=== PATIENT | female | born 1935 | race Caucasian/White ===

== ENCOUNTER 2017-10-31 07:00 | Day surgery (SDC) | payer OTHER ==
[2017-10-31] MEDS ORDERED: LIDOCAINE 2% MPF 5 ML VIAL ONE (07:33)
[2017-10-31] MEDS ORDERED: BUPIVACAINE 0.25% PF 10 ML VIAL ONE (07:33)
[2017-10-31] MEDS ORDERED: CYCLOPENTOLATE 1% OPTH 2 ML ONE (07:33)
[2017-10-31] MEDS ORDERED: NA CHLORIDE 0.9% 500 ML ONE (07:34)
[2017-10-31] MEDS ORDERED: TETRACAINE HCL 0.5% 2ML OPTH ONE (07:34)
[2017-10-31] MEDS ORDERED: PHENYLEPHRINE 10% OPTH 5ML ONE (07:34)
[2017-10-31] MEDS ORDERED: NS 0.9% VIAL 10 ML ONE (07:45)
[2017-10-31] MEDS ORDERED: EPINEPHRINE/PF 1 MG/ML AMP ONE (07:46)
[2017-10-31] MEDS ORDERED: BALANCED SALT IRRIG PLAIN 500 ML BTL IRR ONE (07:46)
[2017-10-31] MEDS ORDERED: DUOVISC 1 KIT OPTH ONE (07:47)
[2017-10-31] MEDS ORDERED: MOXIFLOXACIN HCL 10 DROPS/ML **OR USE OPTH ONE (07:48)
[2017-10-31] MEDS ORDERED: PROPOFOL 200 MG/20 ML VIAL IV ONE (08:15)
[2017-10-31] MEDS ORDERED: LIDOCAINE 1% MPF 2 ML AMPULE ONE ×2 (08:39→10:22)
--- NOTE | 2017-10-31 08:50 | P.BOP ---
Preoperative diagnosis: Nuclear sclerotic and posterior subcapsular cataract OD Postoperative diagnosis: Same Primary procedure: Phacoemulsification with IOL OD Estimated blood loss: None Anesthesia: Local (Subtenon's infusion with anesthesia for cataract surgery) Complications: None Implants: [id number] +23.0 Transferred to: Other (Day surgery) Condition: Good
--- OUTSIDE RECORDS SUMMARY | 2017-10-31 12:22 | XMS REPORT | Clinical Summary ---
:1935 Author Organization [facility] Address [address] [place] [address] Care Team Providers Name Role Phone Blayne Hernadez MD Primary Care Provider Allergies No Known Allergies Current Medications Prescription Sig. Disp. Refills Start End Date Status Date ALPRAZolam (XANAX) Active 0.5 MG tablet 6 atorvastatin Active (LIPITOR) 20 MG 6 tablet clopidogrel (PLAVIX) Active 75 mg tablet 6 metoprolol succinate Active XL (TOPROL-XL) 25 mg 7 24 hr tablet temazepam (RESTORIL) Active 30 mg capsule 6 HYDROcodone-acetamino Active phen (NORCO) 7.5-325 7 mg per tablet traMADol (ULTRAM) 50 Active mg tablet 7 folic acid (FOLVITE) Take 1 mg by Active 1 MG tablet mouth daily. polyethylene glycol Take 17 g by Active (MIRALAX) 17 gram mouth daily. packet acetic acid (VOSOL) 2 Administer 2 Active % otic solution drops into both ears 4 (four) times a day. cholecalciferol, Take 1,000 Active vitamin D3, (VITAMIN Units by mouth D3) 1,000 unit tablet daily. docusate sodium Take 200 mg by Active (COLACE) 100 MG mouth daily. capsule methocarbamol Active (ROBAXIN) 500 MG 7 tablet pantoprazole Take 1 tablet 180 tablet 3 Active (PROTONIX) 40 MG EC (40 mg total) 7 tabletIndications: by mouth 2 Gastroesophageal (two) times a reflux disease day. without esophagitis levoFLOXacin Active (LEVAQUIN) 500 MG 8 tablet losartan (COZAAR) 100 Take 1 tablet 90 tablet 3 09/07/19 Active MG tablet (100 mg total) 8 19 by mouth daily. methylnaltrexone Take 450 mg by 30 tablet 0 11/04/19 Active (RELISTOR) 150 mg mouth daily for 8 18 tablet 10 days. Take 3 pills every morning on empty stomach and wait 30 minutes to eat losartan (COZAAR) 50 Take 1 tablet 90 tablet 2 02/21/19 Discontinued MG tabletIndications: (50 mg total) 7 18 CAD in [place] artery, by mouth daily. Chronic systolic congestive heart failure furosemide (LASIX) 40 Take 1 tablet 180 tablet 2 10/09/19 mg tabletIndications: (40 mg total) 7 18 CAD in [place] artery, by mouth 2 Chronic systolic (two) times a congestive heart day. failure pantoprazole Take 1 tablet 180 tablet 3 01/05/20 Discontinued (PROTONIX) 40 MG EC (40 mg total) 7 17 tabletIndications: by mouth 2 Gastroesophageal (two) times a reflux disease day. without esophagitis losartan (COZAAR) 50 Take 1 tablet 90 tablet 3 09/07/19 Discontinued MG tabletIndications: (50 mg total) 8 18 CAD in [place] artery, by mouth daily. 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 02/17/2016 History of coronary artery bypass graft 02/17/2016 Encounters Date Type Specialty Care Team Description 10/24/2017 Office Visit Gastroenterology Gricel Case Dysphagia, unspecified type (Primary Dx); MD Richi Gastroesophageal reflux disease, esophagitis presence not specified; Diverticulosis of large intestine without hemorrhage; detention (current) use of antithrombotics/antiplatelets; Liver hemangioma; Drug-induced constipation 09/06/2017 Office Visit Cardiology Jerald Castillo History of coronary artery bypass graft (Primary Dx); MD Yamile Stented coronary artery 08/30/2017 Telephone Gastroenterology Evelyn Quesada MA 03/01/2017 Office Visit Cardiology Jerald Castillo CAD in [place] artery ( Primary Dx); MD Yamile History of coronary artery bypass graft; Stented coronary artery 02/21/2017 Refill Cardiology Jerald Castillo Med Refill MD Yamile 02/18/2017 Refill Cardiology Jerald Castillo Med Refill MD Yamile 01/04/2017 Telephone Gastroenterology Demarco, Gastroesophageal reflux EuLYLE britton disease without esophagitis 12/20/2016 Telephone Gastroenterology Demarco Gastroesophageal reflux EuLYLE britton disease without esophagitis (Primary Dx) 11/26/2016 Telephone Gastroenterology Demarco, Pharyngeal dysphagia LYLE Anne (Primary Dx) 11/15/2016 Telephone Gastroenterology Oneida Castaneda LVN 11/11/2016 Hospital Encounter Radiology Gricel Case, geovannyified MD Richi type after 10/30/2016 Family History Medical History Relation Name Comments Heart attack Father Heart attack Mother Colon cancer Son Relation Name Status Comments Father Mother Son Social History Tobacco Use Types Packs/Day Years Used Date Former Smoker 1 35 1956 - 1991 Smokeless Tobacco: Never Used Alcohol Use Drinks/Week oz/Week Comments Yes Sex Assigned at Date Recorded Not on file Last Filed Vital Signs Vital Sign Reading Time Taken Blood Pressure 176/71 10/24/2017 2:06 PM CDT Pulse 57 10/24/2017 2:06 PM CDT Temperature 36.6 C (97.9 F) 10/24/2017 2:06 PM CDT Respiratory Rate - - Oxygen Saturation - - Inhaled Oxygen Concentration - - Weight 72.6 kg (160 lb) 10/24/2017 2:06 PM CDT Height 149.9 cm (4' 11") 10/24/2017 2:06 PM CDT Body Mass Index 32.32 10/24/2017 2:06 PM CDT Plan of Treatment Date Type Specialty Care Team Description 11/08/2017 Appointment Radiology Gricel Case MD [address] [facility] [address] [place] [address] 03/07/2018 Office Visit Cardiology Jerald Castillo MD [address] [facility] [address] [place] [address] Health Maintenance Due Date Last Done Comments SHINGRIX VACCINE (#1) 09/27/1985 ZOSTER VACCINE 1995 PNEUMOCOCCAL POLYSACCHARIDE VACCINE AGE 65 AND OVER 09/27/2000 PNEUMOCOCCAL-13 09/27/2000 INFLUENZA VACCINE 09/07/2017 Implants Implanted Type Area Security Services Manager Device Expiration Model / Identifier Date Serial / Lot Stent Catheter Synergy (Otw) 3.00mm X 32mm - [id number] Coronary N/A: N/[place] [facility] [id number] / Implanted: 05/07/2016 (Quantity not on file) Stents INTERVENTIONAL / CARDIOLOGY Stent Catheter Synergy (Otw) 3.00mm X 16mm - [id number] Coronary N/A: N/A [facility] [id number] / Implanted: 05/07/2016 (Quantity not on file) Stents INTERVENTIONAL / CARDIOLOGY Procedures Procedure Name Priority Date/Time Associated Diagnosis Comments ECG 12-LEAD Routine 03/01/2017 1:33 CAD in [place] pine artery Results for this PM CORPORATE LOGISTICS MANAGER procedure are in the results section. FL ESOPHAGRAM Routine 11/11/2016 10:35 Dysphagia, Results for this COMPLETE AM CDT unspecified type procedure are in the results section. after 10/30/2016 Results ECG 12 lead (03/01/2017 1:33 PM) Ventricular rate 55 [facility] Atrial rate 55 [facility] KS interval 174 [facility] QRSD interval 88 [facility] QT interval 414 [facility] QTC interval 396 [facility] P axis 1 69 [facility] QRS axis 1 65 [facility] T wave axis 24 [facility] EKG impression Sinus bradycardia-Otherwise normal ECG-In automated comparison with ECG of 25-MAY-2016 13:46,-T wave inversion less evident in Inferior leads- T wave inversion no longer evident in Lateral leads-QT has shortened- Performing Organization Address City/State/Zipcode Phone Number [facility] M[facility] [address] [place] [address] [place] Esophagram Complete (11/11/2016 10:35 AM) Narrative Performed At EXAMINATION:[place] ESOPHAGRAM COMPLETE [facility] CLINICAL HISTORY:R13.10 Dysphagiaunspecified, DIFFICULTY SWALLOWING, DYSPHAGIAOROPHARYNGEALUNEXPLAINED COMPARISON:None. Fluoroscopy time: 1.8 minutes. 5 fluoroscopic exposures. FINDINGS: Single and double contrast barium esophagram was performed. IMPRESSION: 1.There is no evidence of obstructing esophageal mass or stricture. 2.There is a minimally prominent cricopharyngeal bar, although this is higher than the reported level of the patient's symptoms. 3.Mild tertiary contractions are noted. 4.GE junction is patent without evidence of hiatal hernia or gastroesophageal reflux during the course of the exam with provocative maneuvers. [facility]-[id number] Procedure Note Interface, Radiology Results Incoming - 11/11/2016 4:19 PM CDT EXAMINATION: FL ESOPHAGRAM COMPLETE CLINICAL HISTORY: R13.10 Dysphagia unspecified, DIFFICULTY SWALLOWING, DYSPHAGIA OROPHARYNGEAL UNEXPLAINED COMPARISON: None. Fluoroscopy time: 1.8 minutes. 5 fluoroscopic exposures. FINDINGS: Single and double contrast barium esophagram was performed. IMPRESSION: 1. There is no evidence of obstructing esophageal mass or stricture. 2. There is a minimally prominent cricopharyngeal bar, although this is higher than the reported level of the patient's symptoms. 3. Mild tertiary contractions are noted. 4. GE junction is patent without evidence of hiatal hernia or gastroesophageal reflux during the course of the exam with provocative maneuvers. [facility]-[id number] Performing Organization Address City/State/Zipcode Phone Number [facility] [address] [place] [address] after 10/30/2016 Insurance Payer Benefit Plan / Group Subscriber ID Type Phone Address MEDICARE MEDICARE PART A AND B xxxxxxxxxx Medicare [place], [place] y [phone] [place], [place] [id number] Home: [phone] [facility][note 3]
--- NOTE | 2017-10-31 20:09 | OP ---
Date of Procedure: 10/31/2017 Surgeon: July Ballesteros MD Anesthesiologist: 1. Gail Engel CRNA. 2. Hema Oneil M.D. Preoperative Diagnosis: Nuclear sclerotic cataract and posterior subcapsular cataract, right eye. Operation Performed: Phacoemulsification with intraocular lens implant, right eye. Anesthesia: Per cataract surgery. Complications: Description Of Procedure: In day surgery, the patient was prepped with Betadine and draped. A conju nctival incision was made in the inferior nasal quadrant with Mandy scissors. A sub-Tenon block c onsisting of a 1:1 mixture of 2% Xylocaine and 0.25% bupivacaine was placed through the conjunctival incision with a blunt cannula. A Honan balloon was placed over the eye and the patient was transferr ed to the operating room. In the operating room the patient was prepped and draped in the usual sterile fashion for ophthalmic surgery. A lid speculum was placed in the right eye. Two paracentesis sites were made superiorly an d inferiorly in the limbal cornea. Viscoat was placed in the anterior chamber and a crescent blade w as used to make a corneal groove and tunnel, and a keratome was used to enter the anterior chamber. Provisc was placed in the anterior chamber and a 360 degree capsulotomy was performed with a cystitom e. The lens was hydrodissected with BSS and rotated freely. The lens was removed with a stop and ch op technique. A 13.46 phaco CDE was used to remove the lens. Residual cortex was removed with the i rrigation and aspiration. Provisc was placed in the capsular bag. A ZCB00 +23.0 lens was placed in the capsular bag without complications. Irrigation and aspiration were used to remove residual visco elastic. The paracentesis sites were hydrated with BSS. The wound and paracentesis sites were inspe cted and found to be watertight. Vigamox 0.07 cc was placed intracamerally at the end of the procedu re. The eye was irrigated with balanced salt solution. The eye was patched with a soft cotton patch and Choi metal shield. The patient was returned to day surgery in good condition. Comments: The lens was slightly loose. Discharge Instructions: Ms. Meek was discharged to home in good condition and is to follow up w ith Dr. Leidlein in the morning. SHANDRA/RENETTA Voice ID: [id number] Report ID: [id number]
== END 2017-10-31 09:25 | disposition home or self-care (01) ==
LOC: OR 07:00
PROVIDERS: ATTEND Ophthalmology Retina Specialist
PROC: 08RJ3JZ Replacement of Right Lens with Synthetic Substitute, Percutaneous Approach (ICD-10-PCS; principal; 2017-10-31 08:30)
DX: H25.11 Age-related nuclear cataract, right eye (principal); H25.041 Posterior subcapsular polar age-related cataract, right eye; H35.3120 Nonexudative age-related macular degeneration, left eye, stage unspecified; I10 Essential (primary) hypertension; E78.5 Hyperlipidemia, unspecified; I25.2 Old myocardial infarction; Z95.1 Presence of aortocoronary bypass graft; Z95.5 Presence of coronary angioplasty implant and graft; Z83.518 Family history of other specified eye disorder; Z82.3 Family history of stroke; Z80.9 Family history of malignant neoplasm, unspecified
CPT/HCPCS: 66984; J0171; J2001 ×2

== ENCOUNTER 2018-02-11 15:11 | Emergency (ER) | payer OTHER ==
--- OUTSIDE RECORDS SUMMARY | 2018-02-11 15:14 | XMS REPORT | Clinical Summary ---
:1935 Author Organization [facility] Address [address] [place] [address] Care Team Providers Name Role Phone Blayne Hernadez MD Primary Care Provider Allergies No Known Allergies Medications Medication Sig Dispensed Refills Start End Date Status Date ALPRAZolam (XANAX) 0 Active 0.5 MG tablet 6 atorvastatin 0 Active (LIPITOR) 20 MG 6 tablet clopidogrel (PLAVIX) 0 Active 75 mg tablet 6 temazepam (RESTORIL) 0 Active 30 mg capsule 6 HYDROcodone-acetamino 0 Active phen (NORCO) 7.5-325 7 mg per tablet traMADol (ULTRAM) 50 0 Active mg tablet 7 folic acid (FOLVITE) Take 1 mg by 0 Active 1 MG tablet mouth daily. polyethylene glycol Take 17 g by 0 Active (MIRALAX) 17 gram mouth daily. packet acetic acid (VOSOL) 2 Administer 2 0 Active % otic solution drops into both ears 4 (four) times a day. cholecalciferol, Take 1,000 0 Active vitamin D3, (VITAMIN Units by mouth D3) 1,000 unit tablet daily. docusate sodium Take 200 mg by 0 Active (COLACE) 100 MG mouth daily. capsule methocarbamol 0 Active (ROBAXIN) 500 MG 7 tablet pantoprazole Take 1 tablet 180 tablet 3 Active (PROTONIX) 40 MG EC (40 mg total) 7 tabletIndications: by mouth 2 Gastroesophageal (two) times a reflux disease day. without esophagitis levoFLOXacin 0 Active (LEVAQUIN) 500 MG 8 tablet metoprolol succinate Take 2 tablets 90 tablet 3 Active XL (TOPROL-XL) 25 mg (50 mg total) 8 24 hr tablet by mouth daily. losartan (COZAAR) 100 Take 1 tablet 90 tablet 3 11/02/19 Active MG tablet (100 mg total) 8 19 by mouth daily. metoprolol succinate 0 11/01/19 Discontinued XL (TOPROL-XL) 25 mg 7 18 24 hr tablet losartan (COZAAR) 50 Take 1 tablet 90 tablet 2 02/21/19 Discontinued MG tabletIndications: (50 mg total) 7 18 CAD in [place] artery, by mouth daily. Chronic systolic congestive heart failure (HCC) furosemide (LASIX) 40 Take 1 tablet 180 tablet 2 10/09/19 mg tabletIndications: (40 mg total) 7 18 CAD in [place] artery, by mouth 2 Chronic systolic (two) times a congestive heart day. failure (HCC) losartan (COZAAR) 50 Take 1 tablet 90 tablet 3 09/07/19 Discontinued MG tabletIndications: (50 mg total) 8 18 CAD in [place] artery, by mouth daily. Chronic systolic congestive heart failure (HCC) losartan (COZAAR) 100 Take 1 tablet 90 tablet 3 11/02/19 Discontinued MG tablet (100 mg total) 8 18 by mouth daily. methylnaltrexone Take 450 mg by 30 tablet 0 11/04/19 (RELISTOR) 150 mg mouth daily for 8 18 tablet 10 days. Take 3 pills every morning on empty stomach and wait 30 minutes to eat Active Problems Problem Noted Date Stented coronary artery 03/01/2017 Coronary artery disease involving iroquois coronary artery of iroquois heart 08/17 without angina pectoris SOB (shortness of breath) 05/25/2016 CAD in [place] artery 05/25/2016 Chronic systolic congestive heart failure 05/25/2016 NSTEMI (non-ST elevated myocardial infarction) 05/06/2016 Coronary artery disease involving [place]roquois heart with angina pectoris 02/17/2016 History of coronary artery bypass graft 02/17/2016 Encounters Date Type Specialty Care Team Description 12/06/2017 Telephone Gastroenterology Oneida Castaneda LVN 12/01/2017 Hospital Encounter Radiology Gricel Csae Dysphagia, unspecified MD Richi type 11/11/2017 Telephone Gastroenterology Evelyn Quesada, [place] 11/01/2017 Refill Cardiology Gini, Med Refill Ruth, LYLE 10/31/2017 Telephone Cardiology Abilio Thompson, Follow-up [place] 10/24/2017 Office Visit Gastroenterology Gricel Case Dysphagia, unspecified type (Primary Dx); MD Richi Gastroesophageal reflux disease, esophagitis presence not specified; Diverticulosis of large intestine without hemorrhage; 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; Liver hemangioma; Drug-induced constipation 09/06/2017 Office Visit Cardiology Jerald Castillo History of coronary artery bypass graft (Primary Dx); MD Yamile Stented coronary artery 08/30/2017 Telephone Gastroenterology Evelyn Quesada, [place] 03/01/2017 Office Visit Cardiology Jerald Castillo CAD in [place]roquois artery ( Primary Dx); MD Yamile History of coronary artery bypass graft; Stented coronary artery 02/21/2017 Refill Cardiology Jerald Castillo MD 02/18/2017 Refill Cardiology Jerald Castillo Med Refill MD Yamile after 02/10/2017 Family History Medical History Relation Name Comments Heart attack Father Heart attack Mother Colon cancer Son Relation Name Status Comments Father Mother Son Social History Tobacco Use Types Packs/Day Years Used Date Former Smoker 1 35 7 - 1991 Smokeless Tobacco: Never Used Alcohol Use Drinks/Week oz/Week Comments Yes Sex Assigned at Date Recorded Not on file Job Start Date Occupation Industry Not on file Not on file Not on file Travel History Travel Start Travel End No recent travel history available. Last Filed Vital Signs Vital Sign Reading [...] Treatment Date Type Specialty Care Team Description 03/07/2018 Office Visit Cardiology Jerald Castillo MD [address] [facility] [address] [place] [address] Health Maintenance Due Date Last Done Comments SHINGLES VACCINES (1 of 2) 09/27/1985 PNEUMOCOCCAL POLYSACCHARIDE VACCINE AGE 65 AND OVER 09/27/2000 PNEUMOCOCCAL-13 09/27/2000 INFLUENZA VACCINE 09/07/2017 Implants Implanted Type Area Chief Optometry Service Device Shelf Model / Identifier Expiration Serial / Date Lot Stent Catheter Synergy (Otw) 3.00mm X 32mm - [id number] Coronary N/A: N/A [facility] [place] [id number] / Implanted: 05/07/2016 (Quantity not on file) Stents INTERVENTIONAL / CARDIOLOGY Stent Catheter Synergy (Otw) 3.00mm X 16mm - [id number] Coronary N/A: N/A [facility] [id number] / Implanted: 05/07/2016 (Quantity not on file) Stents INTERVENTIONAL / CARDIOLOGY Procedures Procedure Name Priority Date/Time Associated Diagnosis Comments FL MODIFIED BARIUM Routine 12/01/2017 1:18 PM Dysphagia, Results for this SWALLOW CDT unspecified type procedure are in the results section. ECG 12-LEAD Routine 03/01/2017 1:33 PM CAD in iroquois artery Results for this PROFESSOR OF MECHANICAL ENGINEERING procedure are in the results section. after 02/10/2017 Results FL Modified Barium Swallow (12/01/2017 1:18 PM CDT) Narrative Performed At EXAMINATION:FL MODIFIED BARIUM SWALLOW [facility] CLINICAL HISTORY:R13.10 Dysphagiaunspecified, oropharyngeal dysphagiacricopharyngeal bar vs other COMPARISON:Esophagram 11/11/2016. Fluoroscopy time: 0.9 minutes. 2 images. IMPRESSION: The patient was given multiple consistencies of barium. The swallowing act was normal. There was no evidence of aspiration or penetration. There is moderate smooth concave indentation of the posterior upper esophagus at the level of C4-5, which appears to be predominantly secondary to cervical spine osteophytosis. Please refer to Speech Pathology report for further details. [facility]-[id number] Procedure Note Interface, Radiology Results Incoming - 12/01/2017 1:40 PM CDT EXAMINATION: FL MODIFIED BARIUM SWALLOW CLINICAL HISTORY: R13.10 Dysphagia unspecified, oropharyngeal dysphagia cricopharyngeal bar vs other COMPARISON: Esophagram 11/11/2016. Fluoroscopy time: 0.9 minutes. 2 images. IMPRESSION: The patient was given multiple consistencies of barium. The swallowing act was normal. There was no evidence of aspiration or penetration. There is moderate smooth concave indentation of the posterior upper esophagus at the level of C4-5, which appears to be predominantly secondary to cervical spine osteophytosis. Please refer to Speech Pathology report for further details. [facility]-[id number] Performing Organization Address City/[facility] Phone Number [facility] [address] [place] [address] ECG 12 lead (03/01/2017 1:33 PM PROFESSOR OF MECHANICAL ENGINEERING) Ventricular rate 55 [facility] Atrial rate 55 [facility] M[facility] TN interval 174 [facility] M[facility] QRSD interval 88 [facility] M[facility] QT interval 414 [facility] M[facility] QTC interval 396 [facility] M[facility] P axis 1 69 [facility]USE QRS axis 1 65 [facility] MUSE T wave axis 24 [facility] M[facility] EKG impression Sinus bradycardia-Otherwise normal ECG-In automated comparison with ECG of 25-MAY-2016 13:46,-T wave inversion less evident in Inferior leads- T wave inversion no longer evident in Lateral leads-QT has shortened- Performing Organization Address [facility] Phone Number [facility] TEE [address] [place] [address] after 02/10/2017 Insurance Payer Benefit Plan / Group Subscriber ID Type Phone Address MEDICARE MEDICARE PART A AND B xxxxxxxxxx Medicare [place], [place] [phone] (Work) Advance Directives Patient has advance care planning documents on file. For more information, please contact:Muhammad [address] [place] [address]
--- NOTE | 2018-02-11 16:15 | RAD REPORT ---
EXAM DESCRIPTION: CT - Head Brain Wo Cont - 02/11/2018 3:57 pm CLINICAL HISTORY: Head injury status post fall. Headache COMPARISON: 2017 TECHNIQUE: Computed axial tomography of the head was obtained. IV contrast was not requested. All CT scans are performed using dose optimization technique as appropriate and may include automated exposure control or mA/KV adjustment according to patient size. FINDINGS: An intracranial bleed is not seen . The ventricles are normal in caliber. No extra-axial fluid collection is noted. Fluid within the sinuses/ mastoids is not seen. IMPRESSION: No acute intracranial abnormality is seen. If patient's symptoms persist MRI of the bra in would be recommended.
--- NOTE | 2018-02-11 17:26 | EDPHYS ---
Physician Documentation [facility] Name: Pinky Meek Age: 82 yrs Sex: Female : 1935 Arrival Date: 02/11/2018 Time: 15:14 Bed 27 Private MD: Emmanuel Hernadez C ED Physician Reyes Ochoa HPI: 02/11 17:10 This 82 yrs old Female presents to ER via Wheelchair with complaints of Fall pm1 Injury, Hand Swelling. 17:10 Details of fall: The patient fell from an upright position, while standing. Onset: The pm1 symptoms/episode began/occurred yesterday. Associated injuries: The patient sustained left hand, left wrist, and left side of forehead. Severity of symptoms: in the emergency department the symptoms are unchanged. The patient has not experienced similar symptoms in the past. The patient has not recently seen a physician. Patient slipped on concrete and landed on her left hand and hit the left side of her forehead. No LOC, headache, or neck pain. Patient with complaints of left lateral hand swelling and pain, and left wrist pain.. Historical: - Allergies: 15:44 No Known Allergies; aj - Home Meds: 15:44 Acetasol HC 1-2 % Otic drop 2 drops 4 times per day [Active]; Align 4 mg Oral cap aj [Active]; alprazolam 0.5 mg Oral Tb24 1 tab once daily [Active]; B complex-minerals Oral [Active]; clotrimazole-betamethasone 1-0.05 % Topical crea 2 times per day [Active]; Dulcolax (bisacodyl) 5 mg Oral TbEC 1 tab [Active]; folic acid 1 mg Oral tab 1 tab once daily [Active]; hydrocodone-acetaminophen 7.5-325 mg oral tab [Active]; Imdur 30 mg Oral Tb24 1 tab once daily [Active]; Lipitor 20 mg Oral tab 1 tab once daily [Active]; losartan 12.5 mg Oral [Active]; Miralax 17 gram/dose Oral powd once daily [Active]; Nitrostat 0.4 mg SL subl 1 tab every 5 minutes [Active]; Plavix 75 mg Oral tab 1 tab once daily [Active]; Protonix 40 mg Oral grps 1 packet once daily [Active]; temazepam 30 mg Oral cap 1 cap once daily [Active]; Toprol XL 25 mg Oral Tb24 1 tab once daily [Active]; tramadol 50 mg Oral tab 1 tab every 4 hours [Active]; Vitamin C 500 mg Oral tab [Active]; Vitamin D3 Complete 18 mg iron-800 mcg-150 mg Oral tab [Active]; - PMHx: 15:44 Chronic pain; Hyperlipidemia; Hypertension; aj - PSHx: 15:44 total knee replacement; Triple bypass; aj - Immunization history: Last tetanus immunization: - up to date. - Social history:: Smoking status: Patient/guardian denies using tobacco. - Ebola Screening: : Patient negative for fever greater than or equal to 101.5 degrees Fahrenheit, and additional compatible Ebola Virus Disease symptoms Patient denies exposure to infectious person Patient denies travel to an Ebola-affected area in the 21 days before illness onset No symptoms or risks identified at this time. ROS: 17:10 Constitutional: Negative for fever, chills, and weight loss, Eyes: Negative for injury, pm1 pain, redness, and discharge, ENT: Negative for injury, pain, and discharge, Neck: Negative for injury, pain, and swelling, Cardiovascular: Negative for chest pain, palpitations, and edema, Respiratory: Negative for shortness of breath, cough, wheezing, and pleuritic chest pain, Abdomen/GI: Negative for abdominal pain, nausea, vomiting, diarrhea, and constipation, Back: Negative for injury and pain, : Negative for injury, bleeding, discharge, and swelling. 17:10 Skin: Negative for injury, rash, and discoloration, Neuro: Negative for headache, weakness, numbness, tingling, and seizure. 17:10 MS/extremity: Positive for pain, swelling, tenderness, of the left hand, left wrist, Negative for decreased range of motion, deformity. Exam: 17:10 Constitutional: This is a well developed, well nourished patient who is awake, alert, pm1 and in no acute distress. Head/Face: Normocephalic, atraumatic. Eyes: Pupils equal round and reactive to light, extra-ocular motions intact. Lids and lashes normal. Conjunctiva and sclera are non-icteric and not injected. Cornea within normal limits. Periorbital areas with no swelling, redness, or edema. ENT: Nares patent. No nasal discharge, no septal abnormalities noted. Tympanic membranes are normal and external auditory canals are clear. Oropharynx with no redness, swelling, or masses, exudates, or evidence of obstruction, uvula midline. Mucous membranes moist. Neck: Trachea midline, no thyromegaly or masses palpated, and no cervical lymphadenopathy. Supple, full range of motion without nuchal rigidity, or vertebral point tenderness. No Meningismus. Chest/axilla: Normal chest wall appearance and motion. Nontender with no deformity. No lesions are appreciated. Cardiovascular: Regular rate and rhythm with a normal S1 and S2. No gallops, murmurs, or rubs. Normal PMI, no JVD. No pulse deficits. Respiratory: Lungs have equal breath sounds bilaterally, clear to auscultation and percussion. No rales, rhonchi or wheezes noted. No increased work of breathing, no retractions or nasal flaring. Abdomen/GI: Soft, non-tender, with normal bowel sounds. No distension or tympany. No guarding or rebound. No evidence of tenderness throughout. Back: No spinal tenderness. No costovertebral tenderness. Full range of motion. Skin: Warm, dry with normal turgor. Normal color with no rashes, no lesions, and no evidence of cellulitis. 17:10 Musculoskeletal/extremity: Extremities: grossly normal except: noted in the medial aspect of left hand: ecchymosis, swelling, tenderness, There is no evidence of decreased ROM, deformity, noted in the left wrist: tenderness, no evidence of decreased ROM, deformity, Circulation is intact in all extremities. 17:10 Neuro: Orientation: is normal, Motor: is normal. Vital Signs: 15:36 BP 131 / 66; Pulse 59; Resp 20; Temp 97.2; Pulse Ox 98% on R/A; Weight 70.31 kg; Height aj 4 ft. 11 in. (149.86 cm) (M); 16:20 BP 129 / 76; Pulse 62; Resp 17; Temp 98.2(O); Pulse Ox 100% on R/A; Pain 7/10; ed1 17:20 BP 125 / 84; Pulse 61; Resp 17; Temp 98.2(O); Pulse Ox 100% on R/A; Pain 6/10; ed1 18:05 BP 122 / 79; Pulse 62; Resp 17; Temp 98.1(O); Pulse Ox 100% on R/A; Pain 4/10; ed1 15:36 Body Mass Index 31.31 (70.31 kg, 149.86 cm) [place] Coma Score: 15:36 Eye Response: spontaneous(4). Verbal Response: oriented(5). Motor Response: obeys aj commands(6). Total: 15. Trauma Score (Adult): 15:36 Eye Response: spontaneous(1); Verbal Response: oriented(1); Motor Response: obeys aj commands(2); Systolic BP: > 89 mm Hg(4); Respiratory Rate: 10 to 29 per min(4); [place] Score: 15; Trauma Score: 12 16:20 Eye Response: spontaneous(1); Verbal Response: oriented(1); Motor Response: obeys ed1 commands(2); Systolic BP: > 89 mm Hg(4); Respiratory Rate: 10 to 29 per min(4); [place] Score: 15; Trauma Score: 12 17:20 Eye Response: spontaneous(1); Verbal Response: oriented(1); Motor Response: obeys ed1 commands(2); Systolic BP: > 89 mm Hg(4); Respiratory Rate: 10 to 29 per min(4); Cristela Score: 15; Trauma Score: 12 18:05 Eye Response: spontaneous(1); Verbal Response: oriented(1); Motor Response: obeys ed1 commands(2); Systolic BP: > 89 mm Hg(4); Respiratory Rate: 10 to 29 per min(4); Cristela Score: 15; Trauma Score: 12 MDM: 16:21 Patient medically screened. pm1 17:23 Data reviewed: vital signs. Data interpreted: Pulse oximetry: on room air is 100 %. pm1 Interpretation: normal. Counseling: I had a detailed discussion with the patient and/or guardian regarding: the historical points, exam findings, and any diagnostic results supporting the discharge/admit diagnosis, radiology results, the need for outpatient follow up, a orthopedic surgeon, to return to the emergency department if symptoms worsen or persist or if there are any questions or concerns that arise at home. 02/11 15:36 Order name: CT Head Brain wo Cont; Complete Time: 16:48 02/11 15:36 Order name: XRAY Hand LEFT 3 View 02/11 15:36 Order name: XRAY Wrist LEFT 3 view 02/11 17:09 Order name: Splint - Ulnar Gutter; Complete Time: 17:33 pm1 Administered Medications: No medications were administered Disposition: 02/11/18 17:25 Discharged to Home. Impression: Contusion of left hand, Pain in left wrist, Superficial injury of head. - Condition is Stable. - Discharge Instructions: Cast or Splint Care, Adult, Hand Contusion, Head Injury, Adult, Wrist Pain, [id number]. - Medication Reconciliation Form, Thank You Letter, Antibiotic Education, Prescription Opioid Use form. - Follow up: Emergency Department; When: As needed; Reason: Worsening of condition. - Problem is new. - Symptoms have improved. Addendum: 02/15/2018 08:00 Co-signature as Attending Physician, Reyes Ochoa MD I agree with the assessment and c fuchs plan of care. Signatures: Dispatcher [employer] EDMS Brook Ingram RN RN aj Anderson, Corey, MD MD cha Riggs, Erika, MICROBIOLOGY TECHNOLOGIST MICROBIOLOGY TECHNOLOGIST ed1 René Mcqueen, ELECTRIC MOTORS SALESPERSON ELECTRIC MOTORS SALESPERSON pm1 Corrections: (The following items were deleted from the chart) 02/11 18:10 17:25 02/11/2018 17:25 Discharged to Home. Impression: Contusion of left hand; Pain in ed1 left wrist; Superficial injury of head. Condition is Stable. Forms are Medication Reconciliation Form, Thank You Letter, Antibiotic Education, Prescription Opioid Use. Follow up: Emergency Department; When: As needed; Reason: Worsening of condition. Problem is new. Symptoms have improved. pm1
--- NOTE | 2018-02-11 17:26 | ER ---
Nurse's Notes [facility] Name: Pinky Meek Age: 82 yrs Sex: Female : 1935 Arrival Date: 02/11/2018 Time: 15:14 Bed 27 Private MD: Emmanuel Hernadez C Diagnosis: Contusion of left hand;Pain in left wrist;Superficial injury of head Presentation: 02/11 15:36 Presenting complaint: Patient states: Reports slip and fall hitting left hand, left aj wrist and left forehead on concrete yesterday at 1600. Denies LOC. Care prior to arrival: None. Mechanism of Injury: Fall from standing position. Trauma event details: Injury occurred in the [facility], Injury occurred: at home. Injury occurred: February 10, 2018 Injury occurred at: 16:00. 15:36 Acuity: MATHEUS 4 aj 15:36 Method Of Arrival: Wheelchair 16:20 Transition of care: patient was not received from another setting of care. Onset of ed1 symptoms was February 10, 2018. Risk Assessment: Do you want to hurt yourself or someone else? Patient reports no desire to harm self or others. Initial Sepsis Screen: Does the patient meet any 2 criteria? No. Patient's initial sepsis screen is negative. Does the patient have a suspected source of infection? No. Patient's initial sepsis screen is negative. Trauma Activation: Not Applicable Physician: ED Physician; Name: ; Notified At: ; Arrived At: Physician: General Surgeon; Name: ; Notified At: ; Arrived At: Physician: Radiology; Name: ; Notified At: ; Arrived At: Physician: Respiratory; Name: ; Notified At: ; Arrived At: Physician: Lab; Name: ; Notified At: ; Arrived At: Historical: - Allergies: 15:44 No Known Allergies; aj - Home Meds: 15:44 Acetasol HC 1-2 % Otic drop 2 drops 4 times per day [Active]; Align 4 mg Oral cap aj [Active]; alprazolam 0.5 mg Oral Tb24 1 tab once daily [Active]; B complex-minerals Oral [Active]; clotrimazole-betamethasone 1-0.05 % Topical crea 2 times per day [Active]; Dulcolax (bisacodyl) 5 mg Oral TbEC 1 tab [Active]; folic acid 1 mg Oral tab 1 tab once daily [Active]; hydrocodone-acetaminophen 7.5-325 mg oral tab [Active]; Imdur 30 mg Oral Tb24 1 tab once daily [Active]; Lipitor 20 mg Oral tab 1 tab once daily [Active]; losartan 12.5 mg Oral [Active]; Miralax 17 gram/dose Oral powd once daily [Active]; Nitrostat 0.4 mg SL subl 1 tab every 5 minutes [Active]; Plavix 75 mg Oral tab 1 tab once daily [Active]; Protonix 40 mg Oral grps 1 packet once daily [Active]; temazepam 30 mg Oral cap 1 cap once daily [Active]; Toprol XL 25 mg Oral Tb24 1 tab once daily [Active]; tramadol 50 mg Oral tab 1 tab every 4 hours [Active]; Vitamin C 500 mg Oral tab [Active]; Vitamin D3 Complete 18 mg iron-800 mcg-150 mg Oral tab [Active]; - PMHx: 15:44 Chronic pain; Hyperlipidemia; Hypertension; aj - PSHx: 15:44 total knee replacement; Triple bypass; aj - Immunization history: Last tetanus immunization: - up to date. - Social history:: Smoking status: Patient/guardian denies using tobacco. - Ebola Screening: : Patient negative for fever greater than or equal to 101.5 degrees Fahrenheit, and additional compatible Ebola Virus Disease symptoms Patient denies exposure to infectious person Patient denies travel to an Ebola-affected area in the 21 days before illness onset No symptoms or risks identified at this time. Screenin:21 Abuse screen: Denies threats or abuse. Denies injuries from another. Nutritional ed1 screening: No deficits noted. Tuberculosis screening: No symptoms or risk factors identified. Fall Risk Fall in past 12 months (25 points). No secondary diagnosis (0 pts). No IV (0 pts). Ambulatory Aid- None/Bed Rest/Nurse Assist (0 pts). Gait- Normal/Bed Rest/Wheelchair (0 pts) Mental Status- Oriented to own ability (0 pts). Total Snowden Fall Scale indicates Low Risk Score (25-44 pts). Fall prevention measures have been instituted. Side Rails Up X 2 Frequent Obs/Assesments occuring As available Patient and Family Educated on Fall Prevention Program and strategies. Primary Survey: 15:36 NO uncontrolled hemorrhage observed. Breathing/Chest: Respiratory pattern: regular, aj Respiratory effort: spontaneous, unlabored. Circulation: Skin color: pink, Skin temperature: warm, dry. Disability Alert. 16:20 Exposure/Environment: There is no evidence of uncontrolled external bleeding. A warming ed1 method has been applied: A warm blanket has been provided to the patient. Reassessment Breathing/Chest Respiratory pattern Regular Respiratory effort Spontaneous Unlabored Breath sounds Clear Chest inspection Symmetrical. Assessment: 15:36 General: Appears in no apparent distress. comfortable, Behavior is calm, cooperative, aj appropriate for age. Pain: Complains of pain in left hand and left arm. Neuro: Level of Consciousness is awake, alert, obeys commands, Oriented to person, place, time, situation, Appropriate for age. Respiratory: Airway is patent Respiratory effort is even, unlabored, Respiratory pattern is regular, symmetrical. Derm: Skin is intact, is healthy with good turgor, Skin is pink, warm \\T\\ dry. normal, Bruising that is brown. 16:20 Reassessment: Patient appears in no apparent distress at this time. Patient and/or ed1 family updated on plan of care and expected duration. Pain level reassessed. Patient is alert, oriented x 3, equal unlabored respirations, skin warm/dry/pink. Pt just placed in room by radiology Patient states symptoms have not improved. Musculoskeletal: Circulation, motion, and sensation intact. Capillary refill < 3 seconds, in bilateral fingers. Range of motion: Swelling present in left wrist. 17:20 Reassessment: Patient appears in no apparent distress at this time. Patient and/or ed1 family updated on plan of care and expected duration. Pain level reassessed. Patient is alert, oriented x 3, equal unlabored respirations, skin warm/dry/pink. Patient states symptoms have not improved. 18:05 Reassessment: Patient appears in no apparent distress at this time. Patient and/or ed1 family updated on plan of care and expected duration. Pain level reassessed. Patient is alert, oriented x 3, equal unlabored respirations, skin warm/dry/pink. Pt states "It feels better with this splint in." Patient states feeling better. Patient states symptoms have improved. Vital Signs: 15:36 BP 131 / 66; Pulse 59; Resp 20; Temp 97.2; Pulse Ox 98% on R/A; Weight 70.31 kg; Height aj 4 ft. 11 in. (149.86 cm) (M); 16:20 BP 129 / 76; Pulse 62; Resp 17; Temp 98.2(O); Pulse Ox 100% on R/A; Pain 7/10; ed1 17:20 BP 125 / 84; Pulse 61; Resp 17; Temp 98.2(O); Pulse Ox 100% on R/A; Pain 6/10; ed1 18:05 BP 122 / 79; Pulse 62; Resp 17; Temp 98.1(O); Pulse Ox 100% on R/A; Pain 4/10; ed1 15:36 Body Mass Index 31.31 (70.31 kg, 149.86 cm) aj [place] Coma Score: 15:36 Eye Response: spontaneous(4). Verbal Response: oriented(5). Motor Response: obeys aj commands(6). Total: 15. Trauma Score (Adult): 15:36 Eye Response: spontaneous(1); Verbal Response: oriented(1); Motor Response: obeys aj commands(2); Systolic BP: > 89 mm Hg(4); Respiratory Rate: 10 to 29 per min(4); [place] Score: 15; Trauma Score: 12 16:20 Eye Response: spontaneous(1); Verbal Response: oriented(1); Motor Response: obeys ed1 commands(2); Systolic BP: > 89 mm Hg(4); Respiratory Rate: 10 to 29 per min(4); Cristela Score: 15; Trauma Score: 12 17:20 Eye Response: spontaneous(1); Verbal Response: oriented(1); Motor Response: obeys ed1 commands(2); Systolic BP: > 89 mm Hg(4); Respiratory Rate: 10 to 29 per min(4); [place] Score: 15; Trauma Score: 12 18:05 Eye Response: spontaneous(1); Verbal Response: oriented(1); Motor Response: obeys ed1 commands(2); Systolic BP: > 89 mm Hg(4); Respiratory Rate: 10 to 29 per min(4); [place] Score: 15; Trauma Score: 12 ED Course: 15:14 Patient arrived in ED. mr 15:14 Emmanuel Hernadez MD is Private Physician. mr 15:37 Triage completed. aj 15:44 Arm band placed on left wrist. Patient placed in waiting room, Patient notified of wait aj time. X-ray ordered. CT ordered. 15:57 CT Head Brain wo Cont In Process Unspecified. EDMS 16:02 Reyes Long PA is PHCP. silvia 16:13 René Mcqueen NP is PHCP. pm1 16:13 Reyes Ochoa MD is Attending Physician. pm1 16:14 XRAY Hand LEFT 3 View In Process Unspecified. EDMS 16:14 XRAY Wrist LEFT 3 view In Process Unspecified. EDMS 16:17 Shawna Trevizo LVN is Primary Nurse. ed1 16:20 Patient maintains SpO2 saturation greater than 95% on room air. ed1 16:20 Thermoregulation: warm blanket given to patient. ed1 16:21 Patient has correct armband on for positive identification. Bed in low position. Call ed1 light in reach. Side rails up X 1. 17:33 Orthoglass splint: Ulnar gutter/Boxer splint applied on left forearm. mh5 18:05 No provider procedures requiring assistance completed. Patient did not have IV access ed1 during this emergency room visit. Administered Medications: No medications were administered Intake: 16:20 PO: 0ml; Total: 0ml. ed1 18:05 PO: 0ml; Total: 0ml. ed1 Output: 16:20 Urine: 0ml; Total: 0ml. ed1 18:05 Urine: 0ml; Total: 0ml. ed1 Outcome: 17:25 Discharge ordered by MD. pm1 18:05 Discharged to home ambulatory. ed1 18:05 Condition: good 18:05 Discharge instructions given to patient, Instructed on discharge instructions, follow up and referral plans. splint care Demonstrated understanding of instructions, follow-up care, splint care. 18:09 Patient's length of stay in the Emergency Department was greater than 2 hours. No beds ed1 in ERPatient's length of stay extended due to 18:10 Patient left the ED. ed1 Signatures: Dispatcher [employer] EDMS Brook Ingram RN RN aj Rivera, Mary mr SanthoshShawna LVN LVN ed1 Reyes Long PA PA cp Marinas, Patrick, NP [employer] pm1 Constanza Smith [facility]
--- NOTE | 2018-02-11 18:41 | RAD REPORT ---
EXAM DESCRIPTION: RAD -Hand Left 3 View - 02/11/2018 4:14 pm CLINICAL HISTORY: Left hand pain status post injury FINDINGS: No fracture or dislocation is seen involving the left hand Bones are osteoporotic
--- NOTE | 2018-02-11 18:43 | RAD REPORT ---
EXAM DESCRIPTION: RAD - Wrist Left 3 View - 02/11/2018 4:14 pm CLINICAL HISTORY: Left wrist pain status post injury FINDINGS: The bones are osteoporotic. An oblique lucency is present within the distal aspect of the radius which could represent a prominen t trabecula or nondisplaced fracture A fracture of the ulnar styloid process is suspected of indeterminate age. No dislocation is seen
== END 2018-02-11 18:10 | disposition home or self-care (01) ==
LOC: ER 15:11
DX: S60.222A Contusion of left hand, initial encounter (principal); S00.90XA Unspecified superficial injury of unspecified part of head, initial encounter; W01.198A Fall on same level from slipping, tripping and stumbling with subsequent striking against other object, initial encounter; Y93.89 Activity, other specified; Y92.9 Unspecified place or not applicable; Z79.01 Long term (current) use of anticoagulants; Z95.1 Presence of aortocoronary bypass graft; I10 Essential (primary) hypertension; E78.5 Hyperlipidemia, unspecified
CPT/HCPCS: 70450; 99284

== ENCOUNTER 2018-05-28 12:33 | Inpatient (IN) | payer OTHER ==
--- OUTSIDE RECORDS SUMMARY | 2018-05-28 12:35 | XMS REPORT | Clinical Summary ---
:1935 Author Organization [facility] Address [address] [place] [address] Care Team Providers Name Role Phone Blayne [...] times a reflux disease day. without esophagitis metoprolol succinate Take 2 tablets 90 tablet 3 Active XL (TOPROL-XL) 25 mg (50 mg total) 8 24 hr tablet by mouth daily. losartan (COZAAR) 100 Take 1 tablet 90 tablet 3 11/02/19 Active MG tablet (100 mg total) 8 19 by mouth daily. furosemide (LASIX) 40 Take 1 tablet 180 tablet 3 03/08/19 Active mg tablet (40 mg total) 9 20 by mouth 2 (two) times a day. nitroglycerin 1 under the 100 tablet 11 03/08/19 Active (NITROSTAT) 0.4 MG SL tongue as 9 20 tablet needed for angina, may repeat q5mins for up three doses aspirin (ECOTRIN) 81 Take 81 mg by 0 Active MG enteric coated mouth daily. tablet ascorbic acid, Take 500 mg by 0 Active vitamin C, (ascorbic mouth daily. acid with sophia hips) 500 MG tablet DULCOLAX, BISACODYL, Take by mouth. 0 Active ORAL UNABLE TO FIND 1.66 mg. I-Caps 0 Active metoprolol succinate 0 11/01/19 Discontinued XL (TOPROL-XL) 25 mg 7 18 24 hr tablet furosemide (LASIX) 40 Take 1 tablet 180 tablet 2 10/09/19 mg tabletIndications: (40 mg total) 7 18 CAD in [place] artery, by mouth 2 Chronic systolic (two) times a congestive heart day. failure (HCC) losartan (COZAAR) 50 Take 1 tablet 90 tablet 3 09/07/19 Discontinued MG tabletIndications: (50 mg total) 8 18 CAD in [place] artery, by mouth daily. Chronic systolic congestive heart failure (HCC) levoFLOXacin 0 05/05/19 Discontinued (LEVAQUIN) 500 MG 8 19 tablet losartan (COZAAR) 100 Take 1 tablet [...] coronary artery 03/01/2017 Coronary artery disease involving [place] coronary artery of [place] heart 08/17 without angina pectoris SOB (shortness of breath) 05/25/2016 CAD in [place] artery 05/25/2016 Chronic systolic congestive heart failure 05/25/2016 NSTEMI (non-ST elevated myocardial infarction) 05/06/2016 Coronary artery disease involving [place] heart with angina pectoris 02/17/2016 History of coronary artery bypass graft 02/17/2016 Encounters Date Type Specialty Care Team Description 05/04/2018 Office Visit Gastroenterology Gricel Case Drug-induced constipation (Primary Dx); MD Richi Diverticulosis of large intestine without hemorrhage; Gastroesophageal reflux disease, esophagitis presence not specified; 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; Liver hemangioma; Globus pharyngeus 03/08/2018 Orders Only Cardiology Ganga Chen MA 03/07/2018 Office Visit Cardiology Jerald Castillo Coronary artery disease involving [place] heart with angina pectoris, unspecified vessel or lesion type ( HCC) (Primary Dx); MD Yamile History of coronary artery bypass graft 12/06/2017 Telephone Gastroenterology Oneida Castaneda LVN 12/01/2017 Hospital Encounter Radiology Gricel Case Dysphagia, unspecified MD Richi type 11/11/2017 Telephone Gastroenterology Evelyn Quesada MA 11/01/2017 Refill Cardiology Gini, Kenyon Refill Ruth, LYLE 10/31/2017 Telephone Cardiology Abilio Thompson, Follow-up [place] 10/24/2017 Office Visit GastroenterGricel Rosales Dysphagia, unspecified type (Primary Dx); MD Richi Gastroesophageal reflux disease, esophagitis presence not specified; Diverticulosis of large intestine without hemorrhage; 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; Liver hemangioma; Drug-induced constipation 09/06/2017 Office Visit Cardiology Jerald Castillo History of coronary artery bypass graft (Primary Dx); MD Yamile Stented coronary artery 08/30/2017 Telephone Gastroenterology Evelyn Quesada MA after 05/27/2017 Family History Medical History Relation Name Comments [...] Vital Sign Reading Time Taken Blood Pressure 145/59 05/04/2018 2:29 PM CDT Pulse 51 05/04/2018 2:29 PM CDT Temperature 37.1 C (98.7 F) 05/04/2018 2:29 PM CDT Respiratory Rate - - Oxygen Saturation - - Inhaled Oxygen Concentration - - Weight 73 kg (161 lb) 05/04/2018 2:29 PM CDT Height 149.9 cm (4' 11") 05/04/2018 2:29 PM CDT Body Mass Index 32.52 05/04/2018 2:29 PM CDT Plan of Treatment Date Type Specialty Care Team Description 09/05/2018 Office Visit Cardiology Jerald Castillo MD [address] [address] Health Maintenance Due Date Last Done Comments SHINGLES VACCINES (#1) 09/27/1985 65+ PNEUMOCOCCAL VACCINE (1 of 2 - PCV13) 09/27/2000 PNEUMOCOCCAL POLYSACCHARIDE VACCINE AGE 65 AND OVER 09/27/2000 INFLUENZA VACCINE 09/07/2018 Implants Implanted Type Area Dieing Out Machine Operator Device Shelf Model / Identifier Expiration Serial / Date Lot Stent Catheter Synergy (Otw) 3.00mm X 32mm - [id number] Coronary N/A: N/A [facility] [id number] / Implanted: 05/07/2016 (Quantity not on file) Stents INTERVENTIONAL / CARDIOLOGY Stent Catheter Synergy (Otw) 3.00mm X 16mm - [id number] Coronary N/A: N/A [facility] [id number] / Implanted: 05/07/2016 (Quantity not on file) Stents INTERVENTIONAL / CARDIOLOGY Procedures Procedure Name Priority Date/Time Associated Diagnosis Comments ECG 12-LEAD Routine 03/07/2018 1:26 PM Coronary artery Results for this SALES REPRESENTATIVE GROCERIES disease involving procedure are in [place] heart with the results angina pectoris, section. unspecified vessel or lesion type (HCC) [place] MODIFIED BARIUM Routine 12/01/2017 1:18 PM Dysphagia, Results for this SWALLOW CDT unspecified type procedure are in the results section. after 05/27/2017 Results ECG 12 lead (03/07/2018 1:26 PM SALES REPRESENTATIVE GROCERIES) Ventricular rate 54 [facility] Atrial rate 54 [facility] NH interval 174 [facility] QRSD interval 94 [facility] QT interval 456 [facility] QTC interval 432 [facility] P axis 1 68 [facility] QRS axis 1 58 [facility] T wave axis 18 [facility] EKG impression Sinus bradycardia-Nonspecific [facility] MUSE abnormality-Abnormal ECG-In automated comparison with ECG of 01-MAR-2017 13:33,-No significant change was found- Narrative Performed At Performing Organization Address [facility] Phone Number [facility] [address] [place] [address] [place] Modified Barium Swallow (12/01/2017 1:18 PM [...] to Speech Pathology report for further details. [facility]-[id number] Procedure Note Interface, Radiology Results Incoming - [...] to Speech Pathology report for further details. [facility]-[id number] Performing Organization Address City/State/Zipcode Phone Number JAMMIE KENNEDY [phone] [place] [address] after 05/27/2017 Insurance Payer Benefit Plan / Group Subscriber ID Type Phone Address MEDICARE MEDICARE PART A AND B xxxxxxxxxxx Medicare [place], [place] [phone] [id number] (Work) Advance Directives Patient has advance care planning documents on file. For more information, please contact:bJ Villatoro[address] [place] [address]
--- OUTSIDE RECORDS SUMMARY | 2018-05-28 12:35 | XMS REPORT ---
:1935 Author [facility] Address [address] [place] [address] Dr. Saucedo [address] [place] [id number] Care Team Providers Name Role Phone Unavailable Unavailable Unavailable Problems This patient has no known problems. Allergies, Adverse Reactions, Alerts This patient has no known allergies or adverse reactions. Medications This patient has no known medications.
[2018-05-28] MEDS ORDERED: FENTANYL CITR 100 MCG/2 ML ONE ×2 (13:32→15:20)
[2018-05-28] MEDS ORDERED: ONDANSETRON 4 MG/2 ML VIAL ONE (13:32)
[2018-05-28 13:38] LABS: Potassium 3.6 mmol/L (3.5-5.1)
[2018-05-28 13:45] LABS: Absolute Lymphocytes (CBC) 1.4 K/uL (0.7-4.9); Absolute Monocytes 0.5 K/uL (0.1-1.3); Absolute Neutrophil 4.2 K/uL (1.8-8.0); Basophils % 0.7 % (0-1.3); Eosinophils % 2.5 % (0-4.4); Hematocrit 33.6 % (36.0-45.0); Lymphocytes % 22.2 % (15.3-44.8); MPV 7.8 fL (7.6-11.3); Monocytes % 7.5 % (3.3-12.3); RBC Red Blood Cell Count 3.78 M/uL (3.86-4.86)
--- NOTE | 2018-05-28 15:03 | RAD REPORT ---
EXAM DESCRIPTION: CT - Head C Spine Cap Andrzej Hansen - 05/28/2018 2:40 pm CLINICAL HISTORY: Head and neck injury with chest and abdominal pain status post fall. Head and neck pain . TECHNIQUE: Computed axial tomography of the head and cervical spine was obtained Computed axial tomography of the chest, abdomen and pelvis was obtained. 100 cc Isovue-300 was given intravenously coronal and sagittal reconstruction was performed. All CT scans are performed using dose optimization technique as appropriate and may include automated exposure control or mA/KV adjustment according to patient size. COMPARISON: CT head 2018 CT cervical spine 2016 FINDINGS: Beam hardening artifact limits evaluation at the base of the brain. An intracranial bleed is not seen. The ventricles are normal in caliber. An extra-axial fluid collection is not noted. Flui d is not seen within the sinuses/mastoids. 10 millimeter calcification abuts the anterior left falx w hich may represent a meningioma. No surrounding vasogenic edema A cervical fracture is not seen. No dislocation is seen. Prominent pannus formation surrounds the pos terior aspect of C1 and C2 . Minimal anterior subluxation of C3 on C4 and C6 on C7 is unchanged. Spon dylosis involves the cervical spine A mediastinal hematoma is not noted. A pleural effusion is not present. A lung contusion is not seen. Marked old compression fracture involves the T5 vertebral body The liver, spleen, pancreas, adrenals, kidneys and bladder do not demonstrate a traumatic injury. On the arterial phase there is 5 centimeter area of increased enhancement involving the posterior seg ment of right lobe. Small hepatic cysts present. Fracture involves the intratrochanteric, greater and lesser trochanters right femur. Fracture fragmen ts by 6 millimeters IMPRESSION: 1. No acute intracranial abnormality is seen 2. A cervical fracture is not visualized. If the patient continues have symptoms to suggest intracran ial/spinal cord pathology then MRI would be recommended. 3. No traumatic injury involving the chest, abdomen is seen. 4. Intertrochanteric fracture involving the right femur extending into the greater and lesser trochan ters 5. 5 centimeter enhancing lesion within the liver probably is benign. Nonemergent liver ultrasound re commended for further evaluation
--- NOTE | 2018-05-28 15:03 | RAD REPORT ---
EXAM DESCRIPTION: RAD - Pelvis - 05/28/2018 2:12 pm CLINICAL HISTORY: Pelvic pain status post injury FINDINGS: An intertrochanteric fracture involves the proximal right femur extending into the greater and lesser trochanters. Fracture fragments are by 6 millimeters. No dislocation seen
--- NOTE | 2018-05-28 15:04 | RAD REPORT ---
EXAM DESCRIPTION: RAD - Hip Right 2 View - 05/28/2018 2:12 pm CLINICAL HISTORY: Right hip pain FINDINGS: An intertrochanteric fracture involves the proximal right femur extending into the greater and lesser trochanters. Fracture fragments are by 6 millimeters. No dislocation seen
--- NOTE | 2018-05-28 15:32 | EDPHYS ---
Physician Documentation [facility] Name: Pinky Meek Age: 82 yrs Sex: Female : 1935 Arrival Date: 05/28/2018 Time: 12:48 Bed 16 Private MD: ED Physician Reyes Ochoa HPI: 05/28 13:05 This 82 yrs old Female presents to ER via EMS with complaints of Fall Injury. cp 13:05 Details of fall: The patient fell from an upright position, while walking, and struck a cp tile surface. Onset: The symptoms/episode began/occurred just prior to arrival. Associated injuries: The patient sustained right pelvis and right hip, painful injury. Severity of symptoms: in the emergency department the symptoms are unchanged, despite EMS interventions. Historical: - Allergies: 12:53 No Known Allergies; hb - Home Meds: 12:53 Acetasol HC 1-2 % Otic drop 2 drops 4 times per day [Active]; Align 4 mg Oral cap hb [Active]; alprazolam 0.5 mg Oral Tb24 1 tab once daily [Active]; B complex-minerals Oral [Active]; clotrimazole-betamethasone 1-0.05 % Topical crea 2 times per day [Active]; Dulcolax (bisacodyl) 5 mg Oral TbEC 1 tab [Active]; folic acid 1 mg Oral tab 1 tab once daily [Active]; hydrocodone-acetaminophen 7.5-325 mg Oral tab [Active]; Imdur 30 mg Oral Tb24 1 tab once daily [Active]; Lipitor 20 mg Oral tab 1 tab once daily [Active]; losartan 12.5 mg Oral [Active]; Miralax 17 gram/dose Oral powd once daily [Active]; Nitrostat 0.4 mg SL subl 1 tab every 5 minutes [Active]; Plavix 75 mg Oral tab 1 tab once daily [Active]; Protonix 40 mg Oral grps 1 packet once daily [Active]; temazepam 30 mg Oral cap 1 cap once daily [Active]; Toprol XL 25 mg Oral Tb24 1 tab once daily [Active]; tramadol 50 mg Oral tab 1 tab every 4 hours [Active]; Vitamin C 500 mg Oral tab [Active]; Vitamin D3 Complete 18 mg iron-800 mcg-150 mg Oral tab [Active]; - PMHx: 12:53 Chronic pain; Hyperlipidemia; Hypertension; hb - PSHx: 12:53 total knee replacement; Triple bypass; hb - Immunization history:: Adult Immunizations up to date. - Social history:: Smoking status: Patient/guardian denies using tobacco. - Ebola Screening: : Patient negative for fever greater than or equal to 101.5 degrees Fahrenheit, and additional compatible Ebola Virus Disease symptoms. ROS: 13:10 Constitutional: Negative for body aches, chills, fever, poor PO intake. cp 13:10 Eyes: Negative for injury, pain, redness, and discharge. cp 13:10 ENT: Negative for drainage from ear(s), ear pain, sore throat, difficulty swallowing, difficulty handling secretions. 13:10 Cardiovascular: Negative for chest pain, edema, palpitations. 13:10 Respiratory: Negative for cough, shortness of breath, wheezing. 13:10 Abdomen/GI: Negative for abdominal pain, nausea, vomiting, and diarrhea, constipation, black/tarry stool, rectal bleeding. 13:10 Back: Positive for pain at rest, pain with movement, of the low back. 13:10 : Negative for urinary symptoms. 13:10 Neuro: Negative for altered mental status, dizziness, loss of consciousness, syncope. 13:10 All other systems are negative. Exam: 13:20 Constitutional: The patient appears in no acute distress, alert, awake, cp non-diaphoretic, non-toxic, well developed, well nourished, uncomfortable. 13:20 Head/Face: Normocephalic, atraumatic. cp 13:20 Eyes: Periorbital structures: appear normal, Pupils: equal, round, and reactive to light and accomodation, Extraocular movements: intact throughout, Conjunctiva: normal, no exudate, no injection, Sclera: no appreciated abnormality, Lids and lashes: appear normal, bilaterally. 13:20 ENT: External ear(s): are unremarkable, Ear canal(s): are normal, clear, TM's: are normal, no evidence of bulging, no erythema, Nose: is normal, Mouth: Lips: moist, Oral mucosa: pink and intact, moist, Posterior pharynx: is normal, airway is patent, no erythema, no exudate. 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 13:20 Cardiovascular: Rate: normal, Rhythm: regular, Pulses: Pulses are 2+ in right radial artery, right dorsalis pedis artery, left radial artery and left dorsalis pedis artery. Edema: is not appreciated, JVD: is not appreciated. 13:20 Respiratory: the patient does not display signs of respiratory distress, Respirations: normal, no use of accessory muscles, no retractions, no splinting, no tachypnea, labored breathing, is not present, Breath sounds: are clear throughout, no decreased breath sounds, no stridor, no wheezing. 13:20 Abdomen/GI: Inspection: abdomen appears normal, Bowel sounds: active, all quadrants, Palpation: abdomen is soft and non-tender, in all quadrants, rebound tenderness, is not appreciated, voluntary guarding, is not appreciated, involuntary guarding, is not appreciated. 13:20 Back: pain, that is moderate, of the lumbar area, ROM is painful. 13:20 Musculoskeletal/extremity: Extremities: grossly normal except: noted in the right pelvis and right hip: pain, tenderness. 13:20 Skin: no rash present. 13:20 Neuro: Orientation: to person, place \T\ time. Mentation: is normal, Motor: moves all fours, strength is normal, Sensation: is normal. 16:25 ECG was reviewed by the Attending Physician. cp Vital Signs: 12:32 BP 169 / 64; Pulse 58; Resp 19; Temp 98.2(O); Pulse Ox 94% ; Weight 71.67 kg (R); rb1 Height 4 ft. 11 in. (149.86 cm) (R); Pain 2/10; 13:32 BP 170 / 60; Pulse 58; Resp 18; Pulse Ox 95% on R/A; rb1 14:30 BP 164 / 56; Pulse 61; Resp 17; Pulse Ox 95% on R/A; rb1 15:30 BP 146 / 89; Pulse 72; Resp 16; Pulse Ox 99% on R/A; rb1 16:30 BP 154 / 92; Pulse 77; Resp 17; Pulse Ox 99% on R/A; Pain 2/10; rb1 17:30 BP 155 / 75; Pulse 70; Resp 18; Pulse Ox 88% on R/A; rb1 17:32 rb1 18:25 BP 139 / 58; Pulse 68; Resp 16; Pulse Ox 100% on 3 lpm NC; rb1 19:30 BP 134 / 54; Pulse 67; Resp 22; Pulse Ox 97% on 2 lpm NC; jb4 12:32 Body Mass Index 31.91 (71.67 kg, 149.86 cm) rb1 17:32 Pt. put on 3 L NC rb1 Cristela Coma Score: 12:32 Eye Response: spontaneous(4). Verbal Response: oriented(5). Motor Response: obeys rb1 commands(6). Total: 15. 19:30 Eye Response: spontaneous(4). Verbal Response: oriented(5). Motor Response: obeys jb4 commands(6). Total: 15. Trauma Score (Adult): 12:32 Eye Response: spontaneous(1); Verbal Response: oriented(1); Motor Response: obeys rb1 commands(2); Systolic BP: > 89 mm Hg(4); Respiratory Rate: 10 to 29 per min(4); Cristela Score: 15; Trauma Score: 12 13:32 Eye Response: spontaneous(1); Verbal Response: oriented(1); Motor Response: obeys rb1 commands(2); Systolic BP: > 89 mm Hg(4); Respiratory Rate: 10 to 29 per min(4); Cristela Score: 15; Trauma Score: 12 14:32 Eye Response: spontaneous(1); Verbal Response: oriented(1); Motor Response: obeys rb1 commands(2); Systolic BP: > 89 mm Hg(4); Respiratory Rate: 10 to 29 per min(4); Cristela Score: 15; Trauma Score: 12 15:30 Eye Response: spontaneous(1); Verbal Response: oriented(1); Motor Response: obeys rb1 commands(2); Systolic BP: > 89 mm Hg(4); Respiratory Rate: 10 to 29 per min(4); Cristela Score: 15; Trauma Score: 12 16:30 Eye Response: spontaneous(1); Verbal Response: oriented(1); Motor Response: obeys rb1 commands(2); Systolic BP: > 89 mm Hg(4); Respiratory Rate: 10 to 29 per min(4); [place] Score: 15; Trauma Score: 12 18:25 Eye Response: spontaneous(1); Verbal Response: oriented(1); Motor Response: obeys rb1 commands(2); Systolic BP: > 89 mm Hg(4); Respiratory Rate: 10 to 29 per min(4); Cristela Score: 15; Trauma Score: 12 19:30 Eye Response: spontaneous(1); Verbal Response: oriented(1); Motor Response: obeys jb4 commands(2); Systolic BP: > 89 mm Hg(4); Respiratory Rate: 10 to 29 per min(4); Cristela Score: 15; Trauma Score: 12 MDM: 12:51 Patient medically screened. cp 13:00 Differential diagnosis: closed head injury, contusion, fracture, multiple trauma. cp 15:26 Physician consultation: Darren Schmidt MD was called at 15:26, was contacted at 15:26, cp regarding consult, patient's condition, would like admission per Dr. Emmanuel Hernadez MD. 15:29 Physician consultation: Andrey Boyer MD was called at 15:29, was contacted at 15:29, cp regarding admission, to the telemetry unit. patient's condition. 15:30 Data reviewed: vital signs, nurses notes, lab test result(s), radiologic studies, CT cp scan, plain films, I have discussed the patient's presentation/case with the attending Emergency Department Physician; and as a result, I will admit patient. 15:30 Test interpretation: by ED physician or midlevel provider: plain radiologic studies. cp Counseling: I had a detailed discussion with the patient and/or guardian regarding: the historical points, exam findings, and any diagnostic results supporting the discharge/admit diagnosis, radiology results, the need for further work-up and treatment in the hospital. Response to treatment: the patient's symptoms have markedly improved after treatment. 05/28 12:51 Order name: Basic Metabolic Panel; Complete Time: 14:56 cp 05/28 14:57 Interpretation: Normal except: GFR 62. cp 05/28 12:51 Order name: CBC with Diff; Complete Time: 14:56 cp 05/28 14:57 Interpretation: Normal except: RBC 3.78; HGB 11.7; HCT 33.6. cp 05/28 12:51 Order name: Creatinine for Radiology; Complete Time: 14:56 cp 05/28 12:51 Order name: Type And Screen cp 05/28 12:51 Order name: PT-INR; Complete Time: 14:56 cp 05/28 12:51 Order name: Ptt, Activated; Complete Time: 14:56 cp 05/28 12:51 Order name: XRAY Hip RIGHT 2 view; Complete Time: 15:17 cp 05/28 12:51 Order name: XRAY Pelvis; Complete Time: 15:17 cp 05/28 12:51 Order name: CT Traumagram (Head C Spine CAP W Con); Complete Time: 15:17 cp 05/28 15:09 Order name: XRAY Femur RIGHT; Complete Time: 16:41 cp 05/28 16:30 Order name: Basic Metabolic Panel EDMS 05/28 16:30 Order name: Basic Metabolic Panel EDMS 05/28 16:30 Order name: CBC with Automated Diff EDMS 05/28 16:30 Order name: CBC with Automated Diff EDMS 05/28 12:51 Order name: Labs collected and sent; Complete Time: 13:19 cp 05/28 15:28 Order name: EKG; Complete Time: 15:30 cp 05/28 15:28 Order name: EKG - Nurse/Tech; Complete Time: 16:36 cp 05/28 15:28 Order name: XRAY Chest (1 view); Complete Time: 16:41 cp 05/28 16:41 Interpretation: Report review. 05/28 15:31 Order name: Rod; Complete Time: 16:36 cp 05/28 16:30 Order name: CONS Physician Consult EDWA 05/28 16:30 Order name: NPO EDMS 05/28 17:36 Order name: Diet Regular; Complete Time: 17:36 rb1 EC:25 Rate is 47 beats/min. Rhythm is regular. DE interval is normal. QRS interval is normal. cp QT interval is normal. T waves are Inverted in lead III. Interpreted by me. Reviewed by me. Administered Medications: 13:25 Drug: fentaNYL (PF) 25 mcg Route: IVP; Site: right wrist; rb1 14:00 Follow up: Response: No adverse reaction; Pain is decreased rb1 13:25 Drug: Zofran 4 mg Route: IVP; Site: right wrist; rb1 14:00 Follow up: Response: No adverse reaction; Nausea is decreased rb1 15:17 Drug: fentaNYL (PF) 25 mcg Route: IVP; Site: right wrist; rb1 15:30 Follow up: Response: No adverse reaction; Pain is decreased rb1 17:13 Drug: morphine 4 mg Route: IVP; Site: right wrist; rb1 Disposition: 05/29 07:27 Co-signature as Attending Physician, Reyes Ochoa MD I agree with the assessment and [facility] plan of care. Disposition: 05/28/18 15:31 Hospitalization ordered by Emmanuel Hernadez for Inpatient Admission. Preliminary diagnosis are Intertrochanteric fracture of femur - Right, Fall on same level from slipping, tripping and stumbling. - Bed requested for Telemetry/MedSurg (Inpatient). - Status is Inpatient Admission. jb4 - Condition is Stable. - Problem is new. - Symptoms have improved. UTI on Admission? No Signatures: Dispatcher [employer] EDReyes Reyes MD MD cha Solis, Maria ms Page, Corey, PA PA cp Barber, Rebecca, RN RN rb1 Margarita Grace RN RN Darshan Martins RN RN jb4 Corrections: (The following items were deleted from the chart) 05/28 17:52 15:31 Hospitalization Ordered by A Maricarmen RAMOS for Inpatient Admission. Preliminary ms diagnosis is Intertrochanteric fracture of femur - Right; Fall on same level from slipping, tripping and stumbling. Bed requested for Telemetry/MedSurg (Inpatient). Status is Inpatient Admission. Condition is Stable. Problem is new. Symptoms have improved. UTI on Admission? No. cp 20:07 17:52 05/28/2018 15:31 Hospitalization Ordered by A Maricarmen RAMOS for Inpatient Admission. jb4 Preliminary diagnosis is Intertrochanteric fracture of femur - Right; Fall on same level from slipping, tripping and stumbling. Bed requested for Telemetry/MedSurg (Inpatient). Status is Inpatient Admission. Condition is Stable. Problem is new. Symptoms have improved. UTI on Admission? No. ms
--- NOTE | 2018-05-28 15:32 | ER ---
Nurse's Notes [facility] Name: Pinky Meek Age: 82 yrs Sex: Female : 1935 Arrival Date: 05/28/2018 Time: 12:48 Bed 16 Private MD: Diagnosis: Intertrochanteric fracture of femur-Right;Fall on same level from slipping, tripping and stumbling Presentation: 05/28 12:31 Acuity: MATHEUS 2 hb 12:31 Method Of Arrival: EMS: [facility] 12:32 Presenting complaint: EMS states: Pt. was in her kitchen when her grandson came in and rb1 she tripped and fell when turning around. Denies hitting her head or LOC. C/o right hip pain. Is taking blood thinners. No deformities noted to the right hip. NKDA. History of chronic back pain, constipation, and neuropathy. IV in the right wrist. Pt. arrived on a backboard and has a C-collar on. 12:32 Care prior to arrival: Cervical collar in place. Placed on backboard. IV initiated. 20 rb1 GA, in the right wrist. Mechanism of Injury: Fall from standing position. Trauma event details: Injury occurred in the [facility], Injury occurred: at home. Injury occurred: May 28, 2018 Injury occurred at: 11:40. 12:32 Transition of care: patient was not received from another setting of care. Risk rb1 Assessment: Do you want to hurt yourself or someone else? Patient reports no desire to harm self or others. Initial Sepsis Screen: Does the patient meet any 2 criteria? No. Patient's initial sepsis screen is negative. Does the patient have a suspected source of infection? No. Patient's initial sepsis screen is negative. 12:32 Onset of symptoms was May 28, 2018. rb1 Trauma Activation: Alert Physician: ED Physician; Name: Reyes Finn; Notified At: 12:31; Arrived At: 12:31 Physician: General Surgeon; Name: ; Notified At: 12:31; Arrived At: Physician: Radiology; Name: Марина Serna; Notified At: 12:31; Arrived At: 12:31 Physician: Respiratory; Name: ; Notified At: 12:31; Arrived At: Physician: Lab; Name: ; Notified At: 12:31; Arrived At: Historical: - Allergies: 12:53 No Known Allergies; hb - Home Meds: 12:53 Acetasol HC 1-2 % Otic drop 2 drops 4 times per day [Active]; Align 4 mg Oral cap hb [Active]; alprazolam 0.5 mg Oral Tb24 1 tab once daily [Active]; B complex-minerals Oral [Active]; clotrimazole-betamethasone 1-0.05 % Topical crea 2 times per day [Active]; Dulcolax (bisacodyl) 5 mg Oral TbEC 1 tab [Active]; folic acid 1 mg Oral tab 1 tab once daily [Active]; hydrocodone-acetaminophen 7.5-325 mg Oral tab [Active]; Imdur 30 mg Oral Tb24 1 tab once daily [Active]; Lipitor 20 mg Oral tab 1 tab once daily [Active]; losartan 12.5 mg Oral [Active]; Miralax 17 gram/dose Oral powd once daily [Active]; Nitrostat 0.4 mg SL subl 1 tab every 5 minutes [Active]; Plavix 75 mg Oral tab 1 tab once daily [Active]; Protonix 40 mg Oral grps 1 packet once daily [Active]; temazepam 30 mg Oral cap 1 cap once daily [Active]; Toprol XL 25 mg Oral Tb24 1 tab once daily [Active]; tramadol 50 mg Oral tab 1 tab every 4 hours [Active]; Vitamin C 500 mg Oral tab [Active]; Vitamin D3 Complete 18 mg iron-800 mcg-150 mg Oral tab [Active]; - PMHx: 12:53 Chronic pain; Hyperlipidemia; Hypertension; hb - PSHx: 12:53 total knee replacement; Triple bypass; hb - Immunization history:: Adult Immunizations up to date. - Social history:: Smoking status: Patient/guardian denies using tobacco. - Ebola Screening: : Patient negative for fever greater than or equal to 101.5 degrees Fahrenheit, and additional compatible Ebola Virus Disease symptoms. Screenin:32 Abuse screen: Denies threats or abuse. Tuberculosis screening: No symptoms or risk rb1 factors identified. 12:32 Nutritional screening: No deficits noted. Fall Risk Fall in past 12 months (25 points). rb1 No secondary diagnosis (0 pts). IV access (20 points). Ambulatory Aid- None/Bed Rest/Nurse Assist (0 pts). Gait- Normal/Bed Rest/Wheelchair (0 pts) Mental Status- Oriented to own ability (0 pts). Total Snowden Fall Scale indicates High Risk Score (45 or more points). Fall prevention measures have been instituted. Side Rails Up X 2 Placed Close to Nursing Station 1:1 Attendant Assigned Frequent Obs/Assessments Occuring Family Present and informed to notify staff if the need to leave the bedside As available patient and family educated on Fall Prevention Program and Strategies. Primary Survey: 12:32 NO uncontrolled hemorrhage observed. A: The patient is alert. Airway: patent. rb1 Breathing/Chest: Respiratory pattern: regular, Respiratory effort: spontaneous, unlabored, Breath sounds: clear, Chest inspection: symmetrical rise and fall of the chest. Circulation: Cardiac rhythm: sinus rhythm Heart tones present. Pulses: palpable right radial artery, right posterior tibial artery, left radial artery and left posterior tibial artery. Skin color: pink, Skin temperature: warm, dry. Disability Alert. Exposure/Environment: All clothing and personal items were removed. Forensic evidence collection is not deemed to be indicated at this time. Items placed in patient belonging bag. There is no evidence of uncontrolled external bleeding. A warming method has been applied: A warm blanket has been provided to the patient. 13:00 Reassessment Airway Airway Patent Breathing/Chest Respiratory pattern Regular rb1 Respiratory effort Spontaneous Unlabored Breath sounds Clear Chest inspection Symmetrical Circulation Heart rhythm Sinus rhythm Heart tones Present Pulses Palpable Color [place] Temperature Warm Dry Disability Alert. Secondary Survey: 12:32 HEENT: No deficits noted. Gastrointestinal: No deficits noted. : No signs and/or rb1 symptoms were reported regarding the genitourinary system. Musculoskeletal: Range of motion: intact in all extremities. Assessment: 12:32 General: Appears in no apparent distress. comfortable, Behavior is calm, cooperative. rb1 Pain: Complains of pain in right hip Pain currently is 2 out of 10 on a pain scale. Neuro: Level of Consciousness is awake, alert, obeys commands, Oriented to person, place, time, situation. Cardiovascular: Capillary refill < 3 seconds is brisk in bilateral fingers. Respiratory: Airway is patent Respiratory effort is even, unlabored, Respiratory pattern is regular, symmetrical. GI: No signs and/or symptoms were reported involving the gastrointestinal system. : No signs and/or symptoms were reported regarding the genitourinary system. Derm: Skin is pink, warm \\T\\ dry. Musculoskeletal: Range of motion: intact in all extremities. 13:30 Reassessment: Patient appears in no apparent distress at this time. No changes from rb1 previously documented assessment. 14:30 Reassessment: Patient appears in no apparent distress at this time. Patient and/or rb1 family updated on plan of care and expected duration. Pain level reassessed. Patient is alert, oriented x 3, equal unlabored respirations, skin warm/dry/pink. . 15:30 Reassessment: Patient appears in no apparent distress at this time. No changes from rb1 previously documented assessment. 16:30 Reassessment: Patient appears in no apparent distress at this time. Patient and/or rb1 family updated on plan of care and expected duration. Pain level reassessed. Patient is alert, oriented x 3, equal unlabored respirations, skin warm/dry/pink. at bedside. 17:26 Reassessment: Pt. medicated for pain 10/17. Asked provider if the pt. could have some rb1 water to rinse her mouth. Provider stated, "She can have something to eat and drink, she just needs to be NPO after midnight." Pt. was given water to drink. 17:30 Reassessment: Patient appears in no apparent distress at this time. No changes from rb1 previously documented assessment. 18:30 Reassessment: Patient appears in no apparent distress at this time. Patient and/or rb1 family updated on plan of care and expected duration. Pain level reassessed. Patient is alert, oriented x 3, equal unlabored respirations, skin warm/dry/pink. 19:30 Reassessment: Patient and/or family updated on plan of care and expected duration. Pain jb4 level reassessed. Patient is alert, oriented x 3, equal unlabored respirations, skin warm/dry/pink. Pt taking upstairs to room 201 via stretcher with nurse. EMS IV saline lock, pain is increasing. Receiving nurse notified. No new orders for pain medication in ED. Family at the bedside. Vital Signs: 12:32 BP 169 / 64; Pulse 58; Resp 19; Temp 98.2(O); Pulse Ox 94% ; Weight 71.67 kg (R); rb1 Height 4 ft. 11 in. (149.86 cm) (R); Pain 2/10; 13:32 BP 170 / 60; Pulse 58; Resp 18; Pulse Ox 95% on R/A; rb1 14:30 BP 164 / 56; Pulse 61; Resp 17; Pulse Ox 95% on R/A; rb1 15:30 BP 146 / 89; Pulse 72; Resp 16; Pulse Ox 99% on R/A; rb1 16:30 BP 154 / 92; Pulse 77; Resp 17; Pulse Ox 99% on R/A; Pain 2/10; rb1 17:30 BP 155 / 75; Pulse 70; Resp 18; Pulse Ox 88% on R/A; rb1 17:32 rb1 18:25 BP 139 / 58; Pulse 68; Resp 16; Pulse Ox 100% on 3 lpm NC; rb1 19:30 BP 134 / 54; Pulse 67; Resp 22; Pulse Ox 97% on 2 lpm NC; jb4 12:32 Body Mass Index 31.91 (71.67 kg, 149.86 cm) rb1 17:32 Pt. put on 3 L NC rb1 Cristela Coma Score: 12:32 Eye Response: spontaneous(4). Verbal Response: oriented(5). Motor Response: obeys rb1 commands(6). Total: 15. 19:30 Eye Response: spontaneous(4). Verbal Response: oriented(5). Motor Response: obeys jb4 commands(6). Total: 15. Trauma Score (Adult): 12:32 Eye Response: spontaneous(1); Verbal Response: oriented(1); Motor Response: obeys rb1 commands(2); Systolic BP: > 89 mm Hg(4); Respiratory Rate: 10 to 29 per min(4); [place] Score: 15; Trauma Score: 12 13:32 Eye Response: spontaneous(1); Verbal Response: oriented(1); Motor Response: obeys rb1 commands(2); Systolic BP: > 89 mm Hg(4); Respiratory Rate: 10 to 29 per min(4); Cristela Score: 15; Trauma Score: 12 14:32 Eye Response: spontaneous(1); Verbal Response: oriented(1); Motor Response: obeys rb1 commands(2); Systolic BP: > 89 mm Hg(4); Respiratory Rate: 10 to 29 per min(4); Cristela Score: 15; Trauma Score: 12 15:30 Eye Response: spontaneous(1); Verbal Response: oriented(1); Motor Response: obeys rb1 commands(2); Systolic BP: > 89 mm Hg(4); Respiratory Rate: 10 to 29 per min(4); [place] Score: 15; Trauma Score: 12 16:30 Eye Response: spontaneous(1); Verbal Response: oriented(1); Motor Response: obeys rb1 commands(2); Systolic BP: > 89 mm Hg(4); Respiratory Rate: 10 to 29 per min(4); [place] Score: 15; Trauma Score: 12 18:25 Eye Response: spontaneous(1); Verbal Response: oriented(1); Motor Response: obeys rb1 commands(2); Systolic BP: > 89 mm Hg(4); Respiratory Rate: 10 to 29 per min(4); Cristela Score: 15; Trauma Score: 12 19:30 Eye Response: spontaneous(1); Verbal Response: oriented(1); Motor Response: obeys jb4 commands(2); Systolic BP: > 89 mm Hg(4); Respiratory Rate: 10 to 29 per min(4); Cristela Score: 15; Trauma Score: 12 ED Course: 12:32 Patient has correct armband on for positive identification. Placed in gown. Bed in low rb1 position. Call light in reach. Side rails up X2. 12:32 Arm band placed on right wrist. rb1 12:32 Pulse ox on. NIBP on. rb1 12:32 Patient maintains SpO2 saturation greater than 95% on room air. rb1 12:32 Thermoregulation: warm blanket given to patient. rb1 12:48 Patient arrived in ED. rb1 12:49 Reyes Long PA is PHCP. cp 12:49 Reyes Ochoa MD is Attending Physician. cp 12:52 Triage completed. hb 13:09 Radiology exam delayed due to lab results not completed at this time. (BUN/Creatinine). mw3 13:13 Initial lab(s) drawn, by me, sent to lab. T\\T\\S collected, blood band applied to patient. dh3 13:16 Brooke Rowell, RN is Primary Nurse. rb1 14:13 XRAY Hip RIGHT 2 view In Process Unspecified. EDMS 14:13 XRAY Pelvis In Process Unspecified. EDMS 14:41 CT Traumagram (Head C Spine CAP W Con) In Process Unspecified. EDMS 15:30 Emmanuel Hernadez MD is Hospitalizing Provider. cp 15:45 XRAY Femur RIGHT In Process Unspecified. EDMS 15:45 XRAY Chest (1 view) In Process Unspecified. EDMS 16:20 EKG done, by ED staff, reviewed by Reyes MONTOYA. 3 16:36 Rod cath inserted, using sterile technique, 16 Fr., by nm, balloon inflated, to rb1 gravity drainage. 19:42 No provider procedures requiring assistance completed. Patient admitted, IV remains in jb4 place. Administered Medications: 13:25 Drug: fentaNYL (PF) 25 mcg Route: IVP; Site: right wrist; rb1 14:00 Follow up: Response: No adverse reaction; Pain is decreased rb1 13:25 Drug: Zofran 4 mg Route: IVP; Site: right wrist; rb1 14:00 Follow up: Response: No adverse reaction; Nausea is decreased rb1 15:17 Drug: fentaNYL (PF) 25 mcg Route: IVP; Site: right wrist; rb1 15:30 Follow up: Response: No adverse reaction; Pain is decreased rb1 17:13 Drug: morphine 4 mg Route: IVP; Site: right wrist; rb1 Output: 14:33 Urine: 1ml (Voided); Total: 1ml. rb1 19:30 Urine: 500ml (Rod); Total: 501ml. jb4 Outcome: 15:31 Decision to Hospitalize by Provider. cp 19:42 Admitted to Med/surg accompanied by nurse, via stretcher, room 201, with oxygen, with jb4 chart, Report called to LAURA Richards 19:42 Condition: stable 19:42 Discharge instructions given to patient, family, Instructed on the need for admit, Demonstrated understanding of instructions. 19:42 Patient's length of stay in the Emergency Department was greater than 2 hours. Pt jb4 admitted to the floor after shift change.Patient's length of stay extended due to 20:07 Patient left the ED. jb4 Signatures: Dispatcher [employer] EDMS Reyes Long PA PA cp Brooke Rowell RN RN rb1 Margarita Grace RN RN Darshan Martins RN RN jb4 Kim Cabrera formerly [facility] Johnny Pereselle 3
--- NOTE | 2018-05-28 16:15 | RAD REPORT ---
EXAM DESCRIPTION: Claudine Single View05/28/2018 3:45 pm CLINICAL HISTORY: Chest pain COMPARISON: February 2017 FINDINGS: The lungs appear clear of acute infiltrate. The heart is mildly enlarged. Postsurgical changes involve the chest. IMPRESSION: No acute abnormalities displayed
--- NOTE | 2018-05-28 16:17 | RAD REPORT ---
EXAM DESCRIPTION: RAD - Femur Right - 05/28/2018 3:45 pm CLINICAL HISTORY: Right leg pain FINDINGS: Intertrochanteric fracture involves the proximal right femur extending into greater and le sser trochanters. No additional fracture is seen
[2018-05-28] MEDS ORDERED: ONDANSETRON 4 MG/2 ML VIAL IV PRN (16:23)
[2018-05-28] MEDS ORDERED: ACETAMINOPHEN 500 MG TAB PO PRN (16:23)
[2018-05-28] MEDS ORDERED: MORPHINE 4 MG/ML SYR ONE (17:16)
[2018-05-28] MEDS: MORPHINE 4 MG/ML SYR IV PRN (20:45)
[2018-05-28] MEDS ORDERED: MAGNES/ALUMIN/SIMET 30ML UCUP PO PRN (21:14)
[2018-05-28] MEDS: TEMAZEPAM 15 MG CAP PO PRN (21:59)
[2018-05-28] MEDS: D5 0.45 NS 1,000 ML IV SCH (21:59)
[2018-05-29 00:46] LABS: Urine Appearance CLEAR; Urine Bilirubin NEGATIVE (NEG); Urine Blood NEGATIVE (NEG); Urine Color YELLOW; Urine Glucose NEGATIVE (NEG); Urine Protein NEGATIVE (NEG); Urine Specific Gravity >=1.030 (1.005-1.030); Urine Urobilinogen 0.2 mg/dL (0.2-1.0)
[2018-05-29 00:48] LABS: Urine Microscopic Reflex NO UMIC
[2018-05-29] MEDS: MORPHINE 4 MG/ML SYR IV PRN ×6 (01:39→22:09)
[2018-05-29 06:43] LABS: Absolute Lymphocytes (CBC) 1.5 K/uL (0.7-4.9); Absolute Monocytes 0.9 K/uL (0.1-1.3); Basophils % 0.4 % (0-1.3); Eosinophils % 2.6 % (0-4.4); Hematocrit 34.7 % (36.0-45.0); Lymphocytes % 13.7 % (15.3-44.8); MPV 7.4 fL (7.6-11.3); Monocytes % 8.1 % (3.3-12.3); RBC Red Blood Cell Count 3.89 M/uL (3.86-4.86)
[2018-05-29 07:05] LABS: Potassium 3.7 mmol/L (3.5-5.1)
[2018-05-29] MEDS ORDERED: SODIUM CHLORIDE 0.9% 10ML INJ IV PRN (07:40)
--- NOTE | 2018-05-29 07:45 | EKG ---
Test Date: 2018-05-28 Test Time: 16:16:41 Drafter Civil (Cad): VIN MEASUREMENT RESULTS: Intervals: Rate: 47 VT: 188 QRSD: 98 QT: 446 QTc: 394 [place]: P: 65 VT: 188 QRS: 57 T: 16 INTERPRETIVE STATEMENTS: Sinus bradycardia with sinus arrhythmia T wave abnormality, consider anterior ischemia Abnormal ECG Compared to ECG 05/06/2016 06:59:49 T-wave abnormality now present Sinus rhythm no longer present ST (T wave) deviation no longer present Possible ischemia still present Electronically Signed On 05-29-18 07:44:11 CDT by Perez Jean
[2018-05-29] MEDS ORDERED: NITROGLYCERIN 0.4 MG/TAB SL PRN (08:00)
[2018-05-29] MEDS ORDERED: PANTOPRAZOLE 40 MG INJ IVP SCH (09:00)
[2018-05-29] MEDS: METOPROLOL XL 25 MG TAB PO SCH (09:43)
[2018-05-29] MEDS: LOSARTAN POTASSIUM 50 MG TABLET PO SCH (09:43)
[2018-05-29] MEDS: FAMOTIDINE 20 MG/2 ML VIAL IV SCH ×2 (09:44→22:00)
[2018-05-29] MEDS: D5 0.45 NS 1,000 ML IV SCH ×2 (09:45→22:08)
--- NOTE | 2018-05-29 14:03 | CON ---
History Of Present Illness: Mrs. Meek is 82. She is in the hospital because she had a right femoral neck fracture and I am asked to evaluate her as to her suitability for going through a repair procedure open reduction and internal fixation, possibly a hip nailing. The patient has a history of heart disease. She had bypass surgery in 1998. In 2010, she had several stents placed and went through grafts, vein graft to a diagonal and vein graft to the right. She has a pattern of chest pain that sounds like it is for the most part , not angina. It is mostly musculoskeletal. She has a history of a keratoacanthoma, underwent excision and radiation therapy and she has severe dyslipidemia, but is unable to tolerate any kind of lipid-lowering medications, apparently many have been tried and she just does not tolerate it. She lists no allergies, but she is certainly intolerant to all of the statins. Presently , she does not see either me or Dr. Castro. Our last visit with her was in 2014. Outpatient Medications: Xanax, Lotrisone cream, hydrocodone, nitroglycerin, Protonix, tramadol, metoprolol Plavix, atorvastatin, which in the past she has never been able to tolerate, Lasix aspirin, Robaxin, losartan, gabapentin, MiraLAX powder, docusate, ascorbic acid, folic acid, cholecalciferol, and Acetasol ear drops. Physical Examination: General: She is alert, oriented, and pleasant. Denies having chest pain now. She is 4 feet 11 inches, 156 pounds. HEENT: Normal. Lungs: Clear. Heart: Exam reveals no abnormalities. Abdomen: Soft. Extremities: Palpable distal pulses. Laboratory Data: Her most recent EKG shows sinus bradycardia, heart rate 47 beats per minute, nonspecific T-wave abnormality, not much change compared to an EKG in April 2016. Impression: The patient is a moderate risk patient for having heart trouble. I do not think the surgery should be canceled or delayed. It should be done promptly, but she should be monitored in the ICU postop. Thank you very much for your kind referral of Mrs. Meek. I will follow her with you. GRAHAM Voice ID: [id number] Report ID: [id number] SHONDA
--- NOTE | 2018-05-29 17:39 | HP ---
Date of Admission: 05/29/2018 Chief Complaint: Fall and hip pain. History Of Present Illness: This is an 82-year-old very pleasant female patient, who was at home in her house and her grandson knocked on the door and as soon as she found out, she got too excited and moved suddenly, lost her balance, and fell backwards. She did not have any head injury. She immedia tely started complaining of pain in her right hip. She was brought into the emergency room, was foun d to have intertrochanteric fracture involving proximal right femur extending into greater and lesser trochanters. After she was evaluated, she was admitted to the hospital. She denies any chest pain, shortness of breath, nausea, vomiting. Allergies: METHYLPREDNISOLONE CAUSING THROAT CLOSING UP AND SLEEPINESS. Medications: List reviewed. Review of Systems: Musculoskeletal: As mentioned above. All other systems reviewed and negative. Past Medical History: Significant for breast cancer, diverticulosis, coronary artery disease, hypert ension, osteoarthritis at multiple sites, hyperlipidemia, gastroesophageal reflux disease, compressio n fracture of spine, and osteopenia. Past Surgical History: Significant for appendectomy, hysterectomy, coronary artery bypass surgery in 2000 and cholecystectomy, knee replacement, removal of basal cell carcinoma, lumpectomy in 1993 for breast cancer and coronary artery angioplasty with stent placement done in May 2017. Family History: Significant for lung cancer, stroke. Social History: Negative for alcohol use. Prior history of smoking but not at present time and she quit smoking long time ago. Physical Examination: Vital Signs: Last temperature this morning 99.1, pulse 62, respiratory rate 20, blood pressure 141/6 6, oxygen saturation 98%, height 4 feet 11 inches, weight 156 pounds. General: Awake, alert, oriented, not in distress. HEENT: Head atraumatic, normocephalic. Conjunctivae nonerythematous. Sclerae white. Mouth, no thr ush or edema noted. Ears/Nose, no mass, lesion, discharge noted. Neck: Supple. No JVD, lymph nodes, bruit, thyromegaly noted. Lungs: Bilateral good equal air entry. Clear to auscultation. No rhonchi. No rales. Heart: Normal heart sounds, no murmur or gallop. Abdomen: Soft, bowel sounds normal. No guarding, rigidity, tenderness, mass, hepatosplenomegaly, dis tention, or bruit noted. Extremities: No leg edema. No calf tenderness. Skin: No rash, ulcer, cellulitis. Lymphatics: No lymph node enlargement in neck, supraclavicular, infraclavicular region. Neuro: No focal neurological deficit. Chest: Unremarkable. External Genitalia: Deferred. Rectal: Deferred. Laboratory Data: Yesterday, white count 6.3, hemoglobin 11.7, platelets 323. This morning white cou nt 10.6, hemoglobin 11.8, platelets 325. INR 1.0. Yesterday, sodium 139, potassium 3.6, chloride 10 3, bicarb 29, BUN 16, creatinine 0.87, glucose 105. This morning sodium 140, potassium 3.7, chloride 104, bicarb 29, BUN 11, creatinine 0.90, glucose 158. Urinalysis negative. Her chest x-ray; no acu te abnormality detected. Hip x-ray shows right hip intertrochanteric fracture. CAT scan of the head , cervical spine, chest and abdomen shows no acute intracranial abnormalities. Cervical fracture is not visualized. No traumatic injury involving chest or abdomen. A 5 cm enhancing lesion within the liver, probably benign. We will go ahead and get abdominal ultrasound done. Impression: 1.Right hip intertrochanteric fracture. 2.Coronary artery disease. 3.Osteoarthritis, multiple sites. 4.Breast cancer. 5.Hypertension. 6.Hyperlipidemia. 7.Gastroesophageal reflux disease. 8.Diverticulosis. 9.Osteopenia. Plan: We will go ahead and admit the patient to hospital for further evaluation and management of th is problem. The patient is appropriate for inpatient and is expected to spend 2 midnights in hospita l. We will consult orthopedic surgeon on-call, Dr. Schmidt and finishing trimmer for cardiac clearance. K eep patient n.p.o. today. From my point of view, the patient is at acceptable risk from planned surg suzie. Continue current pain medication and nausea medication per order. Details and plan of treatmen t discussed with the patient as well as the patient's who was at bedside. ERIKA/MODL Voice ID: [id number]
[2018-05-29] MEDS ORDERED: CEFAZOLIN/NS 1gm 1 GM/50 ML BAG IVPB SCH (20:45)
[2018-05-29] MEDS ORDERED: TRANEXAMIC ACID 1,000 MG in NA CHLORIDE 0.9% 50 ML IV ONE (20:45)
--- NOTE | 2018-05-29 20:57 | P.CNS ---
Date of Consult: 05/29/18 Reason for Consult: Right hip fracture Requesting Physician: Blayne Hernadez Chief Complaint: Right hip pain History of Present Illness: This 82-year-old female was greeting her grandson at the door Easter Tuesday when she got her feet tangled with clog type shoes, and fell to impact her right side. Brought by EMS to the emergency department at [facility] x-ray has revealed an intertrochanteric fracture of the right hip. The patient denies loss of consciousness and other injuries. Allergies No Known Allergies Allergy (Verified 05/28/18 23:28) Home medications list reviewed: Yes Home Medications: ALPRAZolam [Xanax*] 0.5 mg PO BEDTIME 05/06/16 Atorvastatin Calcium [Lipitor*] 20 mg PO DAILY AFTER SUPPER 05/06/16 Clopidogrel Bisulfate [Plavix*] 75 mg PO DAILY 05/06/16 Clotrim/Betameth Cream [Lotrisone Cream*] 1 appl TOP DAILYPRN PRN 05/06/16 Hydrocodone/Acetaminophen [Hydrocodone-Acetamin 10-325 mg] 1 mg PO QID 05/06/16 Metoprolol Succinate [Toprol Xl*] 25 mg PO DAILY 05/06/16 Nitroglycerin [Nitrostat*] 1 mg SL [id number] 05/06/16 Pantoprazole Sodium [Protonix] 40 mg PO [id number] 05/06/16 Temazepam 30 mg PO BEDTIME 05/06/16 Tramadol HCl [Ultram] 1 tab PO QID 05/06/16 Vit A/C/E AC/Znox/Cupric Oxide [Eye Vitamin-Minerals Tablet] 1 mg EACH EYE DAILY 05/06/16 Aspirin [Ecotrin 81 MG] 81 mg PO DAILY 01/06/17 Furosemide [Lasix*] 40 mg PO BID 01/06/17 Methocarbamol [Robaxin*] 500 mg PO TIDP PRN 01/06/17 Losartan Potassium 100 mg PO DAILY 10/26/17 Acetasol Hc 1 gtt EACH EAR PRN 05/28/18 Ascorbic Acid [Vitamin C] 500 mg PO DAILY 05/28/18 Cholecalciferol (Vitamin D3) [Vitamin D3] 1,000 unit PO DAILY 05/28/18 Docusate [Colace Cap] 100 mg PO BEDTIME 05/28/18 Folic Acid 0.4 mg PO DAILY 05/28/18 Gabapentin [Neurontin] 100 mg PO BEDTIME 05/28/18 Polyethylene Glycol 3350 [Miralax] 17 gm PO DAILY 05/28/18 - Past Medical/Surgical History Diabetic: No -: Chronic pain -: HTN -: Hyperlipidemia -: Diverticulosis -: Breast Cancer -: CAD -: HTN -: Hyperlipidemia -: GERD -: Osteopenia -: Uterus removed -: appendectomy -: lumpectomy left side -: Triple bypass -: Total Knee replacement -: 2 stent in one of two main arteries May 2017 -: colonoscopy -: bleeding gastric ulcers cauterized and stapled - Family History Mother Medical History: Heart disease Father Medical History: Stroke Brother Medical History: Cancer Notes: Lung cancer Sister Medical History: Heart disease - Social History Smoking Status: Never smoker Alcohol use: Yes CD- Drugs: Yes Caffeine use: No Place of Residence: Home Review of Systems 10-point ROS is otherwise unremarkable Physical Examination Temp Pulse Resp BP Pulse Ox 98 F 57 18 138/66 100 05/29/18 16:00 05/29/18 16:00 05/29/18 16:00 05/29/18 16:00 05/29/18 16:00 General: Alert, In no apparent distress (In Nava's Traction 5 lb), Oriented x3 Neck: Supple (nontender to palpation) Respiratory: Clear to auscultation bilaterally, Normal air movement Cardiovascular: No edema, Normal pulses, Regular rate/rhythm Capillary refill: Brisk Gastrointestinal: Normal bowel sounds, Soft and benign, Non-distended Musculoskeletal: Tenderness (With any movement right lower extremity or upper body) Integumentary: No rashes, No breakdown, No significant lesion, Tenderness/ swelling (to palpation over lateral right hip) Neurological: Normal speech, Sensation intact, Normal affect Urinary: Rod catheter External genitalia: Deferred Rectal: Deferred WBC 10.2, 75% neutrophils: hemoglobin 11.8: GFR 60; Glucose 158 Imagings Data: RIGHT HIP, MULTIPLE VIEWS(05/28/18) MINIMALLY DISPLACED INTERTROCHANTERIC FRACTURE RIGHT HIP WITH FRACTURE LINE EXTENDING FROM GREATER TROCHANTER TO LESSER TROCHANTER. - Problems (1) Closed traumatic displaced intertrochanteric fracture of right femur Onset Date: ~05/28/18 Current Visit: Yes Status: Acute Plan: ASSESSMENT: CLOSED DISPLACED INTERTROCHANTERIC FRACTURE SECONDARY TO TRAUMATIC FALL FROM STANDING, DESCRIBED TRIPPING OVER FOOTWEAR. PLAN: THIS PATIENT HAS BEEN CLEARED MEDICALLY AND BY CARDIOLOGY TO PROCEED WITH INTRAMEDULLARY NAIL FIXATION OF MINIMALLY DISPLACED RIGHT INTERTROCHANTERIC HIP FRACTURE. THE PATIENT WILL BE TAKEN TO SURGERY AT ~ NOON 05/30/2018. RISKS AND BENEFITS HAS BEEN DISCUSSED AT LENGTH WITH PATIENT AND FAMILY WITH ALL QUESTIONS ANSWERED, AND THE PATIENT AND FAMILY HAVE ELECTED TO PROCEED WITH INTRAMEDULLARY NAIL FIXATION. Qualifiers: Encounter type: initial encounter Qualified Code(s): S72.141A - Displaced intertrochanteric fracture of right femur, initial encounter for closed fracture
[2018-05-29] MEDS: DOCUSATE NA 100 MG CAP PO SCH (21:00)
[2018-05-29] MEDS: GABAPENTIN 100 MG CAP PO SCH (21:00)
[2018-05-30] MEDS: TEMAZEPAM 15 MG CAP PO PRN (00:33)
[2018-05-30] MEDS: D5 0.45 NS 1,000 ML IV SCH ×2 (00:40→15:39)
[2018-05-30] MEDS: MORPHINE 4 MG/ML SYR IV PRN ×4 (03:28→20:29)
[2018-05-30] MEDS: LOSARTAN POTASSIUM 50 MG TABLET PO SCH (09:12)
[2018-05-30] MEDS: FAMOTIDINE 20 MG/2 ML VIAL IV SCH ×2 (09:12→20:10)
[2018-05-30] MEDS: METOPROLOL XL 25 MG TAB PO SCH (09:12)
[2018-05-30] MEDS ORDERED: CEFAZOLIN/SWI 1gm 1 GM/10 ML SYR ONE (11:56)
[2018-05-30] MEDS ORDERED: Ringers Lactate 1,000 ML IV ONE ×2 (11:56→14:15)
[2018-05-30] MEDS ORDERED: LIDOCAINE 2% MPF 5 ML VIAL ONE (12:01)
[2018-05-30] MEDS ORDERED: FENTANYL CITR 250 MCG/5 ML ONE (12:01)
[2018-05-30] MEDS ORDERED: PROPOFOL 200 MG/20 ML VIAL IV ONE (12:01)
[2018-05-30] MEDS ORDERED: TRANEXAMIC ACID 1,000 MG in NA CHLORIDE 0.9% 50 ML IV ONE (12:30)
[2018-05-30] MEDS ORDERED: BUPIVACA 0.25%/EPI 0.0005% MDV 50 ML VIAL ONE (12:33)
[2018-05-30] MEDS ORDERED: EPHEDRINE SULF 50 MG/ML VIAL ONE (13:09)
[2018-05-30] MEDS ORDERED: GLYCOPYRROLATE 0.2 MG/ML SYR ONE (14:14)
[2018-05-30] MEDS ORDERED: KETOROLAC 30 MG/ML INJ ONE (14:16)
--- NOTE | 2018-05-30 14:37 | P.BOP ---
Preoperative diagnosis: RIGHT HIP INTERTROCH. FRACTURE,CLOSED, DISPLACED Postoperative diagnosis: SAME Primary procedure: INTRAMEDULLARY NAIL FIXATION RIGHT HIP INTERTROCH. FRACTURE Insurance Customer Service Specialist: DAO SHRESTHA (GAVE NECESSARY 1ST ASSIST THROUGHOUT CASE) Estimated blood loss: 150mL Specimen: NONE Findings: IT FX RIGHT HIP Implants: LAG10.5x90mm;AFFIXUS [id number];AR [id number];RAGHAVENDRA.[id number] Fluids & blood products: INJ. 30 mL 0.25%MARCAINEwEPI Transferred to: Recovery Room Condition: Good
[2018-05-30] MEDS: HYDROMORPHONE HCL 1 MG/ML INJ ONE ×4 (14:38→14:58)
[2018-05-30] MEDS ORDERED: ONDANSETRON HCL 40 MG/20 ML VIAL ONE (14:53)
[2018-05-30] MEDS ORDERED: PROMETHAZINE 25 MG/ML VIAL ONE (15:01)
[2018-05-30] MEDS ORDERED: MEPERIDINE HCL 25 MG/0.5 ML ONE (15:13)
--- NOTE | 2018-05-30 16:02 | RAD REPORT ---
EXAM DESCRIPTION: RAD - Hip In Or - 05/30/2018 3:56 pm FINDINGS: There were 17 portable C-arm views obtained during fluoroscopic assisted placement of frac ture fixation hardware. Images show stepwise placement of hardware. No suspicious or unexpected finding. Fluoro time was 0.8 minutes.
[2018-05-30] MEDS: ONDANSETRON 4 MG/2 ML VIAL IV PRN ×2 (16:50→20:29)
[2018-05-30] MEDS: CEFAZOLIN/SWI 1gm 1 GM/10 ML SYR IVP SCH ×2 (17:37→23:30)
[2018-05-30] MEDS ORDERED: NA CHLORIDE 0.9% 250 ML IV ONE (18:12)
[2018-05-30] MEDS: NA CHLORIDE 0.9% 1,000 ML IV SCH (18:21)
[2018-05-30] MEDS ORDERED: NA CHLORIDE 0.9% 250 ML ONE (18:30)
[2018-05-30] MEDS: DOCUSATE NA 100 MG CAP PO SCH (20:10)
[2018-05-30] MEDS: GABAPENTIN 100 MG CAP PO SCH (20:10)
[2018-05-31] MEDS: MORPHINE 4 MG/ML SYR IV PRN ×4 (00:02→12:15)
--- NOTE | 2018-05-31 01:38 | PN ---
Date of Progress Note: 05/30/2018 Subjective: The patient was seen this morning for followup. No new complaints or problems reported by the patient. Sleeping, easily arousable, not in any distress. Objective: Vital Signs: Reviewed. HEENT: Unremarkable. Lungs: Clear to auscultation. Heart: Sounds normal. Abdomen: Soft. Bowel sounds normal. No guarding, rigidity, tenderness, distention. Extremities: No leg edema. Impression: 1.Right hip intertrochanteric fracture. 2.Coronary artery disease. 3.Osteoarthritis, multiple sites. Plan: We will continue current medication. The patient will have surgery today. Postoperatively, s he will be admitted to intensive care unit overnight for close observation. I will see her tomorrow for followup. Details and plan of treatment discussed with the patient. ERIKA/MODL Voice ID: [id number] Report ID: [id number]
[2018-05-31] MEDS: NA CHLORIDE 0.9% 1,000 ML IV SCH ×4 (02:34→20:19)
[2018-05-31 05:23] LABS: Absolute Lymphocytes (CBC) 0.9 K/uL (0.7-4.9); Absolute Monocytes 0.9 K/uL (0.1-1.3); Absolute Neutrophil 8.1 K/uL (1.8-8.0); Basophils % 0.2 % (0-1.3); Hematocrit 26.4 % (36.0-45.0); Lymphocytes % 9.1 % (15.3-44.8); MPV 7.8 fL (7.6-11.3); Monocytes % 9.2 % (3.3-12.3); RBC Red Blood Cell Count 2.95 M/uL (3.86-4.86)
[2018-05-31 05:39] LABS: Magnesium 1.9 mg/dL (1.8-2.4)
[2018-05-31] MEDS ORDERED: METHOCARBAMOL 500 MG TAB PO PRN (07:00)
[2018-05-31] MEDS ORDERED: PANTOPRAZOLE 40MG TABLET PO ONE (07:02)
[2018-05-31] MEDS: HOME MED 1 EA UNK (Folic Acid [Folic Acid] 0.4 MG) PO SCH (09:00)
[2018-05-31] MEDS: POLYETHYL GLY 3350 17 GM/DOSE PO SCH (09:18)
[2018-05-31] MEDS: HYDROCODONE/APAP 10/325 TAB PO SCH ×4 (09:18→20:17)
[2018-05-31] MEDS: VITAMIN D 1000 UNIT TAB PO SCH (09:19)
[2018-05-31] MEDS: FUROSEMIDE 40 MG TABLET PO SCH ×2 (09:19→20:18)
[2018-05-31] MEDS: ASCORBIC ACID 500 MG TABLET PO SCH (09:19)
[2018-05-31] MEDS: ASPIRIN EC 81 MG TAB PO SCH (09:20)
[2018-05-31] MEDS: FE SULF/FA/VIT B COMP & C TAB PO SCH (09:20)
[2018-05-31] MEDS: ENOXAPARIN 40 MG/0.4 ML SQ SCH (09:20)
[2018-05-31] MEDS: LOSARTAN POTASSIUM 50 MG TABLET PO SCH (09:20)
[2018-05-31] MEDS: METOPROLOL XL 25 MG TAB PO SCH (12:23)
--- NOTE | 2018-05-31 17:05 | OP ---
Date of Procedure: 05/30/2018 Surgeon: Darren Schmidt MD Barge Loader: MARKY Jordan, who gave very necessary clinical assistant services throughout the case. Preoperative Diagnosis: Right hip intertrochanteric fracture, closed, displaced. Postoperative Diagnosis: Right hip intertrochanteric fracture, closed, displaced. Primary Procedure: Intramedullary nail fixation, right hip intertrochanteric fracture. Indication: This 82-year-old female tripped and fell going to her front door, stumbling over her baldemar g-type shoes to impact her right side. She had right-sided hip pain and x-ray on arrival at [facility] ED showed a mildly displaced intertrochanteric fracture of the right hip. The amilcar ent and family after being given information regarding risks and benefits have elected to proceed wit h insertion of intramedullary nail fixation for the right hip intertrochanteric fracture. Technique: The patient was taken to the operating room. She was given a general anesthesia in the h ospital bed. She was intubated and once anesthesia gave the all clear, she was moved to the fracture table in the supine position. The post was established between the legs and each foot was placed in a traction boot. The support for the legs was removed from underneath the legs in traction. The C- arm was moved into verify a reduced position for the fracture after the traction was applied and the internal rotation and abduction established. At that time, the prepping and draping was carried out with Betadine scrub and solution or paint. A vertical isolation drape was applied as well. Then, th e incision was made proximal to the greater trochanter, right lower extremity. This incision was 3 c m in length and exposed the tract to the greater trochanter. A cannulated awl was used to enter the intertrochanteric space from above. After the awl was in place, the beaded guidewire was slipped int o the intramedullary canal down to the knee. This was verified by C-arm. Then the trochanteric ream er was utilized and that was followed with insertion of a 9 mm AFFIXUS nail, 130 degree neck angle an d 180 mm in length. This was tapped into position with the outrigger assembly used at that point to aim and establish the site for the lateral incision adjacent to the proximal femur. This incision wa s 2 cm in length and the incision was carried through the skin and subcutaneous tissue and fascia lat a. Then blunt dissection was carried out to the lateral femur with a Niesha clamp. The guide was put in pressed against bone and the appropriate drill bit was used to place the guidewire for the femur. In the femoral neck, the guide wire was advanced to the subcortical bone and the length of the lag screw chosen was 90 mm. The diameter of the lag screw was 10.5 mm. After reaming, it was rotated in to position to the proper depth as verified by the C-arm AP and lateral projections. Compression delmy hnique was used to compress at the fracture site and then the nail was locked in position with the ti ghtening screw from above. Then, drilling for anti-rotational screw insertion was accomplished and a 75 mm screw was placed parallel to the lag screw. Both screws were in excellent position as verifie d by C-arm. The final outrigger assembly was set up and a 1 cm incision was made over the tip of the nail. After drilling and measuring, a 34 mm screw was used as a distal interlocking screw for the n ail. C-arm verified that all screws were in good position with excellent reduction and the outrigger assembly was loosened and removed. The incisions were irrigated profusely and then #1 Vicryl was us ed to close fascial layer for the proximal incision and the middle incision. Then 2-0 Vicryl was use d for subcutaneous closure. The skin mg were used for skin closure for all 3 incisions. The in cisions were covered after being injected each incision with 10 mL of 0.25% Marcaine with epinephrine for a total of 30 mL of Marcaine. The Aquacel bandages were applied, and the patient was then taken from the fracture table, returned to her hospital bed, and was taken to recovery room having tolerat ed this procedure well. Her condition was good. Estimated blood loss was a total of 150 mL mainly f rom the intramedullary approach in the most proximal incision. SHANIA/RENETTA Voice ID: [id number] Report ID: [id number]
[2018-05-31] MEDS ORDERED: ATORVASTATIN 20 MG TAB PO SCH (17:30)
--- NOTE | 2018-05-31 20:11 | PN ---
Date of Progress Note: 05/31/2018 Subjective: The patient was seen this morning for followup. She was lying in bed, not in distress i n ICU. Vital signs reviewed. Overnight, her condition has remained stable after surgery since she a rrived into ICU. She is complaining of pain and current pain medications not helping her. Objective: Vital Signs: As she reported vital signs stable. HEENT: Examination unremarkable. Lungs: Clear to auscultation. Heart: Sounds normal. Abdomen: Soft. Bowel sounds normal. No guarding, rigidity, tenderness, distention. Extremities: No leg edema. Laboratory Data: White count 10.2, hemoglobin 9, platelets 251. Sodium 141, potassium 4, chloride 1 07, bicarb 28, BUN 9, creatinine 0.83, glucose 130, magnesium 1.9. Impression: 1.Right hip intertrochanteric fracture, status post surgery. 2.Coronary artery disease. 3.Osteoarthritis, multiple sites. 4.Anemia due to acute blood loss. 5.Gastroesophageal reflux disease. Plan: We will go ahead and transfer the patient out of ICU to regular room. Home medications will b e continued including her pain medication she takes at home, which is hydrocodone. She takes pantopr azole which will be started this morning. Yesterday, she did receive Pepcid, but it did not help her acid reflux problem as she reported. We will continue to monitor hemoglobin, if necessary consider blood transfusion. DVT prophylaxis will be started using Lovenox. I will see her tomorrow for olvin velarde. Physical therapy and Rehab will be consulted. The patient is medically stable for transfer out of ICU to medical floor. ERIKA/MODL Voice ID: [id number] Report ID: [id number]
[2018-05-31] MEDS: DOCUSATE NA 100 MG CAP PO SCH (20:18)
[2018-05-31] MEDS: GABAPENTIN 100 MG CAP PO SCH (20:19)
[2018-05-31] MEDS ORDERED: ALPRAZOLAM 0.5 MG TABLET PO SCH (21:00)
--- NOTE | 2018-06-01 00:35 | PN ---
Date of Progress Note: 05/30/2018 Ms. Meek is an 82-year-old, came in, admitted to Dr. Hernadez's service for right hip fracture on . Dr. Schmidt performed surgery on 05/30/2018. She was cleared from a cardiovascular standpo int past medical history. She was considered to be a moderate risk. She had done well. Telemetry showed normal sinus rhythm, afebrile. No cardiac issues. No congestive heart failure evid ent clinically. We will continue to follow on an as-needed basis. RBONSON/RENETTA Voice ID: [id number] Report ID: [id number]
[2018-06-01] MEDS: NA CHLORIDE 0.9% 1,000 ML IV SCH (03:02)
[2018-06-01] MEDS: MORPHINE 4 MG/ML SYR IV PRN ×2 (04:19→10:31)
[2018-06-01 05:09] LABS: Hematocrit 26.3 % (36.0-45.0)
[2018-06-01] MEDS ORDERED: PANTOPRAZOLE 40MG TABLET PO SCH (06:00)
[2018-06-01] MEDS: ENOXAPARIN 40 MG/0.4 ML SQ SCH (08:28)
[2018-06-01] MEDS: POLYETHYL GLY 3350 17 GM/DOSE PO SCH (08:28)
[2018-06-01] MEDS: VITAMIN D 1000 UNIT TAB PO SCH (08:29)
[2018-06-01] MEDS: ASCORBIC ACID 500 MG TABLET PO SCH (08:29)
[2018-06-01] MEDS: FE SULF/FA/VIT B COMP & C TAB PO SCH (08:29)
[2018-06-01] MEDS: ASPIRIN EC 81 MG TAB PO SCH (08:30)
[2018-06-01] MEDS: LOSARTAN POTASSIUM 50 MG TABLET PO SCH (08:30)
[2018-06-01] MEDS: METOPROLOL XL 25 MG TAB PO SCH (08:30)
[2018-06-01] MEDS: FUROSEMIDE 40 MG TABLET PO SCH (08:31)
[2018-06-01] MEDS: HOME MED 1 EA UNK (Folic Acid [Folic Acid] 0.4 MG) PO SCH (08:33)
[2018-06-01] MEDS: HYDROCODONE/APAP 10/325 TAB PO SCH ×2 (08:33→12:58)
--- NOTE | 2018-06-01 20:17 | P.PN ---
Date of Service: 05/31/18 (POD#1) S: PATIENT IN BED THIS EVENING, IN GOOD SPIRITS DESPITE DIFFICULT DAY WITH MOBILIZATION. O: AFEBRILE, HGB 9.0, DOWN FROM 11.8 POST-OP,PAIN CHART 2, 0, 8, 10, 8, 2/10 INTENSITY,BANDAGE IS CLEAN AND DRY AND INTACT, ONLY A SMALL 1 CM SPOT OF DRAINAGE. x-RAYS REVIEWED SHOW EXCELLENT ALIGNMENT OF IM NAIL FIXATION.PATIENT DEMONSTRATES PLANTAR FLEXION AND DORSIFLEXION OF THE RIGHT ANKLE, NORMAL SENSATION AND BRISK CAPILLARY REFILLING. ENCOURAGED BED EXERCISES WITH 3 TO 5 LIFTS OF THE LEFT LEG FOLLOWED BY 1 LIFT EFFORT FOR THE RIGHT LEG. INSTRUCTED PATIENT IN PURPOSE AND TECHNIQUE FOR INCENTIVE SPIROMETER FOUND ON A DISTANT SURFACE. PT REPORT INDICATES PATIENT WENT 12 FEET WITH A ROLLING WALKER, BUT PERFORMED QUITE WELL IN MANAGING TOUCH DOWN WEIGHTBEARING RLE. A: PATIENT IS MAKING PROGRESS ON DAY 1 POSTOP. P: CONTINUE MOBILIZATION TOLERATED.
--- NOTE | 2018-06-01 20:28 | P.PN ---
Date of Service: 06/01/18 (POD#2) S: PATIENT IN BEDSIDE CHAIR THIS AFTERNOON, ACCEPTED TO [facility] FLO[facility] RE[facility]ABIL[facility] WITH DISCHARGE IN PROCESS. O: AFEBRILE, VSS, HGB 9.1 STABLE. PAIN CHART 10, 8, 2, O, 7, 7/10 INTENSITY, BANDAGE REMAINS CLEAN AND DRY AND INTACT. PATIENT DEMONSTRATES PLANTAR FLEXION AND DORSIFLEXION OF THE RIGHT ANKLE, NORMAL SENSATION AND BRISK CAPILLARY REFILLING. ENCOURAGED MARCHING EXERCISES WHILE SEATED IN CHAIR. PT REPORT INDICATES PATIENT WENT 12 FEET AND 15 FEET WITH RW, AND CONTINUED PERFORMING TOUCH DOWN WEIGHTBEARING RLE ADMIRABLY. A: PATIENT HAS MADE GOOD PROGRESS ON DAY 2 POSTOP. SHE IS MOVING TO THE [facility] FLOOR REHABILITATION THIS AFTERNOON P: CONTINUE MOBILIZATION TOLERATED.
--- NOTE | 2018-06-02 20:16 | DS ---
Date of Discharge: 06/01/2018 Disposition: Discharged to go to rehab floor. Physical Examination: HEENT: Examination unremarkable. Lungs: Clear to auscultation. Heart: Sounds normal. Abdomen: Soft. Bowel sounds normal. No guarding, rigidity, tenderness, distention. Extremities: No leg edema. Laboratory Data: Initial white count 6.3, hemoglobin 11.7, platelets 323, last hemoglobin today 9.1. Yesterday, hemoglobin was 9. Hospital Course: An 82-year-old female patient who fell down at home and was brought into the emergency room. After she was evaluated in the ER, she was diagnosed as having hip fracture and was admitted to the hospital under my service. Please see dictated H and P for more information. The patient had intertrochanteric hip fracture and Dr. Schmidt from Orthopedic Surgery was consulted. Cardiology consultation was obtained and after obtaining cardiac clearance, the patient had surgery done for this hip fracture. Postoperatively , she was admitted to intensive care unit and stayed in ICU overnight. Her condition remained stable in ICU. She was out of ICU to regular room yesterday. She has not had any complaints except pain, which is under fairly good control with current pain medications. She has not had a bowel movement since her admission to the hospital, but the patient says that this is nothing new for her at home. She has bowel movement every 3-5 days. She does not have any abdominal pain, nausea, vomiting. She was participating with physical therapy. Rehab was consulted and today the patient was accepted to rehab and was transferred to inpatient rehab in stable medical condition where I will continue to take care of her. Final Diagnosis: 1. Right hip intertrochanteric fracture. 2. Coronary artery disease. 3. Acute blood loss anemia. 4. Breast cancer. 5. Hypertension. 6. Hyperlipidemia. 7. Gastroesophageal reflux disease. 8. Diverticulosis. 9. Osteopenia. 10. Osteoarthritis, multiple sites. ERIKA/MODL Voice ID: [id number] Report ID: [id number] SHONDA
== END 2018-06-01 15:12 | DRG 481 ==
LOC: ER 12:33 → ERHOLD 16:22 → 2ND 19:30 → 3RD-ICU 05-30 14:19 → 2ND 05-31 09:55
PROVIDERS: ADMIT Internal Medicine; ATTEND Internal Medicine
PROC: 0QS636Z Reposition Right Upper Femur with Intramedullary Internal Fixation Device, Percutaneous Approach (ICD-10-PCS; principal; 2018-05-30 12:30)
DX: S72.141A Displaced intertrochanteric fracture of right femur, initial encounter for closed fracture (principal); D62 Acute posthemorrhagic anemia; W01.0XXA Fall on same level from slipping, tripping and stumbling without subsequent striking against object, initial encounter; Y92.019 Unspecified place in single-family (private) house as the place of occurrence of the external cause; I10 Essential (primary) hypertension; I25.10 Atherosclerotic heart disease of native coronary artery without angina pectoris; E78.5 Hyperlipidemia, unspecified; K21.9 Gastro-esophageal reflux disease without esophagitis; M85.80 Other specified disorders of bone density and structure, unspecified site; M15.9 Polyosteoarthritis, unspecified; K57.90 Diverticulosis of intestine, part unspecified, without perforation or abscess without bleeding; Z95.1 Presence of aortocoronary bypass graft; Z95.5 Presence of coronary angioplasty implant and graft; Z87.891 Personal history of nicotine dependence; Z85.3 Personal history of malignant neoplasm of breast
CPT/HCPCS: 36415; 51702; 70450; 71045; 71260; 72125; 72170; 73530; 74177; 80048; 81003; 83735; 85014; 85018; 85025; 85610; 85730; 86850; 86900; 86901; 93005; 96374; 96375; 97110; 97116; 97162; 97166; 97530; 99285; J0690; J1170; J1650; J2175; J2405; J2550; J2704; J3010; J7030; Q9967

== ENCOUNTER 2018-06-01 10:40 | Inpatient (IN) | payer OTHER ==
--- NOTE | 2018-06-01 14:25 | R.PREADM ---
SCREENING DATE AND TIME 06/01/2018 10:51 (CDT) ANTICIPATED REHAB ADMISSION DATE 06/03/2018 REFERRING FACILITY [facility] REFERRAL DATE AND TIME 06/01/2018 10:51 (CDT) ACUTE ADMIT DATE 05/29/2018 Previous Rehabilitation(s): No. REFERRING PHYSICIAN DR. FAVIAN MCKEON REHAB FACILITY [facility] CLINICAL LIAISON Shashank Soto PHYSICIAN REVIEWER Dr. Checo Delgado M.D. MR# [id number] NAME MICHELLE EVANGELISTA ADDRESS [address] [facility] [id number] DATE OF 1935 AGE 82 SSN# [id number] GENDER female MARITAL STATUS RACE white ADMIT FROM 02 - [facility] PRE-HOSPITAL LIVING SETTING 01 - Home (private home/apt. board/care, assisted living, half-way, transitional living) HOME TYPE AND DETAILS Type of home: single family house # of steps to enter the residence: 0 # of steps within the residence: 0 # of levels in the residence: 1 PRE-HOSPITAL LIVING WITH Family/Relatives FAMILY SUPPORT Yes PRIMARY FAMILY CONTACT NAME Marina Rodrigues PRIMARY FAMILY CONTACT PHONE PHONE PRIMARY FAMILY CONTACT ON ADM.? no IS PRIMARY FAMILY CONTACT AUTH. REP.? no 1ST EMERGENCY CONTACT Marina Rodrigues 1ST CONTACT PHONE PHONE 1ST CONTACT ON ADM. no IS 1ST CONTACT AUTH. REP.? no PHONE 2ND CONTACT ON ADM.? no PATIENT EMPLOYMENT STATUS Retired (for age) PATIENT EMPLOYER No Employer PAYOR INFORMATION: 1ST PAYOR NAME Medicare 1ST PAYOR PHONE 1ST PAYOR INJURY/ILLNESS DUE TO ACCIDENT? No ANOTHER GREEN PARTY RESPONSIBLE? No PRIMARY REHAB/ACUTE DIAGNOSIS: closed traumatic displaced intertrochanteric fx ONSET DATE 05/28/2018 REHAB IMPAIRMENT CATEGORY (LEOBARDO): 07 Fracture of LE (FracLE) MEETS 60% rule AFFECTED EXTREMITIES: RLE PRIMARY DIAGNOSIS-RELATED SURGERIES: Emergency Unilateral Hip Fracture - performed by Darren Schmidt on 05/28/2018 COMORBID REHAB/ACUTE DIAGNOSES: - N/A bradycardia CAD OSTEOARTHIRITS hypertension gastroesophageal reflux disease (GERD) diverticulosis osteopenia INTERVENTIONS: - CAD 02 sats Activity management Medications VS - Hypertension Fluid management Medications VS RISK FOR COMPLICATIONS: - CAD CHF Cardiac Arrest NH Pain - Hypertension CVA Hypotension NH TIA SUMMARY OF ACUTE HOSPITALIZATION: Pt. is a 82 yo Right-handed white female. On 05/28/2018 she was admitted to [facility] and underwent emergency surgery fo r closed traumatic displaced intertrochanteric fx (Unilateral Hip Fracture) by DR. FAVIAN MCKEON. Pre-morbidly, Pt. was independent/mod-I in Self-Care, Sphincter Control, Transfers Control, Communica tion, Social Cognition, and Locomotion; and she had good Sphincter Control. Currently, she has deficits of Transfers Control, Communication, Social Cognition, Endurance, Balance , Safety Awareness, Self-Care, and Locomotion. Pt. is now referred to [facility] for acute in-patient rehabilitation in order to maximize patient's functional independence in activities of daily living, strength, ROM, and mobi lity. Patient has realistic goal of being discharged at assistance level 6-Jena to reside at Home with Fam yossi/Relatives. PAST MEDICAL HISTORY CAD OSTEOARTHIRITS bradycardia diverticulosis gastroesophageal reflux disease (GERD) hypertension osteopenia MEDICATION ALLERGIES: No Known Drug Allergies (NKDA) ENVIRONMENTAL ALLERGIES: - Substance Allergies None Known - Other Allergies None Known CODE STATUS: Full code WEIGHT/HEIGHT/BMI: WEIGHT 169 lbs HEIGHT 4' 11" BMI 34.1 DIET: - Diet Type Regular - Diet - Solid Texture Regular - Diet - Liquid Texture Regular - Tube Feed N/A SKIN DIAGRAM: Incision on Right hip; extent - small; stage - NS(Not Stageable). Treatment - Per Physician's Orders. REVIEW OF SYSTEMS: - Gen Alert and awake Lying in bed No apparent distress Oriented to: person, time, and place - Vital Signs Vital signs stable, afebrile - CVS RRR VITAL SIGNS Temperature: 98.7 F SBP/DBP: 150/67 Pulse: 67 Resp: 18 Vital signs stable, afebrile CURRENT SPHINCTER CONTROL: Pre-hospital bladder status: continent # of bladder accidents in the last 7 days prior to screenin Pre-hospital bowel status: continent # of bowel accidents in the last 7 days prior to screenin Last Bowel Movement Date: 06/01/2018 DETAILED CURRENT FUNCTIONAL STATUS: - Bladder accident frequency: Ind - No accidents in the past 7 days - Bowel accident frequency: Ind - No accidents in the past 7 days - Walking score based on distance walked: 0(N/A) FUNCTIONAL STATUS: - Self-Care A. Eating Ind Ind B. Grooming Ind sup C. Bathing Ind sup D. Dressing - Upper Ind sup E. Dressing - Lower Ind maxA F. Toileting Ind maxA - Sphincter Control G: Bladder control Ind Dep H: Bowel control Ind Dep - Transfers Control I. Bed/Chair/Wheelchair Ind maxA J. Toilet Ind maxA K. Tub/Shower Ind maxA - Locomotion L. Walk/Wheelchair (B) Ind Dep M. Stairs Ind ADNO - Communication N. Comprehension (B) Ind sup O. Expression (B) Ind sup - Social Cognition P. Social Interaction Ind sup Q. Problem Solving Ind sup R. Memory Ind sup - Endurance Poor - Balance Poor - Safety Awareness Fair CURRENT FUNC. DEFICITS: Transfers Control, Communication, Social Cognition, Endurance, Balance, Safety Awareness, Self-Care, and Locomotion THERAPY NOTES FROM ACUTE CARE: Attached. SPECIAL NEEDS: - Safety Concerns Skin breakdown precautions needed due to skin breakdown risk PRECAUTIONS: - Posterior Hip Precaution No adduction across midline No external rotation No hip flexion >90 degrees No internal rotation No wheel chair propulsion - Weight Bearing Precaution TTWB right LE PATIENT NEEDS ACTIVE AND ONGOING THERAPEUTIC INTERVENTION OF MULTIPLE THERAPY DISCIPLINES, INCLUDING: - Occupational Therapy Evaluate and Treat. - Physical Therapy Evaluate and Treat. PATIENT NEEDS CLOSE MEDICAL SUPERVISION BY A REHABILITATION PHYSICIAN FOR: Bowel and Bladder Management Coordination of Treatment Team Medical and Co-Morbidity Management Post-Op Complications Wound Care PATIENT REQUIRES 24X7 REHAB NURSING FOR MEDICAL AND FUNCTIONAL MGT. OF THE FOLLOWING DEFICITS: ADL's Ambulation Bowel and Bladder Management Cognition Communication Disease Management Medication Management Patient/Family Education Providing Safe Environment Skin Integrity Transfers PATIENT REQUIRES INTENSIVE, COORDINATED INTERDISCIPLINARY APPROACH TO REHAB: Arranging Home Equipment/Services Discharge Planning Family Intervention/Training Will Call Clerk/Case Management PATIENT REHAB POTENTIAL: Expected level of measurable improvement will be of a practical value to patient's functional capacit y or adaptations to impairments Has a viable Discharge Plan Medically appropriate; condition is sufficiently stable to participate in intensive rehab program Patient is able and expected to receive 3 hours of individualized therapy daily on at least 5 of ever y 7 days Patient's prognosis for significant practical improvement within a reasonable period of time appears Good DISCHARGE PLAN: - Estimated Length of Stay (days) 14. - Consensus on plan Discharge plan has been discussed with primary caregiver. Patient/Family is in agreement with the tyrone n. Primary caregiver is in agreement with the plan. - Patient/Family Goals Return home with assistance. - Planned Living Setting Upon Discharge Home, to live with Family/Relatives. RECOMMENDED CARE LEVEL: IRF RECOMMENDATION DETAILS: Recommended Admission to Comprehensive Rehabilitation Program to Increase Functional [place] SCREENER'S COMPLETENESS CONFIRMATION: - Screening Confirmation The patient data collection on this preadmission screening form is finished PHYSICIANS REVIEW AND ADMISSION DETERMINATION Admit - Based on my review of the Pre-Admission Screening results, in my medical judgment and experie nce, I concur with the findings and recommend admission to [facility], as this patient requires an IRF level of care. SIGNATURE PANEL: Clinical Liaison - [electronically] signed by Ellen Mittal on 06/01/2018 at 11:45 (CDT) Clinical Liaison - [electronically] signed by Shashank Soto on 06/01/2018 at 11:47 (CDT) Physician Reviewer - [electronically] signed by Dr. Checo Delgado M.D. on 06/01/2018 at 14:24 (CDT )
--- OUTSIDE RECORDS SUMMARY | 2018-06-01 15:33 | XMS REPORT | Clinical Summary ---
:1935 Author Organization [facility] Address [address] [place] [address] Care Team Providers Name Role Phone Blayne [...] (40 mg total) 7 18 CAD in [place] artery, by mouth 2 Chronic systolic (two) times a congestive heart day. failure (HCC) losartan (COZAAR) 50 Take 1 tablet 90 tablet 3 09/07/19 Discontinued MG tabletIndications: (50 mg total) 8 18 CAD in [place] artery, by mouth daily. Chronic systolic congestive [...] coronary artery 03/01/2017 Coronary artery disease involving [place] coronary artery of [place] heart 08/17 without angina pectoris SOB (shortness of breath) 05/25/2016 CAD in [place] artery 05/25/2016 Chronic systolic congestive heart failure 05/25/2016 NSTEMI (non-ST elevated myocardial infarction) 05/06/2016 Coronary artery disease involving [place] heart with angina pectoris 02/17/2016 History of coronary artery bypass graft 02/17/2016 Encounters Date Type Specialty Care Team Description 05/04/2018 Office Visit Gastroenterology Gricel Case Drug-induced constipation (Primary Dx); MD Richi Diverticulosis of large intestine without hemorrhage; Gastroesophageal reflux disease, esophagitis presence not specified; intermediate card tender (current) use of antithrombotics/antiplatelets; Liver hemangioma; Globus pharyngeus 03/08/2018 Orders Only Cardiology Ganga Chen MA 03/07/2018 Office Visit Cardiology Jerald Castillo Coronary artery disease involving [place] heart with angina pectoris, unspecified vessel or lesion type ( HCC) (Primary Dx); MD Yamile History of coronary artery bypass graft 12/06/2017 Telephone Gastroenterology Oneida Castaneda LVN 12/01/2017 Hospital Encounter Radiology Gricel Case Dysphagia, unspecified MD Richi type 11/11/2017 Telephone Gastroenterology Evelyn Quesada MA 11/01/2017 Refill Cardiology Gini, Kenyon Refill Ruth, LYLE 10/31/2017 Telephone Cardiology Abilio Thompson, Follow-up [place] 10/24/2017 Office Visit GastroenterGricel Rosales Dysphagia, unspecified type (Primary Dx); MD Rihci Gastroesophageal reflux disease, esophagitis presence not specified; Diverticulosis of large intestine without hemorrhage; intermediate card tender (current) use of antithrombotics/antiplatelets; Liver hemangioma; Drug-induced constipation 09/06/2017 Office Visit Cardiology Jerald Castillo History of coronary artery bypass graft (Primary Dx); MD Yamile Stented coronary artery 08/30/2017 Telephone Gastroenterology Evelyn Quesada MA after 05/31/2017 Family History Medical History Relation Name Comments [...] 09/05/2018 Office Visit Cardiology Jerald Castillo MD [address] [address] Health Maintenance Due Date Last Done Comments SHINGLES VACCINES (#1) 09/27/1985 65+ PNEUMOCOCCAL VACCINE (1 of 2 - PCV13) 09/27/2000 PNEUMOCOCCAL POLYSACCHARIDE VACCINE AGE 65 AND OVER 09/27/2000 INFLUENZA VACCINE 09/07/2018 Implants Implanted Type Area Human 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 Manager Device Shelf Model / Identifier Expiration Serial / Date Lot Stent Catheter Synergy (Otw) 3.00mm X 32mm - [id number] Coronary N/A: N/A [facility] [id number] / Implanted: 05/07/2016 (Quantity not on file) Stents INTERVENTIONAL / CARDIOLOGY Stent Catheter Synergy (Otw) 3.00mm X 16mm - [id number] Coronary N/A: N/A [facility] [id number] / Implanted: 05/07/2016 (Quantity not on file) Stents INTERVENTIONAL / CARDIOLOGY Procedures Procedure Name Priority Date/Time Associated Diagnosis Comments ECG 12-LEAD Routine 03/07/2018 1:26 PM Coronary artery Results for 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 unspecified vessel or lesion type (HCC) [place] MODIFIED BARIUM Routine 12/01/2017 1:18 PM Dysphagia, Results for this SWALLOW CDT unspecified type procedure are in the results section. after 05/31/2017 Results ECG 12 lead (03/07/2018 1:26 PM K[employer] WORKER) Ventricular rate 54 [facility] Atrial rate 54 [facility] FL interval 174 [facility] QRSD interval 94 [facility] QT interval 456 [facility] QTC interval 432 [facility] P axis 1 68 [facility] QRS axis 1 58 [facility] T wave axis 18 [facility] EKG impression Sinus bradycardia-Nonspecific [facility] MUSE abnormality-Abnormal ECG-In automated comparison with ECG of 01-MAR-2017 13:33,-No significant change was found- Narrative Performed At Performing Organization Address [facility] Phone Number [facility] [address] [place] [address] [place] Modified Barium Swallow (12/01/2017 1:18 PM [...] to Speech Pathology report for further details. [facility]-[id number] Procedure Note Interface, Radiology Results Incoming - [...] to Speech Pathology report for further details. [facility]-[id number] Performing Organization Address City/State/Zipcode Phone Number JAMMIE KENNEDY [address] [place] [address] after 05/31/2017 Insurance Payer Benefit Plan / Group Subscriber ID Type Phone Address MEDICARE MEDICARE PART A AND B xxxxxxxxxxx Medicare [place], [place] [phone] (Work) Advance Directives Patient has advance care planning documents on file. For more information, please contact:Jb Villatoro[address] [place] [address]
--- OUTSIDE RECORDS SUMMARY | 2018-06-01 15:33 | XMS REPORT ---
:1935 Author Organization [facility] Address [address] [place] [address] Dr. Saucedo [address] [place] [id number] Care Team Providers Name Role Phone Unavailable Unavailable Unavailable Problems This patient has no known problems. Allergies, Adverse Reactions, Alerts This patient has no known allergies or adverse reactions. Medications This patient has no known medications.
[2018-06-01] MEDS ORDERED: NITROGLYCERIN 0.4 MG/TAB SL PRN (16:25)
[2018-06-01] MEDS ORDERED: ACETAMINOPHEN 500 MG TAB PO PRN (16:25)
[2018-06-01] MEDS ORDERED: MAGNES/ALUMIN/SIMET 30ML UCUP PO PRN (16:25)
[2018-06-01] MEDS: ENOXAPARIN 40 MG/0.4 ML SQ SCH (17:00)
[2018-06-01] MEDS ORDERED: HYDROCODONE/APAP 10/325 TAB PO SCH (17:00)
[2018-06-01] MEDS: FUROSEMIDE 40 MG TABLET PO SCH (17:17)
[2018-06-01] MEDS: ATORVASTATIN 20 MG TAB PO SCH (17:17)
[2018-06-01 19:29] LABS: Urine Appearance CLEAR; Urine Bilirubin NEGATIVE (NEG); Urine Blood NEGATIVE (NEG); Urine Color YELLOW; Urine Glucose NEGATIVE (NEG); Urine Protein NEGATIVE (NEG); Urine Specific Gravity <=1.005 (1.005-1.030)
[2018-06-01 20:01] LABS: Urine Bacteria <20 /HPF (<20); Urine Culture Reflex Order NOT NEEDED; Urine RBC <5 /HPF (NONE SEEN)
[2018-06-01] MEDS: DOCUSATE NA 100 MG CAP PO SCH (20:13)
[2018-06-01] MEDS: ALPRAZOLAM 0.5 MG TABLET PO SCH (20:13)
[2018-06-01] MEDS ORDERED: GABAPENTIN 100 MG CAP PO SCH (21:00)
[2018-06-01] MEDS: HYDROCODONE/APAP 10/325 TAB PO PRN (21:22)
--- NOTE | 2018-06-02 00:32 | FAST ---
SHIFT START DATE/TIME: 06/01/2018 19:00 (CDT) SHIFT END DATE/TIME: 06/02/2018 07:00 (CDT) NAME MICHELLE EVANGELISTA DATE OF : 1935 DATE OF ADMISSION: 06/01/2018 15:25 (CDT) PHONE: AGE: 82 SSN# [id number] GENDER: Female ENCOUNTER PHYSICIAN: Dr. Checo Delgado M.D. ADMISSION DIAGNOSIS: - Orthopaedic Disorders 08 - Unilateral Hip Fracture (08.11) closed traumatic displaced intertrochanteric fx. EATING: Activity did not occur on this shift EATING - SCORE: 0-UNK GROOMING: Activity did not occur on this shift GROOMING - SCORE: 0-UNK BATHING: Activity did not occur on this shift BATHING - SCORE: 0-UNK DRESSING - UPPER BODY: Patient is not dressing in public clothing ARTICLES SCORE Total number of steps: 0 DRESSING - UPPER BODY - SCORE: 0-UNK DRESSING - LOWER BODY: Patient is not dressing in public clothing ARTICLES SCORE Total number of steps: 0 DRESSING - LOWER BODY - SCORE: 0-UNK TOILETING: TOILETING - STEP 1: Does the patient require the assistance of a person or device, or need extra time with toileting? Yes . TOILETING - STEP 2: Does the patient require the assistance of a helper? Yes. TOILETING - STEP 3: How much assistance does the patient require from the helper? Hands-on assistance from the helper TOILETING - STEP 4: Of the 3 tasks: 1) Adjusting clothing prior to use, 2) Cleansing of perineal area, 3) Adjusting clot julia after use; How many tasks does the patient perform WITHOUT assistance of the helper? No tasks; h mumtaz performs all three tasks TOILETING - SCORE: 1-DEP BLADDER MANAGEMENT: BLADDER MANAGEMENT - STEP 1: Does the patient control the bladder completely and intentionally without equipment or devices or med ications, and is always continent? Yes. BLADDER MANAGEMENT - SCORE: 7-IND BOWEL MANAGEMENT: Activity did not occur on this shift BOWEL MANAGEMENT - SCORE: 7-IND TRANSFERS: BED, CHAIR, WHEELCHAIR: Patient requires more than one helper and/or the use of a mechanical lift is utilized TRANSFERS: BED, CHAIR, WHEELCHAIR - SCORE: 1-DEP TRANSFERS: TOILET: Patient requires more than one helper and/or the use of a mechanical lift is utilized TRANSFERS: TOILET - SCORE: 1-DEP TRANSFERS: SHOWER: Activity did not occur on this shift TRANSFERS: SHOWER - SCORE: 0-UNK TRANSFERS: TUB: Activity did not occur on this shift TRANSFERS: TUB - SCORE: 0-UNK LOCOMOTION: WALK: Activity did not occur on this shift LOCOMOTION: WALK - SCORE: 0-UNK LOCOMOTION: WHEELCHAIR: Activity did not occur on this shift LOCOMOTION: WHEELCHAIR - SCORE: 0-UNK COMPREHENSION: COMPREHENSION: TYPE: Both COMPREHENSION - STEP 1: Does the patient require help from a person or device, or need extra time to understand complex and a bstract ideas (such as current events, finances, discharge planning, medical issues, relationships, e tc)? No. COMPREHENSION - STEP 2: Does the patient need extra time, require an assistive device (such as glasses for visual comprehensi on or a hearing aid for auditory comprehension) or does s/he have mild difficulty understanding compl ex and abstract information? Yes. COMPREHENSION - SCORE: 6-SONI EXPRESSION EXPRESSION: TYPE: Both EXPRESSION - STEP 1: Does the patient require help from a person or device, or need extra time expressing complex and abst ract ideas (such as current events, finances, discharge planning, medical issues, relationships, etc) ? No. EXPRESSION - STEP 2: Does the patient need extra time, require an assistive device (such as augmentive communication syste m or a communication board), OR does s/he have mild difficulty expressing complex and abstract ideas (including mild dysarthria or mild word-find problems)? No. EXPRESSION - SCORE: 7-IND SOCIAL INTERACTION: SOCIAL INTERACTION - STEP 1: Does the patient require a helper to interact with others in social and therapeutic situations? No. SOCIAL INTERACTION - STEP 2: Does the patient need extra time in social situations, OR does s/he interact with staff, other patien ts, and family members ONLY in structured environments, OR does s/he require medication for social in teraction? Yes, patient requires medication for social interaction SOCIAL INTERACTION - SCORE: 6-SONI PROBLEM SOLVING: PROBLEM SOLVING - STEP 1: Does the patient need help from a person or device, or need extra time to solve complex problems such as managing a checking account or confronting interpersonal problems? No. PROBLEM SOLVING - STEP 2: Does the patient require extra time to make decisions or solve problems, OR does s/he have slight dif ficulty reading, initiating, or self-correcting in unfamiliar situations? No. PROBLEM SOLVING - SCORE: 7-IND MEMORY: MEMORY - STEP 1: Does the patient need help from a person or device, or need extra time to remember frequently encount ered people, daily routines, and executing requests? No. MEMORY - STEP 2: Does the patient have slight difficulty recognizing frequently encountered people, daily routines, or executing requests without the need for repetition or using self-initiated or environmental cues to remember? No. MEMORY - SCORE: 7-IND SIGNATURE PANEL: The following modified sections: Eating - Score, Grooming - Score, Bathing - Score, Dressing - Upper Body - Score, Dressing - Lower Body - Score, Toileting - Score, Bladder Management - Score, Bowel Man agement - Score, Transfers: Bed, Chair, Wheelchair - Score, Transfers: Toilet - Score, Transfers: Guerline wer - Score, Transfers: Tub - Score, Locomotion: Walk - Score, Locomotion: Wheelchair - Score, Compre hension - Score, Expression - Score, Social Interaction - Score, Problem Solving - Score, Memory - Sc ore were [electronically] signed by Chanell Ordaz CNA on TueJun 02 2018 00:31:07 T-0500 ([facility] Time)
[2018-06-02] MEDS: HYDROCODONE/APAP 10/325 TAB PO PRN ×4 (01:42→17:48)
[2018-06-02 06:41] LABS: Absolute Lymphocytes (CBC) 1.5 K/uL (0.7-4.9); Absolute Monocytes 0.8 K/uL (0.1-1.3); Absolute Neutrophil 4.3 K/uL (1.8-8.0); Basophils % 0.5 % (0-1.3); Eosinophils % 4.3 % (0-4.4); Hematocrit 25.3 % (36.0-45.0); Lymphocytes % 21.3 % (15.3-44.8); MPV 7.6 fL (7.6-11.3); Monocytes % 11.9 % (3.3-12.3); RBC Red Blood Cell Count 2.86 M/uL (3.86-4.86)
[2018-06-02] MEDS: ENOXAPARIN 40 MG/0.4 ML SQ SCH (06:54)
[2018-06-02] MEDS: PANTOPRAZOLE 40MG TABLET PO SCH (06:54)
[2018-06-02 07:02] LABS: Albumin 2.7 g/dL (3.4-5.0); Magnesium 2.1 mg/dL (1.8-2.4); Potassium 3.4 mmol/L (3.5-5.1); Prealbumin 9.8 mg/dL (20-40)
[2018-06-02] MEDS: FUROSEMIDE 40 MG TABLET PO SCH ×2 (08:22→17:49)
[2018-06-02] MEDS: POLYETHYL GLY 3350 17 GM/DOSE PO SCH (08:22)
[2018-06-02] MEDS: VITAMIN D 1000 UNIT TAB PO SCH (08:23)
[2018-06-02] MEDS: FE SULF/FA/VIT B COMP & C TAB PO SCH (08:23)
[2018-06-02] MEDS: METOPROLOL XL 25 MG TAB PO SCH (08:23)
[2018-06-02] MEDS ORDERED: BISACODYL 10 MG RECTAL SUPP PR ONE (08:23)
[2018-06-02] MEDS: ASPIRIN EC 81 MG TAB PO SCH (08:24)
[2018-06-02] MEDS: LOSARTAN POTASSIUM 50 MG TABLET PO SCH (08:24)
[2018-06-02] MEDS: ASCORBIC ACID 500 MG TABLET PO SCH (08:24)
[2018-06-02] MEDS ORDERED: POTASSIUM CL SA 10 MEQ TAB PO SCH (09:00)
--- NOTE | 2018-06-02 10:13 | P.RH.PN ---
Estimated Length of Stay: 14 Expected Discharge Date: 06/14/18 Discharge Disposition Plan: Home Family Support: Yes [facility] Goal: Mobility, Transfers, Self Care Vital Signs: Last Vital Signs Temp 98.0 F 06/01/18 19:30 Pulse 73 06/02/18 08:23 Resp 18 06/01/18 19:30 BP 145/62 H 06/02/18 08:23 Pulse Ox 95 06/01/18 19:30 Laboratory: Laboratory Last Values WBC 6.9 K/uL (4.3-10.9) D 06/02/18 06:12 RBC 2.86 M/uL (3.86-4.86) L 06/02/18 06:12 Hgb 8.7 g/dL (12.0-15.0) L 06/02/18 06:12 Hct 25.3 % (36.0-45.0) L 06/02/18 06:12 MCV 88.5 fL (80-100) 06/02/18 06:12 MCH 30.5 pg (27.0-35.0) 06/02/18 06:12 MCHC 34.5 g/dL (32.0-36.0) 06/02/18 06:12 RDW 12.3 % (12.1-15.2) 06/02/18 06:12 Plt Count 278 K/uL (152-406) 06/02/18 06:12 MPV 7.6 fL (7.6-11.3) 06/02/18 06:12 Neutrophils % 62.0 % (41.7-73.7) 06/02/18 06:12 Lymphocytes % 21.3 % (15.3-44.8) 06/02/18 06:12 Monocytes % 11.9 % (3.3-12.3) 06/02/18 06:12 Eosinophils % 4.3 % (0-4.4) 06/02/18 06:12 Basophils % 0.5 % (0-1.3) 06/02/18 06:12 Absolute Neutrophils 4.3 K/uL (1.8-8.0) 06/02/18 06:12 Absolute Lymphocytes 1.5 K/uL (0.7-4.9) 06/02/18 06:12 Absolute Monocytes 0.8 K/uL (0.1-1.3) 06/02/18 06:12 Absolute Eosinophils 0.3 K/uL (0-0.5) 06/02/18 06:12 Absolute Basophils 0.0 K/uL (0-0.5) 06/02/18 06:12 Sodium 140 mmol/L (136-145) 06/02/18 06:12 Potassium 3.4 mmol/L (3.5-5.1) L 06/02/18 06:12 Chloride 103 mmol/L (98-107) 06/02/18 06:12 Carbon Dioxide 32 mmol/L (21-32) 06/02/18 06:12 BUN 14 mg/dL (7-18) 06/02/18 06:12 Creatinine 0.71 mg/dL (0.55-1.3) 06/02/18 06:12 Estimated GFR 79 mL/min (=/>90) L 06/02/18 06:12 Glucose 113 mg/dL (74-106) H 06/02/18 06:12 Calcium 8.4 mg/dL (8.5-10.1) L 06/02/18 06:12 Magnesium 2.1 mg/dL (1.8-2.4) 06/02/18 06:12 Albumin 2.7 g/dL (3.4-5.0) L 06/02/18 06:12 Prealbumin 9.8 mg/dL (20-40) L 06/02/18 06:12 Urine Color Yellow 06/01/18 19:05 Urine Appearance Clear 06/01/18 19:05 Urine pH 6.0 (5.0-7.0) 06/01/18 19:05 Ur Specific [place] <=1.005 (1.005-1.030) 06/01/18 19:05 Urine Ketones Negative (NEG) 06/01/18 19:05 Urine Blood Negative (NEG) 06/01/18 19:05 Urine Nitrite Negative (NEG) 06/01/18 19:05 Urine Bilirubin Negative (NEG) 06/01/18 19:05 Urine Urobilinogen 1.0 mg/dL (0.2-1.0) 06/01/18 19:05 Ur Leukocyte Esterase 1+ (NEG) H 06/01/18 19:05 Urine RBC <5 /HPF (NONE SEEN) 06/01/18 19:05 Urine WBC 10-20 /HPF (<5) H 06/01/18 19:05 Ur Squamous Epith Cells <5 /HPF (NONE SEEN) 06/01/18 19:05 Ur Urothelial Cells <5 /HPF (NONE SEEN) 06/01/18 19:05 Urine Bacteria <20 /HPF (<20) 06/01/18 19:05 Urine Culture Reflexed Not needed 06/01/18 19:05 Urine Glucose Negative (NEG) 06/01/18 19:05 Urine Total Protein Negative (NEG) 06/01/18 19:05 Weight: 167 lb 7 oz Wound Present: No Closed Surgical Incision Present: Yes Negative Pressure Wound Therapy Present: No Physician Update: Hgb is mildly low at 8.7. She is on hemocyte plus and iron. Prealbumin in 9.8. Her potassium is low at 3.4. Start K 10 meq bid. She is at contact guard assistance. Summary: Patient's care plan and manager intermediate goals have been reviewed and revised as necessary. Please see the Rehabilitation Signature page for all necessary signatures.
--- NOTE | 2018-06-02 12:53 | FAST ---
ENCOUNTER DATE AND TIME: 06/02/2018 08:00 (CDT) NAME MIHCELLE EVANGELISTA DATE OF : 1935 DATE OF ADMISSION: 06/01/2018 15:25 (CDT) PHONE: AGE: 82 SSN# [id number] GENDER: Female ENCOUNTER PHYSICIAN: Dr. Checo Delgado M.D. ADMISSION DIAGNOSIS: - Orthopaedic Disorders 08 - Unilateral Hip Fracture (09.17) closed traumatic displaced intertrochanteric fx. EATING: Activity did not occur on this shift EATING - SCORE: 0-UNK GROOMING: GROOMING - STEP 1: Does the patient require the assistance of a person or device, or need extra time when grooming? Yes. GROOMING - STEP 2: Does the patient require the assistance of a helper? Yes. GROOMING - STEP 3: How much assistance does the patient require from the helper? Only prior equipment preparation/set up from the helper GROOMING - SCORE: 5-SUP BATHING: Abdomen Buttocks Chest Left arm Left lower leg and foot Left upper leg Perineal area Right arm Right lower leg and foot Right upper leg BATHING - STEP 1: Does the patient require the assistance of a person or device, or need extra time when bathing? Yes. BATHING - STEP 2: Does the patient require the assistance of a helper? Yes. BATHING - STEP 3: How much assistance does the patient require from the helper? More than just incidental help BATHING - STEP 4: What percent of the body parts did the patient bathe WITHOUT the helper? Half or more of the body par ts BATHING - SCORE: 3-MOD DRESSING - UPPER BODY: Bra (three steps) T-shirt/pullover shirt (four steps) ARTICLES SCORE Total number of steps: 7 DRESSING - UPPER BODY - STEP 1: Does the patient require help from a person or device, or need extra time when dressing above the criss st? Yes. DRESSING - UPPER BODY - STEP 2: Does the patient require the assistance of a helper? Yes. DRESSING - UPPER BODY - STEP 3: Does the helper touch the patient while dressing? Yes. DRESSING - UPPER BODY - STEP 4: How many of the total steps does the patient complete on his/her own? 6 DRESSING - UPPER BODY - SCORE: 4-MIN DRESSING - LOWER BODY: Elastic waist pants (three steps) Sock - Left foot (one step) ARTICLES SCORE Total number of steps: 4 DRESSING - LOWER BODY - STEP 1: Does the patient require help from a person or device, or need extra time when dressing below the criss st? Yes. DRESSING - LOWER BODY - STEP 2: Does the patient require the assistance of a helper? Yes. DRESSING - LOWER BODY - STEP 3: Does the helper touch the patient while dressing? Yes. DRESSING - LOWER BODY - STEP 4: How many of the total steps does the patient complete on his/her own? 2 DRESSING - LOWER BODY - SCORE: 3-MOD TOILETING: Activity did not occur on this shift TOILETING - SCORE: 0-UNK BLADDER MANAGEMENT: Activity did not occur on this shift BLADDER MANAGEMENT - SCORE: 7-IND BOWEL MANAGEMENT: Activity did not occur on this shift BOWEL MANAGEMENT - SCORE: 7-IND TRANSFERS: BED, CHAIR, WHEELCHAIR: Activity did not occur on this shift TRANSFERS: BED, CHAIR, WHEELCHAIR - SCORE: 0-UNK TRANSFERS: TOILET: Activity did not occur on this shift TRANSFERS: TOILET - SCORE: 0-UNK TRANSFERS: SHOWER: Activity did not occur on this shift TRANSFERS: SHOWER - SCORE: 0-UNK TRANSFERS: TUB: TRANSFERS: TUB - STEP 1: Does the patient require the assistance of a person or device, or need extra time with tub transfers? Yes. TRANSFERS: TUB - STEP 2: Does the patient require the assistance of a helper? Yes. TRANSFERS: TUB - STEP 3: How much assistance does the patient require from the helper? More than incidental help TRANSFERS: TUB - STEP 4: How much more help does the patient require from the helper? [place] lifts BOTH legs into or out of th e tub TRANSFERS: TUB - SCORE: 3-MOD LOCOMOTION: WALK: Activity did not occur on this shift LOCOMOTION: WALK - SCORE: 0-UNK LOCOMOTION: WHEELCHAIR: Activity did not occur on this shift LOCOMOTION: WHEELCHAIR - SCORE: 0-UNK LOCOMOTION: STAIRS: Activity did not occur on this shift LOCOMOTION: STAIRS - SCORE: 0-UNK COMPREHENSION: COMPREHENSION: TYPE: Both COMPREHENSION - STEP 1: Does the patient require help from a person or device, or need extra time to understand complex and a bstract ideas (such as current events, finances, discharge planning, medical issues, relationships, e tc)? No. COMPREHENSION - STEP 2: Does the patient need extra time, require an assistive device (such as glasses for visual comprehensi on or a hearing aid for auditory comprehension) or does s/he have mild difficulty understanding compl ex and abstract information? Yes. COMPREHENSION - SCORE: 6-SONI EXPRESSION EXPRESSION: TYPE: Both EXPRESSION - STEP 1: Does the patient require help from a person or device, or need extra time expressing complex and abst ract ideas (such as current events, finances, discharge planning, medical issues, relationships, etc) ? No. EXPRESSION - STEP 2: Does the patient need extra time, require an assistive device (such as augmentive communication syste m or a communication board), OR does s/he have mild difficulty expressing complex and abstract ideas (including mild dysarthria or mild word-find problems)? No. EXPRESSION - SCORE: 7-IND SOCIAL INTERACTION: SOCIAL INTERACTION - STEP 1: Does the patient require a helper to interact with others in social and therapeutic situations? No. SOCIAL INTERACTION - STEP 2: Does the patient need extra time in social situations, OR does s/he interact with staff, other patien ts, and family members ONLY in structured environments, OR does s/he require medication for social in teraction? No. SOCIAL INTERACTION - SCORE: 7-IND PROBLEM SOLVING: PROBLEM SOLVING - STEP 1: Does the patient need help from a person or device, or need extra time to solve complex problems such as managing a checking account or confronting interpersonal problems? Yes. PROBLEM SOLVING - STEP 2: Does the patient solve basic routine problems half or more of the time? Yes. PROBLEM SOLVING - STEP 3: How often does the patient need help to solve basic routine problems? Less than 10% of the time PROBLEM SOLVING - SCORE: 5-SUP MEMORY: MEMORY - STEP 1: Does the patient need help from a person or device, or need extra time to remember frequently encount ered people, daily routines, and executing requests? Yes. MEMORY - STEP 2: How often does the patient need help to remember frequently encountered people, daily routines, and e xecuting requests? Less than 10% of the time MEMORY - SCORE: 5-SUP SIGNATURE PANEL: The following modified sections: Eating - Score, Grooming - Score, Bathing - Score, Dressing - Upper Body - Score, Dressing - Lower Body - Score, Toileting - Score, Transfers: Bed, Chair, Wheelchair - S core, Transfers: Toilet - Score, Transfers: Shower - Score, Transfers: Tub - Score, Comprehension - S core, Expression - Score, Social Interaction - Score, Problem Solving - Score, Memory - Score were [e lectronically] signed by Brooke Rivers OT on TueJun 02 2018 12:53:32 [facility] ([place] Time)
[2018-06-02] MEDS ORDERED: BISACODYL 10 MG RECTAL SUPP PR PRN (13:31)
--- NOTE | 2018-06-02 13:45 | R.HP ---
FACILITY: [facility] ENCOUNTER DATE AND TIME: 06/02/2018 13:39 (CDT) MR#: [id number] NAME MICHELLE EVANGELISTA ADDRESS: [address] [place] [address]: [place] [address]IP [id number] PHONE: DATE OF : 1935 AGE: 82 SSN# [id number] GENDER: Female DEXTERITY Right-handed MARITAL STATUS RACE White PRE-HOSPITAL LIVING SETTING 01 - Home (private home/apt. board/care, assisted living, residential, transitional living) PRE-HOSPITAL LIVING WITH Family/Relatives ENCOUNTER PHYSICIAN: Dr. Checo Delgado M.D. REFERRING DOCTOR: DR. FAVIAN MCKEON DATE OF ADMISSION: 06/01/2018 15:25 (CDT) REFERRING FACILITY [facility] HOME TYPE AND DETAILS: Type of home: single family house # of steps to enter the residence: 0 # of steps within the residence: 0 # of levels in the residence: 1 ADMISSION DIAGNOSIS: closed traumatic displaced intertrochanteric fx ONSET DATE: 05/28/2018 PRIMARY DIAGNOSIS-RELATED SURGERIES: Emergency Unilateral Hip Fracture - performed by Darren Schmidt on 05/28/2018 SECONDARY/COMORBID DIAGNOSES (TIERED): - N/A bradycardia CAD OSTEOARTHIRITS hypertension gastroesophageal reflux disease (GERD) diverticulosis osteopenia HISTORY OF PRESENT ILLNESS (HPI): Pt. is a 82 yo Right-handed white female. On 05/28/2018 she was admitted to [facility] and underwent emergency surgery fo r closed traumatic displaced intertrochanteric fx (Unilateral Hip Fracture) by DR. FAVIAN MCKEON. Pre-morbidly, Pt. was independent/mod-I in Self-Care, Sphincter Control, Transfers Control, Communica tion, Social Cognition, and Locomotion; and she had good Sphincter Control. Currently, she has deficits of Transfers Control, Communication, Social Cognition, Endurance, Balance , Safety Awareness, Self-Care, and Locomotion. Pt. is now referred to [facility] for acute in-patient rehabilitation in order to maximize patient's functional independence in activities of daily living, strength, ROM, and mobi lity. Patient has realistic goal of being discharged at assistance level 6-Jena to reside at Home with Fam yossi/Relatives. MEDICATION ALLERGIES: No Known Drug Allergies (NKDA) ENVIRONMENTAL ALLERGIES: - Substance Allergies None Known - Other Allergies None Known PAST MEDICAL HISTORY: CAD OSTEOARTHIRITS bradycardia diverticulosis gastroesophageal reflux disease (GERD) hypertension osteopenia FAMILY HISTORY: Family history is not contributory. SOCIAL HISTORY: - Home Living Family/Relatives REVIEW OF SYSTEMS: - Gen No Chills Fatigue No Fever - Eyes No Double Vision No itchiness - ENMT No Difficulty Swallowing - CVS No Chest Discomfort No Chest Pain Fatigue No Weight Gain - Resp No Cough No Shortness of Breath - GI Continent No Abdominal Pain Constipation No Diarrhea - Continent No Kidney Pain No Painful Urination No Urinary Urgency - MSK No Joint Pain Muscle Cramps Stiffness - Skin No Itching No Rash No Suspicious Lesions - Neuro Coordination Difficulty Difficulty with Concentration Memory Loss No Seizures Weakness - Psych No Anxiety No Depression No HIV Exposure No Persistent Infections No Seasonal Allergies - Endo No Cold/Heat Intolerance No Excessive Hunger No Excessive Thirst No Excessive Urination PHYSICAL EXAM - Gen Alert and awake Lying in bed No apparent distress Oriented to: person, time, and place - Skin No breakdown No abnormalities - Eyes No abnormalities - ENMT No abnormalities - Neck No abnormalities - CVS RRR - Chest Clear - Abd + bowel sounds - GI nondistended Deferred - No abnormalities - Ext No significant edema - MSK 4/5 weakness in both lower extremities. - Neuro No focal deficits - Psych No abnormalities VITAL SIGNS Temperature: 98.7 F SBP/DBP: 145/62 Pulse: 73 Resp: 16 NURSING: - Shower allowing shower - Skin care per protocol PRECAUTIONS: - Posterior Hip Precaution No adduction across midline No external rotation No hip flexion >90 degrees No internal rotation No wheel chair propulsion - Weight Bearing Precaution TTWB right LE ACTIVITIES OOB only with supervision FUNCTIONAL STATUS: - Self-Care A. Eating Ind Ind B. Grooming Ind sup C. Bathing Ind sup D. Dressing - Upper Ind sup E. Dressing - Lower Ind maxA F. Toileting Ind maxA - Sphincter Control G: Bladder control Ind Dep H: Bowel control Ind Dep - Transfers Control I. Bed/Chair/Wheelchair Ind maxA J. Toilet Ind maxA K. Tub/Shower Ind maxA - Locomotion L. Walk/Wheelchair (B) Ind Dep M. Stairs Ind ADNO - Communication N. Comprehension (B) Ind sup O. Expression (B) Ind sup - Social Cognition P. Social Interaction Ind sup Q. Problem Solving Ind sup R. Memory Ind sup - Endurance Poor - Balance Poor - Safety Awareness Fair CURRENT FUNC. DEFICITS: Transfers Control, Communication, Social Cognition, Endurance, Balance, Safety Awareness, Self-Care, and Locomotion ASSESSMENT: Pt. is a 82 yo Right-handed white female.On 05/28/2018 she was admitted to [facility] and underwent emergency surgery for closed traumatic displaced intertrochanteric fx (Unilatera l Hip Fracture) by DR. FAVIAN MCKEON.Pre-morbidly, Pt. was independent/mod-I in Self-Care, Sphincter Co ntrol, Transfers Control, Communication, Social Cognition, and Locomotion; and she had good Sphincter Control.Currently, she has deficits of Transfers Control, Communication, Social Cognition, Endurance , Balance, Safety Awareness, Self-Care, and Locomotion.Pt. is now referred to [facility] for acute in-patient rehabilitation in order to maximize patient's functional independence in activities of daily living, strength, ROM, and mobility.- Rehab Goal Patient has realistic goal of being discharged at assistance level 6-Jena to reside at Home with Fam yossi/Relatives. REHAB PLAN: - Physical Therapy Decreased range of motion - to improve, our physical therapists will perform initial evaluation of pt 's status upon admission and devise an individualized program for increasing patient's Range of Motio n. Gait dysfunction - to improve, our physical therapists will perform initial evaluation of pt's status upon admission and devise an individualized program for Gait Training, and Wheel Chair mobility Inability to transfer - to improve, our physical therapists will perform initial evaluation of pt's s tatus upon admission and devise an individualized program for Bed mobility Need for home safety evaluation - to improve, our physical therapists will perform initial evaluation of pt's status upon admission and devise an individualized program for Home Evaluation Need in caregiver upon discharge - to improve, our physical therapists will perform initial evaluatio n of pt's status upon admission and devise an individualized program for Caregiver Training New precaution - to improve, our physical therapists will perform initial evaluation of pt's status u ruben admission and devise an individualized program for Patient precaution education Edema - to improve, our physical therapists will perform initial evaluation of pt's status upon admi ssion and devise an individualized program for Elevation Training, and Lymphedema Therapy Poor balance - to improve, our physical therapists will perform initial evaluation of pt's status upo n admission and devise an individualized program for Balance Training Poor endurance - to improve, our physical therapists will perform initial evaluation of pt's status u ruben admission and devise an individualized program for Endurance Training Weakness - to improve, our physical therapists will perform initial evaluation of pt's status upon ad mission and devise an individualized program for Aquatic Therapy, Neuromuscular Reeducation, and Stre ngthening Achieving independence - to improve, our physical therapists will perform initial evaluation of pt's status upon admission and devise an individualized program for Community Reintegration Activities - Occupational Therapy ADL deficits - to improve, our occupation therapists will perform initial evaluation of pt's status u ruben admission and devise an individualized program for Bathing, Bed mobility, Community Reintegration , Cooking, Dressing, Eating, Fine Motor Skills, Grooming, Homemaking, Kitchen Mobility, Laundry, Erika ent Education, Safety Awareness, Splinting - Positioning, Transfers(Toilet, Tub, Shower), and Wheel C hair Management Cognitive deficits - to improve, our occupation therapists will perform initial evaluation of pt's st atus upon admission and devise an individualized program for Cognition - orientation Need for care administrative tech - to improve, our occupation therapists will perform initial evaluation of pt's s tatus upon admission and devise an individualized program for Caregiver Training Weakness - to improve, our occupation therapists will perform initial evaluation of pt's status upon admission and devise an individualized program for Aquatic Therapy, Balance, Endurance, UE ROM, and U E strengthening MEDICAL PLAN: - Anterior Hip Precaution No abduction No active extension No adduction across midline No external rotation No hip flexion >90 degrees No internal rotation - Diet - Liquid Texture Start Regular - Tube Feed Start N/A - Diet Type Start Regular - Posterior Hip Precaution No adduction across midline No external rotation No hip flexion >90 degrees No internal rotation No wheel chair propulsion - Weight Bearing Precaution TTWB right LE - Skin care per protocol - Diet - Solid Texture Regular - Shower shower DISCHARGE PLAN: - Estimated Length of Stay (days) 14. - Consensus on plan Discharge plan has been discussed with primary caregiver. Patient/Family is in agreement with the tyrone n. Primary caregiver is in agreement with the plan. - Patient/Family Goals Return home with assistance. - Planned Living Setting Upon Discharge Home, to live with Family/Relatives. SIGNATURE PANEL: (CDT)
--- NOTE | 2018-06-02 13:47 | PAPE ---
PATIENT: [facility] MR# [id number] REFERRING DOCTOR DR. FAVIAN MCKEON EVALUATION DATE AND TIME 06/02/2018 13:46 (CDT) NAME MICHELLE EVANGELISTA DATE OF 1935 AGE 82 PHONE SSN# [id number] GENDER female EVALUATING PHYSICIAN Dr. Checo Delgado M.D. ADMISSION DIAGNOSIS: closed traumatic displaced intertrochanteric fx ONSET DATE 05/28/2018 SECONDARY/COMORBID DIAGNOSES TIERED: - N/A bradycardia CAD OSTEOARTHIRITS hypertension gastroesophageal reflux disease (GERD) diverticulosis osteopenia POST-ADMISSION FUNCTIONAL/MEDICAL STATUS: - Bladder Same accident frequency: Ind - No accidents in the past 7 days - Bowel Same accident frequency: Ind - No accidents in the past 7 days - Walking Same score based on distance walked: 0(N/A) STATUS CHANGE EVALUATION: No change in Functional or Medical Status is identified compared with Pre-Admission screening. PATIENT NEEDS CLOSE MEDICAL SUPERVISION BY A REHABILITATION PHYSICIAN FOR: Bowel and Bladder Management Coordination of Treatment Team Medical and Co-Morbidity Management Post-Op Complications Wound Care PATIENT REQUIRES 24X7 REHAB NURSING FOR MEDICAL AND FUNCTIONAL MGT. OF THE FOLLOWING DEFICITS: ADL's Ambulation Bowel and Bladder Management Cognition Communication Disease Management Medication Management Patient/Family Education Providing Safe Environment Skin Integrity Transfers PATIENT REQUIRES INTENSIVE, COORDINATED INTERDISCIPLINARY APPROACH TO REHAB: Arranging Home Equipment/Services Discharge Planning Family Intervention/Training Deburr Technician/Case Management LIST OF IDENTIFIED AND POTENTIAL PROBLEMS: Alteration in leisure activities Bladder, Incontinence Blood Pressure, Hypertension/hypotension Issues Bowel, Incontinence Infection, Actual or Potential Mobility Impaired Pain, Alteration in Comfort Self Care Deficit Skin Integrity, Actual or Potential Urinary Tract Infection (UTI), Actual or Potential RISK FOR COMPLICATIONS - CAD CHF. Cardiac Arrest. SC. Pain. - Hypertension CVA. Hypotension. SC. TIA. INTERVENTIONS - CAD 02 sats. Activity management. Medications. VS. - Hypertension PATIENT COULD BE AT RISK FOR COMPLICATIONS FROM ADVERSE MEDICAL CONDITIONS DUE TO HIS/HER COMORBIDITI ES AND THE RIGORS OF THE INTENSIVE REHABILLITATION PROGRAM. METHODS OR INTERVENTIONS TO AVOID COMPLIC ATIONS INCLUDE: - Bleeding Assess lab values and manage abnormalities. Nursing to teach precautions for anti-coagulation therapy . Wound to be assessed every shift. - Infection Clinical staff to assess and manage the signs and symptoms of infection including fever, redness, war mth, etc. - Urinary Tract Infection - Falls Patient will be evaluated for Fall Precautions and will be placed on Fall Precautions as indicated pe r protocol. - Skin Breakdown Nursing will assess skin daily using assessment tool and will place on Skin Breakdown Precautions as indicated per protocol. - Pain Clinical staff may employ non-medication methods such as massage, distraction, decrease stimulus, etc . as needed. Clinical staff will assess patient's pain level every shift per protocol to assess and e nsure pain management effectiveness. Medications will be given and the pain level re-assessed. PRELIMINARY PLAN OF CARE: - Physical Therapy Patient needs Physical Therapy for a daily minimum of 1.5 hours at least 5 out of 7 days, to improve: Mobility, Strengthening, Transfers, Stretching, ROM, Endurance, Ability to manage stairs, Gait, and Balance. - Speech Therapy Patient needs Speech Therapy for a daily minimum of 0.5 hours at least 5 out of 7 days, to improve: S wallowing, Cognition, Language Skills, and Compensatory Strategies. - Rehabilitation Nursing Patient requires 24x7 Rehabilitation Nursing for: Pain Issues, Identifying and preventing risk factor s, Monitoring and reporting current medical conditions, Assisting with ambulation and transfer, Shahid ting with all ADL-s, Teaching patients about disease process and medications, Family teaching, Provid ing safe environment, Bowel and Bladder Issues, Skin Integrity, and Medication Management. Patient needs Deburr Technician and/or Case Management for: Discharge Planning, Arranging Home Equipmen t or Services, and Family Interventions. - Dietary and Nutrition Services Patient needs Dietary and Nutrition Services for: Adequate Nutrition, Nutritional Supplements, and Nu tritional Education. - Occupational Therapy Patient needs Occupational Therapy for a daily minimum of 1.5 hours at least 5 out of 7 days, to impr ove Activities of Daily Living, including: Eating, Grooming, Bathing, Dressing, Toileting, Toilet Tra nsfers, Community Reintegration, Higher functional activities, Adaptive Equipment, Splinting, Househo ld Tasks, and Other activities as determined. POTENTIAL FUNCTIONAL GOALS FOR PATIENT TO ACHIEVE BY DISCHARGE: - Safety Precaution Patient will remain free from falls or injury at time of discharge. - Bed Mobility Patient will perform bed mobility at 4-Pamela level of assistance. - Transfers Patient will complete transfers from bed to chair at 4-Pamela level of assistance. - Mobility Patient will ambulate 150 ft with 4-Pamela level of assistance with RW. PATIENT REHAB POTENTIAL Expected level of measurable improvement will be of a practical value to patient's functional capacit y or adaptations to impairments Has a viable Discharge Plan Medically appropriate; condition is sufficiently stable to participate in intensive rehab program Patient is able and expected to receive 3 hours of individualized therapy daily on at least 5 of ever y 7 days Patient's prognosis for significant practical improvement within a reasonable period of time appears Good DISCHARGE PLAN: - Estimated Length of Stay (days) 14. - Consensus on plan Discharge plan has been discussed with primary caregiver. Patient/Family is in agreement with the tyrone n. Primary caregiver is in agreement with the plan. - Patient/Family Goals Return home with assistance. - Planned Living Setting Upon Discharge Home, to live with Family/Relatives. CONCLUSION ON REHABILITATION NECESSITY: I have evaluated patient's pre-admission functional status and, comparing it to the patient's post-ad mission functional status now, I conclude that the pre-admission assessment was accurate. Patient's c ondition on admission supports the medical necessity of admission to IR[facility]. It is safe to proceed with patient's therapy program. SIGNATURE PANEL: (CDT)
--- NOTE | 2018-06-02 14:40 | RAD REPORT ---
EXAM DESCRIPTION: RAD - Ankle Left 3 View - 06/02/2018 2:25 pm CLINICAL HISTORY: Nontraumatic left ankle pain COMPARISON: None. FINDINGS: No fracture, dislocation or periosteal reaction. No joint effusion seen. No joint space na rrowing. Moderate-sized plantar spur present. No air, foreign body or suspicious calcification in the soft tissues. Soft tissues around the ankle joint are prominent with the baseline for the patient u nknown. IMPRESSION: Negative left ankle for fracture or other acute finding. Moderate size plantar spur.
[2018-06-02] MEDS: LIDOCAINE 5% PATCH TOP SCH (15:36)
--- NOTE | 2018-06-02 16:21 | FAST ---
ENCOUNTER DATE AND TIME: 06/02/2018 08:00 (CDT) NAME MICHELLE EVANGELISTA DATE OF : 1935 DATE OF ADMISSION: 06/01/2018 15:25 (CDT) PHONE: AGE: 82 SSN# [id number] GENDER: Female ENCOUNTER PHYSICIAN: Dr. Checo Delgado M.D. ADMISSION DIAGNOSIS: - Orthopaedic Disorders 08 - Unilateral Hip Fracture (.) closed traumatic displaced intertrochanteric fx. EATING: Activity did not occur on this shift EATING - SCORE: 0-UNK GROOMING: Activity did not occur on this shift GROOMING - SCORE: 0-UNK BATHING: Activity did not occur on this shift BATHING - SCORE: 0-UNK DRESSING - UPPER BODY: Activity did not occur on this shift Patient is not dressing in public clothing ARTICLES SCORE Total number of steps: 0 DRESSING - UPPER BODY - SCORE: 0-UNK DRESSING - LOWER BODY: Activity did not occur on this shift Patient is not dressing in public clothing ARTICLES SCORE Total number of steps: 0 DRESSING - LOWER BODY - SCORE: 0-UNK TOILETING: Activity did not occur on this shift TOILETING - SCORE: 0-UNK BLADDER MANAGEMENT: Activity did not occur on this shift BLADDER MANAGEMENT - SCORE: 7-IND BOWEL MANAGEMENT: Activity did not occur on this shift BOWEL MANAGEMENT - SCORE: 7-IND TRANSFERS: BED, CHAIR, WHEELCHAIR: TRANSFERS: BED, CHAIR, WHEELCHAIR - STEP 1: Does the patient require assistance of a person or device, or need extra time with bed, chair, or whe elchair transfers? Yes. TRANSFERS: BED, CHAIR, WHEELCHAIR - STEP 2: Does the patient require the assistance of a helper? Yes. TRANSFERS: BED, CHAIR, WHEELCHAIR - STEP 3: How much assistance does the patient require from the helper? Lifting of the patient TRANSFERS: BED, CHAIR, WHEELCHAIR - STEP 4: Does the helper lift the patient ONLY up? ONLY down? Up AND Down? Up AND Down. TRANSFERS: BED, CHAIR, WHEELCHAIR - SCORE: 2-MAX TRANSFERS: TOILET: Activity did not occur on this shift TRANSFERS: TOILET - SCORE: 0-UNK TRANSFERS: SHOWER: Activity did not occur on this shift TRANSFERS: SHOWER - SCORE: 0-UNK TRANSFERS: TUB: Activity did not occur on this shift TRANSFERS: TUB - SCORE: 0-UNK LOCOMOTION: WALK: Patient walks less than 50 feet LOCOMOTION: WALK - SCORE: 1-DEP LOCOMOTION: WHEELCHAIR: LOCOMOTION: WHEELCHAIR - STEP 1: Does the patient need help to go 150 feet in a wheelchair? Yes. LOCOMOTION: WHEELCHAIR - STEP 2: How much assistance does the patient need from the helper? Patient goes less than 150 feet - but more than 50 feet - with the assistance of only one helper LOCOMOTION: WHEELCHAIR - SCORE: 2-MAX LOCOMOTION: STAIRS: Activity did not occur on this shift LOCOMOTION: STAIRS - SCORE: 0-UNK COMPREHENSION: COMPREHENSION - SCORE: 0-UNK EXPRESSION EXPRESSION - SCORE: 0-UNK SOCIAL INTERACTION: SOCIAL INTERACTION - SCORE: 0-UNK PROBLEM SOLVING: PROBLEM SOLVING - SCORE: 0-UNK MEMORY: MEMORY - SCORE: 0-UNK SIGNATURE PANEL: The following modified sections: Transfers: Bed, Chair, Wheelchair - Score, Locomotion: Walk - Score, Locomotion: Wheelchair - Score, Locomotion: Stairs - Score, Transfers: Toilet - Score were [electron ically] signed by Ayaz Lopez, PT on TueJun 02 2018 16:21:04 T-0500 (Central Daylight Time)
--- NOTE | 2018-06-02 16:26 | FAST ---
SHIFT START DATE/TIME: 06/02/2018 07:00 (CDT) SHIFT END DATE/TIME: 06/02/2018 19:00 (CDT) NAME MICHELLE EVANGELISTA DATE OF : 1935 DATE OF ADMISSION: 06/01/2018 15:25 (CDT) PHONE: AGE: 82 SSN# [id number] GENDER: Female ENCOUNTER PHYSICIAN: Dr. Checo Delgado M.D. ADMISSION DIAGNOSIS: - Orthopaedic Disorders 08 - Unilateral Hip Fracture (08.11) closed traumatic displaced intertrochanteric fx. EATING: EATING - STEP 1: Does the patient require the assistance of a person or device, or need extra time when eating? No. EATING - SCORE: 7-IND GROOMING: Comb/brush hair Oral care Wash, rinse, and dry face Wash, rinse, and dry hands GROOMING - STEP 1: Does the patient require the assistance of a person or device, or need extra time when grooming? Yes. GROOMING - STEP 2: Does the patient require the assistance of a helper? No. The patient only requires an assistive devic e, OR takes more than reasonable time to groom, OR there is a concern for safety as the patient groom s GROOMING - SCORE: 6-SONI BATHING: Activity did not occur on this shift BATHING - SCORE: 0-UNK DRESSING - UPPER BODY: Activity did not occur on this shift ARTICLES SCORE Total number of steps: 0 DRESSING - UPPER BODY - SCORE: 0-UNK DRESSING - LOWER BODY: Activity did not occur on this shift ARTICLES SCORE Total number of steps: 0 DRESSING - LOWER BODY - SCORE: 0-UNK TOILETING: TOILETING - STEP 1: Does the patient require the assistance of a person or device, or need extra time with toileting? Yes . TOILETING - STEP 2: Does the patient require the assistance of a helper? No. TOILETING - SCORE: 6-SONI BLADDER MANAGEMENT: BLADDER MANAGEMENT - STEP 1: Does the patient control the bladder completely and intentionally without equipment or devices or med ications, and is always continent? Yes. BLADDER MANAGEMENT - SCORE: 7-IND BLADDER MANAGEMENT - FREQUENCY OF ACCIDENTS: BLADDER MANAGEMENT(FA) - STEP 1: How many accidents has the patient had during the current shift? 0 BOWEL MANAGEMENT: BOWEL MANAGEMENT - STEP 1: Does the patient control bowels completely and intentionally without equipment devices or medications AND is always continent? Yes. BOWEL MANAGEMENT - SCORE: 7-IND BOWEL MANAGEMENT - FREQUENCY OF ACCIDENTS: BOWEL MANAGEMENT(FA) - STEP 1: How many accidents has the patient had during the current shift? 0 TRANSFERS: BED, CHAIR, WHEELCHAIR: TRANSFERS: BED, CHAIR, WHEELCHAIR - STEP 1: Does the patient require assistance of a person or device, or need extra time with bed, chair, or whe elchair transfers? Yes. TRANSFERS: BED, CHAIR, WHEELCHAIR - STEP 2: Does the patient require the assistance of a helper? Yes. TRANSFERS: BED, CHAIR, WHEELCHAIR - STEP 3: How much assistance does the patient require from the helper? Lifting of the patient TRANSFERS: BED, CHAIR, WHEELCHAIR - STEP 4: Does the helper lift the patient ONLY up? ONLY down? Up AND Down? ONLY up. TRANSFERS: BED, CHAIR, WHEELCHAIR - SCORE: 3-MOD TRANSFERS: TOILET: TRANSFERS: TOILET - STEP 1: Does the patient require the assistance of a person or device, or need extra time with toilet transfe rs? Yes. TRANSFERS: TOILET - STEP 2: Does the patient require the assistance of a helper? Yes. TRANSFERS: TOILET - STEP 3: How much assistance does the patient require from the helper? Patient performs half or more of the tr ansferring tasks TRANSFERS: TOILET - STEP 4: Does the patient need only incidental help such as contact guard or steadying during toilet transfer? No. Patient needs more than incidental help TRANSFERS: TOILET - SCORE: 3-MOD TRANSFERS: SHOWER: Activity did not occur on this shift TRANSFERS: SHOWER - SCORE: 0-UNK TRANSFERS: TUB: Activity did not occur on this shift TRANSFERS: TUB - SCORE: 0-UNK LOCOMOTION: WALK: Activity did not occur on this shift LOCOMOTION: WALK - SCORE: 0-UNK LOCOMOTION: WHEELCHAIR: Activity did not occur on this shift LOCOMOTION: WHEELCHAIR - SCORE: 0-UNK COMPREHENSION: COMPREHENSION - SCORE: 0-UNK EXPRESSION EXPRESSION - SCORE: 0-UNK SOCIAL INTERACTION: SOCIAL INTERACTION - SCORE: 0-UNK PROBLEM SOLVING: PROBLEM SOLVING - SCORE: 0-UNK MEMORY: MEMORY - SCORE: 0-UNK SIGNATURE PANEL: The following modified sections: Eating - Score, Grooming - Score, Bathing - Score, Dressing - Upper Body - Score, Dressing - Lower Body - Score, Toileting - Score, Bladder Management - Score, Bowel Man agement - Score, Transfers: Bed, Chair, Wheelchair - Score, Transfers: Toilet - Score, Transfers: Guerline wer - Score, Transfers: Tub - Score, Locomotion: Walk - Score, Locomotion: Wheelchair - Score, Compre hension - Score, Expression - Score, Social Interaction - Score, Problem Solving - Score, Memory - Sc ore were [electronically] signed by Lainey Jade CNA on TueJun 02 2018 16:25:38 T-0500 (Centra l Daylight Time)
--- NOTE | 2018-06-02 16:38 | P.PN ---
Date of Service: 06/02/18 (POD#3) Continuing post-op care for inpatient consultation 05/29/2018. S: PATIENT COMFORTABLE RECLINING IN BED. SHE INDICATES SHE'S BEEN WORKING HARD WITH THERAPY THIS MORNING, BUT NOTICED DISCOMFORT AND SWELLING IN THE LATERAL LEFT ANKLE WHILE PERFORMING TOUCH DOWN WEIGHTBEARING RIGHT LOWER EXTREMITY. O: AFEBRILE, VSS; HGB 8.7, DOWN FROM 9.1 YESTERDAY. BANDAGE REMAINS CLEAN, DRY , AND INTACT. ON EXAMINATION THERE IS MILD SWELLING OF THE LATERAL LEFT ANKLE WITH SOME TENDERNESS TO PALPATION OVER THE ATFL. THERE IS NO ECCHYMOSIS ASSOCIATED WITH THE SWELLING. THE PATIENT HAS PERFORMED WELL WITHOUT COMPLAINTS OF ANKLE PAIN FOR 2-1/2 DAYS WITH TOUCH DOWN WEIGHT BEARING ONLY FOR THE RIGHT LOWER EXTREMITY. THIS MORNING THE PATIENT WALKED 20 FEET AND 15 FEET WITH HER ROLLING WALKER, AND WAS OBSERVED TO APPROPRIATELY MAINTAIN TOUCHDOWN WEIGHT BEARING FOR THE RIGHT LOWER EXTREMITY. A: THIS NEW COMPLAINT WOULD BE CONSIDERED A GRADE 1 SPRAIN OF THE LEFT ANKLE THAT HOPEFULLY WILL NOT INTERFERE WITH HER REHABILITATION OF HER RIGHT HIP INTERTROCHANTERIC FRACTURE. P: I HAVE REQUESTED AN AIRCAST-TYPE OF [place] [employer] THAT WOULD LEND SUPPORT AND PROTECT THE LEFT ANKLE FROM ADDITIONAL INJURY WHILE THE PATIENT CONTINUES TO PARTICIPATE IN RIGHT HIP IT FRACTURE REHABILITATION WITH FULL WEIGHT BEARING FOR THE LEFT LOWER EXTREMITY.
[2018-06-02] MEDS: ATORVASTATIN 20 MG TAB PO SCH (17:49)
[2018-06-02] MEDS: PROMOD 30 ML DOSE PO SCH (20:13)
[2018-06-02] MEDS: DOCUSATE NA 100 MG CAP PO SCH (20:13)
[2018-06-02] MEDS: GABAPENTIN 300 MG CAP PO SCH (20:13)
[2018-06-02] MEDS: CRANBERRY FRUIT EXTRACT 200 MG CAP PO SCH (20:13)
[2018-06-02] MEDS: POTASSIUM CL SA 10 MEQ TAB PO SCH (20:13)
[2018-06-02] MEDS: ALPRAZOLAM 0.5 MG TABLET PO SCH (20:14)
--- NOTE | 2018-06-03 00:07 | PN ---
Date of Progress Note: 06/02/2018 Subjective: The patient was seen this morning for followup. No new complaints, problems reported by her lying in bed, not in distress, on rehab floor, but still has not had a bowel movement since she came into the hospital, so it has been about 5-6 days without bowel movement. Objective: Vital Signs: Reviewed. HEENT: Unremarkable. Lungs: Clear to auscultation. Heart: Sounds normal. Abdomen: Soft. Bowel sounds normal. No guarding, rigidity, tenderness, distention. Extremities: No leg edema. Laboratory Data: White count 6.9, hemoglobin 8.7, platelets 278. Sodium 140, potassium 3.4, chlorid e 103, bicarb 32, BUN 14, creatinine 0.71, glucose 113. Impression: 1.Hip fracture. 2.Constipation. 3.Hypokalemia. 4.Anemia due to acute blood loss. Plan: We will go ahead and continue current medication. The patient is on furosemide. We will cont inue that, but add potassium supplement as ordered today, 20 mEq p.o. daily. Continue current Loveno x for DVT prophylaxis. We will continue iron supplement and physical therapy to be provided under guidance of Dr. Delgado. We will go ahead and order Dulcolax rectal suppository t marina. ERIKA/MODL Voice ID: [id number] Report ID: [id number]
--- NOTE | 2018-06-03 02:09 | FAST ---
SHIFT START DATE/TIME: 06/02/2018 19:00 (CDT) SHIFT END DATE/TIME: 06/03/2018 07:00 (CDT) NAME MICHELLE EVANGELISTA DATE OF : 1935 DATE OF ADMISSION: 06/01/2018 15:25 (CDT) PHONE: AGE: 82 N# [id number] GENDER: Female ENCOUNTER PHYSICIAN: Dr. Checo Delgado M.D. ADMISSION DIAGNOSIS: - Orthopaedic Disorders 08 - Unilateral Hip Fracture (08.11) closed traumatic displaced intertrochanteric fx. EATING: Activity did not occur on this shift EATING - SCORE: 0-UNK GROOMING: Activity did not occur on this shift GROOMING - SCORE: 0-UNK BATHING: Activity did not occur on this shift BATHING - SCORE: 0-UNK DRESSING - UPPER BODY: Patient is not dressing in public clothing ARTICLES SCORE Total number of steps: 0 DRESSING - UPPER BODY - SCORE: 0-UNK DRESSING - LOWER BODY: Patient is not dressing in public clothing ARTICLES SCORE Total number of steps: 0 DRESSING - LOWER BODY - SCORE: 0-UNK TOILETING: TOILETING - STEP 1: Does the patient require the assistance of a person or device, or need extra time with toileting? Yes . TOILETING - STEP 2: Does the patient require the assistance of a helper? Yes. TOILETING - STEP 3: How much assistance does the patient require from the helper? Hands-on assistance from the helper TOILETING - STEP 4: Of the 3 tasks: 1) Adjusting clothing prior to use, 2) Cleansing of perineal area, 3) Adjusting clot julia after use; How many tasks does the patient perform WITHOUT assistance of the helper? Three tasks with steadying assistance from the helper TOILETING - SCORE: 4-MIN BLADDER MANAGEMENT: BLADDER MANAGEMENT - STEP 1: Does the patient control the bladder completely and intentionally without equipment or devices or med ications, and is always continent? No. BLADDER MANAGEMENT - STEP 2: Does the patient require the assistance of a helper? Yes. BLADDER MANAGEMENT - STEP 3: How much assistance does the patient require from the helper? Only set-up of equipment - such as plac ing it within reach of the patient or emptying a device - to maintain either satisfactory voiding pat tern or managing an external device, such as an absorbent pad, ileal device, or catheter BLADDER MANAGEMENT - SCORE: 5-SUP BOWEL MANAGEMENT: Activity did not occur on this shift BOWEL MANAGEMENT - SCORE: 7-IND TRANSFERS: BED, CHAIR, WHEELCHAIR: TRANSFERS: BED, CHAIR, WHEELCHAIR - STEP 1: Does the patient require assistance of a person or device, or need extra time with bed, chair, or whe elchair transfers? Yes. TRANSFERS: BED, CHAIR, WHEELCHAIR - STEP 2: Does the patient require the assistance of a helper? Yes. TRANSFERS: BED, CHAIR, WHEELCHAIR - STEP 3: How much assistance does the patient require from the helper? Lifting of the legs TRANSFERS: BED, CHAIR, WHEELCHAIR - STEP 4: How many legs does the patient require the helper to lift? one leg TRANSFERS: BED, CHAIR, WHEELCHAIR - SCORE: 4-MIN TRANSFERS: TOILET: TRANSFERS: TOILET - STEP 1: Does the patient require the assistance of a person or device, or need extra time with toilet transfe rs? Yes. TRANSFERS: TOILET - STEP 2: Does the patient require the assistance of a helper? Yes. TRANSFERS: TOILET - STEP 3: How much assistance does the patient require from the helper? Patient performs half or more of the tr ansferring tasks TRANSFERS: TOILET - STEP 4: Does the patient need only incidental help such as contact guard or steadying during toilet transfer? No. Patient needs more than incidental help TRANSFERS: TOILET - SCORE: 3-MOD TRANSFERS: SHOWER: Activity did not occur on this shift TRANSFERS: SHOWER - SCORE: 0-UNK TRANSFERS: TUB: Activity did not occur on this shift TRANSFERS: TUB - SCORE: 0-UNK LOCOMOTION: WALK: Activity did not occur on this shift LOCOMOTION: WALK - SCORE: 0-UNK LOCOMOTION: WHEELCHAIR: Activity did not occur on this shift LOCOMOTION: WHEELCHAIR - SCORE: 0-UNK COMPREHENSION: COMPREHENSION: TYPE: Both COMPREHENSION - STEP 1: Does the patient require help from a person or device, or need extra time to understand complex and a bstract ideas (such as current events, finances, discharge planning, medical issues, relationships, e tc)? No. COMPREHENSION - STEP 2: Does the patient need extra time, require an assistive device (such as glasses for visual comprehensi on or a hearing aid for auditory comprehension) or does s/he have mild difficulty understanding compl ex and abstract information? Yes. COMPREHENSION - SCORE: 6-SONI EXPRESSION EXPRESSION: TYPE: Both EXPRESSION - STEP 1: Does the patient require help from a person or device, or need extra time expressing complex and abst ract ideas (such as current events, finances, discharge planning, medical issues, relationships, etc) ? No. EXPRESSION - STEP 2: Does the patient need extra time, require an assistive device (such as augmentive communication syste m or a communication board), OR does s/he have mild difficulty expressing complex and abstract ideas (including mild dysarthria or mild word-find problems)? Yes. EXPRESSION - SCORE: 6-SONI SOCIAL INTERACTION: SOCIAL INTERACTION - STEP 1: Does the patient require a helper to interact with others in social and therapeutic situations? No. SOCIAL INTERACTION - STEP 2: Does the patient need extra time in social situations, OR does s/he interact with staff, other patien ts, and family members ONLY in structured environments, OR does s/he require medication for social in teraction? Yes, patient needs extra time SOCIAL INTERACTION - SCORE: 6-SONI PROBLEM SOLVING: PROBLEM SOLVING - STEP 1: Does the patient need help from a person or device, or need extra time to solve complex problems such as managing a checking account or confronting interpersonal problems? No. PROBLEM SOLVING - STEP 2: Does the patient require extra time to make decisions or solve problems, OR does s/he have slight dif ficulty reading, initiating, or self-correcting in unfamiliar situations? Yes, patient needs extra ti me. PROBLEM SOLVING - SCORE: 6-SONI MEMORY: MEMORY - STEP 1: Does the patient need help from a person or device, or need extra time to remember frequently encount ered people, daily routines, and executing requests? No. MEMORY - STEP 2: Does the patient have slight difficulty recognizing frequently encountered people, daily routines, or executing requests without the need for repetition or using self-initiated or environmental cues to remember? Yes. MEMORY - SCORE: 6-SONI
[2018-06-03] MEDS: ENOXAPARIN 40 MG/0.4 ML SQ SCH (07:23)
[2018-06-03] MEDS: HYDROCODONE/APAP 10/325 TAB PO PRN ×2 (07:49→18:10)
[2018-06-03] MEDS: GABAPENTIN 300 MG CAP PO SCH ×2 (07:50→21:03)
[2018-06-03] MEDS: CRANBERRY FRUIT EXTRACT 200 MG CAP PO SCH ×2 (07:50→21:02)
[2018-06-03] MEDS: PANTOPRAZOLE 40MG TABLET PO SCH (07:51)
[2018-06-03] MEDS: POTASSIUM CL SA 10 MEQ TAB PO SCH ×2 (07:51→21:03)
[2018-06-03] MEDS: ASPIRIN EC 81 MG TAB PO SCH (07:51)
[2018-06-03] MEDS: ASCORBIC ACID 500 MG TABLET PO SCH (07:51)
[2018-06-03] MEDS: METOPROLOL XL 25 MG TAB PO SCH (07:51)
[2018-06-03] MEDS: VITAMIN D 1000 UNIT TAB PO SCH (07:51)
[2018-06-03] MEDS: FE SULF/FA/VIT B COMP & C TAB PO SCH (07:51)
[2018-06-03] MEDS: LOSARTAN POTASSIUM 50 MG TABLET PO SCH (07:53)
[2018-06-03] MEDS: PROMOD 30 ML DOSE PO SCH ×2 (07:53→21:02)
[2018-06-03] MEDS: POLYETHYL GLY 3350 17 GM/DOSE PO SCH ×2 (07:58→15:32)
[2018-06-03] MEDS ORDERED: POTASSIUM CL SA 10 MEQ TAB PO ONE (09:42)
[2018-06-03] MEDS: FUROSEMIDE 40 MG TABLET PO SCH ×2 (10:04→16:20)
[2018-06-03] MEDS: LIDOCAINE 5% PATCH TOP SCH (10:04)
[2018-06-03] MEDS: TRAMADOL HCL 50 MG TAB PO PRN (12:33)
[2018-06-03] MEDS ORDERED: BISACODYL 10 MG RECTAL SUPP PR ONE (14:34)
--- NOTE | 2018-06-03 15:44 | FAST ---
SHIFT START DATE/TIME: 06/03/2018 07:00 (CDT) SHIFT END DATE/TIME: 06/03/2018 19:00 (CDT) NAME MICHELLE EVANGELISTA DATE OF : 1935 DATE OF ADMISSION: 06/01/2018 15:25 (CDT) PHONE: AGE: 82 SSN# [id number] GENDER: Female ENCOUNTER PHYSICIAN: Dr. Checo Delgado M.D. ADMISSION DIAGNOSIS: - Orthopaedic Disorders 08 - Unilateral Hip Fracture (08.11) closed traumatic displaced intertrochanteric fx. EATING: EATING - STEP 1: Does the patient require the assistance of a person or device, or need extra time when eating? Yes. EATING - STEP 2: Does the patient require the assistance of a helper? Yes. EATING - STEP 3: Does the patient perform half or more of the eating tasks? Yes. EATING - STEP 4: Does the patient need only supervision, cuing, coaxing OR help to apply an orthosis OR help to cut fo od, open containers, pour liquids, or butter bread? Yes. EATING - SCORE: 5-SUP GROOMING: Comb/brush hair Oral care Wash, rinse, and dry face Wash, rinse, and dry hands GROOMING - STEP 1: Does the patient require the assistance of a person or device, or need extra time when grooming? Yes. GROOMING - STEP 2: Does the patient require the assistance of a helper? Yes. GROOMING - STEP 3: How much assistance does the patient require from the helper? Only prior equipment preparation/set up from the helper GROOMING - SCORE: 5-SUP BATHING: Activity did not occur on this shift BATHING - SCORE: 0-UNK DRESSING - UPPER BODY: T-shirt/pullover shirt (four steps) ARTICLES SCORE Total number of steps: 4 DRESSING - UPPER BODY - STEP 1: Does the patient require help from a person or device, or need extra time when dressing above the criss st? Yes. DRESSING - UPPER BODY - STEP 2: Does the patient require the assistance of a helper? Yes. DRESSING - UPPER BODY - STEP 3: Does the helper touch the patient while dressing? Yes. DRESSING - UPPER BODY - STEP 4: How many of the total steps does the patient complete on his/her own? 2 DRESSING - UPPER BODY - SCORE: 3-MOD DRESSING - LOWER BODY: Sock - Left foot (one step) Sock - Right foot (one step) Underwear (three steps) Zippered pants (four steps) ARTICLES SCORE Total number of steps: 9 DRESSING - LOWER BODY - STEP 1: Does the patient require help from a person or device, or need extra time when dressing below the criss st? Yes. DRESSING - LOWER BODY - STEP 2: Does the patient require the assistance of a helper? Yes. DRESSING - LOWER BODY - STEP 3: Does the helper touch the patient while dressing? Yes. DRESSING - LOWER BODY - STEP 4: How many of the total steps does the patient complete on his/her own? 0 DRESSING - LOWER BODY - STEP 5: Does patient require total assistance for dressing below the waist such as the helper holding clothin g and performing basically all the activities? No. DRESSING - LOWER BODY - SCORE: 2-MAX TOILETING: TOILETING - STEP 1: Does the patient require the assistance of a person or device, or need extra time with toileting? Yes . TOILETING - STEP 2: Does the patient require the assistance of a helper? Yes. TOILETING - STEP 3: How much assistance does the patient require from the helper? Hands-on assistance from the helper TOILETING - STEP 4: Of the 3 tasks: 1) Adjusting clothing prior to use, 2) Cleansing of perineal area, 3) Adjusting clot julia after use; How many tasks does the patient perform WITHOUT assistance of the helper? Two tasks TOILETING - SCORE: 3-MOD BLADDER MANAGEMENT: [place] removes incontinent device (Depends, pull ups, etc.); cleans the patient after accident / inco ntinent episode; and, applies new incontinent device. BLADDER MANAGEMENT - SCORE: 1-DEP BLADDER MANAGEMENT - FREQUENCY OF ACCIDENTS: BLADDER MANAGEMENT(FA) - STEP 1: How many accidents has the patient had during the current shift? 1 BOWEL MANAGEMENT: Activity did not occur on this shift BOWEL MANAGEMENT - SCORE: 7-IND BOWEL MANAGEMENT - FREQUENCY OF ACCIDENTS: BOWEL MANAGEMENT(FA) - STEP 1: How many accidents has the patient had during the current shift? 0 TRANSFERS: BED, CHAIR, WHEELCHAIR: TRANSFERS: BED, CHAIR, WHEELCHAIR - STEP 1: Does the patient require assistance of a person or device, or need extra time with bed, chair, or whe elchair transfers? Yes. TRANSFERS: BED, CHAIR, WHEELCHAIR - STEP 2: Does the patient require the assistance of a helper? Yes. TRANSFERS: BED, CHAIR, WHEELCHAIR - STEP 3: How much assistance does the patient require from the helper? Steadying/guiding assistance TRANSFERS: BED, CHAIR, WHEELCHAIR - SCORE: 4-MIN TRANSFERS: TOILET: TRANSFERS: TOILET - STEP 1: Does the patient require the assistance of a person or device, or need extra time with toilet transfe rs? Yes. TRANSFERS: TOILET - STEP 2: Does the patient require the assistance of a helper? Yes. TRANSFERS: TOILET - STEP 3: How much assistance does the patient require from the helper? Patient performs half or more of the tr ansferring tasks TRANSFERS: TOILET - STEP 4: Does the patient need only incidental help such as contact guard or steadying during toilet transfer? Yes. TRANSFERS: TOILET - SCORE: 4-MIN TRANSFERS: SHOWER: Activity did not occur on this shift TRANSFERS: SHOWER - SCORE: 0-UNK TRANSFERS: TUB: Activity did not occur on this shift TRANSFERS: TUB - SCORE: 0-UNK LOCOMOTION: WALK: Activity did not occur on this shift LOCOMOTION: WALK - SCORE: 0-UNK LOCOMOTION: WHEELCHAIR: LOCOMOTION: WHEELCHAIR - STEP 1: Does the patient need help to go 150 feet in a wheelchair? Yes. LOCOMOTION: WHEELCHAIR - STEP 2: How much assistance does the patient need from the helper? Only incidental help such as around corner s or over thresholds LOCOMOTION: WHEELCHAIR - SCORE: 4-MIN COMPREHENSION: COMPREHENSION: TYPE: Both COMPREHENSION - STEP 1: Does the patient require help from a person or device, or need extra time to understand complex and a bstract ideas (such as current events, finances, discharge planning, medical issues, relationships, e tc)? Yes. COMPREHENSION - STEP 2: Does the patient require help to understand questions or statements about basic needs or ideas (such as hunger, thirst, sleep, safety, daily schedule, room location, or discomfort) half or more of the t jean? No. COMPREHENSION - STEP 3: How often does the patient need help to understand directions and conversation about basic needs? 10% - 24% of the time COMPREHENSION - SCORE: 4-MIN EXPRESSION EXPRESSION: TYPE: Both EXPRESSION - STEP 1: Does the patient require help from a person or device, or need extra time expressing complex and abst ract ideas (such as current events, finances, discharge planning, medical issues, relationships, etc) ? Yes. EXPRESSION - STEP 2: Does the patient require help to express basic necessities or ideas (such as hunger, thirst, sleep, s afety, daily schedule, room location, or discomfort) half or more of the time? No. EXPRESSION - STEP 3: How often does the patient need help to express directions and conversation about basic needs? 10-24% of the time EXPRESSION - SCORE: 4-MIN SOCIAL INTERACTION: SOCIAL INTERACTION - STEP 1: Does the patient require a helper to interact with others in social and therapeutic situations? Yes. SOCIAL INTERACTION - STEP 2: Does the patient interact appropriately half or more of the time? Yes. SOCIAL INTERACTION - STEP 3: How often does the patient need help to interact appropriately? 10-24% of the time SOCIAL INTERACTION - SCORE: 4-MIN PROBLEM SOLVING: PROBLEM SOLVING - STEP 1: Does the patient need help from a person or device, or need extra time to solve complex problems such as managing a checking account or confronting interpersonal problems? Yes. PROBLEM SOLVING - STEP 2: Does the patient solve basic routine problems half or more of the time? Yes. PROBLEM SOLVING - STEP 3: How often does the patient need help to solve basic routine problems? 10%-24% of the time PROBLEM SOLVING - SCORE: 4-MIN MEMORY: MEMORY - STEP 1: Does the patient need help from a person or device, or need extra time to remember frequently encount ered people, daily routines, and executing requests? Yes. MEMORY - STEP 2: How often does the patient need help to remember frequently encountered people, daily routines, and e xecuting requests? 10% - 24% of the time MEMORY - SCORE: 4-MIN SIGNATURE PANEL: The following modified sections: Eating - Score, Grooming - Score, Bathing - Score, Dressing - Upper Body - Score, Dressing - Lower Body - Score, Toileting - Score, Bladder Management - Score, Bowel Man agement - Score, Transfers: Bed, Chair, Wheelchair - Score, Transfers: Toilet - Score, Transfers: Guerline wer - Score, Transfers: Tub - Score, Locomotion: Walk - Score, Locomotion: Wheelchair - Score, Compre hension - Score, Expression - Score, Social Interaction - Score, Problem Solving - Score, Memory - Sc ore were [electronically] signed by Samantha Hugo RN on Sat Jun 03 2018 15:44:06 GMT-0500 (Central Dayl ight Time)
--- NOTE | 2018-06-03 16:08 | FAST ---
ENCOUNTER DATE AND TIME: 06/03/2018 08:00 (CDT) NAME MICHELLE EVANGELISTA DATE OF : 1935 DATE OF ADMISSION: 06/01/2018 15:25 (CDT) PHONE: AGE: 82 SSN# [id number] GENDER: Female ENCOUNTER PHYSICIAN: Dr. Checo Delgado M.D. ADMISSION DIAGNOSIS: - Orthopaedic Disorders 08 - Unilateral Hip Fracture (.11) closed traumatic displaced intertrochanteric fx. EATING: Activity did not occur on this shift EATING - SCORE: 0-UNK GROOMING: Activity did not occur on this shift GROOMING - SCORE: 0-UNK BATHING: Activity did not occur on this shift BATHING - SCORE: 0-UNK DRESSING - UPPER BODY: T-shirt/pullover shirt (four steps) ARTICLES SCORE Total number of steps: 4 DRESSING - UPPER BODY - STEP 1: Does the patient require help from a person or device, or need extra time when dressing above the criss st? Yes. DRESSING - UPPER BODY - STEP 2: Does the patient require the assistance of a helper? Yes. DRESSING - UPPER BODY - STEP 3: Does the helper touch the patient while dressing? No. DRESSING - UPPER BODY - SCORE: 5-SUP DRESSING - LOWER BODY: Elastic waist pants (three steps) Sock - Left foot (one step) Sock - Right foot (one step) Underwear (three steps) ARTICLES SCORE Total number of steps: 8 DRESSING - LOWER BODY - STEP 1: Does the patient require help from a person or device, or need extra time when dressing below the criss st? Yes. DRESSING - LOWER BODY - STEP 2: Does the patient require the assistance of a helper? Yes. DRESSING - LOWER BODY - STEP 3: Does the helper touch the patient while dressing? Yes. DRESSING - LOWER BODY - STEP 4: How many of the total steps does the patient complete on his/her own? 6 DRESSING - LOWER BODY - SCORE: 4-MIN TOILETING: Activity did not occur on this shift TOILETING - SCORE: 0-UNK BLADDER MANAGEMENT: Activity did not occur on this shift BLADDER MANAGEMENT - SCORE: 7-IND BOWEL MANAGEMENT: Activity did not occur on this shift BOWEL MANAGEMENT - SCORE: 7-IND TRANSFERS: BED, CHAIR, WHEELCHAIR: Activity did not occur on this shift TRANSFERS: BED, CHAIR, WHEELCHAIR - SCORE: 0-UNK TRANSFERS: TOILET: TRANSFERS: TOILET - STEP 1: Does the patient require the assistance of a person or device, or need extra time with toilet transfe rs? Yes. TRANSFERS: TOILET - STEP 2: Does the patient require the assistance of a helper? Yes. TRANSFERS: TOILET - STEP 3: How much assistance does the patient require from the helper? Patient performs half or more of the tr ansferring tasks TRANSFERS: TOILET - STEP 4: Does the patient need only incidental help such as contact guard or steadying during toilet transfer? No. Patient needs more than incidental help TRANSFERS: TOILET - SCORE: 3-MOD TRANSFERS: SHOWER: Activity did not occur on this shift TRANSFERS: SHOWER - SCORE: 0-UNK TRANSFERS: TUB: Activity did not occur on this shift TRANSFERS: TUB - SCORE: 0-UNK LOCOMOTION: WALK: Activity did not occur on this shift LOCOMOTION: WALK - SCORE: 0-UNK LOCOMOTION: WHEELCHAIR: Activity did not occur on this shift LOCOMOTION: WHEELCHAIR - SCORE: 0-UNK LOCOMOTION: STAIRS: Activity did not occur on this shift LOCOMOTION: STAIRS - SCORE: 0-UNK COMPREHENSION: COMPREHENSION: TYPE: Both COMPREHENSION - STEP 1: Does the patient require help from a person or device, or need extra time to understand complex and a bstract ideas (such as current events, finances, discharge planning, medical issues, relationships, e tc)? No. COMPREHENSION - STEP 2: Does the patient need extra time, require an assistive device (such as glasses for visual comprehensi on or a hearing aid for auditory comprehension) or does s/he have mild difficulty understanding compl ex and abstract information? Yes. COMPREHENSION - SCORE: 6-SONI EXPRESSION EXPRESSION: TYPE: Vocal EXPRESSION - STEP 1: Does the patient require help from a person or device, or need extra time expressing complex and abst ract ideas (such as current events, finances, discharge planning, medical issues, relationships, etc) ? No. EXPRESSION - STEP 2: Does the patient need extra time, require an assistive device (such as augmentive communication syste m or a communication board), OR does s/he have mild difficulty expressing complex and abstract ideas (including mild dysarthria or mild word-find problems)? No. EXPRESSION - SCORE: 7-IND SOCIAL INTERACTION: SOCIAL INTERACTION - STEP 1: Does the patient require a helper to interact with others in social and therapeutic situations? No. SOCIAL INTERACTION - STEP 2: Does the patient need extra time in social situations, OR does s/he interact with staff, other patien ts, and family members ONLY in structured environments, OR does s/he require medication for social in teraction? No. SOCIAL INTERACTION - SCORE: 7-IND PROBLEM SOLVING: PROBLEM SOLVING - STEP 1: Does the patient need help from a person or device, or need extra time to solve complex problems such as managing a checking account or confronting interpersonal problems? No. PROBLEM SOLVING - STEP 2: Does the patient require extra time to make decisions or solve problems, OR does s/he have slight dif ficulty reading, initiating, or self-correcting in unfamiliar situations? Yes, patient needs extra ti me. PROBLEM SOLVING - SCORE: 6-SONI MEMORY: MEMORY - STEP 1: Does the patient need help from a person or device, or need extra time to remember frequently encount ered people, daily routines, and executing requests? Yes. MEMORY - STEP 2: How often does the patient need help to remember frequently encountered people, daily routines, and e xecuting requests? Less than 10% of the time MEMORY - SCORE: 5-SUP SIGNATURE PANEL: The following modified sections: Eating - Score, Grooming - Score, Bathing - Score, Dressing - Upper Body - Score, Dressing - Lower Body - Score, Toileting - Score, Transfers: Bed, Chair, Wheelchair - S core, Transfers: Toilet - Score, Transfers: Shower - Score, Transfers: Tub - Score, Comprehension - S core, Expression - Score, Social Interaction - Score, Problem Solving - Score, Memory - Score were [e lectronically] signed by Sarah Villalta OT on Sat Jun 03 2018 16:07:25 GMT-0500 ([facility] Day[facility] Ti me)
[2018-06-03] MEDS: ATORVASTATIN 20 MG TAB PO SCH (16:20)
--- NOTE | 2018-06-03 17:14 | PN ---
Date of Progress Note: 06/03/2018 Subjective: The patient was seen this morning for followup. She was working with physical therapist and was walking in the hallway, when I saw her she was sitting down in the wheelchair. She did have bowel movement yesterday and today, but it was very small amount. Denies any abdominal pain, nausea , vomiting. Objective: Vital Signs: Reviewed. HEENT: Unremarkable. Lungs: Clear to auscultation. Heart: Sounds normal. Abdomen: Soft. Bowel sounds normal. No guarding, rigidity, tenderness, or distention. Extremities: Trace leg edema. Impression: 1.Leg edema. 2.Constipation. 3.Hip fracture. 4.Anemia due to acute blood loss. Plan: We will continue iron supplement. We gave another dose of Dulcolax rectal suppository and Pan aLAX today. She is already getting furosemide. We will continue that. Her potassium was slightly l ow, and currently she is on potassium chloride 10 mEq twice a day. I will increase it to 20 mEq twic e a day. I will see her tomorrow for followup. ERIKA/MODL Voice ID: [id number] Report ID: [id number]
[2018-06-03] MEDS: DOCUSATE NA 100 MG CAP PO SCH (21:00)
[2018-06-03] MEDS: ALPRAZOLAM 0.5 MG TABLET PO SCH (21:04)
--- NOTE | 2018-06-04 01:14 | FAST ---
SHIFT START DATE/TIME: 06/03/2018 19:00 (CDT) SHIFT END DATE/TIME: 06/04/2018 07:00 (CDT) NAME MICHELLE EVANGELISTA DATE OF : 1935 DATE OF ADMISSION: 06/01/2018 15:25 (CDT) PHONE: AGE: 82 SSN# [id number] GENDER: Female ENCOUNTER PHYSICIAN: Dr. Checo Delgado M.D. ADMISSION DIAGNOSIS: - Orthopaedic Disorders 08 - Unilateral Hip Fracture (08.11) closed traumatic displaced intertrochanteric fx. EATING: Activity did not occur on this shift EATING - SCORE: 0-UNK GROOMING: Oral care Wash, rinse, and dry hands GROOMING - STEP 1: Does the patient require the assistance of a person or device, or need extra time when grooming? Yes. GROOMING - STEP 2: Does the patient require the assistance of a helper? Yes. GROOMING - STEP 3: How much assistance does the patient require from the helper? Only prior equipment preparation/set up from the helper GROOMING - SCORE: 5-SUP BATHING: Activity did not occur on this shift BATHING - SCORE: 0-UNK DRESSING - UPPER BODY: Patient is not dressing in public clothing ARTICLES SCORE Total number of steps: 0 DRESSING - UPPER BODY - SCORE: 0-UNK DRESSING - LOWER BODY: Patient is not dressing in public clothing ARTICLES SCORE Total number of steps: 0 DRESSING - LOWER BODY - SCORE: 0-UNK TOILETING: TOILETING - STEP 1: Does the patient require the assistance of a person or device, or need extra time with toileting? Yes . TOILETING - STEP 2: Does the patient require the assistance of a helper? Yes. TOILETING - STEP 3: How much assistance does the patient require from the helper? Hands-on assistance from the helper TOILETING - STEP 4: Of the 3 tasks: 1) Adjusting clothing prior to use, 2) Cleansing of perineal area, 3) Adjusting clot julia after use; How many tasks does the patient perform WITHOUT assistance of the helper? One task TOILETING - SCORE: 2-MAX BLADDER MANAGEMENT: BLADDER MANAGEMENT - STEP 1: Does the patient control the bladder completely and intentionally without equipment or devices or med ications, and is always continent? No. BLADDER MANAGEMENT - STEP 2: Does the patient require the assistance of a helper? Yes. BLADDER MANAGEMENT - STEP 3: How much assistance does the patient require from the helper? Only supervision, stand-by, cuing, or c oaxing BLADDER MANAGEMENT - SCORE: 5-SUP BOWEL MANAGEMENT: Activity did not occur on this shift BOWEL MANAGEMENT - SCORE: 7-IND TRANSFERS: BED, CHAIR, WHEELCHAIR: TRANSFERS: BED, CHAIR, WHEELCHAIR - STEP 1: Does the patient require assistance of a person or device, or need extra time with bed, chair, or whe elchair transfers? Yes. TRANSFERS: BED, CHAIR, WHEELCHAIR - STEP 2: Does the patient require the assistance of a helper? Yes. TRANSFERS: BED, CHAIR, WHEELCHAIR - STEP 3: How much assistance does the patient require from the helper? Lifting of the legs TRANSFERS: BED, CHAIR, WHEELCHAIR - STEP 4: How many legs does the patient require the helper to lift? both legs TRANSFERS: BED, CHAIR, WHEELCHAIR - SCORE: 3-MOD TRANSFERS: TOILET: TRANSFERS: TOILET - STEP 1: Does the patient require the assistance of a person or device, or need extra time with toilet transfe rs? Yes. TRANSFERS: TOILET - STEP 2: Does the patient require the assistance of a helper? Yes. TRANSFERS: TOILET - STEP 3: How much assistance does the patient require from the helper? Patient performs half or more of the tr ansferring tasks TRANSFERS: TOILET - STEP 4: Does the patient need only incidental help such as contact guard or steadying during toilet transfer? Yes. TRANSFERS: TOILET - SCORE: 4-MIN TRANSFERS: SHOWER: Activity did not occur on this shift TRANSFERS: SHOWER - SCORE: 0-UNK TRANSFERS: TUB: Activity did not occur on this shift TRANSFERS: TUB - SCORE: 0-UNK LOCOMOTION: WALK: Activity did not occur on this shift LOCOMOTION: WALK - SCORE: 0-UNK LOCOMOTION: WHEELCHAIR: Activity did not occur on this shift LOCOMOTION: WHEELCHAIR - SCORE: 0-UNK COMPREHENSION: COMPREHENSION: TYPE: Both COMPREHENSION - STEP 1: Does the patient require help from a person or device, or need extra time to understand complex and a bstract ideas (such as current events, finances, discharge planning, medical issues, relationships, e tc)? No. COMPREHENSION - STEP 2: Does the patient need extra time, require an assistive device (such as glasses for visual comprehensi on or a hearing aid for auditory comprehension) or does s/he have mild difficulty understanding compl ex and abstract information? Yes. COMPREHENSION - SCORE: 6-SONI EXPRESSION EXPRESSION: TYPE: Both EXPRESSION - STEP 1: Does the patient require help from a person or device, or need extra time expressing complex and abst ract ideas (such as current events, finances, discharge planning, medical issues, relationships, etc) ? No. EXPRESSION - STEP 2: Does the patient need extra time, require an assistive device (such as augmentive communication syste m or a communication board), OR does s/he have mild difficulty expressing complex and abstract ideas (including mild dysarthria or mild word-find problems)? No. EXPRESSION - SCORE: 7-IND SOCIAL INTERACTION: SOCIAL INTERACTION - STEP 1: Does the patient require a helper to interact with others in social and therapeutic situations? No. SOCIAL INTERACTION - STEP 2: Does the patient need extra time in social situations, OR does s/he interact with staff, other patien ts, and family members ONLY in structured environments, OR does s/he require medication for social in teraction? Yes, patient needs extra time SOCIAL INTERACTION - SCORE: 6-SONI PROBLEM SOLVING: PROBLEM SOLVING - STEP 1: Does the patient need help from a person or device, or need extra time to solve complex problems such as managing a checking account or confronting interpersonal problems? No. PROBLEM SOLVING - STEP 2: Does the patient require extra time to make decisions or solve problems, OR does s/he have slight dif ficulty reading, initiating, or self-correcting in unfamiliar situations? Yes, patient needs extra ti me. PROBLEM SOLVING - SCORE: 6-SONI MEMORY: MEMORY - STEP 1: Does the patient need help from a person or device, or need extra time to remember frequently encount ered people, daily routines, and executing requests? No. MEMORY - STEP 2: Does the patient have slight difficulty recognizing frequently encountered people, daily routines, or executing requests without the need for repetition or using self-initiated or environmental cues to remember? Yes. MEMORY - SCORE: 6-SONI SIGNATURE PANEL: The following modified sections: Eating - Score, Grooming - Score, Dressing - Upper Body - Score, William ssing - Lower Body - Score, Toileting - Score, Bladder Management - Score, Bowel Management - Score, Transfers: Bed, Chair, Wheelchair - Score, Transfers: Toilet - Score, Transfers: Shower - Score, Dowd sfers: Tub - Score, Locomotion: Walk - Score, Locomotion: Wheelchair - Score, Comprehension - Score, Expression - Score, Social Interaction - Score, Problem Solving - Score, Memory - Score were [electro nically] signed by Ngoc Townsend CNA on TueJun 04 2018 01:14:18 GMT-0500 (Central Daylight Time)
[2018-06-04] MEDS: HYDROCODONE/APAP 10/325 TAB PO PRN ×3 (02:07→21:44)
[2018-06-04] MEDS: POLYETHYL GLY 3350 17 GM/DOSE PO SCH (08:00)
[2018-06-04] MEDS: POTASSIUM CL SA 10 MEQ TAB PO SCH ×2 (08:32→20:02)
[2018-06-04] MEDS: ENOXAPARIN 40 MG/0.4 ML SQ SCH (08:32)
[2018-06-04] MEDS: LIDOCAINE 5% PATCH TOP SCH (08:32)
[2018-06-04] MEDS: FUROSEMIDE 40 MG TABLET PO SCH ×2 (08:33→16:25)
[2018-06-04] MEDS: GABAPENTIN 300 MG CAP PO SCH ×2 (08:33→20:02)
[2018-06-04] MEDS: ASCORBIC ACID 500 MG TABLET PO SCH (08:33)
[2018-06-04] MEDS: PANTOPRAZOLE 40MG TABLET PO SCH (08:33)
[2018-06-04] MEDS: VITAMIN D 1000 UNIT TAB PO SCH (08:33)
[2018-06-04] MEDS: FE SULF/FA/VIT B COMP & C TAB PO SCH (08:33)
[2018-06-04] MEDS: LOSARTAN POTASSIUM 50 MG TABLET PO SCH (08:34)
[2018-06-04] MEDS: ASPIRIN EC 81 MG TAB PO SCH (08:34)
[2018-06-04] MEDS: METOPROLOL XL 25 MG TAB PO SCH (08:34)
[2018-06-04] MEDS: PROMOD 30 ML DOSE PO SCH ×2 (08:35→20:03)
[2018-06-04] MEDS: CRANBERRY FRUIT EXTRACT 200 MG CAP PO SCH ×2 (11:36→20:02)
--- NOTE | 2018-06-04 15:33 | FAST ---
SHIFT START DATE/TIME: 06/04/2018 07:00 (CDT) SHIFT END DATE/TIME: 06/04/2018 19:00 (CDT) NAME MICHELLE EVANGELISTA DATE OF : 1935 DATE OF ADMISSION: 06/01/2018 15:25 (CDT) PHONE: AGE: 82 N# [id number] GENDER: Female ENCOUNTER PHYSICIAN: Dr. Checo Delgado M.D. ADMISSION DIAGNOSIS: - Orthopaedic Disorders 08 - Unilateral Hip Fracture (08.11) closed traumatic displaced intertrochanteric fx. EATING: EATING - STEP 1: Does the patient require the assistance of a person or device, or need extra time when eating? Yes. EATING - STEP 2: Does the patient require the assistance of a helper? Yes. EATING - STEP 3: Does the patient perform half or more of the eating tasks? Yes. EATING - STEP 4: Does the patient need only supervision, cuing, coaxing OR help to apply an orthosis OR help to cut fo od, open containers, pour liquids, or butter bread? Yes. EATING - SCORE: 5-SUP GROOMING: Comb/brush hair Oral care Wash, rinse, and dry face Wash, rinse, and dry hands GROOMING - STEP 1: Does the patient require the assistance of a person or device, or need extra time when grooming? Yes. GROOMING - STEP 2: Does the patient require the assistance of a helper? Yes. GROOMING - STEP 3: How much assistance does the patient require from the helper? Only prior equipment preparation/set up from the helper GROOMING - SCORE: 5-SUP BATHING: Activity did not occur on this shift BATHING - SCORE: 0-UNK DRESSING - UPPER BODY: Activity did not occur on this shift ARTICLES SCORE Total number of steps: 0 DRESSING - UPPER BODY - SCORE: 0-UNK DRESSING - LOWER BODY: Underwear (three steps) ARTICLES SCORE Total number of steps: 3 DRESSING - LOWER BODY - STEP 1: Does the patient require help from a person or device, or need extra time when dressing below the criss st? Yes. DRESSING - LOWER BODY - STEP 2: Does the patient require the assistance of a helper? Yes. DRESSING - LOWER BODY - STEP 3: Does the helper touch the patient while dressing? Yes. DRESSING - LOWER BODY - STEP 4: How many of the total steps does the patient complete on his/her own? 3 DRESSING - LOWER BODY - SCORE: 4-MIN TOILETING: TOILETING - STEP 1: Does the patient require the assistance of a person or device, or need extra time with toileting? Yes . TOILETING - STEP 2: Does the patient require the assistance of a helper? Yes. TOILETING - STEP 3: How much assistance does the patient require from the helper? Hands-on assistance from the helper TOILETING - STEP 4: Of the 3 tasks: 1) Adjusting clothing prior to use, 2) Cleansing of perineal area, 3) Adjusting clot julia after use; How many tasks does the patient perform WITHOUT assistance of the helper? Three tasks with steadying assistance from the helper TOILETING - SCORE: 4-MIN BLADDER MANAGEMENT: BLADDER MANAGEMENT - STEP 1: Does the patient control the bladder completely and intentionally without equipment or devices or med ications, and is always continent? No. BLADDER MANAGEMENT - STEP 2: Does the patient require the assistance of a helper? No, patient only requires extra time BLADDER MANAGEMENT - SCORE: 6-SONI BLADDER MANAGEMENT - FREQUENCY OF ACCIDENTS: BLADDER MANAGEMENT(FA) - STEP 1: How many accidents has the patient had during the current shift? 0 BOWEL MANAGEMENT: BOWEL MANAGEMENT - STEP 1: Does the patient control bowels completely and intentionally without equipment devices or medications AND is always continent? No. BOWEL MANAGEMENT - STEP 2: Does the patient require the assistance of a helper? No, patient requires medication for control such as stool softeners, suppositories, laxatives, enemas, or OTC medications BOWEL MANAGEMENT - SCORE: 6-SONI BOWEL MANAGEMENT - FREQUENCY OF ACCIDENTS: BOWEL MANAGEMENT(FA) - STEP 1: How many accidents has the patient had during the current shift? 0 TRANSFERS: BED, CHAIR, WHEELCHAIR: TRANSFERS: BED, CHAIR, WHEELCHAIR - STEP 1: Does the patient require assistance of a person or device, or need extra time with bed, chair, or whe elchair transfers? Yes. TRANSFERS: BED, CHAIR, WHEELCHAIR - STEP 2: Does the patient require the assistance of a helper? Yes. TRANSFERS: BED, CHAIR, WHEELCHAIR - STEP 3: How much assistance does the patient require from the helper? Lifting of the legs TRANSFERS: BED, CHAIR, WHEELCHAIR - STEP 4: How many legs does the patient require the helper to lift? both legs TRANSFERS: BED, CHAIR, WHEELCHAIR - SCORE: 3-MOD TRANSFERS: TOILET: TRANSFERS: TOILET - STEP 1: Does the patient require the assistance of a person or device, or need extra time with toilet transfe rs? Yes. TRANSFERS: TOILET - STEP 2: Does the patient require the assistance of a helper? Yes. TRANSFERS: TOILET - STEP 3: How much assistance does the patient require from the helper? Patient performs half or more of the tr ansferring tasks TRANSFERS: TOILET - STEP 4: Does the patient need only incidental help such as contact guard or steadying during toilet transfer? No. Patient needs more than incidental help TRANSFERS: TOILET - SCORE: 3-MOD TRANSFERS: SHOWER: Activity did not occur on this shift TRANSFERS: SHOWER - SCORE: 0-UNK TRANSFERS: TUB: Activity did not occur on this shift TRANSFERS: TUB - SCORE: 0-UNK LOCOMOTION: WALK: Activity did not occur on this shift LOCOMOTION: WALK - SCORE: 0-UNK LOCOMOTION: WHEELCHAIR: LOCOMOTION: WHEELCHAIR - STEP 1: Does the patient need help to go 150 feet in a wheelchair? Yes. LOCOMOTION: WHEELCHAIR - STEP 2: How much assistance does the patient need from the helper? Only incidental help such as around corner s or over thresholds LOCOMOTION: WHEELCHAIR - SCORE: 4-MIN COMPREHENSION: COMPREHENSION: TYPE: Both COMPREHENSION - STEP 1: Does the patient require help from a person or device, or need extra time to understand complex and a bstract ideas (such as current events, finances, discharge planning, medical issues, relationships, e tc)? No. COMPREHENSION - STEP 2: Does the patient need extra time, require an assistive device (such as glasses for visual comprehensi on or a hearing aid for auditory comprehension) or does s/he have mild difficulty understanding compl ex and abstract information? No. COMPREHENSION - SCORE: 7-IND EXPRESSION EXPRESSION: TYPE: Both EXPRESSION - STEP 1: Does the patient require help from a person or device, or need extra time expressing complex and abst ract ideas (such as current events, finances, discharge planning, medical issues, relationships, etc) ? No. EXPRESSION - STEP 2: Does the patient need extra time, require an assistive device (such as augmentive communication syste m or a communication board), OR does s/he have mild difficulty expressing complex and abstract ideas (including mild dysarthria or mild word-find problems)? No. EXPRESSION - SCORE: 7-IND SOCIAL INTERACTION: SOCIAL INTERACTION - STEP 1: Does the patient require a helper to interact with others in social and therapeutic situations? No. SOCIAL INTERACTION - STEP 2: Does the patient need extra time in social situations, OR does s/he interact with staff, other patien ts, and family members ONLY in structured environments, OR does s/he require medication for social in teraction? No. SOCIAL INTERACTION - SCORE: 7-IND PROBLEM SOLVING: PROBLEM SOLVING - STEP 1: Does the patient need help from a person or device, or need extra time to solve complex problems such as managing a checking account or confronting interpersonal problems? No. PROBLEM SOLVING - STEP 2: Does the patient require extra time to make decisions or solve problems, OR does s/he have slight dif ficulty reading, initiating, or self-correcting in unfamiliar situations? No. PROBLEM SOLVING - SCORE: 7-IND MEMORY: MEMORY - STEP 1: Does the patient need help from a person or device, or need extra time to remember frequently encount ered people, daily routines, and executing requests? No. MEMORY - STEP 2: Does the patient have slight difficulty recognizing frequently encountered people, daily routines, or executing requests without the need for repetition or using self-initiated or environmental cues to remember? No. MEMORY - SCORE: 7-IND SIGNATURE PANEL: The following modified sections: Eating - Score, Grooming - Score, Bathing - Score, Dressing - Upper Body - Score, Dressing - Lower Body - Score, Toileting - Score, Bladder Management - Score, Bowel Man agement - Score, Transfers: Bed, Chair, Wheelchair - Score, Transfers: Toilet - Score, Transfers: Guerline wer - Score, Transfers: Tub - Score, Locomotion: Walk - Score, Locomotion: Wheelchair - Score, Compre hension - Score, Expression - Score, Social Interaction - Score, Problem Solving - Score, Memory - Sc ore were [electronically] signed by Samantha Hugo RN on TueJun 04 2018 15:31:55 GMT-0500 (Central Dayl ight Time)
[2018-06-04] MEDS: TRAMADOL HCL 50 MG TAB PO PRN (15:44)
[2018-06-04] MEDS: ATORVASTATIN 20 MG TAB PO SCH (16:25)
--- NOTE | 2018-06-04 19:08 | PN ---
Date of Progress Note: 06/04/2018 Subjective: Patient was seen this morning for followup. She was in the wheelchair and had few bowel movements after treatment given to her for constipation yesterday. Overall, she feels better. Shawn es any abdominal pain. No nausea, no vomiting. She has little bit shortness of breath with activity and she reports no chest pain. Objective: Vital Signs: Reviewed. HEENT Examination: Unremarkable. Lungs: Clear to auscultation. Heart: Sounds normal. Abdomen: Soft. Bowel sounds normal. No guarding, rigidity, tenderness, distention. Extremities Exam: No leg edema. Impression: 1.Hip fracture. 2.Anemia due to acute blood loss. 3.Coronary artery disease. 4.Hypokalemia. Plan: We will continue current medical management including current DVT prophylaxis. Continue potas sium and iron supplement. Monitor blood work. So far, she has not required any blood transfusion. Her shortness of breath feeling should improve as anemia gets better and as her deconditioning improv es with some physical therapy. Details were discussed with the patient. ERIKA/MODL Voice ID: [id number] Report ID: [id number]
[2018-06-04] MEDS: DOCUSATE NA 100 MG CAP PO SCH (20:03)
[2018-06-04] MEDS: ALPRAZOLAM 0.5 MG TABLET PO SCH (21:48)
--- NOTE | 2018-06-05 01:11 | FAST ---
SHIFT START DATE/TIME: 06/04/2018 19:00 (CDT) SHIFT END DATE/TIME: 06/05/2018 07:00 (CDT) NAME MICHELLE EVANGELISTA DATE OF : 1935 DATE OF ADMISSION: 06/01/2018 15:25 (CDT) PHONE: AGE: 82 SSN# [id number] GENDER: Female ENCOUNTER PHYSICIAN: Dr. Checo Delgado M.D. ADMISSION DIAGNOSIS: - Orthopaedic Disorders 08 - Unilateral Hip Fracture (08.11) closed traumatic displaced intertrochanteric fx. EATING: Activity did not occur on this shift EATING - SCORE: 0-UNK GROOMING: Wash, rinse, and dry hands GROOMING - STEP 1: Does the patient require the assistance of a person or device, or need extra time when grooming? Yes. GROOMING - STEP 2: Does the patient require the assistance of a helper? Yes. GROOMING - STEP 3: How much assistance does the patient require from the helper? Only prior equipment preparation/set up from the helper GROOMING - SCORE: 5-SUP BATHING: Activity did not occur on this shift BATHING - SCORE: 0-UNK DRESSING - UPPER BODY: Patient is not dressing in public clothing ARTICLES SCORE Total number of steps: 0 DRESSING - UPPER BODY - SCORE: 0-UNK DRESSING - LOWER BODY: Patient is not dressing in public clothing ARTICLES SCORE Total number of steps: 0 DRESSING - LOWER BODY - SCORE: 0-UNK TOILETING: TOILETING - STEP 1: Does the patient require the assistance of a person or device, or need extra time with toileting? Yes . TOILETING - STEP 2: Does the patient require the assistance of a helper? Yes. TOILETING - STEP 3: How much assistance does the patient require from the helper? Hands-on assistance from the helper TOILETING - STEP 4: Of the 3 tasks: 1) Adjusting clothing prior to use, 2) Cleansing of perineal area, 3) Adjusting clot julia after use; How many tasks does the patient perform WITHOUT assistance of the helper? One task TOILETING - SCORE: 2-MAX BLADDER MANAGEMENT: BLADDER MANAGEMENT - STEP 1: Does the patient control the bladder completely and intentionally without equipment or devices or med ications, and is always continent? No. BLADDER MANAGEMENT - STEP 2: Does the patient require the assistance of a helper? Yes. BLADDER MANAGEMENT - STEP 3: How much assistance does the patient require from the helper? Only supervision, stand-by, cuing, or c oaxing BLADDER MANAGEMENT - SCORE: 5-SUP BOWEL MANAGEMENT: BOWEL MANAGEMENT - STEP 1: Does the patient control bowels completely and intentionally without equipment devices or medications AND is always continent? No. BOWEL MANAGEMENT - STEP 2: Does the patient require the assistance of a helper? No, patient requires medication for control such as stool softeners, suppositories, laxatives, enemas, or OTC medications BOWEL MANAGEMENT - SCORE: 6-SONI TRANSFERS: BED, CHAIR, WHEELCHAIR: TRANSFERS: BED, CHAIR, WHEELCHAIR - STEP 1: Does the patient require assistance of a person or device, or need extra time with bed, chair, or whe elchair transfers? Yes. TRANSFERS: BED, CHAIR, WHEELCHAIR - STEP 2: Does the patient require the assistance of a helper? Yes. TRANSFERS: BED, CHAIR, WHEELCHAIR - STEP 3: How much assistance does the patient require from the helper? Lifting of the legs TRANSFERS: BED, CHAIR, WHEELCHAIR - STEP 4: How many legs does the patient require the helper to lift? both legs TRANSFERS: BED, CHAIR, WHEELCHAIR - SCORE: 3-MOD TRANSFERS: TOILET: TRANSFERS: TOILET - STEP 1: Does the patient require the assistance of a person or device, or need extra time with toilet transfe rs? Yes. TRANSFERS: TOILET - STEP 2: Does the patient require the assistance of a helper? Yes. TRANSFERS: TOILET - STEP 3: How much assistance does the patient require from the helper? Patient performs half or more of the tr ansferring tasks TRANSFERS: TOILET - STEP 4: Does the patient need only incidental help such as contact guard or steadying during toilet transfer? Yes. TRANSFERS: TOILET - SCORE: 4-MIN TRANSFERS: SHOWER: Activity did not occur on this shift TRANSFERS: SHOWER - SCORE: 0-UNK TRANSFERS: TUB: Activity did not occur on this shift TRANSFERS: TUB - SCORE: 0-UNK LOCOMOTION: WALK: Activity did not occur on this shift LOCOMOTION: WALK - SCORE: 0-UNK LOCOMOTION: WHEELCHAIR: Activity did not occur on this shift LOCOMOTION: WHEELCHAIR - SCORE: 0-UNK COMPREHENSION: COMPREHENSION: TYPE: Both COMPREHENSION - STEP 1: Does the patient require help from a person or device, or need extra time to understand complex and a bstract ideas (such as current events, finances, discharge planning, medical issues, relationships, e tc)? Yes. COMPREHENSION - STEP 2: Does the patient require help to understand questions or statements about basic needs or ideas (such as hunger, thirst, sleep, safety, daily schedule, room location, or discomfort) half or more of the t jean? No. COMPREHENSION - STEP 3: How often does the patient need help to understand directions and conversation about basic needs? Les s than 10% of the time COMPREHENSION - SCORE: 5-SUP EXPRESSION EXPRESSION: TYPE: Both EXPRESSION - STEP 1: Does the patient require help from a person or device, or need extra time expressing complex and abst ract ideas (such as current events, finances, discharge planning, medical issues, relationships, etc) ? No. EXPRESSION - STEP 2: Does the patient need extra time, require an assistive device (such as augmentive communication syste m or a communication board), OR does s/he have mild difficulty expressing complex and abstract ideas (including mild dysarthria or mild word-find problems)? No. EXPRESSION - SCORE: 7-IND SOCIAL INTERACTION: SOCIAL INTERACTION - STEP 1: Does the patient require a helper to interact with others in social and therapeutic situations? No. SOCIAL INTERACTION - STEP 2: Does the patient need extra time in social situations, OR does s/he interact with staff, other patien ts, and family members ONLY in structured environments, OR does s/he require medication for social in teraction? Yes, patient requires medication for social interaction SOCIAL INTERACTION - SCORE: 6-SONI PROBLEM SOLVING: PROBLEM SOLVING - STEP 1: Does the patient need help from a person or device, or need extra time to solve complex problems such as managing a checking account or confronting interpersonal problems? Yes. PROBLEM SOLVING - STEP 2: Does the patient solve basic routine problems half or more of the time? Yes. PROBLEM SOLVING - STEP 3: How often does the patient need help to solve basic routine problems? Less than 10% of the time PROBLEM SOLVING - SCORE: 5-SUP MEMORY: MEMORY - STEP 1: Does the patient need help from a person or device, or need extra time to remember frequently encount ered people, daily routines, and executing requests? No. MEMORY - STEP 2: Does the patient have slight difficulty recognizing frequently encountered people, daily routines, or executing requests without the need for repetition or using self-initiated or environmental cues to remember? Yes. MEMORY - SCORE: 6-SONI SIGNATURE PANEL: The following modified sections: Eating - Score, Grooming - Score, Dressing - Upper Body - Score, William ssing - Lower Body - Score, Toileting - Score, Bladder Management - Score, Bowel Management - Score, Transfers: Bed, Chair, Wheelchair - Score, Transfers: Toilet - Score, Transfers: Shower - Score, Dowd sfers: Tub - Score, Locomotion: Walk - Score, Locomotion: Wheelchair - Score, Comprehension - Score, Expression - Score, Social Interaction - Score, Problem Solving - Score, Memory - Score were [electro nically] signed by Ngoc Townsend CNA on TueJun 05 2018 01:11:30 GMT-0500 (Central Daylight Time)
[2018-06-05] MEDS: HYDROCODONE/APAP 10/325 TAB PO PRN ×4 (05:05→20:05)
[2018-06-05 06:11] LABS: Absolute Lymphocytes (CBC) 1.7 K/uL (0.7-4.9); Absolute Monocytes 0.9 K/uL (0.1-1.3); Absolute Neutrophil 4.5 K/uL (1.8-8.0); Basophils % 0.7 % (0-1.3); Eosinophils % 3.9 % (0-4.4); Hematocrit 25.3 % (36.0-45.0); Lymphocytes % 22.4 % (15.3-44.8); MPV 7.4 fL (7.6-11.3); Monocytes % 12.2 % (3.3-12.3); RBC Red Blood Cell Count 2.86 M/uL (3.86-4.86)
[2018-06-05 06:30] LABS: Magnesium 2.1 mg/dL (1.8-2.4); Potassium 3.8 mmol/L (3.5-5.1)
[2018-06-05] MEDS: PANTOPRAZOLE 40MG TABLET PO SCH (07:42)
[2018-06-05] MEDS: PROMOD 30 ML DOSE PO SCH ×2 (08:00→19:36)
[2018-06-05] MEDS: POLYETHYL GLY 3350 17 GM/DOSE PO SCH (08:29)
[2018-06-05] MEDS: GABAPENTIN 300 MG CAP PO SCH ×2 (08:29→19:35)
[2018-06-05] MEDS: FE SULF/FA/VIT B COMP & C TAB PO SCH (08:29)
[2018-06-05] MEDS: ENOXAPARIN 40 MG/0.4 ML SQ SCH (08:29)
[2018-06-05] MEDS: LIDOCAINE 5% PATCH TOP SCH (08:29)
[2018-06-05] MEDS: SMZ./TMP. 800/160 MG TABLET PO SCH ×2 (08:30→19:35)
[2018-06-05] MEDS: FUROSEMIDE 40 MG TABLET PO SCH ×2 (08:30→16:55)
[2018-06-05] MEDS: ASCORBIC ACID 500 MG TABLET PO SCH (08:30)
[2018-06-05] MEDS: VITAMIN D 1000 UNIT TAB PO SCH (08:30)
[2018-06-05] MEDS: POTASSIUM CL SA 10 MEQ TAB PO SCH ×2 (08:30→19:35)
[2018-06-05] MEDS: METOPROLOL XL 25 MG TAB PO SCH (08:30)
[2018-06-05] MEDS: CRANBERRY FRUIT EXTRACT 200 MG CAP PO SCH ×2 (08:30→19:35)
[2018-06-05] MEDS: ASPIRIN EC 81 MG TAB PO SCH (08:30)
[2018-06-05] MEDS: LOSARTAN POTASSIUM 50 MG TABLET PO SCH (08:30)
--- NOTE | 2018-06-05 14:41 | FAST ---
ENCOUNTER DATE AND TIME: 06/05/2018 08:00 (CDT) NAME MICHELLE EVANGELISTA DATE OF : 1935 DATE OF ADMISSION: 06/01/2018 15:25 (CDT) PHONE: AGE: 82 SSN# [id number] GENDER: Female ENCOUNTER PHYSICIAN: Dr. Checo Delgado M.D. ADMISSION DIAGNOSIS: - Orthopaedic Disorders 08 - Unilateral Hip Fracture (.11) closed traumatic displaced intertrochanteric fx. EATING: Activity did not occur on this shift EATING - SCORE: 0-UNK GROOMING: Activity did not occur on this shift GROOMING - SCORE: 0-UNK BATHING: Activity did not occur on this shift BATHING - SCORE: 0-UNK DRESSING - UPPER BODY: Activity did not occur on this shift Patient is not dressing in public clothing ARTICLES SCORE Total number of steps: 0 DRESSING - UPPER BODY - SCORE: 0-UNK DRESSING - LOWER BODY: Activity did not occur on this shift Patient is not dressing in public clothing ARTICLES SCORE Total number of steps: 0 DRESSING - LOWER BODY - SCORE: 0-UNK TOILETING: Activity did not occur on this shift TOILETING - SCORE: 0-UNK BLADDER MANAGEMENT: Activity did not occur on this shift BLADDER MANAGEMENT - SCORE: 7-IND BOWEL MANAGEMENT: Activity did not occur on this shift BOWEL MANAGEMENT - SCORE: 7-IND TRANSFERS: BED, CHAIR, WHEELCHAIR: TRANSFERS: BED, CHAIR, WHEELCHAIR - STEP 1: Does the patient require assistance of a person or device, or need extra time with bed, chair, or whe elchair transfers? Yes. TRANSFERS: BED, CHAIR, WHEELCHAIR - STEP 2: Does the patient require the assistance of a helper? Yes. TRANSFERS: BED, CHAIR, WHEELCHAIR - STEP 3: How much assistance does the patient require from the helper? Only supervision TRANSFERS: BED, CHAIR, WHEELCHAIR - SCORE: 5-SUP TRANSFERS: TOILET: Activity did not occur on this shift TRANSFERS: TOILET - SCORE: 0-UNK TRANSFERS: SHOWER: Activity did not occur on this shift TRANSFERS: SHOWER - SCORE: 0-UNK TRANSFERS: TUB: Activity did not occur on this shift TRANSFERS: TUB - SCORE: 0-UNK LOCOMOTION: WALK: LOCOMOTION: WALK - STEP 1: Does the patient need help from a person or device, or need extra time to walk 150 feet? Yes. LOCOMOTION: WALK - STEP 2: How much assistance does the patient require to walk a minimum of 150 feet? Patient walks less than 1 50 feet - but more than 50 feet - with the assistance of only one helper LOCOMOTION: WALK - SCORE: 2-MAX LOCOMOTION: WHEELCHAIR: Activity did not occur on this shift LOCOMOTION: WHEELCHAIR - SCORE: 0-UNK LOCOMOTION: STAIRS: Activity did not occur on this shift LOCOMOTION: STAIRS - SCORE: 0-UNK COMPREHENSION: COMPREHENSION - SCORE: 0-UNK EXPRESSION EXPRESSION - SCORE: 0-UNK SOCIAL INTERACTION: SOCIAL INTERACTION - SCORE: 0-UNK PROBLEM SOLVING: PROBLEM SOLVING - SCORE: 0-UNK MEMORY: MEMORY - SCORE: 0-UNK SIGNATURE PANEL: The following modified sections: Transfers: Bed, Chair, Wheelchair - Score, Transfers: Toilet - Score , Locomotion: Walk - Score, Locomotion: Wheelchair - Score, Locomotion: Stairs - Score were [electron ically] signed by Ayaz Lopez PT on TueJun 05 2018 14:40:02 [facility]-0500 (Central Daylight Time)
--- NOTE | 2018-06-05 15:14 | FAST ---
SHIFT START DATE/TIME: 06/05/2018 07:00 (CDT) SHIFT END DATE/TIME: 06/05/2018 19:00 (CDT) NAME MICHELLE EVANGELISTA DATE OF : 1935 DATE OF ADMISSION: 06/01/2018 15:25 (CDT) PHONE: AGE: 82 N# [id number] GENDER: Female ENCOUNTER PHYSICIAN: Dr. Checo Delgado M.D. ADMISSION DIAGNOSIS: - Orthopaedic Disorders 08 - Unilateral Hip Fracture (08.11) closed traumatic displaced intertrochanteric fx. EATING: EATING - STEP 1: Does the patient require the assistance of a person or device, or need extra time when eating? Yes. EATING - STEP 2: Does the patient require the assistance of a helper? Yes. EATING - STEP 3: Does the patient perform half or more of the eating tasks? Yes. EATING - STEP 4: Does the patient need only supervision, cuing, coaxing OR help to apply an orthosis OR help to cut fo od, open containers, pour liquids, or butter bread? Yes. EATING - SCORE: 5-SUP GROOMING: Comb/brush hair Oral care Wash, rinse, and dry face Wash, rinse, and dry hands GROOMING - STEP 1: Does the patient require the assistance of a person or device, or need extra time when grooming? Yes. GROOMING - STEP 2: Does the patient require the assistance of a helper? No. The patient only requires an assistive devic e, OR takes more than reasonable time to groom, OR there is a concern for safety as the patient groom s GROOMING - SCORE: 6-SONI BATHING: Activity did not occur on this shift BATHING - SCORE: 0-UNK DRESSING - UPPER BODY: Activity did not occur on this shift ARTICLES SCORE Total number of steps: 0 DRESSING - UPPER BODY - SCORE: 0-UNK DRESSING - LOWER BODY: Activity did not occur on this shift ARTICLES SCORE Total number of steps: 0 DRESSING - LOWER BODY - SCORE: 0-UNK TOILETING: TOILETING - STEP 1: Does the patient require the assistance of a person or device, or need extra time with toileting? Yes . TOILETING - STEP 2: Does the patient require the assistance of a helper? Yes. TOILETING - STEP 3: How much assistance does the patient require from the helper? Hands-on assistance from the helper TOILETING - STEP 4: Of the 3 tasks: 1) Adjusting clothing prior to use, 2) Cleansing of perineal area, 3) Adjusting clot julia after use; How many tasks does the patient perform WITHOUT assistance of the helper? Two tasks TOILETING - SCORE: 3-MOD BLADDER MANAGEMENT: BLADDER MANAGEMENT - STEP 1: Does the patient control the bladder completely and intentionally without equipment or devices or med ications, and is always continent? No. BLADDER MANAGEMENT - STEP 2: Does the patient require the assistance of a helper? No, patient requires and independently uses an a ssistive device, such as a urinal, bedpan, bedside commode, catheter, absorbent pad, or collecting de vice BLADDER MANAGEMENT - SCORE: 6-SONI BOWEL MANAGEMENT: Activity did not occur on this shift BOWEL MANAGEMENT - SCORE: 7-IND TRANSFERS: BED, CHAIR, WHEELCHAIR: TRANSFERS: BED, CHAIR, WHEELCHAIR - STEP 1: Does the patient require assistance of a person or device, or need extra time with bed, chair, or whe elchair transfers? Yes. TRANSFERS: BED, CHAIR, WHEELCHAIR - STEP 2: Does the patient require the assistance of a helper? Yes. TRANSFERS: BED, CHAIR, WHEELCHAIR - STEP 3: How much assistance does the patient require from the helper? Lifting of the legs TRANSFERS: BED, CHAIR, WHEELCHAIR - STEP 4: How many legs does the patient require the helper to lift? one leg TRANSFERS: BED, CHAIR, WHEELCHAIR - SCORE: 4-MIN TRANSFERS: TOILET: TRANSFERS: TOILET - STEP 1: Does the patient require the assistance of a person or device, or need extra time with toilet transfe rs? Yes. TRANSFERS: TOILET - STEP 2: Does the patient require the assistance of a helper? Yes. TRANSFERS: TOILET - STEP 3: How much assistance does the patient require from the helper? Patient performs half or more of the tr ansferring tasks TRANSFERS: TOILET - STEP 4: Does the patient need only incidental help such as contact guard or steadying during toilet transfer? Yes. TRANSFERS: TOILET - SCORE: 4-MIN TRANSFERS: SHOWER: Activity did not occur on this shift TRANSFERS: SHOWER - SCORE: 0-UNK TRANSFERS: TUB: Activity did not occur on this shift TRANSFERS: TUB - SCORE: 0-UNK LOCOMOTION: WALK: Activity did not occur on this shift LOCOMOTION: WALK - SCORE: 0-UNK LOCOMOTION: WHEELCHAIR: Activity did not occur on this shift LOCOMOTION: WHEELCHAIR - SCORE: 0-UNK COMPREHENSION: COMPREHENSION: TYPE: Both COMPREHENSION - STEP 1: Does the patient require help from a person or device, or need extra time to understand complex and a bstract ideas (such as current events, finances, discharge planning, medical issues, relationships, e tc)? Yes. COMPREHENSION - STEP 2: Does the patient require help to understand questions or statements about basic needs or ideas (such as hunger, thirst, sleep, safety, daily schedule, room location, or discomfort) half or more of the t jean? No. COMPREHENSION - STEP 3: How often does the patient need help to understand directions and conversation about basic needs? Les s than 10% of the time COMPREHENSION - SCORE: 5-SUP EXPRESSION EXPRESSION: TYPE: Both EXPRESSION - STEP 1: Does the patient require help from a person or device, or need extra time expressing complex and abst ract ideas (such as current events, finances, discharge planning, medical issues, relationships, etc) ? Yes. EXPRESSION - STEP 2: Does the patient require help to express basic necessities or ideas (such as hunger, thirst, sleep, s afety, daily schedule, room location, or discomfort) half or more of the time? No. EXPRESSION - STEP 3: How often does the patient need help to express directions and conversation about basic needs? Less t velasco 10% of the time EXPRESSION - SCORE: 5-SUP SOCIAL INTERACTION: SOCIAL INTERACTION - STEP 1: Does the patient require a helper to interact with others in social and therapeutic situations? Yes. SOCIAL INTERACTION - STEP 2: Does the patient interact appropriately half or more of the time? Yes. SOCIAL INTERACTION - STEP 3: How often does the patient need help to interact appropriately? Less than 10% of the time SOCIAL INTERACTION - SCORE: 5-SUP PROBLEM SOLVING: PROBLEM SOLVING - STEP 1: Does the patient need help from a person or device, or need extra time to solve complex problems such as managing a checking account or confronting interpersonal problems? Yes. PROBLEM SOLVING - STEP 2: Does the patient solve basic routine problems half or more of the time? Yes. PROBLEM SOLVING - STEP 3: How often does the patient need help to solve basic routine problems? Less than 10% of the time PROBLEM SOLVING - SCORE: 5-SUP MEMORY: MEMORY - STEP 1: Does the patient need help from a person or device, or need extra time to remember frequently encount ered people, daily routines, and executing requests? Yes. MEMORY - STEP 2: How often does the patient need help to remember frequently encountered people, daily routines, and e xecuting requests? Less than 10% of the time MEMORY - SCORE: 5-SUP SIGNATURE PANEL: The following modified sections: Eating - Score, Grooming - Score, Bathing - Score, Dressing - Upper Body - Score, Dressing - Lower Body - Score, Toileting - Score, Bladder Management - Score, Bowel Man agement - Score, Transfers: Bed, Chair, Wheelchair - Score, Transfers: Toilet - Score, Transfers: Guerline wer - Score, Transfers: Tub - Score, Locomotion: Walk - Score, Locomotion: Wheelchair - Score, Compre hension - Score, Expression - Score, Social Interaction - Score, Problem Solving - Score, Memory - Sc ore were [electronically] signed by Gerald Niño on TueJun 05 2018 15:13:08 T-0500 (Central Daylight Time)
[2018-06-05] MEDS: ATORVASTATIN 20 MG TAB PO SCH (16:55)
[2018-06-05] MEDS: TRAMADOL HCL 50 MG TAB PO PRN (16:56)
[2018-06-05] MEDS: MAGNESIUM OXIDE 400 MG TAB PO SCH (19:35)
[2018-06-05] MEDS: ALPRAZOLAM 0.5 MG TABLET PO SCH (20:05)
[2018-06-05] MEDS: DOCUSATE NA 100 MG CAP PO SCH (20:05)
--- NOTE | 2018-06-06 00:28 | PN ---
Date of Progress Note: 06/05/2018 Subjective: The patient was seen this morning for followup. No new complaints, problems reported by the patient, lying in bed, not in distress. Objective: Vital Signs: Reviewed. HEENT: Unremarkable. Lungs: Clear to auscultation. Heart: Sounds normal. Abdomen: Soft. Bowel sounds normal. No guarding, rigidity, tenderness, distention. Extremities: Grade 1 to grade 2 pedal edema of right leg. Laboratory Data: White count 7.4, hemoglobin 8.9, platelets 396. Sodium 138, potassium 3.8, chlorid e 100, bicarb 31, BUN 16, creatinine 0.72, glucose 112. Urine culture growing Enterobacter. Impression: 1.Right leg edema. 2.Urinary tract infection. Plan: We will go ahead and start the patient on antibiotic, Bactrim DS as per sensitivity result. C ontinue iron supplement. Continue current Lovenox for DVT prophylaxis. We will get a venous Doppler of right leg and continue other current medical management. ERIKA/MODL Voice ID: [id number] Report ID: [id number]
[2018-06-06] MEDS: TRAMADOL HCL 50 MG TAB PO PRN ×2 (03:55→16:18)
[2018-06-06] MEDS: HYDROCODONE/APAP 10/325 TAB PO PRN ×3 (06:50→20:23)
[2018-06-06] MEDS: PANTOPRAZOLE 40MG TABLET PO SCH (06:50)
[2018-06-06] MEDS: LIDOCAINE 5% PATCH TOP SCH (06:51)
[2018-06-06] MEDS: ENOXAPARIN 40 MG/0.4 ML SQ SCH (06:51)
[2018-06-06] MEDS: CRANBERRY FRUIT EXTRACT 200 MG CAP PO SCH ×2 (08:23→19:25)
[2018-06-06] MEDS: POLYETHYL GLY 3350 17 GM/DOSE PO SCH (08:23)
[2018-06-06] MEDS: POTASSIUM CL SA 10 MEQ TAB PO SCH ×2 (08:23→19:26)
[2018-06-06] MEDS: GABAPENTIN 300 MG CAP PO SCH ×2 (08:24→19:25)
[2018-06-06] MEDS: LOSARTAN POTASSIUM 50 MG TABLET PO SCH (08:24)
[2018-06-06] MEDS: VITAMIN D 1000 UNIT TAB PO SCH (08:24)
[2018-06-06] MEDS: SMZ./TMP. 800/160 MG TABLET PO SCH ×2 (08:24→19:26)
[2018-06-06] MEDS: MAGNESIUM OXIDE 400 MG TAB PO SCH ×2 (08:24→19:25)
[2018-06-06] MEDS: ASPIRIN EC 81 MG TAB PO SCH (08:24)
[2018-06-06] MEDS: ASCORBIC ACID 500 MG TABLET PO SCH (08:24)
[2018-06-06] MEDS: METOPROLOL XL 25 MG TAB PO SCH (08:25)
[2018-06-06] MEDS: FUROSEMIDE 40 MG TABLET PO SCH ×2 (08:26→16:19)
[2018-06-06] MEDS: FE SULF/FA/VIT B COMP & C TAB PO SCH (08:26)
[2018-06-06] MEDS: PROMOD 30 ML DOSE PO SCH ×2 (08:27→19:22)
--- NOTE | 2018-06-06 10:24 | RAD REPORT ---
EXAM DESCRIPTION: [facility]06/06/2018 10:01 am CLINICAL HISTORY: Right leg pain and swelling. COMPARISON: None. FINDINGS: Echogenic material consistent with acute thrombus is present within the proximal greater s aphenous vein approximately 1 centimeter from its junction with the common femoral vein Right common femoral, superficial femoral, popliteal and right posterior tibial veins are compressibl e and demonstrate augmentation. Doppler demonstrates good flow. IMPRESSION: No evidence of deep venous thrombosis involving the right lower extremity. Acute thrombus within the proximal right greater saphenous vein
--- NOTE | 2018-06-06 15:48 | FAST ---
SHIFT START DATE/TIME: 06/06/2018 07:00 (CDT) SHIFT END DATE/TIME: 06/06/2018 19:00 (CDT) NAME MICHELLE EVANGELISTA DATE OF : 1935 DATE OF ADMISSION: 06/01/2018 15:25 (CDT) PHONE: AGE: 82 N# [id number] GENDER: Female ENCOUNTER PHYSICIAN: Dr. Checo Delgado M.D. ADMISSION DIAGNOSIS: - Orthopaedic Disorders 08 - Unilateral Hip Fracture (08.11) closed traumatic displaced intertrochanteric fx. EATING: EATING - STEP 1: Does the patient require the assistance of a person or device, or need extra time when eating? Yes. EATING - STEP 2: Does the patient require the assistance of a helper? Yes. EATING - STEP 3: Does the patient perform half or more of the eating tasks? Yes. EATING - STEP 4: Does the patient need only supervision, cuing, coaxing OR help to apply an orthosis OR help to cut fo od, open containers, pour liquids, or butter bread? Yes. EATING - SCORE: 5-SUP GROOMING: Comb/brush hair Oral care Wash, rinse, and dry face Wash, rinse, and dry hands GROOMING - STEP 1: Does the patient require the assistance of a person or device, or need extra time when grooming? Yes. GROOMING - STEP 2: Does the patient require the assistance of a helper? Yes. GROOMING - STEP 3: How much assistance does the patient require from the helper? Cuing, coaxing, instructions, or encour agement for completion of grooming GROOMING - SCORE: 5-SUP BATHING: Activity did not occur on this shift BATHING - SCORE: 0-UNK DRESSING - UPPER BODY: Activity did not occur on this shift ARTICLES SCORE Total number of steps: 0 DRESSING - UPPER BODY - SCORE: 0-UNK DRESSING - LOWER BODY: Activity did not occur on this shift ARTICLES SCORE Total number of steps: 0 DRESSING - LOWER BODY - SCORE: 0-UNK TOILETING: TOILETING - STEP 1: Does the patient require the assistance of a person or device, or need extra time with toileting? Yes . TOILETING - STEP 2: Does the patient require the assistance of a helper? Yes. TOILETING - STEP 3: How much assistance does the patient require from the helper? Hands-on assistance from the helper TOILETING - STEP 4: Of the 3 tasks: 1) Adjusting clothing prior to use, 2) Cleansing of perineal area, 3) Adjusting clot julia after use; How many tasks does the patient perform WITHOUT assistance of the helper? Two tasks TOILETING - SCORE: 3-MOD BLADDER MANAGEMENT: BLADDER MANAGEMENT - STEP 1: Does the patient control the bladder completely and intentionally without equipment or devices or med ications, and is always continent? No. BLADDER MANAGEMENT - STEP 2: Does the patient require the assistance of a helper? No, patient requires and independently uses an a ssistive device, such as a urinal, bedpan, bedside commode, catheter, absorbent pad, or collecting de vice BLADDER MANAGEMENT - SCORE: 6-SONI BOWEL MANAGEMENT: Activity did not occur on this shift BOWEL MANAGEMENT - SCORE: 7-IND TRANSFERS: BED, CHAIR, WHEELCHAIR: TRANSFERS: BED, CHAIR, WHEELCHAIR - STEP 1: Does the patient require assistance of a person or device, or need extra time with bed, chair, or whe elchair transfers? Yes. TRANSFERS: BED, CHAIR, WHEELCHAIR - STEP 2: Does the patient require the assistance of a helper? Yes. TRANSFERS: BED, CHAIR, WHEELCHAIR - STEP 3: How much assistance does the patient require from the helper? Steadying/guiding assistance TRANSFERS: BED, CHAIR, WHEELCHAIR - SCORE: 4-MIN TRANSFERS: TOILET: TRANSFERS: TOILET - STEP 1: Does the patient require the assistance of a person or device, or need extra time with toilet transfe rs? Yes. TRANSFERS: TOILET - STEP 2: Does the patient require the assistance of a helper? Yes. TRANSFERS: TOILET - STEP 3: How much assistance does the patient require from the helper? Patient performs half or more of the tr ansferring tasks TRANSFERS: TOILET - STEP 4: Does the patient need only incidental help such as contact guard or steadying during toilet transfer? Yes. TRANSFERS: TOILET - SCORE: 4-MIN TRANSFERS: SHOWER: Activity did not occur on this shift TRANSFERS: SHOWER - SCORE: 0-UNK TRANSFERS: TUB: Activity did not occur on this shift TRANSFERS: TUB - SCORE: 0-UNK LOCOMOTION: WALK: Activity did not occur on this shift LOCOMOTION: WALK - SCORE: 0-UNK LOCOMOTION: WHEELCHAIR: Activity did not occur on this shift LOCOMOTION: WHEELCHAIR - SCORE: 0-UNK COMPREHENSION: COMPREHENSION: TYPE: Both COMPREHENSION - STEP 1: Does the patient require help from a person or device, or need extra time to understand complex and a bstract ideas (such as current events, finances, discharge planning, medical issues, relationships, e tc)? Yes. COMPREHENSION - STEP 2: Does the patient require help to understand questions or statements about basic needs or ideas (such as hunger, thirst, sleep, safety, daily schedule, room location, or discomfort) half or more of the t jean? No. COMPREHENSION - STEP 3: How often does the patient need help to understand directions and conversation about basic needs? Les s than 10% of the time COMPREHENSION - SCORE: 5-SUP EXPRESSION EXPRESSION: TYPE: Both EXPRESSION - STEP 1: Does the patient require help from a person or device, or need extra time expressing complex and abst ract ideas (such as current events, finances, discharge planning, medical issues, relationships, etc) ? Yes. EXPRESSION - STEP 2: Does the patient require help to express basic necessities or ideas (such as hunger, thirst, sleep, s afety, daily schedule, room location, or discomfort) half or more of the time? No. EXPRESSION - STEP 3: How often does the patient need help to express directions and conversation about basic needs? Less t velasco 10% of the time EXPRESSION - SCORE: 5-SUP SOCIAL INTERACTION: SOCIAL INTERACTION - STEP 1: Does the patient require a helper to interact with others in social and therapeutic situations? Yes. SOCIAL INTERACTION - STEP 2: Does the patient interact appropriately half or more of the time? Yes. SOCIAL INTERACTION - STEP 3: How often does the patient need help to interact appropriately? Less than 10% of the time SOCIAL INTERACTION - SCORE: 5-SUP PROBLEM SOLVING: PROBLEM SOLVING - STEP 1: Does the patient need help from a person or device, or need extra time to solve complex problems such as managing a checking account or confronting interpersonal problems? Yes. PROBLEM SOLVING - STEP 2: Does the patient solve basic routine problems half or more of the time? Yes. PROBLEM SOLVING - STEP 3: How often does the patient need help to solve basic routine problems? Less than 10% of the time PROBLEM SOLVING - SCORE: 5-SUP MEMORY: MEMORY - STEP 1: Does the patient need help from a person or device, or need extra time to remember frequently encount ered people, daily routines, and executing requests? Yes. MEMORY - STEP 2: How often does the patient need help to remember frequently encountered people, daily routines, and e xecuting requests? 10% - 24% of the time MEMORY - SCORE: 4-MIN SIGNATURE PANEL: The following modified sections: Eating - Score, Grooming - Score, Bathing - Score, Dressing - Upper Body - Score, Dressing - Lower Body - Score, Toileting - Score, Bladder Management - Score, Bowel Man agement - Score, Transfers: Bed, Chair, Wheelchair - Score, Transfers: Toilet - Score, Transfers: Guerline wer - Score, Transfers: Tub - Score, Locomotion: Walk - Score, Locomotion: Wheelchair - Score, Compre hension - Score, Expression - Score, Social Interaction - Score, Problem Solving - Score, Memory - Sc ore were [electronically] signed by Gerald Niño on TueJun 06 2018 15:42:58 T-0500 (Central Daylight Time)
--- NOTE | 2018-06-06 15:49 | FAST ---
ENCOUNTER DATE AND TIME: 06/06/2018 08:00 (CDT) NAME MICHELLE EVANGELISTA DATE OF : 1935 DATE OF ADMISSION: 06/01/2018 15:25 (CDT) PHONE: AGE: 82 SSN# [id number] GENDER: Female ENCOUNTER PHYSICIAN: Dr. Checo Delgado M.D. ADMISSION DIAGNOSIS: - Orthopaedic Disorders 08 - Unilateral Hip Fracture (.11) closed traumatic displaced intertrochanteric fx. EATING: Activity did not occur on this shift EATING - SCORE: 0-UNK GROOMING: Activity did not occur on this shift GROOMING - SCORE: 0-UNK BATHING: Activity did not occur on this shift BATHING - SCORE: 0-UNK DRESSING - UPPER BODY: Activity did not occur on this shift Patient is not dressing in public clothing ARTICLES SCORE Total number of steps: 0 DRESSING - UPPER BODY - SCORE: 0-UNK DRESSING - LOWER BODY: Activity did not occur on this shift Patient is not dressing in public clothing ARTICLES SCORE Total number of steps: 0 DRESSING - LOWER BODY - SCORE: 0-UNK TOILETING: Activity did not occur on this shift TOILETING - SCORE: 0-UNK BLADDER MANAGEMENT: Activity did not occur on this shift BLADDER MANAGEMENT - SCORE: 7-IND BOWEL MANAGEMENT: Activity did not occur on this shift BOWEL MANAGEMENT - SCORE: 7-IND TRANSFERS: BED, CHAIR, WHEELCHAIR: TRANSFERS: BED, CHAIR, WHEELCHAIR - STEP 1: Does the patient require assistance of a person or device, or need extra time with bed, chair, or whe elchair transfers? Yes. TRANSFERS: BED, CHAIR, WHEELCHAIR - STEP 2: Does the patient require the assistance of a helper? Yes. TRANSFERS: BED, CHAIR, WHEELCHAIR - STEP 3: How much assistance does the patient require from the helper? Only supervision TRANSFERS: BED, CHAIR, WHEELCHAIR - SCORE: 5-SUP TRANSFERS: TOILET: Activity did not occur on this shift TRANSFERS: TOILET - SCORE: 0-UNK TRANSFERS: SHOWER: Activity did not occur on this shift TRANSFERS: SHOWER - SCORE: 0-UNK TRANSFERS: TUB: Activity did not occur on this shift TRANSFERS: TUB - SCORE: 0-UNK LOCOMOTION: WALK: LOCOMOTION: WALK - STEP 1: Does the patient need help from a person or device, or need extra time to walk 150 feet? Yes. LOCOMOTION: WALK - STEP 2: How much assistance does the patient require to walk a minimum of 150 feet? Patient walks less than 1 50 feet - but more than 50 feet - with the assistance of only one helper LOCOMOTION: WALK - SCORE: 2-MAX LOCOMOTION: WHEELCHAIR: LOCOMOTION: WHEELCHAIR - STEP 1: Does the patient need help to go 150 feet in a wheelchair? Yes. LOCOMOTION: WHEELCHAIR - STEP 2: How much assistance does the patient need from the helper? Only supervision, cuing, or coaxing LOCOMOTION: WHEELCHAIR - SCORE: 5-SUP LOCOMOTION: STAIRS: Activity did not occur on this shift LOCOMOTION: STAIRS - SCORE: 0-UNK COMPREHENSION: COMPREHENSION - SCORE: 0-UNK EXPRESSION EXPRESSION - SCORE: 0-UNK SOCIAL INTERACTION: SOCIAL INTERACTION - SCORE: 0-UNK PROBLEM SOLVING: PROBLEM SOLVING - SCORE: 0-UNK MEMORY: MEMORY - SCORE: 0-UNK SIGNATURE PANEL: The following modified sections: Transfers: Bed, Chair, Wheelchair - Score, Transfers: Toilet - Score , Locomotion: Walk - Score, Locomotion: Wheelchair - Score, Locomotion: Stairs - Score were [electron mo] signed by Ravi Oreilly PTA on TueJun 06 2018 15:45:18 GMT-0500 (Central Daylight Time)
[2018-06-06] MEDS: ATORVASTATIN 20 MG TAB PO SCH (16:19)
--- NOTE | 2018-06-06 18:32 | R.PN ---
ENCOUNTER DATE AND TIME: 06/06/2018 18:24 (CDT) NAME MICHELLE EVANGELISTA DATE OF : 1935 DATE OF ADMISSION: 06/01/2018 15:25 (CDT) closed traumatic displaced intertrochanteric fxCHIEF COMPLAINT: Right hip fracture SUBJECTIVE: Pt denied any depression. Pt denied any Shortness of Breath. Ambulated 191' with standby assistance using a rolling walker. Hgb 8.9, glucose 112, prealbumin 9.8. Ambulated 350' with contact guard assistance using a rolling walker. VITAL SIGNS Temperature: 98.7 F SBP/DBP: 148/66 Pulse: 65 Resp: 16 MEDICATION ALLERGIES: No Known Drug Allergies (NKDA) ENVIRONMENTAL ALLERGIES: - Substance Allergies None Known - Other Allergies None Known NURSING: - Shower allowing shower - Skin care per protocol PRECAUTIONS: - Posterior Hip Precaution No adduction across midline No external rotation No hip flexion >90 degrees No internal rotation No wheel chair propulsion - Weight Bearing Precaution TTWB right LE ACTIVITIES OOB only with supervision THERAPIES: - Occupational Therapy Evaluate and Treat. - Physical Therapy Evaluate and Treat. PHYSICAL EXAM - Gen Alert and awake Lying in bed No apparent distress Oriented to: person, time, and place - Skin No breakdown No abnormalities - Eyes No abnormalities - ENMT No abnormalities - Neck No abnormalities - CVS RRR - Chest Clear - Abd + bowel sounds - GI nondistended Deferred - No abnormalities - Ext No significant edema - MSK 4/5 weakness in both lower extremities. - Neuro No focal deficits - Psych No abnormalities ASSESSMENT: Pt. is a 82 yo Right-handed white female.On 05/28/2018 she was admitted to [facility] and underwent emergency surgery for closed traumatic displaced intertrochanteric fx (Unilatera l Hip Fracture) by DR. FAVIAN MCKEON.Pre-morbidly, Pt. was independent/mod-I in Self-Care, Sphincter Co ntrol, Transfers Control, Communication, Social Cognition, and Locomotion; and she had good Sphincter Control.Currently, she has deficits of Transfers Control, Communication, Social Cognition, Endurance , Balance, Safety Awareness, Self-Care, and Locomotion.Pt. is now referred to [facility] for acute in-patient rehabilitation in order to maximize patient's functional independence in activities of daily living, strength, ROM, and mobility.- Rehab Goal Patient has realistic goal of being discharged at assistance level 6-Jena to reside at Home with Fam yossi/Relatives. MDM/PLAN: - Physical Therapy Decreased range of motion - to improve, our physical therapists will perform initial evaluation of p t's status upon admission and devise an individualized program for increasing patient's Range of Dell on. Gait dysfunction - to improve, our physical therapists will perform initial evaluation of pt's statu s upon admission and devise an individualized program for Gait Training, and Wheel Chair mobility Inability to transfer - to improve, our physical therapists will perform initial evaluation of pt's status upon admission and devise an individualized program for Bed mobility Need for home safety evaluation - to improve, our physical therapists will perform initial evaluatio n of pt's status upon admission and devise an individualized program for Home Evaluation Need in caregiver upon discharge - to improve, our physical therapists will perform initial evaluati on of pt's status upon admission and devise an individualized program for Caregiver Training New precaution - to improve, our physical therapists will perform initial evaluation of pt's status upon admission and devise an individualized program for Patient precaution education Edema - to improve, our physical therapists will perform initial evaluation of pt's status upon admis ed and devise an individualized program for Elevation Training, and Lymphedema Therapy Poor balance - to improve, our physical therapists will perform initial evaluation of pt's status up on admission and devise an individualized program for Balance Training Poor endurance - to improve, our physical therapists will perform initial evaluation of pt's status upon admission and devise an individualized program for Endurance Training Weakness - to improve, our physical therapists will perform initial evaluation of pt's status upon a dmission and devise an individualized program for Aquatic Therapy, Neuromuscular Reeducation, and Str engthening Achieving independence - to improve, our physical therapists will perform initial evaluation of pt's status upon admission and devise an individualized program for Community Reintegration Activities - Occupational Therapy ADL deficits - to improve, our occupation therapists will perform initial evaluation of pt's status upon admission and devise an individualized program for Bathing, Bed mobility, Community Reintegratio n, Cooking, Dressing, Eating, Fine Motor Skills, Grooming, Homemaking, Kitchen Mobility, Laundry, Pat ient Education, Safety Awareness, Splinting - Positioning, Transfers(Toilet, Tub, Shower), and Wheel Chair Management Cognitive deficits - to improve, our occupation therapists will perform initial evaluation of pt's s tatus upon admission and devise an individualized program for Cognition - orientation Need 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 - to improve, our occupation therapists will perform initial evaluation of pt's status upon admission and devise an individualized program for Caregiver Training Weakness - to improve, our occupation therapists will perform initial evaluation of pt's status upon admission and devise an individualized program for Aquatic Therapy, Balance, Endurance, UE ROM, and UE strengthening - Anterior Hip Precaution No abduction No active extension No adduction across midline No external rotation No hip flexion >90 degrees No internal rotation - Diet - Liquid Texture Continue Regular - Tube Feed Continue N/A - Diet Type Continue Regular - Posterior Hip Precaution No adduction across midline No external rotation No hip flexion >90 degrees No internal rotation No wheel chair propulsion - Weight Bearing Precaution TTWB right LE - Skin care per protocol - Diet - Solid Texture Continue Regular - Shower allowing shower FUNCTIONAL STATUS: UPDATED AT WEEKLY TEAM CONFERENCE - Bladder Same accident frequency: 7-Ind - No accidents in the past 7 days - Bowel Same accident frequency: 7-Ind - No accidents in the past 7 days - Walking Same score based on distance walked: 0(N/A) FUNCTIONAL STATUS: - Self-Care A. Eating Ind B. Grooming sup C. Bathing sup D. Dressing - Upper sup E. Dressing - Lower maxA F. Toileting maxA - Sphincter Control G: Bladder control Dep H: Bowel control Dep - Transfers Control I. Bed/Chair/Wheelchair maxA J. Toilet maxA K. Tub/Shower maxA - Locomotion L. Walk/Wheelchair (B) Dep M. Stairs ADNO - Communication N. Comprehension (B) sup O. Expression (B) sup - Social Cognition P. Social Interaction sup Q. Problem Solving sup R. Memory sup - Endurance Poor - Balance Poor - Safety Awareness Fair CURRENT FUNC. DEFICITS: Transfers Control, Communication, Social Cognition, Endurance, Balance, Safety Awareness, Self-Care, and Locomotion SIGNATURE PANEL: (CDT)
[2018-06-06] MEDS: ALPRAZOLAM 0.5 MG TABLET PO SCH (20:23)
[2018-06-06] MEDS: DOCUSATE NA 100 MG CAP PO SCH (20:23)
--- NOTE | 2018-06-06 20:57 | FAST ---
ENCOUNTER DATE AND TIME: 06/05/2018 08:00 (CDT) NAME MICHELLE EVANGELISTA DATE OF : 1935 DATE OF ADMISSION: 06/01/2018 15:25 (CDT) PHONE: AGE: 82 SSN# [id number] GENDER: Female ENCOUNTER PHYSICIAN: Dr. Checo Delgado M.D. ADMISSION DIAGNOSIS: - Orthopaedic Disorders 08 - Unilateral Hip Fracture (.) closed traumatic displaced intertrochanteric fx. EATING: EATING - STEP 1: Does the patient require the assistance of a person or device, or need extra time when eating? No. EATING - SCORE: 7-IND GROOMING: Comb/brush hair Oral care Wash, rinse, and dry face Wash, rinse, and dry hands GROOMING - STEP 1: Does the patient require the assistance of a person or device, or need extra time when grooming? No. GROOMING - SCORE: 7-IND BATHING: Abdomen Buttocks Chest Left arm Left lower leg and foot Left upper leg Perineal area Right arm Right lower leg and foot Right upper leg BATHING - STEP 1: Does the patient require the assistance of a person or device, or need extra time when bathing? Yes. BATHING - STEP 2: Does the patient require the assistance of a helper? Yes. BATHING - STEP 3: How much assistance does the patient require from the helper? Only incidental help such as placement of a wash cloth in his/her hand a few times as s/he bathes OR help to bathe just one or two areas of the body BATHING - SCORE: 4-MIN DRESSING - UPPER BODY: Bra (three steps) T-shirt/pullover shirt (four steps) ARTICLES SCORE Total number of steps: 7 DRESSING - UPPER BODY - STEP 1: Does the patient require help from a person or device, or need extra time when dressing above the criss st? Yes. DRESSING - UPPER BODY - STEP 2: Does the patient require the assistance of a helper? Yes. DRESSING - UPPER BODY - STEP 3: Does the helper touch the patient while dressing? Yes. DRESSING - UPPER BODY - STEP 4: How many of the total steps does the patient complete on his/her own? 6 DRESSING - UPPER BODY - SCORE: 4-MIN DRESSING - LOWER BODY: Elastic waist pants (three steps) Sock - Left foot (one step) Sock - Right foot (one step) Tied or buckled shoe - Left foot (two steps) Underwear (three steps) ARTICLES SCORE Total number of steps: 10 DRESSING - LOWER BODY - STEP 1: Does the patient require help from a person or device, or need extra time when dressing below the criss st? Yes. DRESSING - LOWER BODY - STEP 2: Does the patient require the assistance of a helper? Yes. DRESSING - LOWER BODY - STEP 3: Does the helper touch the patient while dressing? Yes. DRESSING - LOWER BODY - STEP 4: How many of the total steps does the patient complete on his/her own? 5 DRESSING - LOWER BODY - SCORE: 3-MOD TOILETING: Activity did not occur on this shift TOILETING - SCORE: 0-UNK BLADDER MANAGEMENT: Activity did not occur on this shift BLADDER MANAGEMENT - SCORE: 7-IND BOWEL MANAGEMENT: Activity did not occur on this shift BOWEL MANAGEMENT - SCORE: 7-IND TRANSFERS: BED, CHAIR, WHEELCHAIR: Activity did not occur on this shift TRANSFERS: BED, CHAIR, WHEELCHAIR - SCORE: 0-UNK TRANSFERS: TOILET: Activity did not occur on this shift TRANSFERS: TOILET - SCORE: 0-UNK TRANSFERS: SHOWER: Activity did not occur on this shift TRANSFERS: SHOWER - SCORE: 0-UNK TRANSFERS: TUB: TRANSFERS: TUB - STEP 1: Does the patient require the assistance of a person or device, or need extra time with tub transfers? Yes. TRANSFERS: TUB - STEP 2: Does the patient require the assistance of a helper? Yes. TRANSFERS: TUB - STEP 3: How much assistance does the patient require from the helper? More than incidental help TRANSFERS: TUB - STEP 4: How much more help does the patient require from the helper? Shiloh lifts the patient either up OR do wn TRANSFERS: TUB - SCORE: 3-MOD LOCOMOTION: WALK: Activity did not occur on this shift LOCOMOTION: WALK - SCORE: 0-UNK LOCOMOTION: WHEELCHAIR: Activity did not occur on this shift LOCOMOTION: WHEELCHAIR - SCORE: 0-UNK LOCOMOTION: STAIRS: Activity did not occur on this shift LOCOMOTION: STAIRS - SCORE: 0-UNK COMPREHENSION: COMPREHENSION: TYPE: Both COMPREHENSION - STEP 1: Does the patient require help from a person or device, or need extra time to understand complex and a bstract ideas (such as current events, finances, discharge planning, medical issues, relationships, e tc)? No. COMPREHENSION - STEP 2: Does the patient need extra time, require an assistive device (such as glasses for visual comprehensi on or a hearing aid for auditory comprehension) or does s/he have mild difficulty understanding compl ex and abstract information? Yes. COMPREHENSION - SCORE: 6-SONI EXPRESSION EXPRESSION: TYPE: Both EXPRESSION - STEP 1: Does the patient require help from a person or device, or need extra time expressing complex and abst ract ideas (such as current events, finances, discharge planning, medical issues, relationships, etc) ? No. EXPRESSION - STEP 2: Does the patient need extra time, require an assistive device (such as augmentive communication syste m or a communication board), OR does s/he have mild difficulty expressing complex and abstract ideas (including mild dysarthria or mild word-find problems)? Yes. EXPRESSION - SCORE: 6-SONI SOCIAL INTERACTION: SOCIAL INTERACTION - STEP 1: Does the patient require a helper to interact with others in social and therapeutic situations? No. SOCIAL INTERACTION - STEP 2: Does the patient need extra time in social situations, OR does s/he interact with staff, other patien ts, and family members ONLY in structured environments, OR does s/he require medication for social in teraction? Yes, patient needs extra time SOCIAL INTERACTION - SCORE: 6-SONI PROBLEM SOLVING: PROBLEM SOLVING - STEP 1: Does the patient need help from a person or device, or need extra time to solve complex problems such as managing a checking account or confronting interpersonal problems? No. PROBLEM SOLVING - STEP 2: Does the patient require extra time to make decisions or solve problems, OR does s/he have slight dif ficulty reading, initiating, or self-correcting in unfamiliar situations? Yes, patient needs extra ti me. PROBLEM SOLVING - SCORE: 6-SONI MEMORY: MEMORY - STEP 1: Does the patient need help from a person or device, or need extra time to remember frequently encount ered people, daily routines, and executing requests? No. MEMORY - STEP 2: Does the patient have slight difficulty recognizing frequently encountered people, daily routines, or executing requests without the need for repetition or using self-initiated or environmental cues to remember? Yes. MEMORY - SCORE: 6-SONI SIGNATURE PANEL: The following modified sections: Eating - Score, Grooming - Score, Bathing - Score, Dressing - Upper Body - Score, Dressing - Lower Body - Score, Toileting - Score, Transfers: Bed, Chair, Wheelchair - S core, Transfers: Toilet - Score, Transfers: Shower - Score, Transfers: Tub - Score, Comprehension - S core, Expression - Score, Social Interaction - Score, Problem Solving - Score, Memory - Score were [e lectronically] signed by Azucena López OT on TueJun 06 2018 20:57:15 [facility]00 ([facility])
--- NOTE | 2018-06-07 00:13 | PN ---
Date of Progress Note: 06/06/2018 Subjective: The patient was seen this morning for followup. No new complaints or problems reported. Objective: VITAL SIGNS: Reviewed. HEENT: Unremarkable. LUNGS: Clear to auscultation. HEART: Sounds normal. ABDOMEN: Soft. Bowel sounds normal. No guarding, rigidity, tenderness, distention. EXTREMITIES: Right leg edema present, but slightly better today than yesterday. Impression: 1.Hip fracture. 2.Leg edema. 3.Coronary artery disease. 4.Anemia due to acute blood loss. 5.Urinary tract infection. Plan: We will get venous Doppler of right leg today. Continue current antibiotics and iron suppleme nt. Continue current DVT prophylaxis and physical therapy to be provided under guidance of Dr. Elsie lau. ERIKA/MODL Voice ID: [id number] Report ID: [id number]
--- NOTE | 2018-06-07 01:00 | FAST ---
SHIFT START DATE/TIME: 06/06/2018 19:00 (CDT) SHIFT END DATE/TIME: 06/07/2018 07:00 (CDT) NAME MICHELLE EVANGELISTA DATE OF : 1935 DATE OF ADMISSION: 06/01/2018 15:25 (CDT) PHONE: AGE: 82 SSN# [id number] GENDER: Female ENCOUNTER PHYSICIAN: Dr. Checo Delgado M.D. ADMISSION DIAGNOSIS: - Orthopaedic Disorders 08 - Unilateral Hip Fracture (08.11) closed traumatic displaced intertrochanteric fx. EATING: Activity did not occur on this shift EATING - SCORE: 0-UNK GROOMING: Activity did not occur on this shift GROOMING - SCORE: 0-UNK BATHING: Activity did not occur on this shift BATHING - SCORE: 0-UNK DRESSING - UPPER BODY: Patient is not dressing in public clothing ARTICLES SCORE Total number of steps: 0 DRESSING - UPPER BODY - SCORE: 0-UNK DRESSING - LOWER BODY: Patient is not dressing in public clothing ARTICLES SCORE Total number of steps: 0 DRESSING - LOWER BODY - SCORE: 0-UNK TOILETING: TOILETING - STEP 1: Does the patient require the assistance of a person or device, or need extra time with toileting? Yes . TOILETING - STEP 2: Does the patient require the assistance of a helper? Yes. TOILETING - STEP 3: How much assistance does the patient require from the helper? Hands-on assistance from the helper TOILETING - STEP 4: Of the 3 tasks: 1) Adjusting clothing prior to use, 2) Cleansing of perineal area, 3) Adjusting clot julia after use; How many tasks does the patient perform WITHOUT assistance of the helper? Two tasks TOILETING - SCORE: 3-MOD BLADDER MANAGEMENT: BLADDER MANAGEMENT - STEP 1: Does the patient control the bladder completely and intentionally without equipment or devices or med ications, and is always continent? Yes. BLADDER MANAGEMENT - SCORE: 7-IND BOWEL MANAGEMENT: Activity did not occur on this shift BOWEL MANAGEMENT - SCORE: 7-IND TRANSFERS: BED, CHAIR, WHEELCHAIR: TRANSFERS: BED, CHAIR, WHEELCHAIR - STEP 1: Does the patient require assistance of a person or device, or need extra time with bed, chair, or whe elchair transfers? Yes. TRANSFERS: BED, CHAIR, WHEELCHAIR - STEP 2: Does the patient require the assistance of a helper? Yes. TRANSFERS: BED, CHAIR, WHEELCHAIR - STEP 3: How much assistance does the patient require from the helper? Lifting of the legs TRANSFERS: BED, CHAIR, WHEELCHAIR - STEP 4: How many legs does the patient require the helper to lift? both legs TRANSFERS: BED, CHAIR, WHEELCHAIR - SCORE: 3-MOD TRANSFERS: TOILET: TRANSFERS: TOILET - STEP 1: Does the patient require the assistance of a person or device, or need extra time with toilet transfe rs? Yes. TRANSFERS: TOILET - STEP 2: Does the patient require the assistance of a helper? Yes. TRANSFERS: TOILET - STEP 3: How much assistance does the patient require from the helper? Patient performs half or more of the tr ansferring tasks TRANSFERS: TOILET - STEP 4: Does the patient need only incidental help such as contact guard or steadying during toilet transfer? Yes. TRANSFERS: TOILET - SCORE: 4-MIN TRANSFERS: SHOWER: Activity did not occur on this shift TRANSFERS: SHOWER - SCORE: 0-UNK TRANSFERS: TUB: Activity did not occur on this shift TRANSFERS: TUB - SCORE: 0-UNK LOCOMOTION: WALK: Activity did not occur on this shift LOCOMOTION: WALK - SCORE: 0-UNK LOCOMOTION: WHEELCHAIR: Activity did not occur on this shift LOCOMOTION: WHEELCHAIR - SCORE: 0-UNK COMPREHENSION: COMPREHENSION: TYPE: Both COMPREHENSION - STEP 1: Does the patient require help from a person or device, or need extra time to understand complex and a bstract ideas (such as current events, finances, discharge planning, medical issues, relationships, e tc)? No. COMPREHENSION - STEP 2: Does the patient need extra time, require an assistive device (such as glasses for visual comprehensi on or a hearing aid for auditory comprehension) or does s/he have mild difficulty understanding compl ex and abstract information? Yes. COMPREHENSION - SCORE: 6-SONI EXPRESSION EXPRESSION: TYPE: Both EXPRESSION - STEP 1: Does the patient require help from a person or device, or need extra time expressing complex and abst ract ideas (such as current events, finances, discharge planning, medical issues, relationships, etc) ? No. EXPRESSION - STEP 2: Does the patient need extra time, require an assistive device (such as augmentive communication syste m or a communication board), OR does s/he have mild difficulty expressing complex and abstract ideas (including mild dysarthria or mild word-find problems)? No. EXPRESSION - SCORE: 7-IND SOCIAL INTERACTION: SOCIAL INTERACTION - STEP 1: Does the patient require a helper to interact with others in social and therapeutic situations? No. SOCIAL INTERACTION - STEP 2: Does the patient need extra time in social situations, OR does s/he interact with staff, other patien ts, and family members ONLY in structured environments, OR does s/he require medication for social in teraction? Yes, patient requires medication for social interaction SOCIAL INTERACTION - SCORE: 6-SONI PROBLEM SOLVING: PROBLEM SOLVING - STEP 1: Does the patient need help from a person or device, or need extra time to solve complex problems such as managing a checking account or confronting interpersonal problems? No. PROBLEM SOLVING - STEP 2: Does the patient require extra time to make decisions or solve problems, OR does s/he have slight dif ficulty reading, initiating, or self-correcting in unfamiliar situations? No. PROBLEM SOLVING - SCORE: 7-IND MEMORY: MEMORY - STEP 1: Does the patient need help from a person or device, or need extra time to remember frequently encount ered people, daily routines, and executing requests? No. MEMORY - STEP 2: Does the patient have slight difficulty recognizing frequently encountered people, daily routines, or executing requests without the need for repetition or using self-initiated or environmental cues to remember? No. MEMORY - SCORE: 7-IND SIGNATURE PANEL: The following modified sections: Eating - Score, Grooming - Score, Bathing - Score, Dressing - Upper Body - Score, Dressing - Lower Body - Score, Toileting - Score, Bladder Management - Score, Bowel Man agement - Score, Transfers: Bed, Chair, Wheelchair - Score, Transfers: Toilet - Score, Transfers: Guerline wer - Score, Transfers: Tub - Score, Locomotion: Walk - Score, Locomotion: Wheelchair - Score, Compre hension - Score, Expression - Score, Social Interaction - Score, Problem Solving - Score, Memory - Sc ore were [electronically] signed by Chanell Ordaz CNA on TueJun 07 2018 00:59:08 [facility]0500 ([facility] Time)
[2018-06-07] MEDS: TRAMADOL HCL 50 MG TAB PO PRN ×3 (04:15→17:17)
[2018-06-07] MEDS: PANTOPRAZOLE 40MG TABLET PO SCH (07:32)
[2018-06-07] MEDS: ENOXAPARIN 40 MG/0.4 ML SQ SCH (07:32)
[2018-06-07] MEDS: PROMOD 30 ML DOSE PO SCH ×2 (08:00→20:03)
[2018-06-07] MEDS: POLYETHYL GLY 3350 17 GM/DOSE PO SCH (08:27)
[2018-06-07] MEDS: LIDOCAINE 5% PATCH TOP SCH (08:30)
[2018-06-07] MEDS: SMZ./TMP. 800/160 MG TABLET PO SCH ×2 (08:31→20:01)
[2018-06-07] MEDS: METHOCARBAMOL 500 MG TAB PO PRN ×2 (08:31→17:17)
[2018-06-07] MEDS: FE SULF/FA/VIT B COMP & C TAB PO SCH (08:31)
[2018-06-07] MEDS: VITAMIN D 1000 UNIT TAB PO SCH (08:31)
[2018-06-07] MEDS: CRANBERRY FRUIT EXTRACT 200 MG CAP PO SCH ×2 (08:31→20:02)
[2018-06-07] MEDS: ASCORBIC ACID 500 MG TABLET PO SCH (08:32)
[2018-06-07] MEDS: GABAPENTIN 300 MG CAP PO SCH ×2 (08:32→20:02)
[2018-06-07] MEDS: ASPIRIN EC 81 MG TAB PO SCH (08:32)
[2018-06-07] MEDS: LOSARTAN POTASSIUM 50 MG TABLET PO SCH (08:32)
[2018-06-07] MEDS: FUROSEMIDE 40 MG TABLET PO SCH ×2 (08:32→17:17)
[2018-06-07] MEDS: MAGNESIUM OXIDE 400 MG TAB PO SCH ×2 (08:32→20:02)
[2018-06-07] MEDS: POTASSIUM CL SA 10 MEQ TAB PO SCH ×2 (08:32→20:03)
[2018-06-07] MEDS: METOPROLOL XL 25 MG TAB PO SCH (08:33)
[2018-06-07] MEDS: HYDROCODONE/APAP 10/325 TAB PO PRN ×2 (12:23→20:01)
--- NOTE | 2018-06-07 12:58 | FAST ---
ENCOUNTER DATE AND TIME: 06/07/2018 08:00 (CDT) NAME MICHELLE EVANGELISTA DATE OF : 1935 DATE OF ADMISSION: 06/01/2018 15:25 (CDT) PHONE: AGE: 82 SSN# [id number] GENDER: Female ENCOUNTER PHYSICIAN: Dr. Checo Delgado M.D. ADMISSION DIAGNOSIS: - Orthopaedic Disorders 08 - Unilateral Hip Fracture (.11) closed traumatic displaced intertrochanteric fx. EATING: EATING - STEP 1: Does the patient require the assistance of a person or device, or need extra time when eating? No. EATING - SCORE: 7-IND GROOMING: Comb/brush hair Oral care Wash, rinse, and dry face Wash, rinse, and dry hands GROOMING - STEP 1: Does the patient require the assistance of a person or device, or need extra time when grooming? No. GROOMING - SCORE: 7-IND BATHING: Abdomen Buttocks Chest Left arm Left lower leg and foot Left upper leg Perineal area Right arm Right lower leg and foot Right upper leg BATHING - STEP 1: Does the patient require the assistance of a person or device, or need extra time when bathing? Yes. BATHING - STEP 2: Does the patient require the assistance of a helper? Yes. BATHING - STEP 3: How much assistance does the patient require from the helper? Only incidental help such as placement of a wash cloth in his/her hand a few times as s/he bathes OR help to bathe just one or two areas of the body BATHING - SCORE: 4-MIN DRESSING - UPPER BODY: Bra (three steps) T-shirt/pullover shirt (four steps) ARTICLES SCORE Total number of steps: 7 DRESSING - UPPER BODY - STEP 1: Does the patient require help from a person or device, or need extra time when dressing above the criss st? Yes. DRESSING - UPPER BODY - STEP 2: Does the patient require the assistance of a helper? Yes. DRESSING - UPPER BODY - STEP 3: Does the helper touch the patient while dressing? Yes. DRESSING - UPPER BODY - STEP 4: How many of the total steps does the patient complete on his/her own? 6 DRESSING - UPPER BODY - SCORE: 4-MIN DRESSING - LOWER BODY: Elastic waist pants (three steps) Sock - Right foot (one step) Tied or buckled shoe - Left foot (two steps) Underwear (three steps) ARTICLES SCORE Total number of steps: 9 DRESSING - LOWER BODY - STEP 1: Does the patient require help from a person or device, or need extra time when dressing below the criss st? Yes. DRESSING - LOWER BODY - STEP 2: Does the patient require the assistance of a helper? Yes. DRESSING - LOWER BODY - STEP 3: Does the helper touch the patient while dressing? Yes. DRESSING - LOWER BODY - STEP 4: How many of the total steps does the patient complete on his/her own? 9 DRESSING - LOWER BODY - SCORE: 4-MIN TOILETING: Activity did not occur on this shift TOILETING - SCORE: 0-UNK BLADDER MANAGEMENT: Activity did not occur on this shift BLADDER MANAGEMENT - SCORE: 7-IND BOWEL MANAGEMENT: Activity did not occur on this shift BOWEL MANAGEMENT - SCORE: 7-IND TRANSFERS: BED, CHAIR, WHEELCHAIR: Activity did not occur on this shift TRANSFERS: BED, CHAIR, WHEELCHAIR - SCORE: 0-UNK TRANSFERS: TOILET: Activity did not occur on this shift TRANSFERS: TOILET - SCORE: 0-UNK TRANSFERS: SHOWER: Activity did not occur on this shift TRANSFERS: SHOWER - SCORE: 0-UNK TRANSFERS: TUB: TRANSFERS: TUB - STEP 1: Does the patient require the assistance of a person or device, or need extra time with tub transfers? Yes. TRANSFERS: TUB - STEP 2: Does the patient require the assistance of a helper? Yes. TRANSFERS: TUB - STEP 3: How much assistance does the patient require from the helper? Incidental help such as contact guardin g or steadying, OR help to lift one leg into the tub TRANSFERS: TUB - SCORE: 4-MIN LOCOMOTION: WALK: Activity did not occur on this shift LOCOMOTION: WALK - SCORE: 0-UNK LOCOMOTION: WHEELCHAIR: Activity did not occur on this shift LOCOMOTION: WHEELCHAIR - SCORE: 0-UNK LOCOMOTION: STAIRS: Activity did not occur on this shift LOCOMOTION: STAIRS - SCORE: 0-UNK COMPREHENSION: COMPREHENSION: TYPE: Both COMPREHENSION - STEP 1: Does the patient require help from a person or device, or need extra time to understand complex and a bstract ideas (such as current events, finances, discharge planning, medical issues, relationships, e tc)? No. COMPREHENSION - STEP 2: Does the patient need extra time, require an assistive device (such as glasses for visual comprehensi on or a hearing aid for auditory comprehension) or does s/he have mild difficulty understanding compl ex and abstract information? Yes. COMPREHENSION - SCORE: 6-SONI EXPRESSION EXPRESSION: TYPE: Both EXPRESSION - STEP 1: Does the patient require help from a person or device, or need extra time expressing complex and abst ract ideas (such as current events, finances, discharge planning, medical issues, relationships, etc) ? No. EXPRESSION - STEP 2: Does the patient need extra time, require an assistive device (such as augmentive communication syste m or a communication board), OR does s/he have mild difficulty expressing complex and abstract ideas (including mild dysarthria or mild word-find problems)? Yes. EXPRESSION - SCORE: 6-SONI SOCIAL INTERACTION: SOCIAL INTERACTION - STEP 1: Does the patient require a helper to interact with others in social and therapeutic situations? No. SOCIAL INTERACTION - STEP 2: Does the patient need extra time in social situations, OR does s/he interact with staff, other patien ts, and family members ONLY in structured environments, OR does s/he require medication for social in teraction? No. SOCIAL INTERACTION - SCORE: 7-IND PROBLEM SOLVING: PROBLEM SOLVING - STEP 1: Does the patient need help from a person or device, or need extra time to solve complex problems such as managing a checking account or confronting interpersonal problems? Yes. PROBLEM SOLVING - STEP 2: Does the patient solve basic routine problems half or more of the time? Yes. PROBLEM SOLVING - STEP 3: How often does the patient need help to solve basic routine problems? Less than 10% of the time PROBLEM SOLVING - SCORE: 5-SUP MEMORY: MEMORY - STEP 1: Does the patient need help from a person or device, or need extra time to remember frequently encount ered people, daily routines, and executing requests? Yes. MEMORY - STEP 2: How often does the patient need help to remember frequently encountered people, daily routines, and e xecuting requests? Less than 10% of the time MEMORY - SCORE: 5-SUP SIGNATURE PANEL: The following modified sections: Eating - Score, Grooming - Score, Bathing - Score, Dressing - Upper Body - Score, Dressing - Lower Body - Score, Toileting - Score, Transfers: Bed, Chair, Wheelchair - S core, Transfers: Toilet - Score, Transfers: Shower - Score, Transfers: Tub - Score, Comprehension - S core, Expression - Score, Social Interaction - Score, Problem Solving - Score, Memory - Score were [e lectronically] signed by Azucena López OT on TueJun 07 2018 12:57:57 T-0500 ([facility])
--- NOTE | 2018-06-07 14:28 | FAST ---
SHIFT START DATE/TIME: 06/07/2018 07:00 (CDT) SHIFT END DATE/TIME: 06/07/2018 19:00 (CDT) NAME MICHELLE EVANGELISTA DATE OF : 1935 DATE OF ADMISSION: 06/01/2018 15:25 (CDT) PHONE: AGE: 82 N# [id number] GENDER: Female ENCOUNTER PHYSICIAN: Dr. Checo Delgado M.D. ADMISSION DIAGNOSIS: - Orthopaedic Disorders 08 - Unilateral Hip Fracture (08.11) closed traumatic displaced intertrochanteric fx. EATING: EATING - STEP 1: Does the patient require the assistance of a person or device, or need extra time when eating? Yes. EATING - STEP 2: Does the patient require the assistance of a helper? Yes. EATING - STEP 3: Does the patient perform half or more of the eating tasks? Yes. EATING - STEP 4: Does the patient need only supervision, cuing, coaxing OR help to apply an orthosis OR help to cut fo od, open containers, pour liquids, or butter bread? Yes. EATING - SCORE: 5-SUP GROOMING: Comb/brush hair Oral care Wash, rinse, and dry face Wash, rinse, and dry hands GROOMING - STEP 1: Does the patient require the assistance of a person or device, or need extra time when grooming? Yes. GROOMING - STEP 2: Does the patient require the assistance of a helper? Yes. GROOMING - STEP 3: How much assistance does the patient require from the helper? Only prior equipment preparation/set up from the helper GROOMING - SCORE: 5-SUP BATHING: Activity did not occur on this shift BATHING - SCORE: 0-UNK DRESSING - UPPER BODY: Activity did not occur on this shift ARTICLES SCORE Total number of steps: 0 DRESSING - UPPER BODY - SCORE: 0-UNK DRESSING - LOWER BODY: Activity did not occur on this shift ARTICLES SCORE Total number of steps: 0 DRESSING - LOWER BODY - SCORE: 0-UNK TOILETING: TOILETING - STEP 1: Does the patient require the assistance of a person or device, or need extra time with toileting? Yes . TOILETING - STEP 2: Does the patient require the assistance of a helper? Yes. TOILETING - STEP 3: How much assistance does the patient require from the helper? Only supervision TOILETING - SCORE: 5-SUP BLADDER MANAGEMENT: BLADDER MANAGEMENT - STEP 1: Does the patient control the bladder completely and intentionally without equipment or devices or med ications, and is always continent? Yes. BLADDER MANAGEMENT - SCORE: 7-IND BLADDER MANAGEMENT - FREQUENCY OF ACCIDENTS: BLADDER MANAGEMENT(FA) - STEP 1: How many accidents has the patient had during the current shift? 0 BOWEL MANAGEMENT: Activity did not occur on this shift BOWEL MANAGEMENT - SCORE: 7-IND BOWEL MANAGEMENT - FREQUENCY OF ACCIDENTS: BOWEL MANAGEMENT(FA) - STEP 1: How many accidents has the patient had during the current shift? 0 TRANSFERS: BED, CHAIR, WHEELCHAIR: TRANSFERS: BED, CHAIR, WHEELCHAIR - STEP 1: Does the patient require assistance of a person or device, or need extra time with bed, chair, or whe elchair transfers? Yes. TRANSFERS: BED, CHAIR, WHEELCHAIR - STEP 2: Does the patient require the assistance of a helper? Yes. TRANSFERS: BED, CHAIR, WHEELCHAIR - STEP 3: How much assistance does the patient require from the helper? Lifting of the legs TRANSFERS: BED, CHAIR, WHEELCHAIR - STEP 4: How many legs does the patient require the helper to lift? both legs TRANSFERS: BED, CHAIR, WHEELCHAIR - SCORE: 3-MOD TRANSFERS: TOILET: TRANSFERS: TOILET - STEP 1: Does the patient require the assistance of a person or device, or need extra time with toilet transfe rs? Yes. TRANSFERS: TOILET - STEP 2: Does the patient require the assistance of a helper? Yes. TRANSFERS: TOILET - STEP 3: How much assistance does the patient require from the helper? Patient performs half or more of the tr ansferring tasks TRANSFERS: TOILET - STEP 4: Does the patient need only incidental help such as contact guard or steadying during toilet transfer? No. Patient needs more than incidental help TRANSFERS: TOILET - SCORE: 3-MOD TRANSFERS: SHOWER: Activity did not occur on this shift TRANSFERS: SHOWER - SCORE: 0-UNK TRANSFERS: TUB: Activity did not occur on this shift TRANSFERS: TUB - SCORE: 0-UNK LOCOMOTION: WALK: Activity did not occur on this shift LOCOMOTION: WALK - SCORE: 0-UNK LOCOMOTION: WHEELCHAIR: LOCOMOTION: WHEELCHAIR - STEP 1: Does the patient need help to go 150 feet in a wheelchair? Yes. LOCOMOTION: WHEELCHAIR - STEP 2: How much assistance does the patient need from the helper? More than incidental help LOCOMOTION: WHEELCHAIR - SCORE: 3-MOD COMPREHENSION: COMPREHENSION: TYPE: Both COMPREHENSION - STEP 1: Does the patient require help from a person or device, or need extra time to understand complex and a bstract ideas (such as current events, finances, discharge planning, medical issues, relationships, e tc)? No. COMPREHENSION - STEP 2: Does the patient need extra time, require an assistive device (such as glasses for visual comprehensi on or a hearing aid for auditory comprehension) or does s/he have mild difficulty understanding compl ex and abstract information? No. COMPREHENSION - SCORE: 7-IND EXPRESSION EXPRESSION: TYPE: Both EXPRESSION - STEP 1: Does the patient require help from a person or device, or need extra time expressing complex and abst ract ideas (such as current events, finances, discharge planning, medical issues, relationships, etc) ? No. EXPRESSION - STEP 2: Does the patient need extra time, require an assistive device (such as augmentive communication syste m or a communication board), OR does s/he have mild difficulty expressing complex and abstract ideas (including mild dysarthria or mild word-find problems)? No. EXPRESSION - SCORE: 7-IND SOCIAL INTERACTION: SOCIAL INTERACTION - STEP 1: Does the patient require a helper to interact with others in social and therapeutic situations? No. SOCIAL INTERACTION - STEP 2: Does the patient need extra time in social situations, OR does s/he interact with staff, other patien ts, and family members ONLY in structured environments, OR does s/he require medication for social in teraction? No. SOCIAL INTERACTION - SCORE: 7-IND PROBLEM SOLVING: PROBLEM SOLVING - STEP 1: Does the patient need help from a person or device, or need extra time to solve complex problems such as managing a checking account or confronting interpersonal problems? No. PROBLEM SOLVING - STEP 2: Does the patient require extra time to make decisions or solve problems, OR does s/he have slight dif ficulty reading, initiating, or self-correcting in unfamiliar situations? Yes, patient needs extra ti me. PROBLEM SOLVING - SCORE: 6-SONI MEMORY: MEMORY - STEP 1: Does the patient need help from a person or device, or need extra time to remember frequently encount ered people, daily routines, and executing requests? No. MEMORY - STEP 2: Does the patient have slight difficulty recognizing frequently encountered people, daily routines, or executing requests without the need for repetition or using self-initiated or environmental cues to remember? No. MEMORY - SCORE: 7-IND SIGNATURE PANEL: The following modified sections: Eating - Score, Grooming - Score, Bathing - Score, Dressing - Upper Body - Score, Dressing - Lower Body - Score, Toileting - Score, Bladder Management - Score, Bowel Man agement - Score, Transfers: Bed, Chair, Wheelchair - Score, Transfers: Toilet - Score, Transfers: Guerline wer - Score, Transfers: Tub - Score, Locomotion: Walk - Score, Locomotion: Wheelchair - Score, Compre hension - Score, Expression - Score, Social Interaction - Score, Problem Solving - Score, Memory - Sc ore were [electronically] signed by Samantha Hugo RN on TueJun 07 2018 14:27:03 T-0500 ([facility])
--- NOTE | 2018-06-07 14:43 | FAST ---
ENCOUNTER DATE AND TIME: 06/07/2018 08:00 (CDT) NAME MICHELLE EVANGELISTA DATE OF : 1935 DATE OF ADMISSION: 06/01/2018 15:25 (CDT) PHONE: AGE: 82 SSN# [id number] GENDER: Female ENCOUNTER PHYSICIAN: Dr. Checo Delgado M.D. ADMISSION DIAGNOSIS: - Orthopaedic Disorders 08 - Unilateral Hip Fracture (.11) closed traumatic displaced intertrochanteric fx. EATING: Activity did not occur on this shift EATING - SCORE: 0-UNK GROOMING: Activity did not occur on this shift GROOMING - SCORE: 0-UNK BATHING: Activity did not occur on this shift BATHING - SCORE: 0-UNK DRESSING - UPPER BODY: Activity did not occur on this shift Patient is not dressing in public clothing ARTICLES SCORE Total number of steps: 0 DRESSING - UPPER BODY - SCORE: 0-UNK DRESSING - LOWER BODY: Activity did not occur on this shift Patient is not dressing in public clothing ARTICLES SCORE Total number of steps: 0 DRESSING - LOWER BODY - SCORE: 0-UNK TOILETING: Activity did not occur on this shift TOILETING - SCORE: 0-UNK BLADDER MANAGEMENT: Activity did not occur on this shift BLADDER MANAGEMENT - SCORE: 7-IND BOWEL MANAGEMENT: Activity did not occur on this shift BOWEL MANAGEMENT - SCORE: 7-IND TRANSFERS: BED, CHAIR, WHEELCHAIR: TRANSFERS: BED, CHAIR, WHEELCHAIR - STEP 1: Does the patient require assistance of a person or device, or need extra time with bed, chair, or whe elchair transfers? Yes. TRANSFERS: BED, CHAIR, WHEELCHAIR - STEP 2: Does the patient require the assistance of a helper? Yes. TRANSFERS: BED, CHAIR, WHEELCHAIR - STEP 3: How much assistance does the patient require from the helper? Only supervision TRANSFERS: BED, CHAIR, WHEELCHAIR - SCORE: 5-SUP TRANSFERS: TOILET: TRANSFERS: TOILET - STEP 1: Does the patient require the assistance of a person or device, or need extra time with toilet transfe rs? Yes. TRANSFERS: TOILET - STEP 2: Does the patient require the assistance of a helper? Yes. TRANSFERS: TOILET - STEP 3: How much assistance does the patient require from the helper? Only supervision, cuing, coaxing, OR he lp to set out transfer equipment or to lock brakes and/or lift foot rests TRANSFERS: TOILET - SCORE: 5-SUP TRANSFERS: SHOWER: Activity did not occur on this shift TRANSFERS: SHOWER - SCORE: 0-UNK TRANSFERS: TUB: Activity did not occur on this shift TRANSFERS: TUB - SCORE: 0-UNK LOCOMOTION: WALK: LOCOMOTION: WALK - STEP 1: Does the patient need help from a person or device, or need extra time to walk 150 feet? Yes. LOCOMOTION: WALK - STEP 2: How much assistance does the patient require to walk a minimum of 150 feet? Patient walks less than 1 50 feet - but more than 50 feet - with the assistance of only one helper LOCOMOTION: WALK - SCORE: 2-MAX LOCOMOTION: WHEELCHAIR: Activity did not occur on this shift LOCOMOTION: WHEELCHAIR - SCORE: 0-UNK LOCOMOTION: STAIRS: Activity did not occur on this shift LOCOMOTION: STAIRS - SCORE: 0-UNK COMPREHENSION: COMPREHENSION - SCORE: 0-UNK EXPRESSION EXPRESSION - SCORE: 0-UNK SOCIAL INTERACTION: SOCIAL INTERACTION - SCORE: 0-UNK PROBLEM SOLVING: PROBLEM SOLVING - SCORE: 0-UNK MEMORY: MEMORY - SCORE: 0-UNK SIGNATURE PANEL: The following modified sections: Transfers: Bed, Chair, Wheelchair - Score, Transfers: Toilet - Score , Locomotion: Walk - Score, Locomotion: Wheelchair - Score, Locomotion: Stairs - Score were [electron mo] signed by Ayaz Lopez PT on TueJun 07 2018 14:43:05 GMT-0500 (Central Daylight Time)
[2018-06-07] MEDS: ATORVASTATIN 20 MG TAB PO SCH (17:16)
--- NOTE | 2018-06-07 18:31 | R.PN ---
ENCOUNTER DATE AND TIME: 06/07/2018 18:28 (CDT) NAME MICHELLE EVANGELISTA DATE OF : 1935 DATE OF ADMISSION: 06/01/2018 15:25 (CDT) closed traumatic displaced intertrochanteric fxCHIEF COMPLAINT: Right hip fracture SUBJECTIVE: Pt denied any depression. Pt denied any Shortness of Breath. Ambulated 191' with standby assistance using a rolling walker. Hgb 8.9, glucose 112, prealbumin 9.8. Ambulated 70' with standby assistance using a rolling walker. VITAL SIGNS Temperature: 98.7 F SBP/DBP: 150/63 Pulse: 57 Resp: 16 MEDICATION ALLERGIES: No Known Drug Allergies (NKDA) ENVIRONMENTAL ALLERGIES: - Substance Allergies None Known - Other Allergies None Known NURSING: - Shower allowing shower - Skin care per protocol PRECAUTIONS: - Posterior Hip Precaution No adduction across midline No external rotation No hip flexion >90 degrees No internal rotation No wheel chair propulsion - Weight Bearing Precaution TTWB right LE ACTIVITIES OOB only with supervision THERAPIES: - Occupational Therapy Evaluate and Treat. - Physical Therapy Evaluate and Treat. PHYSICAL EXAM - Gen Alert and awake Lying in bed No apparent distress Oriented to: person, time, and place - Skin No breakdown No abnormalities - Eyes No abnormalities - ENMT No abnormalities - Neck No abnormalities - CVS RRR - Chest Clear - Abd + bowel sounds - GI nondistended Deferred - No abnormalities - Ext No significant edema - MSK 4/5 weakness in both lower extremities. - Neuro No focal deficits - Psych No abnormalities ASSESSMENT: Pt. is a 82 yo Right-handed white female.On 05/28/2018 she was admitted to [facility] and underwent emergency surgery for closed traumatic displaced intertrochanteric fx (Unilatera l Hip Fracture) by DR. FAVIAN MCKEON.Pre-morbidly, Pt. was independent/mod-I in Self-Care, Sphincter Co ntrol, Transfers Control, Communication, Social Cognition, and Locomotion; and she had good Sphincter Control.Currently, she has deficits of Transfers Control, Communication, Social Cognition, Endurance , Balance, Safety Awareness, Self-Care, and Locomotion.Pt. is now referred to [facility] for acute in-patient rehabilitation in order to maximize patient's functional independence in activities of daily living, strength, ROM, and mobility.- Rehab Goal Patient has realistic goal of being discharged at assistance level 6-Jena to reside at Home with Fam yossi/Relatives. MDM/PLAN: - Physical Therapy Decreased range of motion - to improve, our physical therapists will perform initial evaluation of p t's status upon admission and devise an individualized program for increasing patient's Range of Dell on. Gait dysfunction - to improve, our physical therapists will perform initial evaluation of pt's statu s upon admission and devise an individualized program for Gait Training, and Wheel Chair mobility Inability to transfer - to improve, our physical therapists will perform initial evaluation of pt's status upon admission and devise an individualized program for Bed mobility Need for home safety evaluation - to improve, our physical therapists will perform initial evaluatio n of pt's status upon admission and devise an individualized program for Home Evaluation Need in caregiver upon discharge - to improve, our physical therapists will perform initial evaluati on of pt's status upon admission and devise an individualized program for Caregiver Training New precaution - to improve, our physical therapists will perform initial evaluation of pt's status upon admission and devise an individualized program for Patient precaution education Edema - to improve, our physical therapists will perform initial evaluation of pt's status upon admi ssion and devise an individualized program for Elevation Training, and Lymphedema Therapy Poor balance - to improve, our physical therapists will perform initial evaluation of pt's status up on admission and devise an individualized program for Balance Training Poor endurance - to improve, our physical therapists will perform initial evaluation of pt's status upon admission and devise an individualized program for Endurance Training Weakness - to improve, our physical therapists will perform initial evaluation of pt's status upon a dmission and devise an individualized program for Aquatic Therapy, Neuromuscular Reeducation, and Str engthening Achieving independence - to improve, our physical therapists will perform initial evaluation of pt's status upon admission and devise an individualized program for Community Reintegration Activities - Occupational Therapy ADL deficits - to improve, our occupation therapists will perform initial evaluation of pt's status upon admission and devise an individualized program for Bathing, Bed mobility, Community Reintegratio n, Cooking, Dressing, Eating, Fine Motor Skills, Grooming, Homemaking, Kitchen Mobility, Laundry, Pat ient Education, Safety Awareness, Splinting - Positioning, Transfers(Toilet, Tub, Shower), and Wheel Chair Management Cognitive deficits - to improve, our occupation therapists will perform initial evaluation of pt's s tatus upon admission and devise an individualized program for Cognition - orientation Need for patient care assistant - to improve, our occupation therapists will perform initial evaluation of pt's status upon admission and devise an individualized program for Caregiver Training Weakness - to improve, our occupation therapists will perform initial evaluation of pt's status upon admission and devise an individualized program for Aquatic Therapy, Balance, Endurance, UE ROM, and UE strengthening - Anterior Hip Precaution No abduction No active extension No adduction across midline No external rotation No hip flexion >90 degrees No internal rotation - Diet - Liquid Texture Continue Regular - Tube Feed Continue N/A - Diet Type Continue Regular - Posterior Hip Precaution No adduction across midline No external rotation No hip flexion >90 degrees No internal rotation No wheel chair propulsion - Weight Bearing Precaution TTWB right LE - Skin care per protocol - Diet - Solid Texture Continue Regular - Shower allowing shower FUNCTIONAL STATUS: UPDATED AT WEEKLY TEAM CONFERENCE - Bladder Same accident frequency: 7-Ind - No accidents in the past 7 days - Bowel Same accident frequency: 7-Ind - No accidents in the past 7 days - Walking Same score based on distance walked: 0(N/A) FUNCTIONAL STATUS: - Self-Care A. Eating Ind B. Grooming sup C. Bathing sup D. Dressing - Upper sup E. Dressing - Lower maxA F. Toileting maxA - Sphincter Control G: Bladder control Dep H: Bowel control Dep - Transfers Control I. Bed/Chair/Wheelchair maxA J. Toilet maxA K. Tub/Shower maxA - Locomotion L. Walk/Wheelchair (B) Dep M. Stairs ADNO - Communication N. Comprehension (B) sup O. Expression (B) sup - Social Cognition P. Social Interaction sup Q. Problem Solving sup R. Memory sup - Endurance Poor - Balance Poor - Safety Awareness Fair CURRENT FUNC. DEFICITS: Transfers Control, Communication, Social Cognition, Endurance, Balance, Safety Awareness, Self-Care, and Locomotion SIGNATURE PANEL: (CDT)
[2018-06-07] MEDS: DOCUSATE NA 100 MG CAP PO SCH (20:02)
--- NOTE | 2018-06-07 20:40 | P.PN ---
Date of Service: 06/06/18 (POD#7) Continuing post-op care for inpatient consultation 05/29/2018. S: PATIENT RECLINING IN BED, C/O PAIN. IN ROOM. SHE INDICATES SHE'S WORKED HARD WITH THERAPY BOTH SESSIONS TODAY. SHE DENIES HAVING ANY DISCOMFORT TODAY WITH HER LEFT ANKLE WHILE PERFORMING TOUCH DOWN WEIGHT BEARING RIGHT LOWER EXTREMITY. O: AFEBRILE, VSS; HGB 8.9 YESTERDAY, STABLE. BANDAGE REMAINS CLEAN, DRY, AND INTACT. . THIS MORNING THE PATIENT WALKED 33', 60', 53' AND 45' WITH HER ROLLING WALKER, APPROPRIATELY MAINTAINING TOUCHDOWN WEIGHT BEARING FOR THE RIGHT LOWER EXTREMITY. THIS AFTERNOON DEMONSTRATING NO PAIN DURING THERAPY SHE WENT 40', 65' AND 55'. SHE ALSO WENT 150' AND 250' IN THE SELF-PROPELLED WHEELCHAIR ACTIVITY. A: THE LEFT ANKLE COMPLAINTS HAS RESOLVED. THE PATIENT IS MAKING EXCELLENT PROGRESS. SHE IS OPIOID FAMILIAR HAVING TAKEN 3 7.5 mg NORCO TABLETS DAILY FOR CHRONIC BACK PAIN. WITH WHEN NECESSARY USE SHE IS AVERAGING 3 TABLETS PER DAY, OCCASIONALLY 4 SOMETIMES 2. P: CONTINUE MOBILIZATION WITH PT AND OT EFFORTS. I'LL BE OUT OF TOWN, BUT DR. KAISER WILL BE AVAILABLE FOR ANY ORTHOPEDIC QUESTIONS OR CONCERNS UNTIL MY RETURN June.
[2018-06-07] MEDS: ALPRAZOLAM 0.5 MG TABLET PO SCH (21:16)
--- NOTE | 2018-06-08 00:18 | PN ---
Date of Progress Note: 06/07/2018 Subjective: The patient was seen this morning for followup. No new complaints or problems reported by the patient. She was sleeping, easily arousable, not in distress. Objective: Vital Signs: Reviewed. HEENT: Unremarkable. Lungs: Clear to auscultation. Heart: Sounds normal. Abdomen: Soft. Bowel sounds normal. No guarding, rigidity, tenderness, distention. Extremities: Right leg edema has resolved. Laboratory Data: Venous Doppler of right leg was negative for DVT. Impression: 1.Right leg edema, resolved. 2.Right hip fracture. 3.Anemia due to acute blood loss. 4.Coronary artery disease. Plan: Continue current medications. Continue current antibiotic for urinary tract infection. Bertha nue stockings to leg, apply in the morning, take it off at bedtime. Continue current antibiotics and DVT prophylaxis with Lovenox. I will see her tomorrow. ERIKA/MODL Voice ID: [id number] Report ID: [id number]
[2018-06-08] MEDS: TRAMADOL HCL 50 MG TAB PO PRN ×2 (03:04→08:37)
[2018-06-08 06:17] LABS: Absolute Neutrophil 7.3 K/uL (1.8-8.0); Basophils % 0.8 % (0-1.3); Eosinophils % 3.9 % (0-4.4); Hematocrit 28.3 % (36.0-45.0); Lymphocytes % 18.3 % (15.3-44.8); MPV 7.2 fL (7.6-11.3); Monocytes % 9.2 % (3.3-12.3); RBC Red Blood Cell Count 3.15 M/uL (3.86-4.86)
[2018-06-08 06:34] LABS: Albumin 3.5 g/dL (3.4-5.0); Potassium 5.2 mmol/L (3.5-5.1); Prealbumin 20.3 mg/dL (20-40)
[2018-06-08] MEDS: ENOXAPARIN 40 MG/0.4 ML SQ SCH (06:57)
[2018-06-08] MEDS: PANTOPRAZOLE 40MG TABLET PO SCH (06:57)
[2018-06-08] MEDS: PROMOD 30 ML DOSE PO SCH ×2 (08:00→21:00)
[2018-06-08] MEDS: POTASSIUM CL SA 10 MEQ TAB PO SCH (08:00)
[2018-06-08] MEDS: POLYETHYL GLY 3350 17 GM/DOSE PO SCH (08:33)
[2018-06-08] MEDS: LIDOCAINE 5% PATCH TOP SCH (08:34)
[2018-06-08] MEDS: GABAPENTIN 300 MG CAP PO SCH ×3 (08:36→20:58)
[2018-06-08] MEDS: FE SULF/FA/VIT B COMP & C TAB PO SCH (08:36)
[2018-06-08] MEDS: METHOCARBAMOL 500 MG TAB PO PRN (08:36)
[2018-06-08] MEDS: LOSARTAN POTASSIUM 50 MG TABLET PO SCH (08:36)
[2018-06-08] MEDS: VITAMIN D 1000 UNIT TAB PO SCH (08:37)
[2018-06-08] MEDS: SMZ./TMP. 800/160 MG TABLET PO SCH ×2 (08:37→19:38)
[2018-06-08] MEDS: CRANBERRY FRUIT EXTRACT 200 MG CAP PO SCH ×2 (08:37→19:36)
[2018-06-08] MEDS: ASPIRIN EC 81 MG TAB PO SCH (08:37)
[2018-06-08] MEDS: METOPROLOL XL 25 MG TAB PO SCH (08:37)
[2018-06-08] MEDS: MAGNESIUM OXIDE 400 MG TAB PO SCH ×2 (08:38→19:36)
[2018-06-08] MEDS: ASCORBIC ACID 500 MG TABLET PO SCH (08:38)
[2018-06-08] MEDS: FUROSEMIDE 40 MG TABLET PO SCH (08:38)
--- NOTE | 2018-06-08 09:46 | P.RH.PN ---
Estimated Length of Stay: 16 Expected Discharge Date: 06/16/18 Discharge Disposition Plan: Home Family Support: Yes Assisted Goal: Mobility, Transfers, Self Care Vital Signs: Last Vital Signs Temp 97.2 F 06/07/18 21:15 Pulse 60 06/08/18 08:38 Resp 16 06/07/18 21:15 BP 169/72 H 06/08/18 08:38 Pulse Ox 96 06/07/18 21:15 Laboratory: Laboratory Last Values WBC 10.8 K/uL (4.3-10.9) D 06/08/18 05:56 RBC 3.15 M/uL (3.86-4.86) L 06/08/18 05:56 Hgb 9.8 g/dL (12.0-15.0) L 06/08/18 05:56 Hct 28.3 % (36.0-45.0) L 06/08/18 05:56 MCV 89.9 fL (80-100) 06/08/18 05:56 MCH 31.0 pg (27.0-35.0) 06/08/18 05:56 MCHC 34.5 g/dL (32.0-36.0) 06/08/18 05:56 RDW 13.1 % (12.1-15.2) 06/08/18 05:56 Plt Count 548 K/uL (152-406) H D 06/08/18 05:56 MPV 7.2 fL (7.6-11.3) L 06/08/18 05:56 Neutrophils % 67.8 % (41.7-73.7) 06/08/18 05:56 Lymphocytes % 18.3 % (15.3-44.8) 06/08/18 05:56 Monocytes % 9.2 % (3.3-12.3) 06/08/18 05:56 Eosinophils % 3.9 % (0-4.4) 06/08/18 05:56 Basophils % 0.8 % (0-1.3) 06/08/18 05:56 Absolute Neutrophils 7.3 K/uL (1.8-8.0) 06/08/18 05:56 Absolute Lymphocytes 2.0 K/uL (0.7-4.9) 06/08/18 05:56 Absolute Monocytes 1.0 K/uL (0.1-1.3) 06/08/18 05:56 Absolute Eosinophils 0.4 K/uL (0-0.5) 06/08/18 05:56 Absolute Basophils 0.1 K/uL (0-0.5) 06/08/18 05:56 Sodium 136 mmol/L (136-145) 06/08/18 05:56 Potassium 5.2 mmol/L (3.5-5.1) H 06/08/18 05:56 Chloride 100 mmol/L (98-107) 06/08/18 05:56 Carbon Dioxide 30 mmol/L (21-32) 06/08/18 05:56 BUN 28 mg/dL (7-18) H 06/08/18 05:56 Creatinine 1.16 mg/dL (0.55-1.3) 06/08/18 05:56 Estimated GFR 45 mL/min (=/>90) L 06/08/18 05:56 Glucose 116 mg/dL (74-106) H 06/08/18 05:56 Calcium 9.4 mg/dL (8.5-10.1) 06/08/18 05:56 Magnesium 2.1 mg/dL (1.8-2.4) 06/05/18 05:45 Albumin 3.5 g/dL (3.4-5.0) 06/08/18 05:56 Prealbumin 20.3 mg/dL (20-40) 06/08/18 05:56 Urine Color Yellow 06/01/18 19:05 Urine Appearance Clear 06/01/18 19:05 Urine pH 6.0 (5.0-7.0) 06/01/18 19:05 Ur Specific [place] <=1.005 (1.005-1.030) 06/01/18 19:05 Urine Ketones Negative (NEG) 06/01/18 19:05 Urine Blood Negative (NEG) 06/01/18 19:05 Urine Nitrite Negative (NEG) 06/01/18 19:05 Urine Bilirubin Negative (NEG) 06/01/18 19:05 Urine Urobilinogen 1.0 mg/dL (0.2-1.0) 06/01/18 19:05 Ur Leukocyte Esterase 1+ (NEG) H 06/01/18 19:05 Urine RBC <5 /HPF (NONE SEEN) 06/01/18 19:05 Urine WBC 10-20 /HPF (<5) H 06/01/18 19:05 Ur Squamous Epith Cells <5 /HPF (NONE SEEN) 06/01/18 19:05 Ur Urothelial Cells <5 /HPF (NONE SEEN) 06/01/18 19:05 Urine Bacteria <20 /HPF (<20) 06/01/18 19:05 Urine Culture Reflexed Not needed 06/01/18 19:05 Urine Glucose Negative (NEG) 06/01/18 19:05 Urine Total Protein Negative (NEG) 06/01/18 19:05 Weight: 164 lb 6 oz Wound Present: No Closed Surgical Incision Present: Yes Negative Pressure Wound Therapy Present: No Physician Update: Her K+ is mildly elevated to 5.2. She is on lasix and K+ [address] Hernadez is adjusting her medications. She is doing fairly well up to 80' with standby assistance. She is transfering with standby assistance as well. She fatigues with showering and requires ques to complete ADL with minimum assistance. Medical Issues: Acute thrombus within the proximal right greater saphenous vein - On Lovenox 40mg SQ Daily Pain Issues: Tramadol 50mg Q4H PRN. [place] 10/325mg Q4H PRN Functional Improvement: pt demonstrated improved tolerance to functional activity as well as enhanced safety during ambulation and functional transfers. pt continues to require continued therapy services to improve independence and safety. Summary: Patient's care plan and equipment operator intermodal yard goals have been reviewed and revised as necessary. Please see the Rehabilitation Signature page for all necessary signatures.
--- NOTE | 2018-06-08 11:49 | PN ---
Date of Progress Note: 06/08/2018 Subjective: The patient was seen this morning for followup, lying in bed, not in any distress. Shawn es any new complaints. Had a bowel movement yesterday. Objective: Vital Signs: Reviewed. HEENT: Unremarkable. Lungs: Clear to auscultation. Heart: Sounds normal. Abdomen: Soft. Bowel sounds normal. No guarding, rigidity, tenderness, or distention. Extremities: No leg edema. Laboratory Data: Labs reviewed. Impression: 1.Right hip fracture. 2.Coronary artery disease. 3.Anemia due to acute blood loss. 4.Urinary tract infection. Plan: We will continue current antibiotics. Continue DVT prophylaxis and iron supplement. The amilcar ent's pain is well controlled with current medications. I will see her tomorrow for followup. ERIKA/MODL Voice ID: [id number] Report ID: [id number]
--- NOTE | 2018-06-08 12:23 | FAST ---
SHIFT START DATE/TIME: 06/08/2018 07:00 (CDT) SHIFT END DATE/TIME: 06/08/2018 19:00 (CDT) NAME MICHELLE EVANGELISTA DATE OF : 1935 DATE OF ADMISSION: 06/01/2018 15:25 (CDT) PHONE: AGE: 82 N# [id number] GENDER: Female ENCOUNTER PHYSICIAN: Dr. Checo Delgado M.D. ADMISSION DIAGNOSIS: - Orthopaedic Disorders 08 - Unilateral Hip Fracture (08.11) closed traumatic displaced intertrochanteric fx. EATING: EATING - STEP 1: Does the patient require the assistance of a person or device, or need extra time when eating? Yes. EATING - STEP 2: Does the patient require the assistance of a helper? Yes. EATING - STEP 3: Does the patient perform half or more of the eating tasks? Yes. EATING - STEP 4: Does the patient need only supervision, cuing, coaxing OR help to apply an orthosis OR help to cut fo od, open containers, pour liquids, or butter bread? Yes. EATING - SCORE: 5-SUP GROOMING: Comb/brush hair Oral care Wash, rinse, and dry face Wash, rinse, and dry hands GROOMING - STEP 1: Does the patient require the assistance of a person or device, or need extra time when grooming? Yes. GROOMING - STEP 2: Does the patient require the assistance of a helper? Yes. GROOMING - STEP 3: How much assistance does the patient require from the helper? Only prior equipment preparation/set up from the helper GROOMING - SCORE: 5-SUP BATHING: Activity did not occur on this shift BATHING - SCORE: 0-UNK DRESSING - UPPER BODY: Bra (three steps) T-shirt/pullover shirt (four steps) ARTICLES SCORE Total number of steps: 7 DRESSING - UPPER BODY - STEP 1: Does the patient require help from a person or device, or need extra time when dressing above the criss st? Yes. DRESSING - UPPER BODY - STEP 2: Does the patient require the assistance of a helper? Yes. DRESSING - UPPER BODY - STEP 3: Does the helper touch the patient while dressing? Yes. DRESSING - UPPER BODY - STEP 4: How many of the total steps does the patient complete on his/her own? 7 DRESSING - UPPER BODY - SCORE: 4-MIN DRESSING - LOWER BODY: Elastic waist pants (three steps) Slip-on shoe - Left foot (one step) Slip-on shoe - Right foot (one step) Sock - Left foot (one step) Sock - Right foot (one step) Underwear (three steps) ARTICLES SCORE Total number of steps: 10 DRESSING - LOWER BODY - STEP 1: Does the patient require help from a person or device, or need extra time when dressing below the criss st? Yes. DRESSING - LOWER BODY - STEP 2: Does the patient require the assistance of a helper? Yes. DRESSING - LOWER BODY - STEP 3: Does the helper touch the patient while dressing? Yes. DRESSING - LOWER BODY - STEP 4: How many of the total steps does the patient complete on his/her own? 10 DRESSING - LOWER BODY - SCORE: 4-MIN TOILETING: TOILETING - STEP 1: Does the patient require the assistance of a person or device, or need extra time with toileting? Yes . TOILETING - STEP 2: Does the patient require the assistance of a helper? Yes. TOILETING - STEP 3: How much assistance does the patient require from the helper? Hands-on assistance from the helper TOILETING - STEP 4: Of the 3 tasks: 1) Adjusting clothing prior to use, 2) Cleansing of perineal area, 3) Adjusting clot julia after use; How many tasks does the patient perform WITHOUT assistance of the helper? Two tasks TOILETING - SCORE: 3-MOD BLADDER MANAGEMENT: BLADDER MANAGEMENT - STEP 1: Does the patient control the bladder completely and intentionally without equipment or devices or med ications, and is always continent? No. BLADDER MANAGEMENT - STEP 2: Does the patient require the assistance of a helper? No, patient requires and independently uses an a ssistive device, such as a urinal, bedpan, bedside commode, catheter, absorbent pad, or collecting de vice BLADDER MANAGEMENT - SCORE: 6-SONI BLADDER MANAGEMENT - FREQUENCY OF ACCIDENTS: BLADDER MANAGEMENT(FA) - STEP 1: How many accidents has the patient had during the current shift? 0 BOWEL MANAGEMENT: BOWEL MANAGEMENT - STEP 1: Does the patient control bowels completely and intentionally without equipment devices or medications AND is always continent? No. BOWEL MANAGEMENT - STEP 2: Does the patient require the assistance of a helper? No, patient requires medication for control such as stool softeners, suppositories, laxatives, enemas, or OTC medications BOWEL MANAGEMENT - SCORE: 6-SONI BOWEL MANAGEMENT - FREQUENCY OF ACCIDENTS: BOWEL MANAGEMENT(FA) - STEP 1: How many accidents has the patient had during the current shift? 0 TRANSFERS: BED, CHAIR, WHEELCHAIR: TRANSFERS: BED, CHAIR, WHEELCHAIR - STEP 1: Does the patient require assistance of a person or device, or need extra time with bed, chair, or whe elchair transfers? Yes. TRANSFERS: BED, CHAIR, WHEELCHAIR - STEP 2: Does the patient require the assistance of a helper? Yes. TRANSFERS: BED, CHAIR, WHEELCHAIR - STEP 3: How much assistance does the patient require from the helper? Steadying/guiding assistance TRANSFERS: BED, CHAIR, WHEELCHAIR - SCORE: 4-MIN TRANSFERS: TOILET: TRANSFERS: TOILET - STEP 1: Does the patient require the assistance of a person or device, or need extra time with toilet transfe rs? Yes. TRANSFERS: TOILET - STEP 2: Does the patient require the assistance of a helper? Yes. TRANSFERS: TOILET - STEP 3: How much assistance does the patient require from the helper? Patient performs half or more of the tr ansferring tasks TRANSFERS: TOILET - STEP 4: Does the patient need only incidental help such as contact guard or steadying during toilet transfer? Yes. TRANSFERS: TOILET - SCORE: 4-MIN TRANSFERS: SHOWER: Activity did not occur on this shift TRANSFERS: SHOWER - SCORE: 0-UNK TRANSFERS: TUB: Activity did not occur on this shift TRANSFERS: TUB - SCORE: 0-UNK LOCOMOTION: WALK: Activity did not occur on this shift LOCOMOTION: WALK - SCORE: 0-UNK LOCOMOTION: WHEELCHAIR: LOCOMOTION: WHEELCHAIR - STEP 1: Does the patient need help to go 150 feet in a wheelchair? Yes. LOCOMOTION: WHEELCHAIR - STEP 2: How much assistance does the patient need from the helper? Only incidental help such as around corner s or over thresholds LOCOMOTION: WHEELCHAIR - SCORE: 4-MIN COMPREHENSION: COMPREHENSION: TYPE: Both COMPREHENSION - STEP 1: Does the patient require help from a person or device, or need extra time to understand complex and a bstract ideas (such as current events, finances, discharge planning, medical issues, relationships, e tc)? No. COMPREHENSION - STEP 2: Does the patient need extra time, require an assistive device (such as glasses for visual comprehensi on or a hearing aid for auditory comprehension) or does s/he have mild difficulty understanding compl ex and abstract information? No. COMPREHENSION - SCORE: 7-IND EXPRESSION EXPRESSION: TYPE: Both EXPRESSION - STEP 1: Does the patient require help from a person or device, or need extra time expressing complex and abst ract ideas (such as current events, finances, discharge planning, medical issues, relationships, etc) ? No. EXPRESSION - STEP 2: Does the patient need extra time, require an assistive device (such as augmentive communication syste m or a communication board), OR does s/he have mild difficulty expressing complex and abstract ideas (including mild dysarthria or mild word-find problems)? No. EXPRESSION - SCORE: 7-IND SOCIAL INTERACTION: SOCIAL INTERACTION - STEP 1: Does the patient require a helper to interact with others in social and therapeutic situations? No. SOCIAL INTERACTION - STEP 2: Does the patient need extra time in social situations, OR does s/he interact with staff, other patien ts, and family members ONLY in structured environments, OR does s/he require medication for social in teraction? No. SOCIAL INTERACTION - SCORE: 7-IND PROBLEM SOLVING: PROBLEM SOLVING - STEP 1: Does the patient need help from a person or device, or need extra time to solve complex problems such as managing a checking account or confronting interpersonal problems? No. PROBLEM SOLVING - STEP 2: Does the patient require extra time to make decisions or solve problems, OR does s/he have slight dif ficulty reading, initiating, or self-correcting in unfamiliar situations? Yes, patient needs extra ti me. PROBLEM SOLVING - SCORE: 6-SONI MEMORY: MEMORY - STEP 1: Does the patient need help from a person or device, or need extra time to remember frequently encount ered people, daily routines, and executing requests? No. MEMORY - STEP 2: Does the patient have slight difficulty recognizing frequently encountered people, daily routines, or executing requests without the need for repetition or using self-initiated or environmental cues to remember? Yes. MEMORY - SCORE: 6-SONI SIGNATURE PANEL: The following modified sections: Eating - Score, Grooming - Score, Bathing - Score, Dressing - Upper Body - Score, Dressing - Lower Body - Score, Toileting - Score, Bladder Management - Score, Bowel Man agement - Score, Transfers: Bed, Chair, Wheelchair - Score, Transfers: Toilet - Score, Transfers: Guerline wer - Score, Transfers: Tub - Score, Locomotion: Walk - Score, Locomotion: Wheelchair - Score, Compre hension - Score, Expression - Score, Social Interaction - Score, Problem Solving - Score, Memory - Sc ore were [electronically] signed by Samantha Hugo RN on TueJun 08 2018 12:22:29 T-0500 ([place] Day ight Time)
[2018-06-08] MEDS: HYDROCODONE/APAP 7.5/325 MG TAB PO PRN ×2 (13:47→20:59)
--- NOTE | 2018-06-08 15:25 | FAST ---
ENCOUNTER DATE AND TIME: 06/08/2018 08:00 (CDT) NAME MICHELLE EVANGELISTA DATE OF : 1935 DATE OF ADMISSION: 06/01/2018 15:25 (CDT) PHONE: AGE: 82 SSN# [id number] GENDER: Female ENCOUNTER PHYSICIAN: Dr. Checo Delgado M.D. ADMISSION DIAGNOSIS: - Orthopaedic Disorders 08 - Unilateral Hip Fracture (.11) closed traumatic displaced intertrochanteric fx. EATING: Activity did not occur on this shift EATING - SCORE: 0-UNK GROOMING: Activity did not occur on this shift GROOMING - SCORE: 0-UNK BATHING: Activity did not occur on this shift BATHING - SCORE: 0-UNK DRESSING - UPPER BODY: Activity did not occur on this shift Patient is not dressing in public clothing ARTICLES SCORE Total number of steps: 0 DRESSING - UPPER BODY - SCORE: 0-UNK DRESSING - LOWER BODY: Activity did not occur on this shift Patient is not dressing in public clothing ARTICLES SCORE Total number of steps: 0 DRESSING - LOWER BODY - SCORE: 0-UNK TOILETING: Activity did not occur on this shift TOILETING - SCORE: 0-UNK BLADDER MANAGEMENT: Activity did not occur on this shift BLADDER MANAGEMENT - SCORE: 7-IND BOWEL MANAGEMENT: Activity did not occur on this shift BOWEL MANAGEMENT - SCORE: 7-IND TRANSFERS: BED, CHAIR, WHEELCHAIR: TRANSFERS: BED, CHAIR, WHEELCHAIR - STEP 1: Does the patient require assistance of a person or device, or need extra time with bed, chair, or whe elchair transfers? Yes. TRANSFERS: BED, CHAIR, WHEELCHAIR - STEP 2: Does the patient require the assistance of a helper? No. Patient only requires an assistive device fo r bed, chair, wheelchair transfers such as a sliding board, grab bar, or brace, OR s/he takes more th an reasonable time, OR there is a safety concern when s/he performs the transfers TRANSFERS: BED, CHAIR, WHEELCHAIR - SCORE: 6-SONI TRANSFERS: TOILET: Activity did not occur on this shift TRANSFERS: TOILET - SCORE: 0-UNK TRANSFERS: SHOWER: Activity did not occur on this shift TRANSFERS: SHOWER - SCORE: 0-UNK TRANSFERS: TUB: Activity did not occur on this shift TRANSFERS: TUB - SCORE: 0-UNK LOCOMOTION: WALK: LOCOMOTION: WALK - STEP 1: Does the patient need help from a person or device, or need extra time to walk 150 feet? Yes. LOCOMOTION: WALK - STEP 2: How much assistance does the patient require to walk a minimum of 150 feet? Patient walks less than 1 50 feet - but more than 50 feet - with the assistance of only one helper LOCOMOTION: WALK - SCORE: 2-MAX LOCOMOTION: WHEELCHAIR: LOCOMOTION: WHEELCHAIR - STEP 1: Does the patient need help to go 150 feet in a wheelchair? Yes. LOCOMOTION: WHEELCHAIR - STEP 2: How much assistance does the patient need from the helper? Only supervision, cuing, or coaxing LOCOMOTION: WHEELCHAIR - SCORE: 5-SUP LOCOMOTION: STAIRS: Activity did not occur on this shift LOCOMOTION: STAIRS - SCORE: 0-UNK COMPREHENSION: COMPREHENSION - SCORE: 0-UNK EXPRESSION EXPRESSION - SCORE: 0-UNK SOCIAL INTERACTION: SOCIAL INTERACTION - SCORE: 0-UNK PROBLEM SOLVING: PROBLEM SOLVING - SCORE: 0-UNK MEMORY: MEMORY - SCORE: 0-UNK SIGNATURE PANEL: The following modified sections: Transfers: Bed, Chair, Wheelchair - Score, Transfers: Toilet - Score , Locomotion: Walk - Score, Locomotion: Wheelchair - Score, Locomotion: Stairs - Score were [terence hassan] signed by Ravi Oreilly PTA on TueJun 08 2018 15:23:59 GMT-0500 (Central Daylight Time)
[2018-06-08] MEDS: FUROSEMIDE 20 MG TABLET PO SCH (16:48)
[2018-06-08] MEDS: ATORVASTATIN 20 MG TAB PO SCH (17:14)
[2018-06-08] MEDS: DOCUSATE NA 100 MG CAP PO SCH (20:58)
[2018-06-08] MEDS: ALPRAZOLAM 0.5 MG TABLET PO PRN (22:22)
--- NOTE | 2018-06-09 02:30 | FAST ---
SHIFT START DATE/TIME: 06/08/2018 19:00 (CDT) SHIFT END DATE/TIME: 06/09/2018 07:00 (CDT) NAME MICHELLE EVANGELISTA DATE OF : 1935 DATE OF ADMISSION: 06/01/2018 15:25 (CDT) PHONE: AGE: 82 SSN# [id number] GENDER: Female ENCOUNTER PHYSICIAN: Dr. Checo Delgado M.D. ADMISSION DIAGNOSIS: - Orthopaedic Disorders 08 - Unilateral Hip Fracture (08.11) closed traumatic displaced intertrochanteric fx. EATING: Activity did not occur on this shift EATING - SCORE: 0-UNK GROOMING: Activity did not occur on this shift GROOMING - SCORE: 0-UNK BATHING: Activity did not occur on this shift BATHING - SCORE: 0-UNK DRESSING - UPPER BODY: Patient is not dressing in public clothing ARTICLES SCORE Total number of steps: 0 DRESSING - UPPER BODY - SCORE: 0-UNK DRESSING - LOWER BODY: Patient is not dressing in public clothing ARTICLES SCORE Total number of steps: 0 DRESSING - LOWER BODY - SCORE: 0-UNK TOILETING: TOILETING - STEP 1: Does the patient require the assistance of a person or device, or need extra time with toileting? Yes . TOILETING - STEP 2: Does the patient require the assistance of a helper? Yes. TOILETING - STEP 3: How much assistance does the patient require from the helper? Hands-on assistance from the helper TOILETING - STEP 4: Of the 3 tasks: 1) Adjusting clothing prior to use, 2) Cleansing of perineal area, 3) Adjusting clot julia after use; How many tasks does the patient perform WITHOUT assistance of the helper? Three tasks with steadying assistance from the helper TOILETING - SCORE: 4-MIN BLADDER MANAGEMENT: BLADDER MANAGEMENT - STEP 1: Does the patient control the bladder completely and intentionally without equipment or devices or med ications, and is always continent? No. BLADDER MANAGEMENT - STEP 2: Does the patient require the assistance of a helper? Yes. BLADDER MANAGEMENT - STEP 3: How much assistance does the patient require from the helper? Patient requires contact assistance fro m the helper BLADDER MANAGEMENT - STEP 4: How much contact assistance does the patient require from the helper? Patient requires minimal assist ance to maintain an external device - by positioning, and the patient performs 75% or more of bladder management tasks, while the helper provides less than 25% of the assistance to position patient on / off bedpan BLADDER MANAGEMENT - SCORE: 4-MIN BOWEL MANAGEMENT: Activity did not occur on this shift BOWEL MANAGEMENT - SCORE: 7-IND TRANSFERS: BED, CHAIR, WHEELCHAIR: TRANSFERS: BED, CHAIR, WHEELCHAIR - STEP 1: Does the patient require assistance of a person or device, or need extra time with bed, chair, or whe elchair transfers? Yes. TRANSFERS: BED, CHAIR, WHEELCHAIR - STEP 2: Does the patient require the assistance of a helper? Yes. TRANSFERS: BED, CHAIR, WHEELCHAIR - STEP 3: How much assistance does the patient require from the helper? Lifting of the legs TRANSFERS: BED, CHAIR, WHEELCHAIR - STEP 4: How many legs does the patient require the helper to lift? one leg TRANSFERS: BED, CHAIR, WHEELCHAIR - SCORE: 4-MIN TRANSFERS: TOILET: TRANSFERS: TOILET - STEP 1: Does the patient require the assistance of a person or device, or need extra time with toilet transfe rs? Yes. TRANSFERS: TOILET - STEP 2: Does the patient require the assistance of a helper? Yes. TRANSFERS: TOILET - STEP 3: How much assistance does the patient require from the helper? Patient performs half or more of the tr ansferring tasks TRANSFERS: TOILET - STEP 4: Does the patient need only incidental help such as contact guard or steadying during toilet transfer? No. Patient needs more than incidental help TRANSFERS: TOILET - SCORE: 3-MOD TRANSFERS: SHOWER: Activity did not occur on this shift TRANSFERS: SHOWER - SCORE: 0-UNK TRANSFERS: TUB: Activity did not occur on this shift TRANSFERS: TUB - SCORE: 0-UNK LOCOMOTION: WALK: Activity did not occur on this shift LOCOMOTION: WALK - SCORE: 0-UNK LOCOMOTION: WHEELCHAIR: Activity did not occur on this shift LOCOMOTION: WHEELCHAIR - SCORE: 0-UNK COMPREHENSION: COMPREHENSION: TYPE: Both COMPREHENSION - STEP 1: Does the patient require help from a person or device, or need extra time to understand complex and a bstract ideas (such as current events, finances, discharge planning, medical issues, relationships, e tc)? No. COMPREHENSION - STEP 2: Does the patient need extra time, require an assistive device (such as glasses for visual comprehensi on or a hearing aid for auditory comprehension) or does s/he have mild difficulty understanding compl ex and abstract information? Yes. COMPREHENSION - SCORE: 6-SONI EXPRESSION EXPRESSION: TYPE: Both EXPRESSION - STEP 1: Does the patient require help from a person or device, or need extra time expressing complex and abst ract ideas (such as current events, finances, discharge planning, medical issues, relationships, etc) ? No. EXPRESSION - STEP 2: Does the patient need extra time, require an assistive device (such as augmentive communication syste m or a communication board), OR does s/he have mild difficulty expressing complex and abstract ideas (including mild dysarthria or mild word-find problems)? Yes. EXPRESSION - SCORE: 6-SONI SOCIAL INTERACTION: SOCIAL INTERACTION - STEP 1: Does the patient require a helper to interact with others in social and therapeutic situations? No. SOCIAL INTERACTION - STEP 2: Does the patient need extra time in social situations, OR does s/he interact with staff, other patien ts, and family members ONLY in structured environments, OR does s/he require medication for social in teraction? Yes, patient needs extra time SOCIAL INTERACTION - SCORE: 6-SONI PROBLEM SOLVING: PROBLEM SOLVING - STEP 1: Does the patient need help from a person or device, or need extra time to solve complex problems such as managing a checking account or confronting interpersonal problems? No. PROBLEM SOLVING - STEP 2: Does the patient require extra time to make decisions or solve problems, OR does s/he have slight dif ficulty reading, initiating, or self-correcting in unfamiliar situations? Yes, patient needs extra ti me. PROBLEM SOLVING - SCORE: 6-SONI MEMORY: MEMORY - STEP 1: Does the patient need help from a person or device, or need extra time to remember frequently encount ered people, daily routines, and executing requests? No. MEMORY - STEP 2: Does the patient have slight difficulty recognizing frequently encountered people, daily routines, or executing requests without the need for repetition or using self-initiated or environmental cues to remember? Yes. MEMORY - SCORE: 6-SONI
[2018-06-09] MEDS: TRAMADOL HCL 50 MG TAB PO PRN ×3 (05:56→17:18)
[2018-06-09] MEDS: PANTOPRAZOLE 40MG TABLET PO SCH (07:29)
[2018-06-09] MEDS: ENOXAPARIN 40 MG/0.4 ML SQ SCH (07:29)
[2018-06-09] MEDS: PROMOD 30 ML DOSE PO SCH ×2 (08:00→20:36)
[2018-06-09] MEDS: LIDOCAINE 5% PATCH TOP SCH (08:39)
[2018-06-09] MEDS: POLYETHYL GLY 3350 17 GM/DOSE PO SCH (08:39)
[2018-06-09] MEDS: SMZ./TMP. 800/160 MG TABLET PO SCH ×2 (08:41→20:34)
[2018-06-09] MEDS: METOPROLOL XL 25 MG TAB PO SCH (08:41)
[2018-06-09] MEDS: FE SULF/FA/VIT B COMP & C TAB PO SCH (08:41)
[2018-06-09] MEDS: LOSARTAN POTASSIUM 50 MG TABLET PO SCH (08:42)
[2018-06-09] MEDS: MAGNESIUM OXIDE 400 MG TAB PO SCH ×2 (08:42→20:34)
[2018-06-09] MEDS: ASCORBIC ACID 500 MG TABLET PO SCH (08:42)
[2018-06-09] MEDS: CRANBERRY FRUIT EXTRACT 200 MG CAP PO SCH ×2 (08:42→20:34)
[2018-06-09] MEDS: VITAMIN D 1000 UNIT TAB PO SCH (08:42)
[2018-06-09] MEDS: METHOCARBAMOL 500 MG TAB PO PRN (08:42)
[2018-06-09] MEDS: GABAPENTIN 300 MG CAP PO SCH ×3 (08:42→20:35)
[2018-06-09] MEDS: ASPIRIN EC 81 MG TAB PO SCH (08:42)
[2018-06-09] MEDS: FUROSEMIDE 20 MG TABLET PO SCH ×2 (08:42→17:18)
--- NOTE | 2018-06-09 11:16 | FAST ---
ENCOUNTER DATE AND TIME: 06/09/2018 08:00 (CDT) NAME MICHELLE EVANGELISTA DATE OF : 1935 DATE OF ADMISSION: 06/01/2018 15:25 (CDT) PHONE: AGE: 82 SSN# [id number] GENDER: Female ENCOUNTER PHYSICIAN: Dr. Checo Delgado M.D. ADMISSION DIAGNOSIS: - Orthopaedic Disorders 08 - Unilateral Hip Fracture (.11) closed traumatic displaced intertrochanteric fx. EATING: Activity did not occur on this shift EATING - SCORE: 0-UNK GROOMING: Activity did not occur on this shift GROOMING - SCORE: 0-UNK BATHING: Activity did not occur on this shift BATHING - SCORE: 0-UNK DRESSING - UPPER BODY: Activity did not occur on this shift Patient is not dressing in public clothing ARTICLES SCORE Total number of steps: 0 DRESSING - UPPER BODY - SCORE: 0-UNK DRESSING - LOWER BODY: Activity did not occur on this shift Patient is not dressing in public clothing ARTICLES SCORE Total number of steps: 0 DRESSING - LOWER BODY - SCORE: 0-UNK TOILETING: Activity did not occur on this shift TOILETING - SCORE: 0-UNK BLADDER MANAGEMENT: Activity did not occur on this shift BLADDER MANAGEMENT - SCORE: 7-IND BOWEL MANAGEMENT: Activity did not occur on this shift BOWEL MANAGEMENT - SCORE: 7-IND TRANSFERS: BED, CHAIR, WHEELCHAIR: TRANSFERS: BED, CHAIR, WHEELCHAIR - STEP 1: Does the patient require assistance of a person or device, or need extra time with bed, chair, or whe elchair transfers? Yes. TRANSFERS: BED, CHAIR, WHEELCHAIR - STEP 2: Does the patient require the assistance of a helper? Yes. TRANSFERS: BED, CHAIR, WHEELCHAIR - STEP 3: How much assistance does the patient require from the helper? Only supervision TRANSFERS: BED, CHAIR, WHEELCHAIR - SCORE: 5-SUP TRANSFERS: TOILET: Activity did not occur on this shift TRANSFERS: TOILET - SCORE: 0-UNK TRANSFERS: SHOWER: Activity did not occur on this shift TRANSFERS: SHOWER - SCORE: 0-UNK TRANSFERS: TUB: Activity did not occur on this shift TRANSFERS: TUB - SCORE: 0-UNK LOCOMOTION: WALK: LOCOMOTION: WALK - STEP 1: Does the patient need help from a person or device, or need extra time to walk 150 feet? Yes. LOCOMOTION: WALK - STEP 2: How much assistance does the patient require to walk a minimum of 150 feet? Patient walks less than 1 50 feet - but more than 50 feet - with the assistance of only one helper LOCOMOTION: WALK - SCORE: 2-MAX LOCOMOTION: WHEELCHAIR: LOCOMOTION: WHEELCHAIR - STEP 1: Does the patient need help to go 150 feet in a wheelchair? No. LOCOMOTION: WHEELCHAIR - SCORE: 6-SONI LOCOMOTION: STAIRS: Activity did not occur on this shift LOCOMOTION: STAIRS - SCORE: 0-UNK COMPREHENSION: COMPREHENSION - SCORE: 0-UNK EXPRESSION EXPRESSION - SCORE: 0-UNK SOCIAL INTERACTION: SOCIAL INTERACTION - SCORE: 0-UNK PROBLEM SOLVING: PROBLEM SOLVING - SCORE: 0-UNK MEMORY: MEMORY - SCORE: 0-UNK SIGNATURE PANEL: The following modified sections: Transfers: Bed, Chair, Wheelchair - Score, Transfers: Toilet - Score , Locomotion: Walk - Score, Locomotion: Wheelchair - Score, Locomotion: Stairs - Score were [electron mo] signed by Ayaz Lopez PT on TueJun 09 2018 11:16:08 T-0500 (Central Daylight Time)
[2018-06-09] MEDS: ATORVASTATIN 20 MG TAB PO SCH (17:18)
[2018-06-09] MEDS: DOCUSATE NA 100 MG CAP PO SCH (20:34)
[2018-06-09] MEDS: ALPRAZOLAM 0.5 MG TABLET PO PRN (20:42)
[2018-06-09] MEDS: HYDROCODONE/APAP 7.5/325 MG TAB PO PRN (21:58)
--- NOTE | 2018-06-09 23:04 | PN ---
Date of Progress Note: 06/09/2018 Subjective: The patient was seen this morning for followup. No new complaints or problems reported by the patient. Lying in bed, not in distress. Objective: Vital Signs: Reviewed. HEENT: Unremarkable. Lungs: Clear to auscultation. Heart: Sounds normal. Abdomen: Soft. Bowel sounds normal. No guarding, rigidity, tenderness, or distention. Extremities: No leg edema. Impression: 1.Anemia due to acute blood loss. 2.Urinary tract infection. 3.Hip fracture. 4.Coronary artery disease. Plan: Continue current medications, antibiotic, DVT prophylaxis, and physical therapy to be provided under guidance of Dr. Delgado. Continue current pain medications. ERIKA/MODL Voice ID: [id number] Report ID: [id number]
[2018-06-10] MEDS: HYDROCODONE/APAP 7.5/325 MG TAB PO PRN ×3 (07:16→20:46)
[2018-06-10] MEDS: PANTOPRAZOLE 40MG TABLET PO SCH (07:16)
[2018-06-10] MEDS: LIDOCAINE 5% PATCH TOP SCH (07:17)
[2018-06-10] MEDS: PROMOD 30 ML DOSE PO SCH ×2 (07:17→19:44)
[2018-06-10] MEDS: ENOXAPARIN 30 MG/0.3 ML SQ SCH (07:17)
[2018-06-10] MEDS: MAGNESIUM OXIDE 400 MG TAB PO SCH ×2 (08:18→19:45)
[2018-06-10] MEDS: POLYETHYL GLY 3350 17 GM/DOSE PO SCH (08:18)
[2018-06-10] MEDS: GABAPENTIN 300 MG CAP PO SCH ×3 (08:19→20:46)
[2018-06-10] MEDS: FUROSEMIDE 20 MG TABLET PO SCH ×2 (08:19→16:29)
[2018-06-10] MEDS: CRANBERRY FRUIT EXTRACT 200 MG CAP PO SCH ×2 (08:20→19:45)
[2018-06-10] MEDS: VITAMIN D 1000 UNIT TAB PO SCH (08:20)
[2018-06-10] MEDS: SMZ./TMP. 800/160 MG TABLET PO SCH ×2 (08:20→19:45)
[2018-06-10] MEDS: METOPROLOL XL 25 MG TAB PO SCH (08:20)
[2018-06-10] MEDS: LOSARTAN POTASSIUM 50 MG TABLET PO SCH (08:20)
[2018-06-10] MEDS: FE SULF/FA/VIT B COMP & C TAB PO SCH (08:21)
[2018-06-10] MEDS: ASPIRIN EC 81 MG TAB PO SCH (08:21)
[2018-06-10] MEDS: ASCORBIC ACID 500 MG TABLET PO SCH (08:21)
[2018-06-10] MEDS: TRAMADOL HCL 50 MG TAB PO PRN (12:10)
--- NOTE | 2018-06-10 15:21 | PN ---
Date of Progress Note: 06/10/2018 Subjective: The patient was seen this morning for followup. No new complaints or problems reported by her. She was sitting in the wheelchair and reported that she has some shaking of her hands from time to time, which is not necessarily with activity, but sometimes she could be sitting or just normal activity like trying to grab something and she would notice some shaking. Her right hip pain is well controlled. Objective: Vital Signs: Reviewed. HEENT: Unremarkable. Lungs: Clear to auscultation. Heart: Sounds normal. Abdomen: Soft. Bowel sounds normal. No guarding, rigidity, tenderness, or distention. Extremities: No leg edema. Impression: 1. Tremor, senile. 2. Right hip fracture. 3. Anemia due to acute blood loss. 4. Coronary artery disease. 5. Urinary tract infection. Plan: We will continue current antibiotic, and hopefully in next day or 2 days we will be able to discontinue antibiotic use. The patient's tremor is likely due to her old age as well as it was mentioned that she does not have any signs or symptoms of parkinson's disease and she was reassured about that. Continue physical therapy under guidance of Dr. Delgado. I will see her tomorrow for followup. ERIKA/MODL Voice ID: [id number] Report ID: [id number] MTDD
--- NOTE | 2018-06-10 15:23 | FAST ---
ENCOUNTER DATE AND TIME: 06/09/2018 08:00 (CDT) NAME MICHELLE EVANGELISTA DATE OF : 1935 DATE OF ADMISSION: 06/01/2018 15:25 (CDT) PHONE: AGE: 82 SSN# [id number] GENDER: Female ENCOUNTER PHYSICIAN: Dr. Checo Delgado M.D. ADMISSION DIAGNOSIS: - Orthopaedic Disorders 08 - Unilateral Hip Fracture (.) closed traumatic displaced intertrochanteric fx. EATING: EATING - STEP 1: Does the patient require the assistance of a person or device, or need extra time when eating? No. EATING - SCORE: 7-IND GROOMING: Comb/brush hair Oral care Wash, rinse, and dry face Wash, rinse, and dry hands GROOMING - STEP 1: Does the patient require the assistance of a person or device, or need extra time when grooming? No. GROOMING - SCORE: 7-IND BATHING: Abdomen Buttocks Chest Left arm Left lower leg and foot Left upper leg Perineal area Right arm Right lower leg and foot Right upper leg BATHING - STEP 1: Does the patient require the assistance of a person or device, or need extra time when bathing? Yes. BATHING - STEP 2: Does the patient require the assistance of a helper? Yes. BATHING - STEP 3: How much assistance does the patient require from the helper? Only incidental help such as placement of a wash cloth in his/her hand a few times as s/he bathes OR help to bathe just one or two areas of the body BATHING - SCORE: 4-MIN DRESSING - UPPER BODY: Bra (three steps) T-shirt/pullover shirt (four steps) ARTICLES SCORE Total number of steps: 7 DRESSING - UPPER BODY - STEP 1: Does the patient require help from a person or device, or need extra time when dressing above the criss st? Yes. DRESSING - UPPER BODY - STEP 2: Does the patient require the assistance of a helper? Yes. DRESSING - UPPER BODY - STEP 3: Does the helper touch the patient while dressing? No. DRESSING - UPPER BODY - SCORE: 5-SUP DRESSING - LOWER BODY: Elastic waist pants (three steps) Sock - Right foot (one step) Tied or buckled shoe - Left foot (two steps) Underwear (three steps) ARTICLES SCORE Total number of steps: 9 DRESSING - LOWER BODY - STEP 1: Does the patient require help from a person or device, or need extra time when dressing below the criss st? Yes. DRESSING - LOWER BODY - STEP 2: Does the patient require the assistance of a helper? Yes. DRESSING - LOWER BODY - STEP 3: Does the helper touch the patient while dressing? Yes. DRESSING - LOWER BODY - STEP 4: How many of the total steps does the patient complete on his/her own? 9 DRESSING - LOWER BODY - SCORE: 4-MIN TOILETING: TOILETING - STEP 1: Does the patient require the assistance of a person or device, or need extra time with toileting? Yes . TOILETING - STEP 2: Does the patient require the assistance of a helper? Yes. TOILETING - STEP 3: How much assistance does the patient require from the helper? Hands-on assistance from the helper TOILETING - STEP 4: Of the 3 tasks: 1) Adjusting clothing prior to use, 2) Cleansing of perineal area, 3) Adjusting clot julia after use; How many tasks does the patient perform WITHOUT assistance of the helper? Three tasks with steadying assistance from the helper TOILETING - SCORE: 4-MIN BLADDER MANAGEMENT: Activity did not occur on this shift BLADDER MANAGEMENT - SCORE: 7-IND BOWEL MANAGEMENT: Activity did not occur on this shift BOWEL MANAGEMENT - SCORE: 7-IND TRANSFERS: BED, CHAIR, WHEELCHAIR: Activity did not occur on this shift TRANSFERS: BED, CHAIR, WHEELCHAIR - SCORE: 0-UNK TRANSFERS: TOILET: TRANSFERS: TOILET - STEP 1: Does the patient require the assistance of a person or device, or need extra time with toilet transfe rs? Yes. TRANSFERS: TOILET - STEP 2: Does the patient require the assistance of a helper? Yes. TRANSFERS: TOILET - STEP 3: How much assistance does the patient require from the helper? Patient performs half or more of the tr ansferring tasks TRANSFERS: TOILET - STEP 4: Does the patient need only incidental help such as contact guard or steadying during toilet transfer? Yes. TRANSFERS: TOILET - SCORE: 4-MIN TRANSFERS: SHOWER: TRANSFERS: SHOWER - STEP 1: Does the patient require the assistance of a person or device, or need extra time with shower transfe rs? Yes. TRANSFERS: SHOWER - STEP 2: Does the patient require the assistance of a helper? Yes. TRANSFERS: SHOWER - STEP 3: How much assistance does the patient require from the helper? Only incidental help such as contact gu arding or steadying during shower transfers, or help to lift one leg into the shower TRANSFERS: SHOWER - SCORE: 4-MIN TRANSFERS: TUB: Activity did not occur on this shift TRANSFERS: TUB - SCORE: 0-UNK LOCOMOTION: WALK: Activity did not occur on this shift LOCOMOTION: WALK - SCORE: 0-UNK LOCOMOTION: WHEELCHAIR: Activity did not occur on this shift LOCOMOTION: WHEELCHAIR - SCORE: 0-UNK LOCOMOTION: STAIRS: Activity did not occur on this shift LOCOMOTION: STAIRS - SCORE: 0-UNK COMPREHENSION: COMPREHENSION: TYPE: Both COMPREHENSION - STEP 1: Does the patient require help from a person or device, or need extra time to understand complex and a bstract ideas (such as current events, finances, discharge planning, medical issues, relationships, e tc)? No. COMPREHENSION - STEP 2: Does the patient need extra time, require an assistive device (such as glasses for visual comprehensi on or a hearing aid for auditory comprehension) or does s/he have mild difficulty understanding compl ex and abstract information? Yes. COMPREHENSION - SCORE: 6-SONI EXPRESSION EXPRESSION: TYPE: Both EXPRESSION - STEP 1: Does the patient require help from a person or device, or need extra time expressing complex and abst ract ideas (such as current events, finances, discharge planning, medical issues, relationships, etc) ? No. EXPRESSION - STEP 2: Does the patient need extra time, require an assistive device (such as augmentive communication syste m or a communication board), OR does s/he have mild difficulty expressing complex and abstract ideas (including mild dysarthria or mild word-find problems)? Yes. EXPRESSION - SCORE: 6-SONI SOCIAL INTERACTION: SOCIAL INTERACTION - STEP 1: Does the patient require a helper to interact with others in social and therapeutic situations? No. SOCIAL INTERACTION - STEP 2: Does the patient need extra time in social situations, OR does s/he interact with staff, other patien ts, and family members ONLY in structured environments, OR does s/he require medication for social in teraction? Yes, patient requires medication for social interaction SOCIAL INTERACTION - SCORE: 6-SONI PROBLEM SOLVING: PROBLEM SOLVING - STEP 1: Does the patient need help from a person or device, or need extra time to solve complex problems such as managing a checking account or confronting interpersonal problems? Yes. PROBLEM SOLVING - STEP 2: Does the patient solve basic routine problems half or more of the time? Yes. PROBLEM SOLVING - STEP 3: How often does the patient need help to solve basic routine problems? Less than 10% of the time PROBLEM SOLVING - SCORE: 5-SUP MEMORY: MEMORY - STEP 1: Does the patient need help from a person or device, or need extra time to remember frequently encount ered people, daily routines, and executing requests? Yes. MEMORY - STEP 2: How often does the patient need help to remember frequently encountered people, daily routines, and e xecuting requests? Less than 10% of the time MEMORY - SCORE: 5-SUP SIGNATURE PANEL: The following modified sections: Eating - Score, Grooming - Score, Bathing - Score, Dressing - Upper Body - Score, Dressing - Lower Body - Score, Toileting - Score, Transfers: Bed, Chair, Wheelchair - S core, Transfers: Tub - Score, Transfers: Toilet - Score, Transfers: Shower - Score, Comprehension - S core, Expression - Score, Social Interaction - Score, Problem Solving - Score, Memory - Score were [e lectronically] signed by Azucena López OT on TueJun 10 2018 15:22:01 T-0500 (Central Daylight T jean)
[2018-06-10] MEDS: ATORVASTATIN 20 MG TAB PO SCH (16:29)
--- NOTE | 2018-06-10 16:31 | FAST ---
ENCOUNTER DATE AND TIME: 06/10/2018 08:00 (CDT) NAME MICHELLE EVANGELISTA DATE OF : 1935 DATE OF ADMISSION: 06/01/2018 15:25 (CDT) PHONE: AGE: 82 SSN# [id number] GENDER: Female ENCOUNTER PHYSICIAN: Dr. Checo Delgado M.D. ADMISSION DIAGNOSIS: - Orthopaedic Disorders 08 - Unilateral Hip Fracture (.) closed traumatic displaced intertrochanteric fx. EATING: EATING - STEP 1: Does the patient require the assistance of a person or device, or need extra time when eating? No. EATING - SCORE: 7-IND GROOMING: Comb/brush hair Wash, rinse, and dry face Wash, rinse, and dry hands GROOMING - STEP 1: Does the patient require the assistance of a person or device, or need extra time when grooming? No. GROOMING - SCORE: 7-IND BATHING: Activity did not occur on this shift BATHING - SCORE: 0-UNK DRESSING - UPPER BODY: Bra (three steps) T-shirt/pullover shirt (four steps) ARTICLES SCORE Total number of steps: 7 DRESSING - UPPER BODY - STEP 1: Does the patient require help from a person or device, or need extra time when dressing above the criss st? Yes. DRESSING - UPPER BODY - STEP 2: Does the patient require the assistance of a helper? No. Patient only requires an assistive device, s uch as a button hook, velcro, or pipe maker. OR s/he takes more than reasonable time as s/he dresses the upper body. OR there is a concern for safety when s/he dresses the upper body DRESSING - UPPER BODY - SCORE: 6-SONI DRESSING - LOWER BODY: Elastic waist pants (three steps) Sock - Right foot (one step) Tied or buckled shoe - Left foot (two steps) ARTICLES SCORE Total number of steps: 6 DRESSING - LOWER BODY - STEP 1: Does the patient require help from a person or device, or need extra time when dressing below the criss st? Yes. DRESSING - LOWER BODY - STEP 2: Does the patient require the assistance of a helper? Yes. DRESSING - LOWER BODY - STEP 3: Does the helper touch the patient while dressing? Yes. DRESSING - LOWER BODY - STEP 4: How many of the total steps does the patient complete on his/her own? 6 DRESSING - LOWER BODY - SCORE: 4-MIN TOILETING: Activity did not occur on this shift TOILETING - SCORE: 0-UNK BLADDER MANAGEMENT: Activity did not occur on this shift BLADDER MANAGEMENT - SCORE: 7-IND BOWEL MANAGEMENT: Activity did not occur on this shift BOWEL MANAGEMENT - SCORE: 7-IND TRANSFERS: BED, CHAIR, WHEELCHAIR: Activity did not occur on this shift TRANSFERS: BED, CHAIR, WHEELCHAIR - SCORE: 0-UNK TRANSFERS: TOILET: Activity did not occur on this shift TRANSFERS: TOILET - SCORE: 0-UNK TRANSFERS: SHOWER: Activity did not occur on this shift TRANSFERS: SHOWER - SCORE: 0-UNK TRANSFERS: TUB: Activity did not occur on this shift TRANSFERS: TUB - SCORE: 0-UNK LOCOMOTION: WALK: Activity did not occur on this shift LOCOMOTION: WALK - SCORE: 0-UNK LOCOMOTION: WHEELCHAIR: Activity did not occur on this shift LOCOMOTION: WHEELCHAIR - SCORE: 0-UNK LOCOMOTION: STAIRS: Activity did not occur on this shift LOCOMOTION: STAIRS - SCORE: 0-UNK COMPREHENSION: COMPREHENSION: TYPE: Both COMPREHENSION - STEP 1: Does the patient require help from a person or device, or need extra time to understand complex and a bstract ideas (such as current events, finances, discharge planning, medical issues, relationships, e tc)? No. COMPREHENSION - STEP 2: Does the patient need extra time, require an assistive device (such as glasses for visual comprehensi on or a hearing aid for auditory comprehension) or does s/he have mild difficulty understanding compl ex and abstract information? Yes. COMPREHENSION - SCORE: 6-SONI EXPRESSION EXPRESSION: TYPE: Both EXPRESSION - STEP 1: Does the patient require help from a person or device, or need extra time expressing complex and abst ract ideas (such as current events, finances, discharge planning, medical issues, relationships, etc) ? No. EXPRESSION - STEP 2: Does the patient need extra time, require an assistive device (such as augmentive communication syste m or a communication board), OR does s/he have mild difficulty expressing complex and abstract ideas (including mild dysarthria or mild word-find problems)? Yes. EXPRESSION - SCORE: 6-SONI SOCIAL INTERACTION: SOCIAL INTERACTION - STEP 1: Does the patient require a helper to interact with others in social and therapeutic situations? No. SOCIAL INTERACTION - STEP 2: Does the patient need extra time in social situations, OR does s/he interact with staff, other patien ts, and family members ONLY in structured environments, OR does s/he require medication for social in teraction? Yes, patient requires medication for social interaction SOCIAL INTERACTION - SCORE: 6-SONI PROBLEM SOLVING: PROBLEM SOLVING - STEP 1: Does the patient need help from a person or device, or need extra time to solve complex problems such as managing a checking account or confronting interpersonal problems? No. PROBLEM SOLVING - STEP 2: Does the patient require extra time to make decisions or solve problems, OR does s/he have slight dif ficulty reading, initiating, or self-correcting in unfamiliar situations? Yes, patient needs extra ti me. PROBLEM SOLVING - SCORE: 6-SONI MEMORY: MEMORY - STEP 1: Does the patient need help from a person or device, or need extra time to remember frequently encount ered people, daily routines, and executing requests? No. MEMORY - STEP 2: Does the patient have slight difficulty recognizing frequently encountered people, daily routines, or executing requests without the need for repetition or using self-initiated or environmental cues to remember? Yes. MEMORY - SCORE: 6-SONI SIGNATURE PANEL: The following modified sections: Eating - Score, Grooming - Score, Bathing - Score, Dressing - Upper Body - Score, Dressing - Lower Body - Score, Toileting - Score, Transfers: Bed, Chair, Wheelchair - S core, Transfers: Toilet - Score, Transfers: Shower - Score, Comprehension - Score, Expression - Score , Social Interaction - Score, Problem Solving - Score, Memory - Score, Transfers: Tub - Score were [e lectronically] signed by Azucena López OT on TueJun 10 2018 16:30:12 T-0500 ([facility])
[2018-06-10] MEDS: ALPRAZOLAM 0.5 MG TABLET PO PRN (20:46)
[2018-06-10] MEDS: DOCUSATE NA 100 MG CAP PO SCH (20:46)
[2018-06-11] MEDS: TRAMADOL HCL 50 MG TAB PO PRN ×2 (03:30→11:58)
[2018-06-11] MEDS: ENOXAPARIN 30 MG/0.3 ML SQ SCH (07:20)
[2018-06-11] MEDS: LIDOCAINE 5% PATCH TOP SCH (07:20)
[2018-06-11] MEDS: HYDROCODONE/APAP 7.5/325 MG TAB PO PRN ×3 (07:20→21:11)
[2018-06-11] MEDS: PANTOPRAZOLE 40MG TABLET PO SCH (07:20)
[2018-06-11] MEDS: POLYETHYL GLY 3350 17 GM/DOSE PO SCH (08:00)
[2018-06-11] MEDS: VITAMIN D 1000 UNIT TAB PO SCH (09:18)
[2018-06-11] MEDS: SMZ./TMP. 800/160 MG TABLET PO SCH ×2 (09:19→19:49)
[2018-06-11] MEDS: MAGNESIUM OXIDE 400 MG TAB PO SCH ×2 (09:19→19:50)
[2018-06-11] MEDS: FUROSEMIDE 20 MG TABLET PO SCH ×2 (09:19→16:41)
[2018-06-11] MEDS: FE SULF/FA/VIT B COMP & C TAB PO SCH (09:19)
[2018-06-11] MEDS: CRANBERRY FRUIT EXTRACT 200 MG CAP PO SCH ×2 (09:19→19:49)
[2018-06-11] MEDS: GABAPENTIN 300 MG CAP PO SCH ×3 (09:19→21:11)
[2018-06-11] MEDS: PROMOD 30 ML DOSE PO SCH ×2 (09:20→19:48)
[2018-06-11] MEDS: ASPIRIN EC 81 MG TAB PO SCH (09:20)
[2018-06-11] MEDS: ASCORBIC ACID 500 MG TABLET PO SCH (09:20)
[2018-06-11] MEDS: LOSARTAN POTASSIUM 50 MG TABLET PO SCH (09:20)
[2018-06-11] MEDS: METOPROLOL XL 25 MG TAB PO SCH (09:22)
--- NOTE | 2018-06-11 11:01 | FAST ---
SHIFT START DATE/TIME: 06/11/2018 07:00 (CDT) SHIFT END DATE/TIME: 06/11/2018 19:00 (CDT) NAME MICHELLE EVANGELISTA DATE OF : 1935 DATE OF ADMISSION: 06/01/2018 15:25 (CDT) PHONE: AGE: 82 N# [id number] GENDER: Female ENCOUNTER PHYSICIAN: Dr. Checo Delgado M.D. ADMISSION DIAGNOSIS: - Orthopaedic Disorders 08 - Unilateral Hip Fracture (08.11) closed traumatic displaced intertrochanteric fx. EATING: EATING - STEP 1: Does the patient require the assistance of a person or device, or need extra time when eating? Yes. EATING - STEP 2: Does the patient require the assistance of a helper? Yes. EATING - STEP 3: Does the patient perform half or more of the eating tasks? Yes. EATING - STEP 4: Does the patient need only supervision, cuing, coaxing OR help to apply an orthosis OR help to cut fo od, open containers, pour liquids, or butter bread? Yes. EATING - SCORE: 5-SUP GROOMING: Comb/brush hair Oral care Wash, rinse, and dry face Wash, rinse, and dry hands GROOMING - STEP 1: Does the patient require the assistance of a person or device, or need extra time when grooming? Yes. GROOMING - STEP 2: Does the patient require the assistance of a helper? No. The patient only requires an assistive devic e, OR takes more than reasonable time to groom, OR there is a concern for safety as the patient groom s GROOMING - SCORE: 6-SONI BATHING: Activity did not occur on this shift BATHING - SCORE: 0-UNK DRESSING - UPPER BODY: Activity did not occur on this shift ARTICLES SCORE Total number of steps: 0 DRESSING - UPPER BODY - SCORE: 0-UNK DRESSING - LOWER BODY: Activity did not occur on this shift ARTICLES SCORE Total number of steps: 0 DRESSING - LOWER BODY - SCORE: 0-UNK TOILETING: TOILETING - STEP 1: Does the patient require the assistance of a person or device, or need extra time with toileting? Yes . TOILETING - STEP 2: Does the patient require the assistance of a helper? Yes. TOILETING - STEP 3: How much assistance does the patient require from the helper? Only supervision TOILETING - SCORE: 5-SUP BLADDER MANAGEMENT: BLADDER MANAGEMENT - STEP 1: Does the patient control the bladder completely and intentionally without equipment or devices or med ications, and is always continent? No. BLADDER MANAGEMENT - STEP 2: Does the patient require the assistance of a helper? No, patient requires and independently uses an a ssistive device, such as a urinal, bedpan, bedside commode, catheter, absorbent pad, or collecting de vice BLADDER MANAGEMENT - SCORE: 6-SONI BOWEL MANAGEMENT: Activity did not occur on this shift BOWEL MANAGEMENT - SCORE: 7-IND TRANSFERS: BED, CHAIR, WHEELCHAIR: TRANSFERS: BED, CHAIR, WHEELCHAIR - STEP 1: Does the patient require assistance of a person or device, or need extra time with bed, chair, or whe elchair transfers? Yes. TRANSFERS: BED, CHAIR, WHEELCHAIR - STEP 2: Does the patient require the assistance of a helper? Yes. TRANSFERS: BED, CHAIR, WHEELCHAIR - STEP 3: How much assistance does the patient require from the helper? Steadying/guiding assistance TRANSFERS: BED, CHAIR, WHEELCHAIR - SCORE: 4-MIN TRANSFERS: TOILET: TRANSFERS: TOILET - STEP 1: Does the patient require the assistance of a person or device, or need extra time with toilet transfe rs? Yes. TRANSFERS: TOILET - STEP 2: Does the patient require the assistance of a helper? Yes. TRANSFERS: TOILET - STEP 3: How much assistance does the patient require from the helper? Patient performs half or more of the tr ansferring tasks TRANSFERS: TOILET - STEP 4: Does the patient need only incidental help such as contact guard or steadying during toilet transfer? Yes. TRANSFERS: TOILET - SCORE: 4-MIN TRANSFERS: SHOWER: Activity did not occur on this shift TRANSFERS: SHOWER - SCORE: 0-UNK TRANSFERS: TUB: Activity did not occur on this shift TRANSFERS: TUB - SCORE: 0-UNK LOCOMOTION: WALK: Activity did not occur on this shift LOCOMOTION: WALK - SCORE: 0-UNK LOCOMOTION: WHEELCHAIR: Activity did not occur on this shift LOCOMOTION: WHEELCHAIR - SCORE: 0-UNK COMPREHENSION: COMPREHENSION: TYPE: Both COMPREHENSION - STEP 1: Does the patient require help from a person or device, or need extra time to understand complex and a bstract ideas (such as current events, finances, discharge planning, medical issues, relationships, e tc)? No. COMPREHENSION - STEP 2: Does the patient need extra time, require an assistive device (such as glasses for visual comprehensi on or a hearing aid for auditory comprehension) or does s/he have mild difficulty understanding compl ex and abstract information? Yes. COMPREHENSION - SCORE: 6-SONI EXPRESSION EXPRESSION: TYPE: Both EXPRESSION - STEP 1: Does the patient require help from a person or device, or need extra time expressing complex and abst ract ideas (such as current events, finances, discharge planning, medical issues, relationships, etc) ? No. EXPRESSION - STEP 2: Does the patient need extra time, require an assistive device (such as augmentive communication syste m or a communication board), OR does s/he have mild difficulty expressing complex and abstract ideas (including mild dysarthria or mild word-find problems)? Yes. EXPRESSION - SCORE: 6-SONI SOCIAL INTERACTION: SOCIAL INTERACTION - STEP 1: Does the patient require a helper to interact with others in social and therapeutic situations? No. SOCIAL INTERACTION - STEP 2: Does the patient need extra time in social situations, OR does s/he interact with staff, other patien ts, and family members ONLY in structured environments, OR does s/he require medication for social in teraction? Yes, patient needs extra time SOCIAL INTERACTION - SCORE: 6-SONI PROBLEM SOLVING: PROBLEM SOLVING - STEP 1: Does the patient need help from a person or device, or need extra time to solve complex problems such as managing a checking account or confronting interpersonal problems? No. PROBLEM SOLVING - STEP 2: Does the patient require extra time to make decisions or solve problems, OR does s/he have slight dif ficulty reading, initiating, or self-correcting in unfamiliar situations? Yes, patient needs extra ti me. PROBLEM SOLVING - SCORE: 6-SONI MEMORY: MEMORY - STEP 1: Does the patient need help from a person or device, or need extra time to remember frequently encount ered people, daily routines, and executing requests? No. MEMORY - STEP 2: Does the patient have slight difficulty recognizing frequently encountered people, daily routines, or executing requests without the need for repetition or using self-initiated or environmental cues to remember? Yes. MEMORY - SCORE: 6-SONI SIGNATURE PANEL: The following modified sections: Eating - Score, Grooming - Score, Bathing - Score, Dressing - Upper Body - Score, Dressing - Lower Body - Score, Toileting - Score, Bladder Management - Score, Bowel Man agement - Score, Transfers: Bed, Chair, Wheelchair - Score, Transfers: Toilet - Score, Transfers: Guerline wer - Score, Transfers: Tub - Score, Locomotion: Walk - Score, Locomotion: Wheelchair - Score, Compre hension - Score, Expression - Score, Social Interaction - Score, Problem Solving - Score, Memory - Sc ore were [electronically] signed by Gerald Niño on TueJun 11 2018 11:00:34 GMT-0500 (Central Daylight Time)
[2018-06-11] MEDS: ATORVASTATIN 20 MG TAB PO SCH (16:42)
--- NOTE | 2018-06-11 17:46 | PN ---
Date of Progress Note: 06/11/2018 Subjective: The patient was seen this morning for followup. She was sitting in chair. Denied any c omplaints. No chest pain, shortness of breath. Objective: Vital Signs: Reviewed. HEENT: Unremarkable. Lungs: Clear to auscultation. Heart: Sounds normal. Abdomen: Soft. Bowel sounds normal. No guarding, rigidity, tenderness, or distention. Extremities: No leg edema. Impression: 1.Right leg edema, resolved. 2.Right hip fracture. 3.Anemia due to acute blood loss. 4.Coronary artery disease. 5.Urinary tract infection. Plan: We will continue current medications. Continue iron supplement and DVT prophylaxis and curren t antibiotics. The patient's leg swelling is under good control. It has resolved now with use of senior pport stockings to both legs and she puts it on in the morning, takes it off at nighttime, and she wa s advised to continue these even after discharge from the hospital. ERIKA/MODL Voice ID: [id number] Report ID: [id number]
[2018-06-11] MEDS: DOCUSATE NA 100 MG CAP PO SCH (20:02)
[2018-06-11] MEDS: ALPRAZOLAM 0.5 MG TABLET PO PRN (21:11)
[2018-06-12] MEDS: TRAMADOL HCL 50 MG TAB PO PRN ×3 (05:30→18:12)
[2018-06-12] MEDS: ENOXAPARIN 30 MG/0.3 ML SQ SCH (07:21)
[2018-06-12] MEDS: PANTOPRAZOLE 40MG TABLET PO SCH (07:21)
[2018-06-12] MEDS: POLYETHYL GLY 3350 17 GM/DOSE PO SCH (08:00)
[2018-06-12] MEDS: PROMOD 30 ML DOSE PO SCH ×2 (08:00→20:23)
[2018-06-12 08:28] LABS: Potassium 4.5 mmol/L (3.5-5.1)
[2018-06-12] MEDS: LIDOCAINE 5% PATCH TOP SCH (08:38)
[2018-06-12] MEDS: METHOCARBAMOL 500 MG TAB PO PRN (08:39)
[2018-06-12] MEDS: METOPROLOL XL 25 MG TAB PO SCH (08:40)
[2018-06-12] MEDS: MAGNESIUM OXIDE 400 MG TAB PO SCH ×2 (08:40→20:22)
[2018-06-12] MEDS: VITAMIN D 1000 UNIT TAB PO SCH (08:40)
[2018-06-12] MEDS: ASPIRIN EC 81 MG TAB PO SCH (08:41)
[2018-06-12] MEDS: FUROSEMIDE 20 MG TABLET PO SCH ×2 (08:41→18:08)
[2018-06-12] MEDS: LOSARTAN POTASSIUM 50 MG TABLET PO SCH (08:41)
[2018-06-12] MEDS: GABAPENTIN 300 MG CAP PO SCH ×3 (08:41→20:23)
[2018-06-12] MEDS: CRANBERRY FRUIT EXTRACT 200 MG CAP PO SCH ×2 (08:41→20:22)
[2018-06-12] MEDS: ASCORBIC ACID 500 MG TABLET PO SCH (08:41)
[2018-06-12] MEDS: FE SULF/FA/VIT B COMP & C TAB PO SCH (08:41)
--- NOTE | 2018-06-12 11:23 | FAST ---
ENCOUNTER DATE AND TIME: 06/12/2018 08:00 (CDT) NAME MICHELLE EVANGELISTA DATE OF : 1935 DATE OF ADMISSION: 06/01/2018 15:25 (CDT) PHONE: AGE: 82 SSN# [id number] GENDER: Female ENCOUNTER PHYSICIAN: Dr. Checo Delgado M.D. ADMISSION DIAGNOSIS: - Orthopaedic Disorders 08 - Unilateral Hip Fracture (.11) closed traumatic displaced intertrochanteric fx. EATING: Activity did not occur on this shift EATING - SCORE: 0-UNK GROOMING: Activity did not occur on this shift GROOMING - SCORE: 0-UNK BATHING: Activity did not occur on this shift BATHING - SCORE: 0-UNK DRESSING - UPPER BODY: Activity did not occur on this shift Patient is not dressing in public clothing ARTICLES SCORE Total number of steps: 0 DRESSING - UPPER BODY - SCORE: 0-UNK DRESSING - LOWER BODY: Activity did not occur on this shift Patient is not dressing in public clothing ARTICLES SCORE Total number of steps: 0 DRESSING - LOWER BODY - SCORE: 0-UNK TOILETING: Activity did not occur on this shift TOILETING - SCORE: 0-UNK BLADDER MANAGEMENT: Activity did not occur on this shift BLADDER MANAGEMENT - SCORE: 7-IND BOWEL MANAGEMENT: Activity did not occur on this shift BOWEL MANAGEMENT - SCORE: 7-IND TRANSFERS: BED, CHAIR, WHEELCHAIR: TRANSFERS: BED, CHAIR, WHEELCHAIR - STEP 1: Does the patient require assistance of a person or device, or need extra time with bed, chair, or whe elchair transfers? Yes. TRANSFERS: BED, CHAIR, WHEELCHAIR - STEP 2: Does the patient require the assistance of a helper? Yes. TRANSFERS: BED, CHAIR, WHEELCHAIR - STEP 3: How much assistance does the patient require from the helper? Steadying/guiding assistance TRANSFERS: BED, CHAIR, WHEELCHAIR - SCORE: 4-MIN TRANSFERS: TOILET: Activity did not occur on this shift TRANSFERS: TOILET - SCORE: 0-UNK TRANSFERS: SHOWER: Activity did not occur on this shift TRANSFERS: SHOWER - SCORE: 0-UNK TRANSFERS: TUB: Activity did not occur on this shift TRANSFERS: TUB - SCORE: 0-UNK LOCOMOTION: WALK: LOCOMOTION: WALK - STEP 1: Does the patient need help from a person or device, or need extra time to walk 150 feet? Yes. LOCOMOTION: WALK - STEP 2: How much assistance does the patient require to walk a minimum of 150 feet? Only incidental help such as contact guarding or steadying LOCOMOTION: WALK - SCORE: 4-MIN LOCOMOTION: WHEELCHAIR: LOCOMOTION: WHEELCHAIR - STEP 1: Does the patient need help to go 150 feet in a wheelchair? Yes. LOCOMOTION: WHEELCHAIR - STEP 2: How much assistance does the patient need from the helper? Only supervision, cuing, or coaxing LOCOMOTION: WHEELCHAIR - SCORE: 5-SUP LOCOMOTION: STAIRS: Activity did not occur on this shift LOCOMOTION: STAIRS - SCORE: 0-UNK COMPREHENSION: COMPREHENSION - SCORE: 0-UNK EXPRESSION EXPRESSION - SCORE: 0-UNK SOCIAL INTERACTION: SOCIAL INTERACTION - SCORE: 0-UNK PROBLEM SOLVING: PROBLEM SOLVING - SCORE: 0-UNK MEMORY: MEMORY - SCORE: 0-UNK SIGNATURE PANEL: The following modified sections: Transfers: Bed, Chair, Wheelchair - Score, Transfers: Toilet - Score , Locomotion: Walk - Score, Locomotion: Wheelchair - Score, Locomotion: Stairs - Score were [terence hassan] signed by Brooke Harman PTA on TueJun 12 2018 11:22:01 T-0500 (Central Daylight Time)
--- NOTE | 2018-06-12 13:22 | FAST ---
SHIFT START DATE/TIME: 06/12/2018 07:00 (CDT) SHIFT END DATE/TIME: 06/12/2018 19:00 (CDT) NAME MICHELLE EVANGELISTA DATE OF : 1935 DATE OF ADMISSION: 06/01/2018 15:25 (CDT) PHONE: AGE: 82 SSN# [id number] GENDER: Female ENCOUNTER PHYSICIAN: Dr. Checo Delgado M.D. ADMISSION DIAGNOSIS: - Orthopaedic Disorders 08 - Unilateral Hip Fracture (08.11) closed traumatic displaced intertrochanteric fx. EATING: EATING - STEP 1: Does the patient require the assistance of a person or device, or need extra time when eating? Yes. EATING - STEP 2: Does the patient require the assistance of a helper? No, patient only requires an assistive device, O R s/he takes more than reasonable time to eat, OR there is a safety concern, OR s/he requires modifie d food consistency EATING - SCORE: 6-SONI GROOMING: Comb/brush hair Oral care Wash, rinse, and dry face Wash, rinse, and dry hands GROOMING - STEP 1: Does the patient require the assistance of a person or device, or need extra time when grooming? Yes. GROOMING - STEP 2: Does the patient require the assistance of a helper? Yes. GROOMING - STEP 3: How much assistance does the patient require from the helper? Cuing, coaxing, instructions, or encour agement for completion of grooming GROOMING - SCORE: 5-SUP BATHING: Activity did not occur on this shift BATHING - SCORE: 0-UNK DRESSING - UPPER BODY: Activity did not occur on this shift ARTICLES SCORE Total number of steps: 0 DRESSING - UPPER BODY - SCORE: 0-UNK DRESSING - LOWER BODY: Activity did not occur on this shift ARTICLES SCORE Total number of steps: 0 DRESSING - LOWER BODY - SCORE: 0-UNK TOILETING: TOILETING - STEP 1: Does the patient require the assistance of a person or device, or need extra time with toileting? Yes . TOILETING - STEP 2: Does the patient require the assistance of a helper? Yes. TOILETING - STEP 3: How much assistance does the patient require from the helper? Hands-on assistance from the helper TOILETING - STEP 4: Of the 3 tasks: 1) Adjusting clothing prior to use, 2) Cleansing of perineal area, 3) Adjusting clot julia after use; How many tasks does the patient perform WITHOUT assistance of the helper? Two tasks TOILETING - SCORE: 3-MOD BLADDER MANAGEMENT: BLADDER MANAGEMENT - STEP 1: Does the patient control the bladder completely and intentionally without equipment or devices or med ications, and is always continent? No. BLADDER MANAGEMENT - STEP 2: Does the patient require the assistance of a helper? No, patient requires and independently uses an a ssistive device, such as a urinal, bedpan, bedside commode, catheter, absorbent pad, or collecting de vice BLADDER MANAGEMENT - SCORE: 6-SONI BOWEL MANAGEMENT: Activity did not occur on this shift BOWEL MANAGEMENT - SCORE: 7-IND TRANSFERS: BED, CHAIR, WHEELCHAIR: TRANSFERS: BED, CHAIR, WHEELCHAIR - STEP 1: Does the patient require assistance of a person or device, or need extra time with bed, chair, or whe elchair transfers? Yes. TRANSFERS: BED, CHAIR, WHEELCHAIR - STEP 2: Does the patient require the assistance of a helper? Yes. TRANSFERS: BED, CHAIR, WHEELCHAIR - STEP 3: How much assistance does the patient require from the helper? Steadying/guiding assistance TRANSFERS: BED, CHAIR, WHEELCHAIR - SCORE: 4-MIN TRANSFERS: TOILET: TRANSFERS: TOILET - STEP 1: Does the patient require the assistance of a person or device, or need extra time with toilet transfe rs? Yes. TRANSFERS: TOILET - STEP 2: Does the patient require the assistance of a helper? Yes. TRANSFERS: TOILET - STEP 3: How much assistance does the patient require from the helper? Patient performs half or more of the tr ansferring tasks TRANSFERS: TOILET - STEP 4: Does the patient need only incidental help such as contact guard or steadying during toilet transfer? Yes. TRANSFERS: TOILET - SCORE: 4-MIN TRANSFERS: SHOWER: Activity did not occur on this shift TRANSFERS: SHOWER - SCORE: 0-UNK TRANSFERS: TUB: Activity did not occur on this shift TRANSFERS: TUB - SCORE: 0-UNK LOCOMOTION: WALK: Activity did not occur on this shift LOCOMOTION: WALK - SCORE: 0-UNK LOCOMOTION: WHEELCHAIR: Activity did not occur on this shift LOCOMOTION: WHEELCHAIR - SCORE: 0-UNK COMPREHENSION: COMPREHENSION: TYPE: Both COMPREHENSION - STEP 1: Does the patient require help from a person or device, or need extra time to understand complex and a bstract ideas (such as current events, finances, discharge planning, medical issues, relationships, e tc)? No. COMPREHENSION - STEP 2: Does the patient need extra time, require an assistive device (such as glasses for visual comprehensi on or a hearing aid for auditory comprehension) or does s/he have mild difficulty understanding compl ex and abstract information? Yes. COMPREHENSION - SCORE: 6-SONI EXPRESSION EXPRESSION: TYPE: Both EXPRESSION - STEP 1: Does the patient require help from a person or device, or need extra time expressing complex and abst ract ideas (such as current events, finances, discharge planning, medical issues, relationships, etc) ? No. EXPRESSION - STEP 2: Does the patient need extra time, require an assistive device (such as augmentive communication syste m or a communication board), OR does s/he have mild difficulty expressing complex and abstract ideas (including mild dysarthria or mild word-find problems)? Yes. EXPRESSION - SCORE: 6-SONI SOCIAL INTERACTION: SOCIAL INTERACTION - STEP 1: Does the patient require a helper to interact with others in social and therapeutic situations? No. SOCIAL INTERACTION - STEP 2: Does the patient need extra time in social situations, OR does s/he interact with staff, other patien ts, and family members ONLY in structured environments, OR does s/he require medication for social in teraction? Yes, patient needs extra time SOCIAL INTERACTION - SCORE: 6-SONI PROBLEM SOLVING: PROBLEM SOLVING - STEP 1: Does the patient need help from a person or device, or need extra time to solve complex problems such as managing a checking account or confronting interpersonal problems? No. PROBLEM SOLVING - STEP 2: Does the patient require extra time to make decisions or solve problems, OR does s/he have slight dif ficulty reading, initiating, or self-correcting in unfamiliar situations? Yes, patient needs extra ti me. PROBLEM SOLVING - SCORE: 6-SONI MEMORY: MEMORY - STEP 1: Does the patient need help from a person or device, or need extra time to remember frequently encount ered people, daily routines, and executing requests? No. MEMORY - STEP 2: Does the patient have slight difficulty recognizing frequently encountered people, daily routines, or executing requests without the need for repetition or using self-initiated or environmental cues to remember? Yes. MEMORY - SCORE: 6-SONI SIGNATURE PANEL: The following modified sections: Eating - Score, Grooming - Score, Bathing - Score, Dressing - Upper Body - Score, Dressing - Lower Body - Score, Toileting - Score, Bladder Management - Score, Bowel Man agement - Score, Transfers: Bed, Chair, Wheelchair - Score, Transfers: Toilet - Score, Transfers: Guerline wer - Score, Transfers: Tub - Score, Locomotion: Walk - Score, Locomotion: Wheelchair - Score, Compre hension - Score, Expression - Score, Social Interaction - Score, Problem Solving - Score, Memory - Sc ore were [electronically] signed by Gerald Niño on TueJun 12 2018 13:21:24 GMT-0500 (Central Daylight Time)
--- NOTE | 2018-06-12 14:55 | FAST ---
ENCOUNTER DATE AND TIME: 06/12/2018 08:00 (CDT) NAME MICHELLE EVANGELISTA DATE OF : 1935 DATE OF ADMISSION: 06/01/2018 15:25 (CDT) PHONE: AGE: 82 SSN# [id number] GENDER: Female ENCOUNTER PHYSICIAN: Dr. Checo Delgado M.D. ADMISSION DIAGNOSIS: - Orthopaedic Disorders 08 - Unilateral Hip Fracture (.11) closed traumatic displaced intertrochanteric fx. EATING: EATING - STEP 1: Does the patient require the assistance of a person or device, or need extra time when eating? No. EATING - SCORE: 7-IND GROOMING: Comb/brush hair Wash, rinse, and dry face Wash, rinse, and dry hands GROOMING - STEP 1: Does the patient require the assistance of a person or device, or need extra time when grooming? No. GROOMING - SCORE: 7-IND BATHING: Abdomen Buttocks Chest Left arm Left lower leg and foot Left upper leg Perineal area Right arm Right lower leg and foot Right upper leg BATHING - STEP 1: Does the patient require the assistance of a person or device, or need extra time when bathing? Yes. BATHING - STEP 2: Does the patient require the assistance of a helper? Yes. BATHING - STEP 3: How much assistance does the patient require from the helper? Only supervision, cuing, coaxing, instr uctions, encouragement BATHING - SCORE: 5-SUP DRESSING - UPPER BODY: Bra (three steps) T-shirt/pullover shirt (four steps) ARTICLES SCORE Total number of steps: 7 DRESSING - UPPER BODY - STEP 1: Does the patient require help from a person or device, or need extra time when dressing above the criss st? No. DRESSING - UPPER BODY - SCORE: 7-IND DRESSING - LOWER BODY: Elastic waist pants (three steps) Sock - Right foot (one step) Tied or buckled shoe - Left foot (two steps) Underwear (three steps) ARTICLES SCORE Total number of steps: 9 DRESSING - LOWER BODY - STEP 1: Does the patient require help from a person or device, or need extra time when dressing below the criss st? Yes. DRESSING - LOWER BODY - STEP 2: Does the patient require the assistance of a helper? Yes. DRESSING - LOWER BODY - STEP 3: Does the helper touch the patient while dressing? No. DRESSING - LOWER BODY - SCORE: 5-SUP TOILETING: TOILETING - STEP 1: Does the patient require the assistance of a person or device, or need extra time with toileting? Yes . TOILETING - STEP 2: Does the patient require the assistance of a helper? Yes. TOILETING - STEP 3: How much assistance does the patient require from the helper? Only supervision TOILETING - SCORE: 5-SUP BLADDER MANAGEMENT: Activity did not occur on this shift BLADDER MANAGEMENT - SCORE: 7-IND BOWEL MANAGEMENT: Activity did not occur on this shift BOWEL MANAGEMENT - SCORE: 7-IND TRANSFERS: BED, CHAIR, WHEELCHAIR: Activity did not occur on this shift TRANSFERS: BED, CHAIR, WHEELCHAIR - SCORE: 0-UNK TRANSFERS: TOILET: TRANSFERS: TOILET - STEP 1: Does the patient require the assistance of a person or device, or need extra time with toilet transfe rs? Yes. TRANSFERS: TOILET - STEP 2: Does the patient require the assistance of a helper? Yes. TRANSFERS: TOILET - STEP 3: How much assistance does the patient require from the helper? Only supervision, cuing, coaxing, OR he lp to set out transfer equipment or to lock brakes and/or lift foot rests TRANSFERS: TOILET - SCORE: 5-SUP TRANSFERS: SHOWER: TRANSFERS: SHOWER - STEP 1: Does the patient require the assistance of a person or device, or need extra time with shower transfe rs? Yes. TRANSFERS: SHOWER - STEP 2: Does the patient require the assistance of a helper? Yes. TRANSFERS: SHOWER - STEP 3: How much assistance does the patient require from the helper? Only supervision, cuing, coaxing, or he lp to set out transfer equipment or to lock brakes and/or lift foot rests TRANSFERS: SHOWER - SCORE: 5-SUP TRANSFERS: TUB: Activity did not occur on this shift TRANSFERS: TUB - SCORE: 0-UNK LOCOMOTION: WALK: Activity did not occur on this shift LOCOMOTION: WALK - SCORE: 0-UNK LOCOMOTION: WHEELCHAIR: Activity did not occur on this shift LOCOMOTION: WHEELCHAIR - SCORE: 0-UNK LOCOMOTION: STAIRS: Activity did not occur on this shift LOCOMOTION: STAIRS - SCORE: 0-UNK COMPREHENSION: COMPREHENSION: TYPE: Both COMPREHENSION - STEP 1: Does the patient require help from a person or device, or need extra time to understand complex and a bstract ideas (such as current events, finances, discharge planning, medical issues, relationships, e tc)? No. COMPREHENSION - STEP 2: Does the patient need extra time, require an assistive device (such as glasses for visual comprehensi on or a hearing aid for auditory comprehension) or does s/he have mild difficulty understanding compl ex and abstract information? Yes. COMPREHENSION - SCORE: 6-SONI EXPRESSION EXPRESSION: TYPE: Both EXPRESSION - STEP 1: Does the patient require help from a person or device, or need extra time expressing complex and abst ract ideas (such as current events, finances, discharge planning, medical issues, relationships, etc) ? No. EXPRESSION - STEP 2: Does the patient need extra time, require an assistive device (such as augmentive communication syste m or a communication board), OR does s/he have mild difficulty expressing complex and abstract ideas (including mild dysarthria or mild word-find problems)? Yes. EXPRESSION - SCORE: 6-SONI SOCIAL INTERACTION: SOCIAL INTERACTION - STEP 1: Does the patient require a helper to interact with others in social and therapeutic situations? No. SOCIAL INTERACTION - STEP 2: Does the patient need extra time in social situations, OR does s/he interact with staff, other patien ts, and family members ONLY in structured environments, OR does s/he require medication for social in teraction? Yes, patient needs extra time SOCIAL INTERACTION - SCORE: 6-SONI PROBLEM SOLVING: PROBLEM SOLVING - STEP 1: Does the patient need help from a person or device, or need extra time to solve complex problems such as managing a checking account or confronting interpersonal problems? No. PROBLEM SOLVING - STEP 2: Does the patient require extra time to make decisions or solve problems, OR does s/he have slight dif ficulty reading, initiating, or self-correcting in unfamiliar situations? Yes, patient needs extra ti me. PROBLEM SOLVING - SCORE: 6-SONI MEMORY: MEMORY - STEP 1: Does the patient need help from a person or device, or need extra time to remember frequently encount ered people, daily routines, and executing requests? No. MEMORY - STEP 2: Does the patient have slight difficulty recognizing frequently encountered people, daily routines, or executing requests without the need for repetition or using self-initiated or environmental cues to remember? Yes. MEMORY - SCORE: 6-SONI SIGNATURE PANEL: The following modified sections: Eating - Score, Grooming - Score, Bathing - Score, Dressing - Upper Body - Score, Dressing - Lower Body - Score, Toileting - Score, Transfers: Bed, Chair, Wheelchair - S core, Transfers: Toilet - Score, Transfers: Tub - Score, Transfers: Shower - Score, Comprehension - S core, Expression - Score, Social Interaction - Score, Problem Solving - Score, Memory - Score were [e lectronically] signed by Azucena López OT on TueJun 12 2018 14:55:25 GMT-0500 (Central Daylight T jean)
--- NOTE | 2018-06-12 15:39 | RAD REPORT ---
EXAM DESCRIPTION: RAD - Shoulder Left 2 View - 06/12/2018 3:32 pm CLINICAL HISTORY: Left shoulder pain COMPARISON: None. TECHNIQUE: Internal and external rotation views of the left shoulder were obtained. FINDINGS: There is no fracture or dislocation. Prominent degenerative changes are present at the AC joint. There is capsular hypertrophy and calcification along the superior margin with moderate-sized clavicle and acromion inferiorly directed spurs. Acromial humeral joint space is slightly narrowed. T here degenerative tendon calcifications seen lateral superior margin of the humeral head. No destruct joe bone process. IMPRESSION: Negative two-view left shoulder examination for acute finding Left shoulder degenerative changes are present primarily involving the AC joint.
[2018-06-12] MEDS: ATORVASTATIN 20 MG TAB PO SCH (18:08)
[2018-06-12] MEDS: DOCUSATE NA 100 MG CAP PO SCH (20:22)
[2018-06-12] MEDS: ALPRAZOLAM 0.5 MG TABLET PO PRN (21:15)
--- NOTE | 2018-06-12 21:23 | PN ---
Date of Progress Note: 06/12/2018 Subjective: The patient was seen this morning. She was lying in bed, not in distress. Denied any c omplaints except left shoulder pain which is nothing new, but lately with therapy she is having more pain. Objective: Vital Signs: Reviewed. HEENT: Unremarkable. Lungs: Clear to auscultation. Heart: Sounds normal. Abdomen: Soft. Bowel sounds normal. No guarding, rigidity, tenderness, or distention. Extremities: No leg edema. Laboratory Data: Sodium 136, potassium 4.5, chloride 103, bicarb 25, BUN 20, creatinine 1.03, glucos e 110. Impression: 1.Osteoarthritis, multiple sites .. 2.Urinary tract infection .. 3.Right hip fracture. 4.Anemia due to acute blood loss .. 5.Coronary artery disease. Plan: We will go ahead and discontinue antibiotic therapy as she has completed 1 week of antibiotic therapy. Continue current DVT prophylaxis. The patient has order for lidocaine patch. She is apply ing 2 patch every day to the hip area. We will change it to 1 patch to hip and 1 patch to left shoul franklin on a daily basis and apply heating pad to the left shoulder. I will see her tomorrow for tyrone smith ACA/RENETTA Voice ID: [id number] Report ID: [id number]
--- NOTE | 2018-06-12 22:47 | R.PN ---
ENCOUNTER DATE AND TIME: 06/12/2018 22:42 (CDT) NAME MICHELLE EVANGELISTA DATE OF : 1935 DATE OF ADMISSION: 06/01/2018 15:25 (CDT) closed traumatic displaced intertrochanteric fxCHIEF COMPLAINT: Right hip fracture SUBJECTIVE: Pt denied any depression. Pt denied any Shortness of Breath. Ambulated 191' with standby assistance using a rolling walker. Hgb 8.9, glucose 112, prealbumin 9.8. Ambulated 70' with standby assistance using a rolling walker. VITAL SIGNS Temperature: 98.7 F SBP/DBP: 142/60 Pulse: 55 Resp: 16 MEDICATION ALLERGIES: No Known Drug Allergies (NKDA) ENVIRONMENTAL ALLERGIES: - Substance Allergies None Known - Other Allergies None Known NURSING: - Shower allowing shower - Skin care per protocol PRECAUTIONS: - Posterior Hip Precaution No adduction across midline No external rotation No hip flexion >90 degrees No internal rotation No wheel chair propulsion - Weight Bearing Precaution TTWB right LE ACTIVITIES OOB only with supervision THERAPIES: - Occupational Therapy Evaluate and Treat. - Physical Therapy Evaluate and Treat. PHYSICAL EXAM - Gen Alert and awake Lying in bed No apparent distress Oriented to: person, time, and place - Skin No breakdown No abnormalities - Eyes No abnormalities - ENMT No abnormalities - Neck No abnormalities - CVS RRR - Chest Clear - Abd + bowel sounds - GI nondistended Deferred - No abnormalities - Ext No significant edema - MSK 4/5 weakness in both lower extremities. - Neuro No focal deficits - Psych No abnormalities ASSESSMENT: Pt. is a 82 yo Right-handed white female.On 05/28/2018 she was admitted to [facility] and underwent emergency surgery for closed traumatic displaced intertrochanteric fx (Unilatera l Hip Fracture) by DR. FAVIAN MCKEON.Pre-morbidly, Pt. was independent/mod-I in Self-Care, Sphincter Co ntrol, Transfers Control, Communication, Social Cognition, and Locomotion; and she had good Sphincter Control.Currently, she has deficits of Transfers Control, Communication, Social Cognition, Endurance , Balance, Safety Awareness, Self-Care, and Locomotion.Pt. is now referred to [facility] for acute in-patient rehabilitation in order to maximize patient's functional independence in activities of daily living, strength, ROM, and mobility.- Rehab Goal Patient has realistic goal of being discharged at assistance level 6-Jena to reside at Home with Fam yossi/Relatives. MDM/PLAN: - Physical Therapy Decreased range of motion - to improve, our physical therapists will perform initial evaluation of p t's status upon admission and devise an individualized program for increasing patient's Range of Dell on. Gait dysfunction - to improve, our physical therapists will perform initial evaluation of pt's statu s upon admission and devise an individualized program for Gait Training, and Wheel Chair mobility Inability to transfer - to improve, our physical therapists will perform initial evaluation of pt's status upon admission and devise an individualized program for Bed mobility Need for home safety evaluation - to improve, our physical therapists will perform initial evaluatio n of pt's status upon admission and devise an individualized program for Home Evaluation Need in caregiver upon discharge - to improve, our physical therapists will perform initial evaluati on of pt's status upon admission and devise an individualized program for Caregiver Training New precaution - to improve, our physical therapists will perform initial evaluation of pt's status upon admission and devise an individualized program for Patient precaution education Edema - to improve, our physical therapists will perform initial evaluation of pt's status upon admi ssion and devise an individualized program for Elevation Training, and Lymphedema Therapy Poor balance - to improve, our physical therapists will perform initial evaluation of pt's status up on admission and devise an individualized program for Balance Training Poor endurance - to improve, our physical therapists will perform initial evaluation of pt's status upon admission and devise an individualized program for Endurance Training Weakness - to improve, our physical therapists will perform initial evaluation of pt's status upon a dmission and devise an individualized program for Aquatic Therapy, Neuromuscular Reeducation, and Str engthening Achieving independence - to improve, our physical therapists will perform initial evaluation of pt's status upon admission and devise an individualized program for Community Reintegration Activities - Occupational Therapy ADL deficits - to improve, our occupation therapists will perform initial evaluation of pt's status upon admission and devise an individualized program for Bathing, Bed mobility, Community Reintegratio n, Cooking, Dressing, Eating, Fine Motor Skills, Grooming, Homemaking, Kitchen Mobility, Laundry, Pat ient Education, Safety Awareness, Splinting - Positioning, Transfers(Toilet, Tub, Shower), and Wheel Chair Management Cognitive deficits - to improve, our occupation therapists will perform initial evaluation of pt's s tatus upon admission and devise an individualized program for Cognition - orientation Need for pulmonary care nurse - to improve, our occupation therapists will perform initial evaluation of pt's status upon admission and devise an individualized program for Caregiver Training Weakness - to improve, our occupation therapists will perform initial evaluation of pt's status upon admission and devise an individualized program for Aquatic Therapy, Balance, Endurance, UE ROM, and UE strengthening - Anterior Hip Precaution No abduction No active extension No adduction across midline No external rotation No hip flexion >90 degrees No internal rotation - Diet - Liquid Texture Continue Regular - Tube Feed Continue N/A - Diet Type Continue Regular - Posterior Hip Precaution No adduction across midline No external rotation No hip flexion >90 degrees No internal rotation No wheel chair propulsion - Weight Bearing Precaution TTWB right LE - Skin care per protocol - Diet - Solid Texture Continue Regular - Shower allowing shower FUNCTIONAL STATUS: UPDATED AT WEEKLY TEAM CONFERENCE - Bladder Same accident frequency: 7-Ind - No accidents in the past 7 days - Bowel Same accident frequency: 7-Ind - No accidents in the past 7 days - Walking Same score based on distance walked: 0(N/A) FUNCTIONAL STATUS: - Self-Care A. Eating Ind B. Grooming sup C. Bathing sup D. Dressing - Upper sup E. Dressing - Lower maxA F. Toileting maxA - Sphincter Control G: Bladder control Dep H: Bowel control Dep - Transfers Control I. Bed/Chair/Wheelchair maxA J. Toilet maxA K. Tub/Shower maxA - Locomotion L. Walk/Wheelchair (B) Dep M. Stairs ADNO - Communication N. Comprehension (B) sup O. Expression (B) sup - Social Cognition P. Social Interaction sup Q. Problem Solving sup R. Memory sup - Endurance Poor - Balance Poor - Safety Awareness Fair CURRENT FUNC. DEFICITS: Transfers Control, Communication, Social Cognition, Endurance, Balance, Safety Awareness, Self-Care, and Locomotion SIGNATURE PANEL: (CDT)
--- NOTE | 2018-06-13 00:27 | FAST ---
SHIFT START DATE/TIME: 06/12/2018 19:00 (CDT) SHIFT END DATE/TIME: 06/13/2018 07:00 (CDT) NAME MICHELLE EVANGELISTA DATE OF : 1935 DATE OF ADMISSION: 06/01/2018 15:25 (CDT) PHONE: AGE: 82 SSN# [id number] GENDER: Female ENCOUNTER PHYSICIAN: Dr. Checo Delgado M.D. ADMISSION DIAGNOSIS: - Orthopaedic Disorders 08 - Unilateral Hip Fracture (08.11) closed traumatic displaced intertrochanteric fx. EATING: Activity did not occur on this shift EATING - SCORE: 0-UNK GROOMING: Oral care Wash, rinse, and dry hands GROOMING - STEP 1: Does the patient require the assistance of a person or device, or need extra time when grooming? Yes. GROOMING - STEP 2: Does the patient require the assistance of a helper? Yes. GROOMING - STEP 3: How much assistance does the patient require from the helper? Only prior equipment preparation/set up from the helper GROOMING - SCORE: 5-SUP BATHING: Activity did not occur on this shift BATHING - SCORE: 0-UNK DRESSING - UPPER BODY: Patient is not dressing in public clothing ARTICLES SCORE Total number of steps: 0 DRESSING - UPPER BODY - SCORE: 0-UNK DRESSING - LOWER BODY: Patient is not dressing in public clothing ARTICLES SCORE Total number of steps: 0 DRESSING - LOWER BODY - SCORE: 0-UNK TOILETING: TOILETING - STEP 1: Does the patient require the assistance of a person or device, or need extra time with toileting? Yes . TOILETING - STEP 2: Does the patient require the assistance of a helper? Yes. TOILETING - STEP 3: How much assistance does the patient require from the helper? Hands-on assistance from the helper TOILETING - STEP 4: Of the 3 tasks: 1) Adjusting clothing prior to use, 2) Cleansing of perineal area, 3) Adjusting clot julia after use; How many tasks does the patient perform WITHOUT assistance of the helper? Two tasks TOILETING - SCORE: 3-MOD BLADDER MANAGEMENT: BLADDER MANAGEMENT - STEP 1: Does the patient control the bladder completely and intentionally without equipment or devices or med ications, and is always continent? No. BLADDER MANAGEMENT - STEP 2: Does the patient require the assistance of a helper? Yes. BLADDER MANAGEMENT - STEP 3: How much assistance does the patient require from the helper? Only set-up of equipment - such as plac ing it within reach of the patient or emptying a device - to maintain either satisfactory voiding pat tern or managing an external device, such as an absorbent pad, ileal device, or catheter BLADDER MANAGEMENT - SCORE: 5-SUP BOWEL MANAGEMENT: BOWEL MANAGEMENT - STEP 1: Does the patient control bowels completely and intentionally without equipment devices or medications AND is always continent? No. BOWEL MANAGEMENT - STEP 2: Does the patient require the assistance of a helper? No, patient requires medication for control such as stool softeners, suppositories, laxatives, enemas, or OTC medications BOWEL MANAGEMENT - SCORE: 6-SONI TRANSFERS: BED, CHAIR, WHEELCHAIR: TRANSFERS: BED, CHAIR, WHEELCHAIR - STEP 1: Does the patient require assistance of a person or device, or need extra time with bed, chair, or whe elchair transfers? Yes. TRANSFERS: BED, CHAIR, WHEELCHAIR - STEP 2: Does the patient require the assistance of a helper? Yes. TRANSFERS: BED, CHAIR, WHEELCHAIR - STEP 3: How much assistance does the patient require from the helper? Lifting of the legs TRANSFERS: BED, CHAIR, WHEELCHAIR - STEP 4: How many legs does the patient require the helper to lift? both legs TRANSFERS: BED, CHAIR, WHEELCHAIR - SCORE: 3-MOD TRANSFERS: TOILET: TRANSFERS: TOILET - STEP 1: Does the patient require the assistance of a person or device, or need extra time with toilet transfe rs? Yes. TRANSFERS: TOILET - STEP 2: Does the patient require the assistance of a helper? Yes. TRANSFERS: TOILET - STEP 3: How much assistance does the patient require from the helper? Patient performs half or more of the tr ansferring tasks TRANSFERS: TOILET - STEP 4: Does the patient need only incidental help such as contact guard or steadying during toilet transfer? Yes. TRANSFERS: TOILET - SCORE: 4-MIN TRANSFERS: SHOWER: Activity did not occur on this shift TRANSFERS: SHOWER - SCORE: 0-UNK TRANSFERS: TUB: Activity did not occur on this shift TRANSFERS: TUB - SCORE: 0-UNK LOCOMOTION: WALK: Activity did not occur on this shift LOCOMOTION: WALK - SCORE: 0-UNK LOCOMOTION: WHEELCHAIR: Activity did not occur on this shift LOCOMOTION: WHEELCHAIR - SCORE: 0-UNK COMPREHENSION: COMPREHENSION: TYPE: Both COMPREHENSION - STEP 1: Does the patient require help from a person or device, or need extra time to understand complex and a bstract ideas (such as current events, finances, discharge planning, medical issues, relationships, e tc)? No. COMPREHENSION - STEP 2: Does the patient need extra time, require an assistive device (such as glasses for visual comprehensi on or a hearing aid for auditory comprehension) or does s/he have mild difficulty understanding compl ex and abstract information? Yes. COMPREHENSION - SCORE: 6-SONI EXPRESSION EXPRESSION: TYPE: Both EXPRESSION - STEP 1: Does the patient require help from a person or device, or need extra time expressing complex and abst ract ideas (such as current events, finances, discharge planning, medical issues, relationships, etc) ? No. EXPRESSION - STEP 2: Does the patient need extra time, require an assistive device (such as augmentive communication syste m or a communication board), OR does s/he have mild difficulty expressing complex and abstract ideas (including mild dysarthria or mild word-find problems)? Yes. EXPRESSION - SCORE: 6-SONI SOCIAL INTERACTION: SOCIAL INTERACTION - STEP 1: Does the patient require a helper to interact with others in social and therapeutic situations? No. SOCIAL INTERACTION - STEP 2: Does the patient need extra time in social situations, OR does s/he interact with staff, other patien ts, and family members ONLY in structured environments, OR does s/he require medication for social in teraction? Yes, patient requires medication for social interaction SOCIAL INTERACTION - SCORE: 6-SONI PROBLEM SOLVING: PROBLEM SOLVING - STEP 1: Does the patient need help from a person or device, or need extra time to solve complex problems such as managing a checking account or confronting interpersonal problems? Yes. PROBLEM SOLVING - STEP 2: Does the patient solve basic routine problems half or more of the time? Yes. PROBLEM SOLVING - STEP 3: How often does the patient need help to solve basic routine problems? 10%-24% of the time PROBLEM SOLVING - SCORE: 4-MIN MEMORY: MEMORY - STEP 1: Does the patient need help from a person or device, or need extra time to remember frequently encount ered people, daily routines, and executing requests? No. MEMORY - STEP 2: Does the patient have slight difficulty recognizing frequently encountered people, daily routines, or executing requests without the need for repetition or using self-initiated or environmental cues to remember? Yes. MEMORY - SCORE: 6-SONI SIGNATURE PANEL: The following modified sections: Eating - Score, Grooming - Score, Dressing - Upper Body - Score, William ssing - Lower Body - Score, Toileting - Score, Bladder Management - Score, Bowel Management - Score, Transfers: Bed, Chair, Wheelchair - Score, Transfers: Toilet - Score, Transfers: Shower - Score, Dowd sfers: Tub - Score, Locomotion: Walk - Score, Locomotion: Wheelchair - Score, Comprehension - Score, Expression - Score, Social Interaction - Score, Problem Solving - Score, Memory - Score were [electro nically] signed by Ngoc Townsend CNA on TueJun 13 2018 00:26:49 GMT-0500 (Central Daylight Time)
[2018-06-13] MEDS: TRAMADOL HCL 50 MG TAB PO PRN ×3 (03:20→16:36)
[2018-06-13] MEDS: ENOXAPARIN 30 MG/0.3 ML SQ SCH (07:41)
[2018-06-13] MEDS: PANTOPRAZOLE 40MG TABLET PO SCH (07:41)
[2018-06-13] MEDS: POLYETHYL GLY 3350 17 GM/DOSE PO SCH (08:00)
[2018-06-13] MEDS: LIDOCAINE 5% PATCH TOP SCH (08:00)
[2018-06-13] MEDS: PROMOD 30 ML DOSE PO SCH ×2 (08:00→20:44)
[2018-06-13] MEDS: GABAPENTIN 300 MG CAP PO SCH ×3 (09:18→20:44)
[2018-06-13] MEDS: VITAMIN D 1000 UNIT TAB PO SCH (09:18)
[2018-06-13] MEDS: FUROSEMIDE 20 MG TABLET PO SCH ×2 (09:18→16:36)
[2018-06-13] MEDS: CRANBERRY FRUIT EXTRACT 200 MG CAP PO SCH ×2 (09:18→20:44)
[2018-06-13] MEDS: ASPIRIN EC 81 MG TAB PO SCH (09:18)
[2018-06-13] MEDS: METOPROLOL XL 25 MG TAB PO SCH (09:19)
[2018-06-13] MEDS: ASCORBIC ACID 500 MG TABLET PO SCH (09:19)
[2018-06-13] MEDS: METHOCARBAMOL 500 MG TAB PO PRN ×2 (09:19→16:36)
[2018-06-13] MEDS: MAGNESIUM OXIDE 400 MG TAB PO SCH ×2 (09:19→20:44)
[2018-06-13] MEDS: LOSARTAN POTASSIUM 50 MG TABLET PO SCH (09:20)
[2018-06-13] MEDS: FE SULF/FA/VIT B COMP & C TAB PO SCH (09:25)
[2018-06-13] MEDS: HYDROCODONE/APAP 7.5/325 MG TAB PO PRN (11:16)
--- NOTE | 2018-06-13 14:15 | FAST ---
SHIFT START DATE/TIME: 06/13/2018 07:00 (CDT) SHIFT END DATE/TIME: 06/13/2018 19:00 (CDT) NAME MICHELLE EVANGELISTA DATE OF : 1935 DATE OF ADMISSION: 06/01/2018 15:25 (CDT) PHONE: AGE: 82 N# [id number] GENDER: Female ENCOUNTER PHYSICIAN: Dr. Checo Delgado M.D. ADMISSION DIAGNOSIS: - Orthopaedic Disorders 08 - Unilateral Hip Fracture (08.11) closed traumatic displaced intertrochanteric fx. EATING: EATING - STEP 1: Does the patient require the assistance of a person or device, or need extra time when eating? Yes. EATING - STEP 2: Does the patient require the assistance of a helper? Yes. EATING - STEP 3: Does the patient perform half or more of the eating tasks? Yes. EATING - STEP 4: Does the patient need only supervision, cuing, coaxing OR help to apply an orthosis OR help to cut fo od, open containers, pour liquids, or butter bread? Yes. EATING - SCORE: 5-SUP GROOMING: Comb/brush hair Oral care Wash, rinse, and dry face Wash, rinse, and dry hands GROOMING - STEP 1: Does the patient require the assistance of a person or device, or need extra time when grooming? Yes. GROOMING - STEP 2: Does the patient require the assistance of a helper? Yes. GROOMING - STEP 3: How much assistance does the patient require from the helper? Only prior equipment preparation/set up from the helper GROOMING - SCORE: 5-SUP BATHING: Activity did not occur on this shift BATHING - SCORE: 0-UNK DRESSING - UPPER BODY: Bra (three steps) T-shirt/pullover shirt (four steps) ARTICLES SCORE Total number of steps: 7 DRESSING - UPPER BODY - STEP 1: Does the patient require help from a person or device, or need extra time when dressing above the criss st? Yes. DRESSING - UPPER BODY - STEP 2: Does the patient require the assistance of a helper? Yes. DRESSING - UPPER BODY - STEP 3: Does the helper touch the patient while dressing? No. DRESSING - UPPER BODY - SCORE: 5-SUP DRESSING - LOWER BODY: Elastic waist pants (three steps) Slip-on shoe - Left foot (one step) Slip-on shoe - Right foot (one step) Underwear (three steps) ARTICLES SCORE Total number of steps: 8 DRESSING - LOWER BODY - STEP 1: Does the patient require help from a person or device, or need extra time when dressing below the criss st? Yes. DRESSING - LOWER BODY - STEP 2: Does the patient require the assistance of a helper? Yes. DRESSING - LOWER BODY - STEP 3: Does the helper touch the patient while dressing? Yes. DRESSING - LOWER BODY - STEP 4: How many of the total steps does the patient complete on his/her own? 6 DRESSING - LOWER BODY - SCORE: 4-MIN TOILETING: TOILETING - STEP 1: Does the patient require the assistance of a person or device, or need extra time with toileting? Yes . TOILETING - STEP 2: Does the patient require the assistance of a helper? Yes. TOILETING - STEP 3: How much assistance does the patient require from the helper? Hands-on assistance from the helper TOILETING - STEP 4: Of the 3 tasks: 1) Adjusting clothing prior to use, 2) Cleansing of perineal area, 3) Adjusting clot julia after use; How many tasks does the patient perform WITHOUT assistance of the helper? Three tasks with steadying assistance from the helper TOILETING - SCORE: 4-MIN BLADDER MANAGEMENT: BLADDER MANAGEMENT - STEP 1: Does the patient control the bladder completely and intentionally without equipment or devices or med ications, and is always continent? No. BLADDER MANAGEMENT - STEP 2: Does the patient require the assistance of a helper? No, patient requires and independently uses an a ssistive device, such as a urinal, bedpan, bedside commode, catheter, absorbent pad, or collecting de vice BLADDER MANAGEMENT - SCORE: 6-SONI BLADDER MANAGEMENT - FREQUENCY OF ACCIDENTS: BLADDER MANAGEMENT(FA) - STEP 1: How many accidents has the patient had during the current shift? 0 BOWEL MANAGEMENT: [place] removes incontinent device (depends, pull ups, etc.); cleans the patient after accident / inco ntinent episode; and, applies new device (depends, pull-ups, padding, etc.). BOWEL MANAGEMENT - SCORE: 1-DEP BOWEL MANAGEMENT - FREQUENCY OF ACCIDENTS: BOWEL MANAGEMENT(FA) - STEP 1: How many accidents has the patient had during the current shift? 1 TRANSFERS: BED, CHAIR, WHEELCHAIR: TRANSFERS: BED, CHAIR, WHEELCHAIR - STEP 1: Does the patient require assistance of a person or device, or need extra time with bed, chair, or whe elchair transfers? Yes. TRANSFERS: BED, CHAIR, WHEELCHAIR - STEP 2: Does the patient require the assistance of a helper? Yes. TRANSFERS: BED, CHAIR, WHEELCHAIR - STEP 3: How much assistance does the patient require from the helper? Lifting of the legs TRANSFERS: BED, CHAIR, WHEELCHAIR - STEP 4: How many legs does the patient require the helper to lift? both legs TRANSFERS: BED, CHAIR, WHEELCHAIR - SCORE: 3-MOD TRANSFERS: TOILET: TRANSFERS: TOILET - STEP 1: Does the patient require the assistance of a person or device, or need extra time with toilet transfe rs? Yes. TRANSFERS: TOILET - STEP 2: Does the patient require the assistance of a helper? Yes. TRANSFERS: TOILET - STEP 3: How much assistance does the patient require from the helper? Patient performs half or more of the tr ansferring tasks TRANSFERS: TOILET - STEP 4: Does the patient need only incidental help such as contact guard or steadying during toilet transfer? Yes. TRANSFERS: TOILET - SCORE: 4-MIN TRANSFERS: SHOWER: Activity did not occur on this shift TRANSFERS: SHOWER - SCORE: 0-UNK TRANSFERS: TUB: Activity did not occur on this shift TRANSFERS: TUB - SCORE: 0-UNK LOCOMOTION: WALK: Activity did not occur on this shift LOCOMOTION: WALK - SCORE: 0-UNK LOCOMOTION: WHEELCHAIR: LOCOMOTION: WHEELCHAIR - STEP 1: Does the patient need help to go 150 feet in a wheelchair? Yes. LOCOMOTION: WHEELCHAIR - STEP 2: How much assistance does the patient need from the helper? Only supervision, cuing, or coaxing LOCOMOTION: WHEELCHAIR - SCORE: 5-SUP COMPREHENSION: COMPREHENSION: TYPE: Both COMPREHENSION - STEP 1: Does the patient require help from a person or device, or need extra time to understand complex and a bstract ideas (such as current events, finances, discharge planning, medical issues, relationships, e tc)? No. COMPREHENSION - STEP 2: Does the patient need extra time, require an assistive device (such as glasses for visual comprehensi on or a hearing aid for auditory comprehension) or does s/he have mild difficulty understanding compl ex and abstract information? No. COMPREHENSION - SCORE: 7-IND EXPRESSION EXPRESSION: TYPE: Both EXPRESSION - STEP 1: Does the patient require help from a person or device, or need extra time expressing complex and abst ract ideas (such as current events, finances, discharge planning, medical issues, relationships, etc) ? No. EXPRESSION - STEP 2: Does the patient need extra time, require an assistive device (such as augmentive communication syste m or a communication board), OR does s/he have mild difficulty expressing complex and abstract ideas (including mild dysarthria or mild word-find problems)? No. EXPRESSION - SCORE: 7-IND SOCIAL INTERACTION: SOCIAL INTERACTION - STEP 1: Does the patient require a helper to interact with others in social and therapeutic situations? No. SOCIAL INTERACTION - STEP 2: Does the patient need extra time in social situations, OR does s/he interact with staff, other patien ts, and family members ONLY in structured environments, OR does s/he require medication for social in teraction? No. SOCIAL INTERACTION - SCORE: 7-IND PROBLEM SOLVING: PROBLEM SOLVING - STEP 1: Does the patient need help from a person or device, or need extra time to solve complex problems such as managing a checking account or confronting interpersonal problems? No. PROBLEM SOLVING - STEP 2: Does the patient require extra time to make decisions or solve problems, OR does s/he have slight dif ficulty reading, initiating, or self-correcting in unfamiliar situations? Yes, patient needs extra ti me. PROBLEM SOLVING - SCORE: 6-SONI MEMORY: MEMORY - STEP 1: Does the patient need help from a person or device, or need extra time to remember frequently encount ered people, daily routines, and executing requests? No. MEMORY - STEP 2: Does the patient have slight difficulty recognizing frequently encountered people, daily routines, or executing requests without the need for repetition or using self-initiated or environmental cues to remember? No. MEMORY - SCORE: 7-IND SIGNATURE PANEL: The following modified sections: Eating - Score, Grooming - Score, Bathing - Score, Dressing - Upper Body - Score, Dressing - Lower Body - Score, Toileting - Score, Bladder Management - Score, Bowel Man agement - Score, Transfers: Bed, Chair, Wheelchair - Score, Transfers: Toilet - Score, Transfers: Guerline wer - Score, Transfers: Tub - Score, Locomotion: Walk - Score, Locomotion: Wheelchair - Score, Compre hension - Score, Expression - Score, Social Interaction - Score, Problem Solving - Score, Memory - Sc ore were [electronically] signed by Samantha Hugo RN on TueJun 13 2018 14:14:35 GMT-0500 (Central Day ight Time)
--- NOTE | 2018-06-13 14:28 | FAST ---
ENCOUNTER DATE AND TIME: 06/13/2018 08:00 (CDT) NAME MICHELLE EVANGELISTA DATE OF : 1935 DATE OF ADMISSION: 06/01/2018 15:25 (CDT) PHONE: AGE: 82 SSN# [id number] GENDER: Female ENCOUNTER PHYSICIAN: Dr. Checo Delgado M.D. ADMISSION DIAGNOSIS: - Orthopaedic Disorders 08 - Unilateral Hip Fracture (08.11) closed traumatic displaced intertrochanteric fx. EATING: Activity did not occur on this shift EATING - SCORE: 0-UNK GROOMING: Activity did not occur on this shift GROOMING - SCORE: 0-UNK BATHING: Activity did not occur on this shift BATHING - SCORE: 0-UNK DRESSING - UPPER BODY: Activity did not occur on this shift Patient is not dressing in public clothing ARTICLES SCORE Total number of steps: 0 DRESSING - UPPER BODY - SCORE: 0-UNK DRESSING - LOWER BODY: Activity did not occur on this shift Patient is not dressing in public clothing ARTICLES SCORE Total number of steps: 0 DRESSING - LOWER BODY - SCORE: 0-UNK TOILETING: Activity did not occur on this shift TOILETING - SCORE: 0-UNK BLADDER MANAGEMENT: Activity did not occur on this shift BLADDER MANAGEMENT - SCORE: 7-IND BOWEL MANAGEMENT: Activity did not occur on this shift BOWEL MANAGEMENT - SCORE: 7-IND TRANSFERS: BED, CHAIR, WHEELCHAIR: TRANSFERS: BED, CHAIR, WHEELCHAIR - STEP 1: Does the patient require assistance of a person or device, or need extra time with bed, chair, or whe elchair transfers? Yes. TRANSFERS: BED, CHAIR, WHEELCHAIR - STEP 2: Does the patient require the assistance of a helper? No. Patient only requires an assistive device fo r bed, chair, wheelchair transfers such as a sliding board, grab bar, or brace, OR s/he takes more th an reasonable time, OR there is a safety concern when s/he performs the transfers TRANSFERS: BED, CHAIR, WHEELCHAIR - SCORE: 6-SONI TRANSFERS: TOILET: Activity did not occur on this shift TRANSFERS: TOILET - SCORE: 0-UNK TRANSFERS: SHOWER: Activity did not occur on this shift TRANSFERS: SHOWER - SCORE: 0-UNK TRANSFERS: TUB: Activity did not occur on this shift TRANSFERS: TUB - SCORE: 0-UNK LOCOMOTION: WALK: HOUSEHOLD EXCEPTION: Patient walks at least 50 feet independently (with or without a device) LOCOMOTION: WALK - SCORE: 5-SUP LOCOMOTION: WHEELCHAIR: Activity did not occur on this shift LOCOMOTION: WHEELCHAIR - SCORE: 0-UNK LOCOMOTION: STAIRS: Activity did not occur on this shift LOCOMOTION: STAIRS - SCORE: 0-UNK COMPREHENSION: COMPREHENSION - SCORE: 0-UNK EXPRESSION EXPRESSION - SCORE: 0-UNK SOCIAL INTERACTION: SOCIAL INTERACTION - SCORE: 0-UNK PROBLEM SOLVING: PROBLEM SOLVING - SCORE: 0-UNK MEMORY: MEMORY - SCORE: 0-UNK SIGNATURE PANEL: The following modified sections: Transfers: Bed, Chair, Wheelchair - Score, Transfers: Toilet - Score , Locomotion: Walk - Score, Locomotion: Wheelchair - Score, Locomotion: Stairs - Score were [electron mo] signed by Ayaz Lopez PT on TueJun 13 2018 14:26:51 T-0500 (Central Daylight Time)
[2018-06-13] MEDS: ATORVASTATIN 20 MG TAB PO SCH (16:36)
--- NOTE | 2018-06-13 18:51 | R.PN ---
ENCOUNTER DATE AND TIME: 06/13/2018 18:43 (CDT) NAME MICHELLE EVANGELISTA DATE OF : 1935 DATE OF ADMISSION: 06/01/2018 15:25 (CDT) closed traumatic displaced intertrochanteric fxCHIEF COMPLAINT: Right hip fracture SUBJECTIVE: Pt denied any depression. Pt denied any Shortness of Breath. Ambulated 200' with modified independence a rolling walker. Hgb 8.9, glucose 112, prealbumin 9.8. Ambulated 70' with standby assistance using a rolling walker. Elevated blood pressures today managed by PCP Dr. Mckeon. VITAL SIGNS Temperature: 98.7 F SBP/DBP: 185/77 Pulse:62 Resp: 16 MEDICATION ALLERGIES: No Known Drug Allergies (NKDA) ENVIRONMENTAL ALLERGIES: - Substance Allergies None Known - Other Allergies None Known NURSING: - Shower allowing shower - Skin care per protocol PRECAUTIONS: - Posterior Hip Precaution No adduction across midline No external rotation No hip flexion >90 degrees No internal rotation No wheel chair propulsion - Weight Bearing Precaution TTWB right LE ACTIVITIES OOB only with supervision THERAPIES: - Occupational Therapy Evaluate and Treat. - Physical Therapy Evaluate and Treat. PHYSICAL EXAM - Gen Alert and awake Lying in bed No apparent distress Oriented to: person, time, and place - Skin No breakdown No abnormalities - Eyes No abnormalities - ENMT No abnormalities - Neck No abnormalities - CVS RRR - Chest Clear - Abd + bowel sounds - GI nondistended Deferred - No abnormalities - Ext No significant edema - MSK 4/5 weakness in both lower extremities. - Neuro No focal deficits - Psych No abnormalities ASSESSMENT: Pt. is a 82 yo Right-handed white female.On 05/28/2018 she was admitted to [facility] and underwent emergency surgery for closed traumatic displaced intertrochanteric fx (Unilatera l Hip Fracture) by DR. FAVIAN MCKEON.Pre-morbidly, Pt. was independent/mod-I in Self-Care, Sphincter Co ntrol, Transfers Control, Communication, Social Cognition, and Locomotion; and she had good Sphincter Control.Currently, she has deficits of Transfers Control, Communication, Social Cognition, Endurance , Balance, Safety Awareness, Self-Care, and Locomotion.Pt. is now referred to [facility] for acute in-patient rehabilitation in order to maximize patient's functional independence in activities of daily living, strength, ROM, and mobility.- Rehab Goal Patient has realistic goal of being discharged at assistance level 6-Jena to reside at Home with Fam yossi/Relatives. MDM/PLAN: - Physical Therapy Decreased range of motion - to improve, our physical therapists will perform initial evaluation of p t's status upon admission and devise an individualized program for increasing patient's Range of Dell on. Gait dysfunction - to improve, our physical therapists will perform initial evaluation of pt's statu s upon admission and devise an individualized program for Gait Training, and Wheel Chair mobility Inability to transfer - to improve, our physical therapists will perform initial evaluation of pt's status upon admission and devise an individualized program for Bed mobility Need for home safety evaluation - to improve, our physical therapists will perform initial evaluatio n of pt's status upon admission and devise an individualized program for Home Evaluation Need in caregiver upon discharge - to improve, our physical therapists will perform initial evaluati on of pt's status upon admission and devise an individualized program for Caregiver Training New precaution - to improve, our physical therapists will perform initial evaluation of pt's status upon admission and devise an individualized program for Patient precaution education Edema - to improve, our physical therapists will perform initial evaluation of pt's status upon admi ssion and devise an individualized program for Elevation Training, and Lymphedema Therapy Poor balance - to improve, our physical therapists will perform initial evaluation of pt's status up on admission and devise an individualized program for Balance Training Poor endurance - to improve, our physical therapists will perform initial evaluation of pt's status upon admission and devise an individualized program for Endurance Training Weakness - to improve, our physical therapists will perform initial evaluation of pt's status upon a dmission and devise an individualized program for Aquatic Therapy, Neuromuscular Reeducation, and Str engthening Achieving independence - to improve, our physical therapists will perform initial evaluation of pt's status upon admission and devise an individualized program for Community Reintegration Activities - Occupational Therapy ADL deficits - to improve, our occupation therapists will perform initial evaluation of pt's status upon admission and devise an individualized program for Bathing, Bed mobility, Community Reintegratio n, Cooking, Dressing, Eating, Fine Motor Skills, Grooming, Homemaking, Kitchen Mobility, Laundry, Pat ient Education, Safety Awareness, Splinting - Positioning, Transfers(Toilet, Tub, Shower), and Wheel Chair Management Cognitive deficits - to improve, our occupation therapists will perform initial evaluation of pt's s tatus upon admission and devise an individualized program for Cognition - orientation Need for urgent care physician assistant - to improve, our occupation therapists will perform initial evaluation of pt's status upon admission and devise an individualized program for Caregiver Training Weakness - to improve, our occupation therapists will perform initial evaluation of pt's status upon admission and devise an individualized program for Aquatic Therapy, Balance, Endurance, UE ROM, and UE strengthening - Anterior Hip Precaution No abduction No active extension No adduction across midline No external rotation No hip flexion >90 degrees No internal rotation - Diet - Liquid Texture Continue Regular - Tube Feed Continue N/A - Diet Type Continue Regular - Posterior Hip Precaution No adduction across midline No external rotation No hip flexion >90 degrees No internal rotation No wheel chair propulsion - Weight Bearing Precaution TTWB right LE - Skin care per protocol - Diet - Solid Texture Continue Regular - Shower allowing shower FUNCTIONAL STATUS: UPDATED AT WEEKLY TEAM CONFERENCE - Bladder Same accident frequency: 7-Ind - No accidents in the past 7 days - Bowel Same accident frequency: 7-Ind - No accidents in the past 7 days - Walking Same score based on distance walked: 0(N/A) FUNCTIONAL STATUS: - Self-Care A. Eating Ind B. Grooming sup C. Bathing sup D. Dressing - Upper sup E. Dressing - Lower maxA F. Toileting maxA - Sphincter Control G: Bladder control Dep H: Bowel control Dep - Transfers Control I. Bed/Chair/Wheelchair maxA J. Toilet maxA K. Tub/Shower maxA - Locomotion L. Walk/Wheelchair (B) Dep M. Stairs ADNO - Communication N. Comprehension (B) sup O. Expression (B) sup - Social Cognition P. Social Interaction sup Q. Problem Solving sup R. Memory sup - Endurance Poor - Balance Poor - Safety Awareness Fair CURRENT FUNC. DEFICITS: Transfers Control, Communication, Social Cognition, Endurance, Balance, Safety Awareness, Self-Care, and Locomotion SIGNATURE PANEL: (CDT)
[2018-06-13] MEDS: DOCUSATE NA 100 MG CAP PO SCH (20:45)
[2018-06-13] MEDS: ALPRAZOLAM 0.5 MG TABLET PO PRN (21:40)
--- NOTE | 2018-06-13 22:48 | PN ---
Date of Progress Note: 06/13/2018 Subjective: The patient was seen this morning for followup. No new complaints, problems reported by her, lying in bed, not in distress. Continues to have left shoulder pain. Objective: Vital Signs: Reviewed. HEENT: Unremarkable. Lungs: Clear to auscultation. Heart: Sounds normal. Abdomen: Soft. Bowel sounds normal. No guarding, rigidity, tenderness, distention. Extremities: No leg edema. Impression: 1.Right hip fracture. 2.Anemia due to acute blood loss. 3.Osteoarthritis, multiple sites. 4.Coronary artery disease. Plan: Continue current medications. Continue current pain medications, antihypertensive medication, and iron supplement and DVT prophylaxis. Physical therapy to be provided under guidance of Dr. Apoorva renner. I will see her tomorrow for followup. ERIKA/MODL Voice ID: [id number] Report ID: [id number]
--- NOTE | 2018-06-14 01:02 | FAST ---
SHIFT START DATE/TIME: 06/13/2018 19:00 (CDT) SHIFT END DATE/TIME: 06/14/2018 07:00 (CDT) NAME MICHELLE EVANGELISTA DATE OF : 1935 DATE OF ADMISSION: 06/01/2018 15:25 (CDT) PHONE: AGE: 82 SSN# [id number] GENDER: Female ENCOUNTER PHYSICIAN: Dr. Checo Delgado M.D. ADMISSION DIAGNOSIS: - Orthopaedic Disorders 08 - Unilateral Hip Fracture (08.11) closed traumatic displaced intertrochanteric fx. EATING: Activity did not occur on this shift EATING - SCORE: 0-UNK GROOMING: Oral care Wash, rinse, and dry hands GROOMING - STEP 1: Does the patient require the assistance of a person or device, or need extra time when grooming? Yes. GROOMING - STEP 2: Does the patient require the assistance of a helper? Yes. GROOMING - STEP 3: How much assistance does the patient require from the helper? Only prior equipment preparation/set up from the helper GROOMING - SCORE: 5-SUP BATHING: Activity did not occur on this shift BATHING - SCORE: 0-UNK DRESSING - UPPER BODY: Patient is not dressing in public clothing ARTICLES SCORE Total number of steps: 0 DRESSING - UPPER BODY - SCORE: 0-UNK DRESSING - LOWER BODY: Patient is not dressing in public clothing ARTICLES SCORE Total number of steps: 0 DRESSING - LOWER BODY - SCORE: 0-UNK TOILETING: TOILETING - STEP 1: Does the patient require the assistance of a person or device, or need extra time with toileting? Yes . TOILETING - STEP 2: Does the patient require the assistance of a helper? Yes. TOILETING - STEP 3: How much assistance does the patient require from the helper? Hands-on assistance from the helper TOILETING - STEP 4: Of the 3 tasks: 1) Adjusting clothing prior to use, 2) Cleansing of perineal area, 3) Adjusting clot julia after use; How many tasks does the patient perform WITHOUT assistance of the helper? One task TOILETING - SCORE: 2-MAX BLADDER MANAGEMENT: BLADDER MANAGEMENT - STEP 1: Does the patient control the bladder completely and intentionally without equipment or devices or med ications, and is always continent? No. BLADDER MANAGEMENT - STEP 2: Does the patient require the assistance of a helper? Yes. BLADDER MANAGEMENT - STEP 3: How much assistance does the patient require from the helper? Only supervision, stand-by, cuing, or c oaxing BLADDER MANAGEMENT - SCORE: 5-SUP BOWEL MANAGEMENT: BOWEL MANAGEMENT - STEP 1: Does the patient control bowels completely and intentionally without equipment devices or medications AND is always continent? No. BOWEL MANAGEMENT - STEP 2: Does the patient require the assistance of a helper? No, patient requires medication for control such as stool softeners, suppositories, laxatives, enemas, or OTC medications BOWEL MANAGEMENT - SCORE: 6-SONI TRANSFERS: BED, CHAIR, WHEELCHAIR: TRANSFERS: BED, CHAIR, WHEELCHAIR - STEP 1: Does the patient require assistance of a person or device, or need extra time with bed, chair, or whe elchair transfers? Yes. TRANSFERS: BED, CHAIR, WHEELCHAIR - STEP 2: Does the patient require the assistance of a helper? Yes. TRANSFERS: BED, CHAIR, WHEELCHAIR - STEP 3: How much assistance does the patient require from the helper? Lifting of the legs TRANSFERS: BED, CHAIR, WHEELCHAIR - STEP 4: How many legs does the patient require the helper to lift? both legs TRANSFERS: BED, CHAIR, WHEELCHAIR - SCORE: 3-MOD TRANSFERS: TOILET: TRANSFERS: TOILET - STEP 1: Does the patient require the assistance of a person or device, or need extra time with toilet transfe rs? Yes. TRANSFERS: TOILET - STEP 2: Does the patient require the assistance of a helper? Yes. TRANSFERS: TOILET - STEP 3: How much assistance does the patient require from the helper? Patient performs half or more of the tr ansferring tasks TRANSFERS: TOILET - STEP 4: Does the patient need only incidental help such as contact guard or steadying during toilet transfer? Yes. TRANSFERS: TOILET - SCORE: 4-MIN TRANSFERS: SHOWER: Activity did not occur on this shift TRANSFERS: SHOWER - SCORE: 0-UNK TRANSFERS: TUB: Activity did not occur on this shift TRANSFERS: TUB - SCORE: 0-UNK LOCOMOTION: WALK: Activity did not occur on this shift LOCOMOTION: WALK - SCORE: 0-UNK LOCOMOTION: WHEELCHAIR: Activity did not occur on this shift LOCOMOTION: WHEELCHAIR - SCORE: 0-UNK COMPREHENSION: COMPREHENSION: TYPE: Both COMPREHENSION - STEP 1: Does the patient require help from a person or device, or need extra time to understand complex and a bstract ideas (such as current events, finances, discharge planning, medical issues, relationships, e tc)? Yes. COMPREHENSION - STEP 2: Does the patient require help to understand questions or statements about basic needs or ideas (such as hunger, thirst, sleep, safety, daily schedule, room location, or discomfort) half or more of the t jean? No. COMPREHENSION - STEP 3: How often does the patient need help to understand directions and conversation about basic needs? 10% - 24% of the time COMPREHENSION - SCORE: 4-MIN EXPRESSION EXPRESSION: TYPE: Both EXPRESSION - STEP 1: Does the patient require help from a person or device, or need extra time expressing complex and abst ract ideas (such as current events, finances, discharge planning, medical issues, relationships, etc) ? No. EXPRESSION - STEP 2: Does the patient need extra time, require an assistive device (such as augmentive communication syste m or a communication board), OR does s/he have mild difficulty expressing complex and abstract ideas (including mild dysarthria or mild word-find problems)? No. EXPRESSION - SCORE: 7-IND SOCIAL INTERACTION: SOCIAL INTERACTION - STEP 1: Does the patient require a helper to interact with others in social and therapeutic situations? No. SOCIAL INTERACTION - STEP 2: Does the patient need extra time in social situations, OR does s/he interact with staff, other patien ts, and family members ONLY in structured environments, OR does s/he require medication for social in teraction? Yes, patient needs extra time SOCIAL INTERACTION - SCORE: 6-SONI PROBLEM SOLVING: PROBLEM SOLVING - STEP 1: Does the patient need help from a person or device, or need extra time to solve complex problems such as managing a checking account or confronting interpersonal problems? Yes. PROBLEM SOLVING - STEP 2: Does the patient solve basic routine problems half or more of the time? Yes. PROBLEM SOLVING - STEP 3: How often does the patient need help to solve basic routine problems? 10%-24% of the time PROBLEM SOLVING - SCORE: 4-MIN MEMORY: MEMORY - STEP 1: Does the patient need help from a person or device, or need extra time to remember frequently encount ered people, daily routines, and executing requests? No. MEMORY - STEP 2: Does the patient have slight difficulty recognizing frequently encountered people, daily routines, or executing requests without the need for repetition or using self-initiated or environmental cues to remember? Yes. MEMORY - SCORE: 6-SONI SIGNATURE PANEL: The following modified sections: Eating - Score, Grooming - Score, Dressing - Upper Body - Score, William ssing - Lower Body - Score, Toileting - Score, Bladder Management - Score, Bowel Management - Score, Transfers: Bed, Chair, Wheelchair - Score, Transfers: Toilet - Score, Transfers: Shower - Score, Dowd sfers: Tub - Score, Locomotion: Walk - Score, Locomotion: Wheelchair - Score, Comprehension - Score, Expression - Score, Social Interaction - Score, Problem Solving - Score, Memory - Score were [electro nically] signed by Ngoc Townsend CNA on TueJun 14 2018 01:01:43 GMT-0500 (Central Daylight Time)
[2018-06-14] MEDS: HYDROCODONE/APAP 7.5/325 MG TAB PO PRN ×3 (07:16→21:06)
[2018-06-14] MEDS: ENOXAPARIN 30 MG/0.3 ML SQ SCH (07:17)
[2018-06-14] MEDS: PANTOPRAZOLE 40MG TABLET PO SCH (07:17)
[2018-06-14] MEDS: POLYETHYL GLY 3350 17 GM/DOSE PO SCH (07:59)
[2018-06-14] MEDS: GABAPENTIN 300 MG CAP PO SCH ×3 (08:00→20:23)
[2018-06-14] MEDS: METOPROLOL XL 25 MG TAB PO SCH (08:00)
[2018-06-14] MEDS: CRANBERRY FRUIT EXTRACT 200 MG CAP PO SCH ×2 (08:00→20:23)
[2018-06-14] MEDS: VITAMIN D 1000 UNIT TAB PO SCH (08:00)
[2018-06-14] MEDS: MAGNESIUM OXIDE 400 MG TAB PO SCH ×2 (08:01→20:23)
[2018-06-14] MEDS: ASCORBIC ACID 500 MG TABLET PO SCH (08:01)
[2018-06-14] MEDS: ASPIRIN EC 81 MG TAB PO SCH (08:01)
[2018-06-14] MEDS: FE SULF/FA/VIT B COMP & C TAB PO SCH (08:01)
[2018-06-14] MEDS: FUROSEMIDE 20 MG TABLET PO SCH ×2 (08:01→16:42)
[2018-06-14] MEDS: PROMOD 30 ML DOSE PO SCH ×2 (08:02→20:23)
[2018-06-14] MEDS: LOSARTAN POTASSIUM 50 MG TABLET PO SCH (08:02)
--- NOTE | 2018-06-14 10:16 | FAST ---
SHIFT START DATE/TIME: 06/14/2018 07:00 (CDT) SHIFT END DATE/TIME: 06/14/2018 19:00 (CDT) NAME MICHELLE EVANGELISTA DATE OF : 1935 DATE OF ADMISSION: 06/01/2018 15:25 (CDT) PHONE: AGE: 82 SSN# [id number] GENDER: Female ENCOUNTER PHYSICIAN: Dr. Checo Delgado M.D. ADMISSION DIAGNOSIS: - Orthopaedic Disorders 08 - Unilateral Hip Fracture (08.11) closed traumatic displaced intertrochanteric fx. EATING: EATING - STEP 1: Does the patient require the assistance of a person or device, or need extra time when eating? Yes. EATING - STEP 2: Does the patient require the assistance of a helper? No, patient only requires an assistive device, O R s/he takes more than reasonable time to eat, OR there is a safety concern, OR s/he requires modifie d food consistency EATING - SCORE: 6-SONI GROOMING: Activity did not occur on this shift GROOMING - SCORE: 0-UNK BATHING: Activity did not occur on this shift BATHING - SCORE: 0-UNK DRESSING - UPPER BODY: Activity did not occur on this shift ARTICLES SCORE Total number of steps: 0 DRESSING - UPPER BODY - SCORE: 0-UNK DRESSING - LOWER BODY: Activity did not occur on this shift ARTICLES SCORE Total number of steps: 0 DRESSING - LOWER BODY - SCORE: 0-UNK TOILETING: TOILETING - STEP 1: Does the patient require the assistance of a person or device, or need extra time with toileting? Yes . TOILETING - STEP 2: Does the patient require the assistance of a helper? Yes. TOILETING - STEP 3: How much assistance does the patient require from the helper? Hands-on assistance from the helper TOILETING - STEP 4: Of the 3 tasks: 1) Adjusting clothing prior to use, 2) Cleansing of perineal area, 3) Adjusting clot julia after use; How many tasks does the patient perform WITHOUT assistance of the helper? Three tasks with steadying assistance from the helper TOILETING - SCORE: 4-MIN BLADDER MANAGEMENT: BLADDER MANAGEMENT - STEP 1: Does the patient control the bladder completely and intentionally without equipment or devices or med ications, and is always continent? No. BLADDER MANAGEMENT - STEP 2: Does the patient require the assistance of a helper? No, patient requires and independently uses an a ssistive device, such as a urinal, bedpan, bedside commode, catheter, absorbent pad, or collecting de vice BLADDER MANAGEMENT - SCORE: 6-SONI BOWEL MANAGEMENT: Activity did not occur on this shift BOWEL MANAGEMENT - SCORE: 7-IND TRANSFERS: BED, CHAIR, WHEELCHAIR: TRANSFERS: BED, CHAIR, WHEELCHAIR - STEP 1: Does the patient require assistance of a person or device, or need extra time with bed, chair, or whe elchair transfers? Yes. TRANSFERS: BED, CHAIR, WHEELCHAIR - STEP 2: Does the patient require the assistance of a helper? Yes. TRANSFERS: BED, CHAIR, WHEELCHAIR - STEP 3: How much assistance does the patient require from the helper? Steadying/guiding assistance TRANSFERS: BED, CHAIR, WHEELCHAIR - SCORE: 4-MIN TRANSFERS: TOILET: TRANSFERS: TOILET - STEP 1: Does the patient require the assistance of a person or device, or need extra time with toilet transfe rs? Yes. TRANSFERS: TOILET - STEP 2: Does the patient require the assistance of a helper? Yes. TRANSFERS: TOILET - STEP 3: How much assistance does the patient require from the helper? Patient performs half or more of the tr ansferring tasks TRANSFERS: TOILET - STEP 4: Does the patient need only incidental help such as contact guard or steadying during toilet transfer? No. Patient needs more than incidental help TRANSFERS: TOILET - SCORE: 3-MOD TRANSFERS: SHOWER: Activity did not occur on this shift TRANSFERS: SHOWER - SCORE: 0-UNK TRANSFERS: TUB: Activity did not occur on this shift TRANSFERS: TUB - SCORE: 0-UNK LOCOMOTION: WALK: Activity did not occur on this shift LOCOMOTION: WALK - SCORE: 0-UNK LOCOMOTION: WHEELCHAIR: Activity did not occur on this shift LOCOMOTION: WHEELCHAIR - SCORE: 0-UNK COMPREHENSION: COMPREHENSION: TYPE: Both COMPREHENSION - STEP 1: Does the patient require help from a person or device, or need extra time to understand complex and a bstract ideas (such as current events, finances, discharge planning, medical issues, relationships, e tc)? No. COMPREHENSION - STEP 2: Does the patient need extra time, require an assistive device (such as glasses for visual comprehensi on or a hearing aid for auditory comprehension) or does s/he have mild difficulty understanding compl ex and abstract information? Yes. COMPREHENSION - SCORE: 6-SONI EXPRESSION EXPRESSION: TYPE: Both EXPRESSION - STEP 1: Does the patient require help from a person or device, or need extra time expressing complex and abst ract ideas (such as current events, finances, discharge planning, medical issues, relationships, etc) ? No. EXPRESSION - STEP 2: Does the patient need extra time, require an assistive device (such as augmentive communication syste m or a communication board), OR does s/he have mild difficulty expressing complex and abstract ideas (including mild dysarthria or mild word-find problems)? Yes. EXPRESSION - SCORE: 6-SONI SOCIAL INTERACTION: SOCIAL INTERACTION - STEP 1: Does the patient require a helper to interact with others in social and therapeutic situations? No. SOCIAL INTERACTION - STEP 2: Does the patient need extra time in social situations, OR does s/he interact with staff, other patien ts, and family members ONLY in structured environments, OR does s/he require medication for social in teraction? Yes, patient needs extra time SOCIAL INTERACTION - SCORE: 6-SONI PROBLEM SOLVING: PROBLEM SOLVING - STEP 1: Does the patient need help from a person or device, or need extra time to solve complex problems such as managing a checking account or confronting interpersonal problems? No. PROBLEM SOLVING - STEP 2: Does the patient require extra time to make decisions or solve problems, OR does s/he have slight dif ficulty reading, initiating, or self-correcting in unfamiliar situations? Yes, patient needs extra ti me. PROBLEM SOLVING - SCORE: 6-SONI MEMORY: MEMORY - STEP 1: Does the patient need help from a person or device, or need extra time to remember frequently encount ered people, daily routines, and executing requests? No. MEMORY - STEP 2: Does the patient have slight difficulty recognizing frequently encountered people, daily routines, or executing requests without the need for repetition or using self-initiated or environmental cues to remember? Yes. MEMORY - SCORE: 6-SONI SIGNATURE PANEL: The following modified sections: Eating - Score, Grooming - Score, Bathing - Score, Dressing - Upper Body - Score, Dressing - Lower Body - Score, Toileting - Score, Bladder Management - Score, Bowel Man agement - Score, Transfers: Bed, Chair, Wheelchair - Score, Transfers: Toilet - Score, Transfers: Guerline wer - Score, Transfers: Tub - Score, Locomotion: Walk - Score, Locomotion: Wheelchair - Score, Compre hension - Score, Expression - Score, Social Interaction - Score, Problem Solving - Score, Memory - Sc ore were [electronically] signed by Gerald Niño on TueJun 14 2018 10:15:42 GMT-0500 (Central Daylight Time)
[2018-06-14] MEDS: LIDOCAINE 5% PATCH TOP SCH (10:21)
[2018-06-14] MEDS: TRAMADOL HCL 50 MG TAB PO PRN (12:27)
--- NOTE | 2018-06-14 15:16 | FAST ---
ENCOUNTER DATE AND TIME: 06/14/2018 08:00 (CDT) NAME MICHELLE EVANGELISTA DATE OF : 1935 DATE OF ADMISSION: 06/01/2018 15:25 (CDT) PHONE: AGE: 82 SSN# [id number] GENDER: Female ENCOUNTER PHYSICIAN: Dr. Checo Delgado M.D. ADMISSION DIAGNOSIS: - Orthopaedic Disorders 08 - Unilateral Hip Fracture (.) closed traumatic displaced intertrochanteric fx. EATING: Activity did not occur on this shift EATING - SCORE: 0-UNK GROOMING: Activity did not occur on this shift GROOMING - SCORE: 0-UNK BATHING: Activity did not occur on this shift BATHING - SCORE: 0-UNK DRESSING - UPPER BODY: Activity did not occur on this shift Patient is not dressing in public clothing ARTICLES SCORE Total number of steps: 0 DRESSING - UPPER BODY - SCORE: 0-UNK DRESSING - LOWER BODY: Activity did not occur on this shift Patient is not dressing in public clothing ARTICLES SCORE Total number of steps: 0 DRESSING - LOWER BODY - SCORE: 0-UNK TOILETING: Activity did not occur on this shift TOILETING - SCORE: 0-UNK BLADDER MANAGEMENT: Activity did not occur on this shift BLADDER MANAGEMENT - SCORE: 7-IND BOWEL MANAGEMENT: Activity did not occur on this shift BOWEL MANAGEMENT - SCORE: 7-IND TRANSFERS: BED, CHAIR, WHEELCHAIR: TRANSFERS: BED, CHAIR, WHEELCHAIR - STEP 1: Does the patient require assistance of a person or device, or need extra time with bed, chair, or whe elchair transfers? Yes. TRANSFERS: BED, CHAIR, WHEELCHAIR - STEP 2: Does the patient require the assistance of a helper? No. Patient only requires an assistive device fo r bed, chair, wheelchair transfers such as a sliding board, grab bar, or brace, OR s/he takes more th an reasonable time, OR there is a safety concern when s/he performs the transfers TRANSFERS: BED, CHAIR, WHEELCHAIR - SCORE: 6-SONI TRANSFERS: TOILET: Activity did not occur on this shift TRANSFERS: TOILET - SCORE: 0-UNK TRANSFERS: SHOWER: Activity did not occur on this shift TRANSFERS: SHOWER - SCORE: 0-UNK TRANSFERS: TUB: Activity did not occur on this shift TRANSFERS: TUB - SCORE: 0-UNK LOCOMOTION: WALK: HOUSEHOLD EXCEPTION: Patient walks at least 50 feet independently (with or without a device) LOCOMOTION: WALK - SCORE: 5-SUP LOCOMOTION: WHEELCHAIR: Activity did not occur on this shift LOCOMOTION: WHEELCHAIR - SCORE: 0-UNK LOCOMOTION: STAIRS: Activity did not occur on this shift LOCOMOTION: STAIRS - SCORE: 0-UNK COMPREHENSION: COMPREHENSION - SCORE: 0-UNK EXPRESSION EXPRESSION - SCORE: 0-UNK SOCIAL INTERACTION: SOCIAL INTERACTION - SCORE: 0-UNK PROBLEM SOLVING: PROBLEM SOLVING - SCORE: 0-UNK MEMORY: MEMORY - SCORE: 0-UNK SIGNATURE PANEL: The following modified sections: Transfers: Bed, Chair, Wheelchair - Score, Transfers: Toilet - Score , Locomotion: Walk - Score, Locomotion: Wheelchair - Score, Locomotion: Stairs - Score were [electron mo] signed by Ayaz Lopez PT on TueJun 14 2018 15:15:51 T-0500 (Central Daylight Time)
[2018-06-14] MEDS: ATORVASTATIN 20 MG TAB PO SCH (16:43)
--- NOTE | 2018-06-14 19:21 | R.PN ---
ENCOUNTER DATE AND TIME: 06/14/2018 19:16 (CDT) NAME MICHELLE EVANGELISTA DATE OF : 1935 DATE OF ADMISSION: 06/01/2018 15:25 (CDT) closed traumatic displaced intertrochanteric fxCHIEF COMPLAINT: Right hip fracture SUBJECTIVE: Pt denied any depression. Pt denied any Shortness of Breath. Ambulated 275' with modified independence a rolling walker. Hgb 8.9, glucose 112, prealbumin 9.8. Ambulated 70' with standby assistance using a rolling walker. Elevated blood pressures today managed by PCP Dr. Mckeon. VITAL SIGNS Temperature: 98.7 F SBP/DBP: 152/63 Pulse: 59 Resp: 16 MEDICATION ALLERGIES: No Known Drug Allergies (NKDA) ENVIRONMENTAL ALLERGIES: - Substance Allergies None Known - Other Allergies None Known NURSING: - Shower allowing shower - Skin care per protocol PRECAUTIONS: - Posterior Hip Precaution No adduction across midline No external rotation No hip flexion >90 degrees No internal rotation No wheel chair propulsion - Weight Bearing Precaution TTWB right LE ACTIVITIES OOB only with supervision THERAPIES: - Occupational Therapy Evaluate and Treat. - Physical Therapy Evaluate and Treat. PHYSICAL EXAM - Gen Alert and awake Lying in bed No apparent distress Oriented to: person, time, and place - Skin No breakdown No abnormalities - Eyes No abnormalities - ENMT No abnormalities - Neck No abnormalities - CVS RRR - Chest Clear - Abd + bowel sounds - GI nondistended Deferred - No abnormalities - Ext No significant edema - MSK 4/5 weakness in both lower extremities. - Neuro No focal deficits - Psych No abnormalities ASSESSMENT: Pt. is a 82 yo Right-handed white female.On 05/28/2018 she was admitted to [facility] and underwent emergency surgery for closed traumatic displaced intertrochanteric fx (Unilatera l Hip Fracture) by DR. FAVIAN MCKEON.Pre-morbidly, Pt. was independent/mod-I in Self-Care, Sphincter Co ntrol, Transfers Control, Communication, Social Cognition, and Locomotion; and she had good Sphincter Control.Currently, she has deficits of Transfers Control, Communication, Social Cognition, Endurance , Balance, Safety Awareness, Self-Care, and Locomotion.Pt. is now referred to [facility] for acute in-patient rehabilitation in order to maximize patient's functional independence in activities of daily living, strength, ROM, and mobility.- Rehab Goal Patient has realistic goal of being discharged at assistance level 6-Jena to reside at Home with Fam yossi/Relatives. MDM/PLAN: - Physical Therapy Decreased range of motion - to improve, our physical therapists will perform initial evaluation of p t's status upon admission and devise an individualized program for increasing patient's Range of Dell on. Gait dysfunction - to improve, our physical therapists will perform initial evaluation of pt's statu s upon admission and devise an individualized program for Gait Training, and Wheel Chair mobility Inability to transfer - to improve, our physical therapists will perform initial evaluation of pt's status upon admission and devise an individualized program for Bed mobility Need for home safety evaluation - to improve, our physical therapists will perform initial evaluatio n of pt's status upon admission and devise an individualized program for Home Evaluation Need in caregiver upon discharge - to improve, our physical therapists will perform initial evaluati on of pt's status upon admission and devise an individualized program for Caregiver Training New precaution - to improve, our physical therapists will perform initial evaluation of pt's status upon admission and devise an individualized program for Patient precaution education Edema - to improve, our physical therapists will perform initial evaluation of pt's status upon admi ssion and devise an individualized program for Elevation Training, and Lymphedema Therapy Poor balance - to improve, our physical therapists will perform initial evaluation of pt's status up on admission and devise an individualized program for Balance Training Poor endurance - to improve, our physical therapists will perform initial evaluation of pt's status upon admission and devise an individualized program for Endurance Training Weakness - to improve, our physical therapists will perform initial evaluation of pt's status upon a dmission and devise an individualized program for Aquatic Therapy, Neuromuscular Reeducation, and Str engthening Achieving independence - to improve, our physical therapists will perform initial evaluation of pt's status upon admission and devise an individualized program for Community Reintegration Activities - Occupational Therapy ADL deficits - to improve, our occupation therapists will perform initial evaluation of pt's status upon admission and devise an individualized program for Bathing, Bed mobility, Community Reintegratio n, Cooking, Dressing, Eating, Fine Motor Skills, Grooming, Homemaking, Kitchen Mobility, Laundry, Pat ient Education, Safety Awareness, Splinting - Positioning, Transfers(Toilet, Tub, Shower), and Wheel Chair Management Cognitive deficits - to improve, our occupation therapists will perform initial evaluation of pt's s tatus upon admission and devise an individualized program for Cognition - orientation Need for critical care physician - to improve, our occupation therapists will perform initial evaluation of pt's status upon admission and devise an individualized program for Caregiver Training Weakness - to improve, our occupation therapists will perform initial evaluation of pt's status upon admission and devise an individualized program for Aquatic Therapy, Balance, Endurance, UE ROM, and UE strengthening - Anterior Hip Precaution No abduction No active extension No adduction across midline No external rotation No hip flexion >90 degrees No internal rotation - Diet - Liquid Texture Continue Regular - Tube Feed Continue N/A - Diet Type Continue Regular - Posterior Hip Precaution No adduction across midline No external rotation No hip flexion >90 degrees No internal rotation No wheel chair propulsion - Weight Bearing Precaution TTWB right LE - Skin care per protocol - Diet - Solid Texture Continue Regular - Shower allowing shower FUNCTIONAL STATUS: UPDATED AT WEEKLY TEAM CONFERENCE - Bladder Same accident frequency: 7-Ind - No accidents in the past 7 days - Bowel Same accident frequency: 7-Ind - No accidents in the past 7 days - Walking Same score based on distance walked: 0(N/A) FUNCTIONAL STATUS: - Self-Care A. Eating Ind B. Grooming sup C. Bathing sup D. Dressing - Upper sup E. Dressing - Lower maxA F. Toileting maxA - Sphincter Control G: Bladder control Dep H: Bowel control Dep - Transfers Control I. Bed/Chair/Wheelchair maxA J. Toilet maxA K. Tub/Shower maxA - Locomotion L. Walk/Wheelchair (B) Dep M. Stairs ADNO - Communication N. Comprehension (B) sup O. Expression (B) sup - Social Cognition P. Social Interaction sup Q. Problem Solving sup R. Memory sup - Endurance Poor - Balance Poor - Safety Awareness Fair CURRENT FUNC. DEFICITS: Transfers Control, Communication, Social Cognition, Endurance, Balance, Safety Awareness, Self-Care, and Locomotion SIGNATURE PANEL: (CDT)
[2018-06-14] MEDS: DOCUSATE NA 100 MG CAP PO SCH (20:23)
[2018-06-14] MEDS: ALPRAZOLAM 0.5 MG TABLET PO PRN (21:06)
[2018-06-14] MEDS: TEMAZEPAM 15 MG CAP PO PRN (22:08)
--- NOTE | 2018-06-15 00:04 | PN ---
Date of Progress Note: 06/14/2018 Subjective: The patient was seen this morning for followup. No new complaints or problems reported. She was sitting in wheelchair, feels better today than yesterday. Objective: Vital Signs: Reviewed. HEENT: Unremarkable. Lungs: Clear to auscultation. Heart: Sounds normal. Abdomen: Soft. Bowel sounds normal. No guarding, rigidity, tenderness, or distention. Extremities: No leg edema. Impression: 1.Right hip fracture. 2.Acute blood loss anemia. 3.Coronary artery disease. 4.Osteoarthritis, multiple sites. Plan: We will continue current medication. Continue current DVT prophylaxis. I will see her tomorr ow for followup. The patient does not feel comfortable going home upon discharge from the rehab [facility], which is scheduled for this Tuesday and she wants to go to intermediate and 2 days ago when she alex d me I informed her to communicate with Social Service and nurse on the rehab floor so that way they can start making arrangements for that and today when I talked to her, she had not mentioned anything to director of social services or nurse on the rehab floor and she is not sure if her has said anything or not, so I did inform nurse on the rehab floor to make sure to make arrangements for patient to go to retirement facility upon discharge. ERIKA/MODL Voice ID: [id number] Report ID: [id number]
--- NOTE | 2018-06-15 02:35 | FAST ---
SHIFT START DATE/TIME: 06/14/2018 19:00 (CDT) SHIFT END DATE/TIME: 06/15/2018 07:00 (CDT) NAME MICHELLE EVANGELISTA DATE OF : 1935 DATE OF ADMISSION: 06/01/2018 15:25 (CDT) PHONE: AGE: 82 SSN# [id number] GENDER: Female ENCOUNTER PHYSICIAN: Dr. Checo Delgado M.D. ADMISSION DIAGNOSIS: - Orthopaedic Disorders 08 - Unilateral Hip Fracture (08.11) closed traumatic displaced intertrochanteric fx. EATING: Activity did not occur on this shift EATING - SCORE: 0-UNK GROOMING: Activity did not occur on this shift GROOMING - SCORE: 0-UNK BATHING: Activity did not occur on this shift BATHING - SCORE: 0-UNK DRESSING - UPPER BODY: Patient is not dressing in public clothing ARTICLES SCORE Total number of steps: 0 DRESSING - UPPER BODY - SCORE: 0-UNK DRESSING - LOWER BODY: Patient is not dressing in public clothing ARTICLES SCORE Total number of steps: 0 DRESSING - LOWER BODY - SCORE: 0-UNK TOILETING: TOILETING - STEP 1: Does the patient require the assistance of a person or device, or need extra time with toileting? Yes . TOILETING - STEP 2: Does the patient require the assistance of a helper? Yes. TOILETING - STEP 3: How much assistance does the patient require from the helper? Hands-on assistance from the helper TOILETING - STEP 4: Of the 3 tasks: 1) Adjusting clothing prior to use, 2) Cleansing of perineal area, 3) Adjusting clot julia after use; How many tasks does the patient perform WITHOUT assistance of the helper? Three tasks with steadying assistance from the helper TOILETING - SCORE: 4-MIN BLADDER MANAGEMENT: BLADDER MANAGEMENT - STEP 1: Does the patient control the bladder completely and intentionally without equipment or devices or med ications, and is always continent? Yes. BLADDER MANAGEMENT - SCORE: 7-IND BOWEL MANAGEMENT: Activity did not occur on this shift BOWEL MANAGEMENT - SCORE: 7-IND TRANSFERS: BED, CHAIR, WHEELCHAIR: TRANSFERS: BED, CHAIR, WHEELCHAIR - STEP 1: Does the patient require assistance of a person or device, or need extra time with bed, chair, or whe elchair transfers? Yes. TRANSFERS: BED, CHAIR, WHEELCHAIR - STEP 2: Does the patient require the assistance of a helper? Yes. TRANSFERS: BED, CHAIR, WHEELCHAIR - STEP 3: How much assistance does the patient require from the helper? Lifting of the legs TRANSFERS: BED, CHAIR, WHEELCHAIR - STEP 4: How many legs does the patient require the helper to lift? both legs TRANSFERS: BED, CHAIR, WHEELCHAIR - SCORE: 3-MOD TRANSFERS: TOILET: TRANSFERS: TOILET - STEP 1: Does the patient require the assistance of a person or device, or need extra time with toilet transfe rs? Yes. TRANSFERS: TOILET - STEP 2: Does the patient require the assistance of a helper? Yes. TRANSFERS: TOILET - STEP 3: How much assistance does the patient require from the helper? Patient performs half or more of the tr ansferring tasks TRANSFERS: TOILET - STEP 4: Does the patient need only incidental help such as contact guard or steadying during toilet transfer? Yes. TRANSFERS: TOILET - SCORE: 4-MIN TRANSFERS: SHOWER: Activity did not occur on this shift TRANSFERS: SHOWER - SCORE: 0-UNK TRANSFERS: TUB: Activity did not occur on this shift TRANSFERS: TUB - SCORE: 0-UNK LOCOMOTION: WALK: Activity did not occur on this shift LOCOMOTION: WALK - SCORE: 0-UNK LOCOMOTION: WHEELCHAIR: Activity did not occur on this shift LOCOMOTION: WHEELCHAIR - SCORE: 0-UNK COMPREHENSION: COMPREHENSION: TYPE: Both COMPREHENSION - STEP 1: Does the patient require help from a person or device, or need extra time to understand complex and a bstract ideas (such as current events, finances, discharge planning, medical issues, relationships, e tc)? No. COMPREHENSION - STEP 2: Does the patient need extra time, require an assistive device (such as glasses for visual comprehensi on or a hearing aid for auditory comprehension) or does s/he have mild difficulty understanding compl ex and abstract information? Yes. COMPREHENSION - SCORE: 6-SONI EXPRESSION EXPRESSION: TYPE: Both EXPRESSION - STEP 1: Does the patient require help from a person or device, or need extra time expressing complex and abst ract ideas (such as current events, finances, discharge planning, medical issues, relationships, etc) ? No. EXPRESSION - STEP 2: Does the patient need extra time, require an assistive device (such as augmentive communication syste m or a communication board), OR does s/he have mild difficulty expressing complex and abstract ideas (including mild dysarthria or mild word-find problems)? No. EXPRESSION - SCORE: 7-IND SOCIAL INTERACTION: SOCIAL INTERACTION - STEP 1: Does the patient require a helper to interact with others in social and therapeutic situations? No. SOCIAL INTERACTION - STEP 2: Does the patient need extra time in social situations, OR does s/he interact with staff, other patien ts, and family members ONLY in structured environments, OR does s/he require medication for social in teraction? Yes, patient requires medication for social interaction SOCIAL INTERACTION - SCORE: 6-SONI PROBLEM SOLVING: PROBLEM SOLVING - STEP 1: Does the patient need help from a person or device, or need extra time to solve complex problems such as managing a checking account or confronting interpersonal problems? No. PROBLEM SOLVING - STEP 2: Does the patient require extra time to make decisions or solve problems, OR does s/he have slight dif ficulty reading, initiating, or self-correcting in unfamiliar situations? No. PROBLEM SOLVING - SCORE: 7-IND MEMORY: MEMORY - STEP 1: Does the patient need help from a person or device, or need extra time to remember frequently encount ered people, daily routines, and executing requests? No. MEMORY - STEP 2: Does the patient have slight difficulty recognizing frequently encountered people, daily routines, or executing requests without the need for repetition or using self-initiated or environmental cues to remember? No. MEMORY - SCORE: 7-IND SIGNATURE PANEL: The following modified sections: Eating - Score, Grooming - Score, Bathing - Score, Dressing - Upper Body - Score, Dressing - Lower Body - Score, Toileting - Score, Bladder Management - Score, Bowel Man agement - Score, Transfers: Bed, Chair, Wheelchair - Score, Transfers: Toilet - Score, Transfers: Guerline wer - Score, Transfers: Tub - Score, Locomotion: Walk - Score, Locomotion: Wheelchair - Score, Compre hension - Score, Expression - Score, Social Interaction - Score, Problem Solving - Score, Memory - Sc ore were [electronically] signed by Chanell Ordaz CNA on TueJun 15 2018 02:35:20 T-0500 ([facility] Time)
[2018-06-15 06:23] LABS: Absolute Lymphocytes (CBC) 1.6 K/uL (0.7-4.9); Absolute Monocytes 0.6 K/uL (0.1-1.3); Absolute Neutrophil 2.9 K/uL (1.8-8.0); Basophils % 0.9 % (0-1.3); Eosinophils % 3.8 % (0-4.4); Hematocrit 28.4 % (36.0-45.0); Lymphocytes % 30.8 % (15.3-44.8); Monocytes % 10.7 % (3.3-12.3); RBC Red Blood Cell Count 3.11 M/uL (3.86-4.86)
[2018-06-15 06:42] LABS: Albumin 3.2 g/dL (3.4-5.0); Bilirubin Total 0.3 mg/dL (0.2-1.0); Potassium 4.7 mmol/L (3.5-5.1); Prealbumin 20.9 mg/dL (20-40); Protein, Total 6.7 g/dL (6.4-8.2)
[2018-06-15] MEDS: PANTOPRAZOLE 40MG TABLET PO SCH (07:27)
[2018-06-15] MEDS: HYDROCODONE/APAP 7.5/325 MG TAB PO PRN ×3 (07:28→20:51)
[2018-06-15] MEDS: ENOXAPARIN 40 MG/0.4 ML SQ SCH (07:28)
[2018-06-15] MEDS: LIDOCAINE 5% PATCH TOP SCH (07:29)
[2018-06-15] MEDS: POLYETHYL GLY 3350 17 GM/DOSE PO SCH (08:00)
[2018-06-15] MEDS: MAGNESIUM OXIDE 400 MG TAB PO SCH ×2 (08:17→19:26)
[2018-06-15] MEDS: CRANBERRY FRUIT EXTRACT 200 MG CAP PO SCH ×2 (08:17→19:26)
[2018-06-15] MEDS: FUROSEMIDE 20 MG TABLET PO SCH ×2 (08:17→16:08)
[2018-06-15] MEDS: LOSARTAN POTASSIUM 50 MG TABLET PO SCH (08:18)
[2018-06-15] MEDS: VITAMIN D 1000 UNIT TAB PO SCH (08:18)
[2018-06-15] MEDS: METOPROLOL XL 25 MG TAB PO SCH (08:18)
[2018-06-15] MEDS: ASPIRIN EC 81 MG TAB PO SCH (08:18)
[2018-06-15] MEDS: FE SULF/FA/VIT B COMP & C TAB PO SCH (08:18)
[2018-06-15] MEDS: GABAPENTIN 300 MG CAP PO SCH ×3 (08:18→20:52)
[2018-06-15] MEDS: PROMOD 30 ML DOSE PO SCH ×2 (08:19→19:25)
[2018-06-15] MEDS: ASCORBIC ACID 500 MG TABLET PO SCH (08:19)
--- NOTE | 2018-06-15 09:30 | FAST ---
SHIFT START DATE/TIME: 06/15/2018 07:00 (CDT) SHIFT END DATE/TIME: 06/15/2018 19:00 (CDT) NAME MICHELLE EVANGELISTA DATE OF : 1935 DATE OF ADMISSION: 06/01/2018 15:25 (CDT) PHONE: AGE: 82 N# [id number] GENDER: Female ENCOUNTER PHYSICIAN: Dr. Checo Delgado M.D. ADMISSION DIAGNOSIS: - Orthopaedic Disorders 08 - Unilateral Hip Fracture (08.11) closed traumatic displaced intertrochanteric fx. EATING: EATING - STEP 1: Does the patient require the assistance of a person or device, or need extra time when eating? Yes. EATING - STEP 2: Does the patient require the assistance of a helper? Yes. EATING - STEP 3: Does the patient perform half or more of the eating tasks? Yes. EATING - STEP 4: Does the patient need only supervision, cuing, coaxing OR help to apply an orthosis OR help to cut fo od, open containers, pour liquids, or butter bread? Yes. EATING - SCORE: 5-SUP GROOMING: Activity did not occur on this shift GROOMING - SCORE: 0-UNK BATHING: Activity did not occur on this shift BATHING - SCORE: 0-UNK DRESSING - UPPER BODY: Activity did not occur on this shift ARTICLES SCORE Total number of steps: 0 DRESSING - UPPER BODY - SCORE: 0-UNK DRESSING - LOWER BODY: Activity did not occur on this shift ARTICLES SCORE Total number of steps: 0 DRESSING - LOWER BODY - SCORE: 0-UNK TOILETING: TOILETING - STEP 1: Does the patient require the assistance of a person or device, or need extra time with toileting? Yes . TOILETING - STEP 2: Does the patient require the assistance of a helper? Yes. TOILETING - STEP 3: How much assistance does the patient require from the helper? Hands-on assistance from the helper TOILETING - STEP 4: Of the 3 tasks: 1) Adjusting clothing prior to use, 2) Cleansing of perineal area, 3) Adjusting clot julia after use; How many tasks does the patient perform WITHOUT assistance of the helper? Three tasks with steadying assistance from the helper TOILETING - SCORE: 4-MIN BLADDER MANAGEMENT: BLADDER MANAGEMENT - STEP 1: Does the patient control the bladder completely and intentionally without equipment or devices or med ications, and is always continent? No. BLADDER MANAGEMENT - STEP 2: Does the patient require the assistance of a helper? No, patient requires and independently uses an a ssistive device, such as a urinal, bedpan, bedside commode, catheter, absorbent pad, or collecting de vice BLADDER MANAGEMENT - SCORE: 6-SONI BOWEL MANAGEMENT: Activity did not occur on this shift BOWEL MANAGEMENT - SCORE: 7-IND TRANSFERS: BED, CHAIR, WHEELCHAIR: TRANSFERS: BED, CHAIR, WHEELCHAIR - STEP 1: Does the patient require assistance of a person or device, or need extra time with bed, chair, or whe elchair transfers? Yes. TRANSFERS: BED, CHAIR, WHEELCHAIR - STEP 2: Does the patient require the assistance of a helper? Yes. TRANSFERS: BED, CHAIR, WHEELCHAIR - STEP 3: How much assistance does the patient require from the helper? Steadying/guiding assistance TRANSFERS: BED, CHAIR, WHEELCHAIR - SCORE: 4-MIN TRANSFERS: TOILET: TRANSFERS: TOILET - STEP 1: Does the patient require the assistance of a person or device, or need extra time with toilet transfe rs? Yes. TRANSFERS: TOILET - STEP 2: Does the patient require the assistance of a helper? Yes. TRANSFERS: TOILET - STEP 3: How much assistance does the patient require from the helper? Patient performs half or more of the tr ansferring tasks TRANSFERS: TOILET - STEP 4: Does the patient need only incidental help such as contact guard or steadying during toilet transfer? No. Patient needs more than incidental help TRANSFERS: TOILET - SCORE: 3-MOD TRANSFERS: SHOWER: Activity did not occur on this shift TRANSFERS: SHOWER - SCORE: 0-UNK TRANSFERS: TUB: Activity did not occur on this shift TRANSFERS: TUB - SCORE: 0-UNK LOCOMOTION: WALK: Activity did not occur on this shift LOCOMOTION: WALK - SCORE: 0-UNK LOCOMOTION: WHEELCHAIR: Activity did not occur on this shift LOCOMOTION: WHEELCHAIR - SCORE: 0-UNK COMPREHENSION: COMPREHENSION: TYPE: Both COMPREHENSION - STEP 1: Does the patient require help from a person or device, or need extra time to understand complex and a bstract ideas (such as current events, finances, discharge planning, medical issues, relationships, e tc)? Yes. COMPREHENSION - STEP 2: Does the patient require help to understand questions or statements about basic needs or ideas (such as hunger, thirst, sleep, safety, daily schedule, room location, or discomfort) half or more of the t jean? No. COMPREHENSION - STEP 3: How often does the patient need help to understand directions and conversation about basic needs? Les s than 10% of the time COMPREHENSION - SCORE: 5-SUP EXPRESSION EXPRESSION: TYPE: Both EXPRESSION - STEP 1: Does the patient require help from a person or device, or need extra time expressing complex and abst ract ideas (such as current events, finances, discharge planning, medical issues, relationships, etc) ? Yes. EXPRESSION - STEP 2: Does the patient require help to express basic necessities or ideas (such as hunger, thirst, sleep, s afety, daily schedule, room location, or discomfort) half or more of the time? No. EXPRESSION - STEP 3: How often does the patient need help to express directions and conversation about basic needs? Less t velasco 10% of the time EXPRESSION - SCORE: 5-SUP SOCIAL INTERACTION: SOCIAL INTERACTION - STEP 1: Does the patient require a helper to interact with others in social and therapeutic situations? Yes. SOCIAL INTERACTION - STEP 2: Does the patient interact appropriately half or more of the time? Yes. SOCIAL INTERACTION - STEP 3: How often does the patient need help to interact appropriately? Less than 10% of the time SOCIAL INTERACTION - SCORE: 5-SUP PROBLEM SOLVING: PROBLEM SOLVING - STEP 1: Does the patient need help from a person or device, or need extra time to solve complex problems such as managing a checking account or confronting interpersonal problems? Yes. PROBLEM SOLVING - STEP 2: Does the patient solve basic routine problems half or more of the time? Yes. PROBLEM SOLVING - STEP 3: How often does the patient need help to solve basic routine problems? Less than 10% of the time PROBLEM SOLVING - SCORE: 5-SUP MEMORY: MEMORY - STEP 1: Does the patient need help from a person or device, or need extra time to remember frequently encount ered people, daily routines, and executing requests? Yes. MEMORY - STEP 2: How often does the patient need help to remember frequently encountered people, daily routines, and e xecuting requests? Less than 10% of the time MEMORY - SCORE: 5-SUP SIGNATURE PANEL: The following modified sections: Eating - Score, Grooming - Score, Bathing - Score, Dressing - Upper Body - Score, Dressing - Lower Body - Score, Toileting - Score, Bladder Management - Score, Bowel Man agement - Score, Transfers: Bed, Chair, Wheelchair - Score, Transfers: Toilet - Score, Transfers: Guerline wer - Score, Transfers: Tub - Score, Locomotion: Walk - Score, Locomotion: Wheelchair - Score, Compre hension - Score, Expression - Score, Social Interaction - Score, Problem Solving - Score, Memory - Sc ore were [electronically] signed by Gerald Niño on TueJun 15 2018 09:29:24 GMT-0500 (Central Daylight Time)
[2018-06-15] MEDS: TRAMADOL HCL 50 MG TAB PO PRN (12:01)
[2018-06-15] MEDS: ATORVASTATIN 20 MG TAB PO SCH (16:08)
--- NOTE | 2018-06-15 18:59 | R.PN ---
ENCOUNTER DATE AND TIME: 06/15/2018 18:55 (CDT) NAME MICHELLE EVANGELISTA DATE OF : 1935 DATE OF ADMISSION: 06/01/2018 15:25 (CDT) closed traumatic displaced intertrochanteric fxCHIEF COMPLAINT: Right hip fracture SUBJECTIVE: Pt denied any depression. Pt denied any Shortness of Breath. Ambulated 275' with modified independence a rolling walker. Hgb 8.9, glucose 112, prealbumin 9.8. Ambulated 70' with standby assistance using a rolling walker. Elevated blood pressures today managed by PCP Dr. Mckeon. VITAL SIGNS Temperature: 98.7 F SBP/DBP: 151/61 Pulse: 60 Resp: 16 MEDICATION ALLERGIES: No Known Drug Allergies (NKDA) ENVIRONMENTAL ALLERGIES: - Substance Allergies None Known - Other Allergies None Known NURSING: - Shower allowing shower - Skin care per protocol PRECAUTIONS: - Posterior Hip Precaution No adduction across midline No external rotation No hip flexion >90 degrees No internal rotation No wheel chair propulsion - Weight Bearing Precaution TTWB right LE ACTIVITIES OOB only with supervision THERAPIES: - Occupational Therapy Evaluate and Treat. - Physical Therapy Evaluate and Treat. PHYSICAL EXAM - Gen Alert and awake Lying in bed No apparent distress Oriented to: person, time, and place - Skin No breakdown No abnormalities - Eyes No abnormalities - ENMT No abnormalities - Neck No abnormalities - CVS RRR - Chest Clear - Abd + bowel sounds - GI nondistended Deferred - No abnormalities - Ext No significant edema - MSK 4/5 weakness in both lower extremities. - Neuro No focal deficits - Psych No abnormalities ASSESSMENT: Pt. is a 82 yo Right-handed white female.On 05/28/2018 she was admitted to [facility] and underwent emergency surgery for closed traumatic displaced intertrochanteric fx (Unilatera l Hip Fracture) by DR. FAVIAN MCKEON.Pre-morbidly, Pt. was independent/mod-I in Self-Care, Sphincter Co ntrol, Transfers Control, Communication, Social Cognition, and Locomotion; and she had good Sphincter Control.Currently, she has deficits of Transfers Control, Communication, Social Cognition, Endurance , Balance, Safety Awareness, Self-Care, and Locomotion.Pt. is now referred to [facility] for acute in-patient rehabilitation in order to maximize patient's functional independence in activities of daily living, strength, ROM, and mobility.- Rehab Goal Patient has realistic goal of being discharged at assistance level 6-Jena to reside at Home with Fam yossi/Relatives. MDM/PLAN: - Physical Therapy Decreased range of motion - to improve, our physical therapists will perform initial evaluation of p t's status upon admission and devise an individualized program for increasing patient's Range of Dell on. Gait dysfunction - to improve, our physical therapists will perform initial evaluation of pt's statu s upon admission and devise an individualized program for Gait Training, and Wheel Chair mobility Inability to transfer - to improve, our physical therapists will perform initial evaluation of pt's status upon admission and devise an individualized program for Bed mobility Need for home safety evaluation - to improve, our physical therapists will perform initial evaluatio n of pt's status upon admission and devise an individualized program for Home Evaluation Need in caregiver upon discharge - to improve, our physical therapists will perform initial evaluati on of pt's status upon admission and devise an individualized program for Caregiver Training New precaution - to improve, our physical therapists will perform initial evaluation of pt's status upon admission and devise an individualized program for Patient precaution education Edema - to improve, our physical therapists will perform initial evaluation of pt's status upon admi ssion and devise an individualized program for Elevation Training, and Lymphedema Therapy Poor balance - to improve, our physical therapists will perform initial evaluation of pt's status up on admission and devise an individualized program for Balance Training Poor endurance - to improve, our physical therapists will perform initial evaluation of pt's status upon admission and devise an individualized program for Endurance Training Weakness - to improve, our physical therapists will perform initial evaluation of pt's status upon a dmission and devise an individualized program for Aquatic Therapy, Neuromuscular Reeducation, and Str engthening Achieving independence - to improve, our physical therapists will perform initial evaluation of pt's status upon admission and devise an individualized program for Community Reintegration Activities - Occupational Therapy ADL deficits - to improve, our occupation therapists will perform initial evaluation of pt's status upon admission and devise an individualized program for Bathing, Bed mobility, Community Reintegratio n, Cooking, Dressing, Eating, Fine Motor Skills, Grooming, Homemaking, Kitchen Mobility, Laundry, Pat ient Education, Safety Awareness, Splinting - Positioning, Transfers(Toilet, Tub, Shower), and Wheel Chair Management Cognitive deficits - to improve, our occupation therapists will perform initial evaluation of pt's s tatus upon admission and devise an individualized program for Cognition - orientation Need for acute care certified nursing assistant - to improve, our occupation therapists will perform initial evaluation of pt's status upon admission and devise an individualized program for Caregiver Training Weakness - to improve, our occupation therapists will perform initial evaluation of pt's status upon admission and devise an individualized program for Aquatic Therapy, Balance, Endurance, UE ROM, and UE strengthening - Anterior Hip Precaution No abduction No active extension No adduction across midline No external rotation No hip flexion >90 degrees No internal rotation - Diet - Liquid Texture Continue Regular - Tube Feed Continue N/A - Diet Type Continue Regular - Posterior Hip Precaution No adduction across midline No external rotation No hip flexion >90 degrees No internal rotation No wheel chair propulsion - Weight Bearing Precaution TTWB right LE - Skin care per protocol - Diet - Solid Texture Continue Regular - Shower allowing shower FUNCTIONAL STATUS: UPDATED AT WEEKLY TEAM CONFERENCE - Bladder Same accident frequency: 7-Ind - No accidents in the past 7 days - Bowel Same accident frequency: 7-Ind - No accidents in the past 7 days - Walking Same score based on distance walked: 0(N/A) FUNCTIONAL STATUS: - Self-Care A. Eating Ind B. Grooming sup C. Bathing sup D. Dressing - Upper sup E. Dressing - Lower maxA F. Toileting maxA - Sphincter Control G: Bladder control Dep H: Bowel control Dep - Transfers Control I. Bed/Chair/Wheelchair maxA J. Toilet maxA K. Tub/Shower maxA - Locomotion L. Walk/Wheelchair (B) Dep M. Stairs ADNO - Communication N. Comprehension (B) sup O. Expression (B) sup - Social Cognition P. Social Interaction sup Q. Problem Solving sup R. Memory sup - Endurance Poor - Balance Poor - Safety Awareness Fair CURRENT FUNC. DEFICITS: Transfers Control, Communication, Social Cognition, Endurance, Balance, Safety Awareness, Self-Care, and Locomotion SIGNATURE PANEL: (CDT)
[2018-06-15] MEDS: TEMAZEPAM 15 MG CAP PO PRN (20:51)
[2018-06-15] MEDS: DOCUSATE NA 100 MG CAP PO SCH (20:52)
--- NOTE | 2018-06-16 01:11 | PN ---
Date of Progress Note: 06/15/2018 Subjective: The patient was seen this morning for followup. The patient is sitting in wheelchair, n ot in distress. Objective: VITAL SIGNS: Reviewed. HEENT: Unremarkable. LUNGS: Clear to auscultation. HEART: Sounds normal. ABDOMEN: Soft. Bowel sounds normal. No guarding, rigidity, tenderness, or distention. EXTREMITIES: No leg edema. Laboratory Data: White count 5.3, hemoglobin 9.8, platelets 621. Sodium 140, potassium 4.7, chlorid e 106, bicarb 31, BUN 19, creatinine 0.74, glucose 108. Impression: 1.Acute blood loss anemia. 2.Right hip fracture. 3.Coronary artery disease. 4.Osteoarthritis, multiple sites. 5.Thrombocytosis, reactive. Plan: We will go ahead and continue current medications. Continue current DVT prophylaxis. The elizabeth pace's platelet count has gone up on last couple of CBCs and this is likely reactive thrombocytosis. No need for further monitoring at this point. Tomorrow she is scheduled to go to shelter and I have advised her to come see me for followup within a week or so after she comes home from the [facility]. ERIKA/MODL Voice ID: [id number] Report ID: [id number]
--- NOTE | 2018-06-16 02:40 | FAST ---
SHIFT START DATE/TIME: 06/15/2018 19:00 (CDT) SHIFT END DATE/TIME: 06/16/2018 07:00 (CDT) NAME MICHELLE EVANGELISTA DATE OF : 1935 DATE OF ADMISSION: 06/01/2018 15:25 (CDT) PHONE: AGE: 82 SSN# [id number] GENDER: Female ENCOUNTER PHYSICIAN: Dr. Checo Delgado M.D. ADMISSION DIAGNOSIS: - Orthopaedic Disorders 08 - Unilateral Hip Fracture (08.11) closed traumatic displaced intertrochanteric fx. EATING: Activity did not occur on this shift EATING - SCORE: 0-UNK GROOMING: Activity did not occur on this shift GROOMING - SCORE: 0-UNK BATHING: Activity did not occur on this shift BATHING - SCORE: 0-UNK DRESSING - UPPER BODY: Patient is not dressing in public clothing ARTICLES SCORE Total number of steps: 0 DRESSING - UPPER BODY - SCORE: 0-UNK DRESSING - LOWER BODY: Patient is not dressing in public clothing ARTICLES SCORE Total number of steps: 0 DRESSING - LOWER BODY - SCORE: 0-UNK TOILETING: TOILETING - STEP 1: Does the patient require the assistance of a person or device, or need extra time with toileting? Yes . TOILETING - STEP 2: Does the patient require the assistance of a helper? Yes. TOILETING - STEP 3: How much assistance does the patient require from the helper? Hands-on assistance from the helper TOILETING - STEP 4: Of the 3 tasks: 1) Adjusting clothing prior to use, 2) Cleansing of perineal area, 3) Adjusting clot julia after use; How many tasks does the patient perform WITHOUT assistance of the helper? Three tasks with steadying assistance from the helper TOILETING - SCORE: 4-MIN BLADDER MANAGEMENT: BLADDER MANAGEMENT - STEP 1: Does the patient control the bladder completely and intentionally without equipment or devices or med ications, and is always continent? Yes. BLADDER MANAGEMENT - SCORE: 7-IND BOWEL MANAGEMENT: Activity did not occur on this shift BOWEL MANAGEMENT - SCORE: 7-IND TRANSFERS: BED, CHAIR, WHEELCHAIR: TRANSFERS: BED, CHAIR, WHEELCHAIR - STEP 1: Does the patient require assistance of a person or device, or need extra time with bed, chair, or whe elchair transfers? Yes. TRANSFERS: BED, CHAIR, WHEELCHAIR - STEP 2: Does the patient require the assistance of a helper? Yes. TRANSFERS: BED, CHAIR, WHEELCHAIR - STEP 3: How much assistance does the patient require from the helper? Lifting of the legs TRANSFERS: BED, CHAIR, WHEELCHAIR - STEP 4: How many legs does the patient require the helper to lift? both legs TRANSFERS: BED, CHAIR, WHEELCHAIR - SCORE: 3-MOD TRANSFERS: TOILET: TRANSFERS: TOILET - STEP 1: Does the patient require the assistance of a person or device, or need extra time with toilet transfe rs? Yes. TRANSFERS: TOILET - STEP 2: Does the patient require the assistance of a helper? Yes. TRANSFERS: TOILET - STEP 3: How much assistance does the patient require from the helper? Patient performs half or more of the tr ansferring tasks TRANSFERS: TOILET - STEP 4: Does the patient need only incidental help such as contact guard or steadying during toilet transfer? Yes. TRANSFERS: TOILET - SCORE: 4-MIN TRANSFERS: SHOWER: Activity did not occur on this shift TRANSFERS: SHOWER - SCORE: 0-UNK TRANSFERS: TUB: Activity did not occur on this shift TRANSFERS: TUB - SCORE: 0-UNK LOCOMOTION: WALK: Activity did not occur on this shift LOCOMOTION: WALK - SCORE: 0-UNK LOCOMOTION: WHEELCHAIR: Activity did not occur on this shift LOCOMOTION: WHEELCHAIR - SCORE: 0-UNK COMPREHENSION: COMPREHENSION: TYPE: Both COMPREHENSION - STEP 1: Does the patient require help from a person or device, or need extra time to understand complex and a bstract ideas (such as current events, finances, discharge planning, medical issues, relationships, e tc)? No. COMPREHENSION - STEP 2: Does the patient need extra time, require an assistive device (such as glasses for visual comprehensi on or a hearing aid for auditory comprehension) or does s/he have mild difficulty understanding compl ex and abstract information? Yes. COMPREHENSION - SCORE: 6-SONI EXPRESSION EXPRESSION: TYPE: Both EXPRESSION - STEP 1: Does the patient require help from a person or device, or need extra time expressing complex and abst ract ideas (such as current events, finances, discharge planning, medical issues, relationships, etc) ? No. EXPRESSION - STEP 2: Does the patient need extra time, require an assistive device (such as augmentive communication syste m or a communication board), OR does s/he have mild difficulty expressing complex and abstract ideas (including mild dysarthria or mild word-find problems)? No. EXPRESSION - SCORE: 7-IND SOCIAL INTERACTION: SOCIAL INTERACTION - STEP 1: Does the patient require a helper to interact with others in social and therapeutic situations? No. SOCIAL INTERACTION - STEP 2: Does the patient need extra time in social situations, OR does s/he interact with staff, other patien ts, and family members ONLY in structured environments, OR does s/he require medication for social in teraction? No. SOCIAL INTERACTION - SCORE: 7-IND PROBLEM SOLVING: PROBLEM SOLVING - STEP 1: Does the patient need help from a person or device, or need extra time to solve complex problems such as managing a checking account or confronting interpersonal problems? No. PROBLEM SOLVING - STEP 2: Does the patient require extra time to make decisions or solve problems, OR does s/he have slight dif ficulty reading, initiating, or self-correcting in unfamiliar situations? No. PROBLEM SOLVING - SCORE: 7-IND MEMORY: MEMORY - STEP 1: Does the patient need help from a person or device, or need extra time to remember frequently encount ered people, daily routines, and executing requests? No. MEMORY - STEP 2: Does the patient have slight difficulty recognizing frequently encountered people, daily routines, or executing requests without the need for repetition or using self-initiated or environmental cues to remember? No. MEMORY - SCORE: 7-IND SIGNATURE PANEL: The following modified sections: Eating - Score, Grooming - Score, Bathing - Score, Dressing - Upper Body - Score, Dressing - Lower Body - Score, Toileting - Score, Bladder Management - Score, Bowel Man agement - Score, Transfers: Bed, Chair, Wheelchair - Score, Transfers: Toilet - Score, Transfers: Guerline wer - Score, Transfers: Tub - Score, Locomotion: Walk - Score, Locomotion: Wheelchair - Score, Compre hension - Score, Expression - Score, Social Interaction - Score, Problem Solving - Score, Memory - Sc ore were [electronically] signed by Chanell Ordaz CNA on TueJun 16 2018 02:39:43 T-0500 ([facility] Time)
[2018-06-16] MEDS: ENOXAPARIN 40 MG/0.4 ML SQ SCH (07:23)
[2018-06-16] MEDS: PANTOPRAZOLE 40MG TABLET PO SCH (07:23)
[2018-06-16] MEDS: POLYETHYL GLY 3350 17 GM/DOSE PO SCH (07:23)
[2018-06-16] MEDS: LIDOCAINE 5% PATCH TOP SCH (08:19)
[2018-06-16] MEDS: VITAMIN D 1000 UNIT TAB PO SCH (08:20)
[2018-06-16] MEDS: FE SULF/FA/VIT B COMP & C TAB PO SCH (08:20)
[2018-06-16] MEDS: MAGNESIUM OXIDE 400 MG TAB PO SCH (08:20)
[2018-06-16] MEDS: GABAPENTIN 300 MG CAP PO SCH ×2 (08:21→13:10)
[2018-06-16] MEDS: ASPIRIN EC 81 MG TAB PO SCH (08:21)
[2018-06-16] MEDS: CRANBERRY FRUIT EXTRACT 200 MG CAP PO SCH (08:21)
[2018-06-16] MEDS: ASCORBIC ACID 500 MG TABLET PO SCH (08:22)
[2018-06-16] MEDS: HYDROCODONE/APAP 7.5/325 MG TAB PO PRN ×2 (08:23→13:10)
[2018-06-16] MEDS: FUROSEMIDE 20 MG TABLET PO SCH (08:26)
[2018-06-16] MEDS: LOSARTAN POTASSIUM 50 MG TABLET PO SCH (08:26)
[2018-06-16] MEDS: PROMOD 30 ML DOSE PO SCH (08:26)
[2018-06-16] MEDS: METOPROLOL XL 25 MG TAB PO SCH (08:26)
--- NOTE | 2018-06-16 09:14 | FAST ---
SHIFT START DATE/TIME: 06/16/2018 07:00 (CDT) SHIFT END DATE/TIME: 06/16/2018 19:00 (CDT) NAME MICHELLE EVANGELISTA DATE OF : 1935 DATE OF ADMISSION: 06/01/2018 15:25 (CDT) PHONE: AGE: 82 N# [id number] GENDER: Female ENCOUNTER PHYSICIAN: Dr. Checo Delgado M.D. ADMISSION DIAGNOSIS: - Orthopaedic Disorders 08 - Unilateral Hip Fracture (08.11) closed traumatic displaced intertrochanteric fx. EATING: EATING - STEP 1: Does the patient require the assistance of a person or device, or need extra time when eating? No. EATING - SCORE: 7-IND GROOMING: GROOMING - STEP 1: Does the patient require the assistance of a person or device, or need extra time when grooming? No. GROOMING - SCORE: 7-IND BATHING: Activity did not occur on this shift BATHING - SCORE: 0-UNK DRESSING - UPPER BODY: Activity did not occur on this shift ARTICLES SCORE Total number of steps: 0 DRESSING - UPPER BODY - SCORE: 0-UNK DRESSING - LOWER BODY: Elastic waist pants (three steps) Underwear (three steps) ARTICLES SCORE Total number of steps: 6 DRESSING - LOWER BODY - STEP 1: Does the patient require help from a person or device, or need extra time when dressing below the criss st? Yes. DRESSING - LOWER BODY - STEP 2: Does the patient require the assistance of a helper? Yes. DRESSING - LOWER BODY - STEP 3: Does the helper touch the patient while dressing? Yes. DRESSING - LOWER BODY - STEP 4: How many of the total steps does the patient complete on his/her own? 4 DRESSING - LOWER BODY - SCORE: 3-MOD TOILETING: TOILETING - STEP 1: Does the patient require the assistance of a person or device, or need extra time with toileting? Yes . TOILETING - STEP 2: Does the patient require the assistance of a helper? Yes. TOILETING - STEP 3: How much assistance does the patient require from the helper? Hands-on assistance from the helper TOILETING - STEP 4: Of the 3 tasks: 1) Adjusting clothing prior to use, 2) Cleansing of perineal area, 3) Adjusting clot julia after use; How many tasks does the patient perform WITHOUT assistance of the helper? Three tasks with steadying assistance from the helper TOILETING - SCORE: 4-MIN BLADDER MANAGEMENT: BLADDER MANAGEMENT - STEP 1: Does the patient control the bladder completely and intentionally without equipment or devices or med ications, and is always continent? No. BLADDER MANAGEMENT - STEP 2: Does the patient require the assistance of a helper? Yes. BLADDER MANAGEMENT - STEP 3: How much assistance does the patient require from the helper? Only set-up of equipment - such as plac ing it within reach of the patient or emptying a device - to maintain either satisfactory voiding pat tern or managing an external device, such as an absorbent pad, ileal device, or catheter BLADDER MANAGEMENT - SCORE: 5-SUP BLADDER MANAGEMENT - FREQUENCY OF ACCIDENTS: BLADDER MANAGEMENT(FA) - STEP 1: How many accidents has the patient had during the current shift? 1 BOWEL MANAGEMENT: BOWEL MANAGEMENT - STEP 1: Does the patient control bowels completely and intentionally without equipment devices or medications AND is always continent? Yes. BOWEL MANAGEMENT - SCORE: 7-IND BOWEL MANAGEMENT - FREQUENCY OF ACCIDENTS: BOWEL MANAGEMENT(FA) - STEP 1: How many accidents has the patient had during the current shift? 0 TRANSFERS: BED, CHAIR, WHEELCHAIR: TRANSFERS: BED, CHAIR, WHEELCHAIR - STEP 1: Does the patient require assistance of a person or device, or need extra time with bed, chair, or whe elchair transfers? Yes. TRANSFERS: BED, CHAIR, WHEELCHAIR - STEP 2: Does the patient require the assistance of a helper? Yes. TRANSFERS: BED, CHAIR, WHEELCHAIR - STEP 3: How much assistance does the patient require from the helper? Steadying/guiding assistance TRANSFERS: BED, CHAIR, WHEELCHAIR - SCORE: 4-MIN TRANSFERS: TOILET: TRANSFERS: TOILET - STEP 1: Does the patient require the assistance of a person or device, or need extra time with toilet transfe rs? Yes. TRANSFERS: TOILET - STEP 2: Does the patient require the assistance of a helper? Yes. TRANSFERS: TOILET - STEP 3: How much assistance does the patient require from the helper? Patient performs half or more of the tr ansferring tasks TRANSFERS: TOILET - STEP 4: Does the patient need only incidental help such as contact guard or steadying during toilet transfer? Yes. TRANSFERS: TOILET - SCORE: 4-MIN TRANSFERS: SHOWER: Activity did not occur on this shift TRANSFERS: SHOWER - SCORE: 0-UNK TRANSFERS: TUB: Activity did not occur on this shift TRANSFERS: TUB - SCORE: 0-UNK LOCOMOTION: WALK: Activity did not occur on this shift LOCOMOTION: WALK - SCORE: 0-UNK LOCOMOTION: WHEELCHAIR: Activity did not occur on this shift LOCOMOTION: WHEELCHAIR - SCORE: 0-UNK COMPREHENSION: COMPREHENSION - SCORE: 0-UNK EXPRESSION EXPRESSION - SCORE: 0-UNK SOCIAL INTERACTION: SOCIAL INTERACTION - SCORE: 0-UNK PROBLEM SOLVING: PROBLEM SOLVING - SCORE: 0-UNK MEMORY: MEMORY - SCORE: 0-UNK SIGNATURE PANEL: The following modified sections: Eating - Score, Grooming - Score, Bathing - Score, Dressing - Upper Body - Score, Dressing - Lower Body - Score, Toileting - Score, Bladder Management - Score, Bowel Man agement - Score, Transfers: Bed, Chair, Wheelchair - Score, Transfers: Toilet - Score, Transfers: Guerline wer - Score, Transfers: Tub - Score, Locomotion: Walk - Score, Locomotion: Wheelchair - Score, Compre hension - Score, Expression - Score, Social Interaction - Score, Problem Solving - Score, Memory - Sc ore were [electronically] signed by Lainey Jade CNA on TueJun 16 2018 09:14:06 T-0500 (Centra l Daylight Time)
--- NOTE | 2018-06-16 09:31 | P.RH.PN ---
Estimated Length of Stay: 15 Expected Discharge Date: 07/01/18 Discharge Disposition Plan: Home Family Support: Yes Long-Term Goal: Mobility, Transfers, Self Care Vital Signs: Last Vital Signs Temp 97.1 F 06/16/18 07:05 Pulse 57 06/16/18 07:05 Resp 16 06/16/18 07:05 BP 141/64 H 06/16/18 07:05 Pulse Ox 97 06/16/18 07:05 Laboratory: Laboratory Last Values WBC 5.3 K/uL (4.3-10.9) D 06/15/18 06:04 RBC 3.11 M/uL (3.86-4.86) L 06/15/18 06:04 Hgb 9.8 g/dL (12.0-15.0) L 06/15/18 06:04 Hct 28.4 % (36.0-45.0) L 06/15/18 06:04 MCV 91.3 fL (80-100) 06/15/18 06:04 MCH 31.6 pg (27.0-35.0) 06/15/18 06:04 MCHC 34.6 g/dL (32.0-36.0) 06/15/18 06:04 RDW 13.7 % (12.1-15.2) 06/15/18 06:04 Plt Count 621 K/uL (152-406) H 06/15/18 06:04 MPV 7.0 fL (7.6-11.3) L 06/15/18 06:04 Neutrophils % 53.8 % (41.7-73.7) 06/15/18 06:04 Lymphocytes % 30.8 % (15.3-44.8) 06/15/18 06:04 Monocytes % 10.7 % (3.3-12.3) 06/15/18 06:04 Eosinophils % 3.8 % (0-4.4) 06/15/18 06:04 Basophils % 0.9 % (0-1.3) 06/15/18 06:04 Absolute Neutrophils 2.9 K/uL (1.8-8.0) 06/15/18 06:04 Absolute Lymphocytes 1.6 K/uL (0.7-4.9) 06/15/18 06:04 Absolute Monocytes 0.6 K/uL (0.1-1.3) 06/15/18 06:04 Absolute Eosinophils 0.2 K/uL (0-0.5) 06/15/18 06:04 Absolute Basophils 0.0 K/uL (0-0.5) 06/15/18 06:04 Sodium 140 mmol/L (136-145) 06/15/18 06:04 Potassium 4.7 mmol/L (3.5-5.1) 06/15/18 06:04 Chloride 106 mmol/L (98-107) 06/15/18 06:04 Carbon Dioxide 31 mmol/L (21-32) 06/15/18 06:04 BUN 19 mg/dL (7-18) H 06/15/18 06:04 Creatinine 0.74 mg/dL (0.55-1.3) 06/15/18 06:04 Estimated GFR 75 mL/min (=/>90) L 06/15/18 06:04 Glucose 108 mg/dL (74-106) H 06/15/18 06:04 Calcium 9.2 mg/dL (8.5-10.1) 06/15/18 06:04 Magnesium 2.1 mg/dL (1.8-2.4) 06/05/18 05:45 Total Bilirubin 0.3 mg/dL (0.2-1.0) 06/15/18 06:04 AST 14 U/L (15-37) L 06/15/18 06:04 ALT 23 U/L (12-78) 06/15/18 06:04 Alkaline Phosphatase 144 U/L (45-117) H 06/15/18 06:04 Serum Total Protein 6.7 g/dL (6.4-8.2) 06/15/18 06:04 Albumin 3.2 g/dL (3.4-5.0) L 06/15/18 06:04 Globulin 3.5 g/dL (2.3-3.5) 06/15/18 06:04 Albumin/Globulin Ratio 0.9 (1.1-1.8) L 06/15/18 06:04 Prealbumin 20.9 mg/dL (20-40) 06/15/18 06:04 Urine Color Yellow 06/01/18 19:05 Urine Appearance Clear 06/01/18 19:05 Urine pH 6.0 (5.0-7.0) 06/01/18 19:05 Ur Specific [place] <=1.005 (1.005-1.030) 06/01/18 19:05 Urine Ketones Negative (NEG) 06/01/18 19:05 Urine Blood Negative (NEG) 06/01/18 19:05 Urine Nitrite Negative (NEG) 06/01/18 19:05 Urine Bilirubin Negative (NEG) 06/01/18 19:05 Urine Urobilinogen 1.0 mg/dL (0.2-1.0) 06/01/18 19:05 Ur Leukocyte Esterase 1+ (NEG) H 06/01/18 19:05 Urine RBC <5 /HPF (NONE SEEN) 06/01/18 19:05 Urine WBC 10-20 /HPF (<5) H 06/01/18 19:05 Ur Squamous Epith Cells <5 /HPF (NONE SEEN) 06/01/18 19:05 Ur Urothelial Cells <5 /HPF (NONE SEEN) 06/01/18 19:05 Urine Bacteria <20 /HPF (<20) 06/01/18 19:05 Urine Culture Reflexed Not needed 06/01/18 19:05 Urine Glucose Negative (NEG) 06/01/18 19:05 Urine Total Protein Negative (NEG) 06/01/18 19:05 Weight: 159 lb 1.6 oz Wound Present: No Closed Surgical Incision Present: Yes Negative Pressure Wound Therapy Present: No Physician Update: She is modified independence with gait and transfers. She is a supervision for activities of daily living. She is at touch down weight bearing status. She will be discharged to nursing home today. Labs reviewed. Glucose ranged 208 to 282. Medical Issues: Acute thrombus within the proximal right greater saphenous vein - On Lovenox 40mg SQ Daily Pain Issues: Tramadol 50mg Q4H PRN. Rochert 10/325mg Q4H PRN Functional Improvement: pt has demonstrated improvement with her functional mobility. pt is safe with ambulation and transfers at this time. pt is planning to discharge to SNF tomorrow and therefore higher level goal of curb will will be abandoned at this time. pt will continue progress toward higher level goals at next stage of her rehab. pt has progressed well. Functional Improvement Occupational Therapy: Patient has met all goals at this time. However, does continue to benefit form further therapy to reach a modified independent level with BADL and functional trf, which would be the safest level of function before a safe d/c home with spouse. Summary: Patient's care plan and custodial goals have been reviewed and revised as necessary. Please see the Rehabilitation Signature page for all necessary signatures.
--- NOTE | 2018-06-16 11:37 | FAST ---
ENCOUNTER DATE AND TIME: 06/16/2018 08:00 (CDT) NAME MICHELLE EVANGELISTA DATE OF : 1935 DATE OF ADMISSION: 06/01/2018 15:25 (CDT) PHONE: AGE: 82 SSN# [id number] GENDER: Female ENCOUNTER PHYSICIAN: Dr. Checo Delgado M.D. ADMISSION DIAGNOSIS: - Orthopaedic Disorders 08 - Unilateral Hip Fracture (.11) closed traumatic displaced intertrochanteric fx. EATING: Activity did not occur on this shift EATING - SCORE: 0-UNK GROOMING: Activity did not occur on this shift GROOMING - SCORE: 0-UNK BATHING: Activity did not occur on this shift BATHING - SCORE: 0-UNK DRESSING - UPPER BODY: Activity did not occur on this shift Patient is not dressing in public clothing ARTICLES SCORE Total number of steps: 0 DRESSING - UPPER BODY - SCORE: 0-UNK DRESSING - LOWER BODY: Activity did not occur on this shift Patient is not dressing in public clothing ARTICLES SCORE Total number of steps: 0 DRESSING - LOWER BODY - SCORE: 0-UNK TOILETING: Activity did not occur on this shift TOILETING - SCORE: 0-UNK BLADDER MANAGEMENT: Activity did not occur on this shift BLADDER MANAGEMENT - SCORE: 7-IND BOWEL MANAGEMENT: Activity did not occur on this shift BOWEL MANAGEMENT - SCORE: 7-IND TRANSFERS: BED, CHAIR, WHEELCHAIR: TRANSFERS: BED, CHAIR, WHEELCHAIR - STEP 1: Does the patient require assistance of a person or device, or need extra time with bed, chair, or whe elchair transfers? Yes. TRANSFERS: BED, CHAIR, WHEELCHAIR - STEP 2: Does the patient require the assistance of a helper? No. Patient only requires an assistive device fo r bed, chair, wheelchair transfers such as a sliding board, grab bar, or brace, OR s/he takes more th an reasonable time, OR there is a safety concern when s/he performs the transfers TRANSFERS: BED, CHAIR, WHEELCHAIR - SCORE: 6-SONI TRANSFERS: TOILET: Activity did not occur on this shift TRANSFERS: TOILET - SCORE: 0-UNK TRANSFERS: SHOWER: Activity did not occur on this shift TRANSFERS: SHOWER - SCORE: 0-UNK TRANSFERS: TUB: Activity did not occur on this shift TRANSFERS: TUB - SCORE: 0-UNK LOCOMOTION: WALK: LOCOMOTION: WALK - STEP 1: Does the patient need help from a person or device, or need extra time to walk 150 feet? No. LOCOMOTION: WALK - STEP 2: Does the patient need an assistive device (such as an orthosis, prosthesis, crutches, or walker) to g o 150 feet, OR does s/he take more than reasonable time, OR is there a concern for safety? Yes, the p atient needs an assistive device LOCOMOTION: WALK - SCORE: 6-SONI LOCOMOTION: WHEELCHAIR: LOCOMOTION: WHEELCHAIR - STEP 1: Does the patient need help to go 150 feet in a wheelchair? Yes. LOCOMOTION: WHEELCHAIR - STEP 2: How much assistance does the patient need from the helper? Only supervision, cuing, or coaxing LOCOMOTION: WHEELCHAIR - SCORE: 5-SUP LOCOMOTION: STAIRS: Activity did not occur on this shift LOCOMOTION: STAIRS - SCORE: 0-UNK COMPREHENSION: COMPREHENSION - SCORE: 0-UNK EXPRESSION EXPRESSION - SCORE: 0-UNK SOCIAL INTERACTION: SOCIAL INTERACTION - SCORE: 0-UNK PROBLEM SOLVING: PROBLEM SOLVING - SCORE: 0-UNK MEMORY: MEMORY - SCORE: 0-UNK SIGNATURE PANEL: The following modified sections: Transfers: Bed, Chair, Wheelchair - Score, Transfers: Toilet - Score , Locomotion: Walk - Score, Locomotion: Wheelchair - Score, Locomotion: Stairs - Score were [electron mo] signed by Ravi Oreilly PTA on TueJun 16 2018 11:37:03 GMT-0500 (Central Daylight Time)
--- NOTE | 2018-06-16 11:39 | FAST ---
ENCOUNTER DATE AND TIME: 06/15/2018 08:00 (CDT) NAME MICHELLE EVANGELISTA DATE OF : 1935 DATE OF ADMISSION: 06/01/2018 15:25 (CDT) PHONE: AGE: 82 SSN# [id number] GENDER: Female ENCOUNTER PHYSICIAN: Dr. Checo Delgado M.D. ADMISSION DIAGNOSIS: - Orthopaedic Disorders 08 - Unilateral Hip Fracture (.) closed traumatic displaced intertrochanteric fx. EATING: Activity did not occur on this shift EATING - SCORE: 0-UNK GROOMING: Activity did not occur on this shift GROOMING - SCORE: 0-UNK BATHING: Activity did not occur on this shift BATHING - SCORE: 0-UNK DRESSING - UPPER BODY: Activity did not occur on this shift Patient is not dressing in public clothing ARTICLES SCORE Total number of steps: 0 DRESSING - UPPER BODY - SCORE: 0-UNK DRESSING - LOWER BODY: Activity did not occur on this shift Patient is not dressing in public clothing ARTICLES SCORE Total number of steps: 0 DRESSING - LOWER BODY - SCORE: 0-UNK TOILETING: Activity did not occur on this shift TOILETING - SCORE: 0-UNK BLADDER MANAGEMENT: Activity did not occur on this shift BLADDER MANAGEMENT - SCORE: 7-IND BOWEL MANAGEMENT: Activity did not occur on this shift BOWEL MANAGEMENT - SCORE: 7-IND TRANSFERS: BED, CHAIR, WHEELCHAIR: Activity did not occur on this shift TRANSFERS: BED, CHAIR, WHEELCHAIR - SCORE: 0-UNK TRANSFERS: TOILET: Activity did not occur on this shift TRANSFERS: TOILET - SCORE: 0-UNK TRANSFERS: SHOWER: Activity did not occur on this shift TRANSFERS: SHOWER - SCORE: 0-UNK TRANSFERS: TUB: Activity did not occur on this shift TRANSFERS: TUB - SCORE: 0-UNK LOCOMOTION: WALK: Activity did not occur on this shift LOCOMOTION: WALK - SCORE: 0-UNK LOCOMOTION: WHEELCHAIR: LOCOMOTION: WHEELCHAIR - STEP 1: Does the patient need help to go 150 feet in a wheelchair? Yes. LOCOMOTION: WHEELCHAIR - STEP 2: How much assistance does the patient need from the helper? Only supervision, cuing, or coaxing LOCOMOTION: WHEELCHAIR - SCORE: 5-SUP LOCOMOTION: STAIRS: Activity did not occur on this shift LOCOMOTION: STAIRS - SCORE: 0-UNK COMPREHENSION: COMPREHENSION - SCORE: 0-UNK EXPRESSION EXPRESSION - SCORE: 0-UNK SOCIAL INTERACTION: SOCIAL INTERACTION - SCORE: 0-UNK PROBLEM SOLVING: PROBLEM SOLVING - SCORE: 0-UNK MEMORY: MEMORY - SCORE: 0-UNK SIGNATURE PANEL: The following modified sections: Transfers: Bed, Chair, Wheelchair - Score, Transfers: Toilet - Score , Locomotion: Walk - Score, Locomotion: Wheelchair - Score, Locomotion: Stairs - Score were [electron ically] signed by Ravi Oreilly PTA on TueJun 16 2018 11:39:23 GMT-0500 (Central Daylight Time)
--- NOTE | 2018-06-17 00:45 | DS ---
Date of Discharge: 06/16/2018 Disposition: The patient will be discharged to go to group home facility. Physical Examination: HEENT: Unremarkable. Lungs: Clear to auscultation. Heart: Sounds normal. Abdomen: Soft. Bowel sounds normal. No guarding, rigidity, tenderness, distention. Extremities: No leg edema. Laboratory Data: Last blood work results from yesterday on 06/15/2018, white count 5.3, hemoglobin 9 .8, platelets 621. The platelet count was 548 on 06/08/2018 and on 06/02/2018, platelet count was 27 8. Last chemistry from yesterday, sodium 140, potassium 4.7, chloride 106, bicarb 31, BUN 19, creati nine 0.74, glucose 108. Liver function tests unremarkable. Discharge Diagnoses: 1.Right hip intertrochanteric fracture. 2.Acute blood loss anemia. 3.Urinary tract infection. 4.Osteoarthritis, multiple sites. 5.Coronary artery disease. 6.Breast cancer. 7.Hypertension. 8.Hyperlipidemia. 9.Gastroesophageal reflux disease. 10.Osteopenia. Discharge Medications And Instructions: 1.Continue all prior home medication except stop furosemide 40 mg twice a day. 2.Take furosemide 20 mg twice a day, MiraLAX 17 g powder daily. 3.Lidocaine patch topically daily, Hemocyte Plus 1 tablet daily, Lovenox 40 mg subcutaneous injectio n daily for 10 days and after finishing Lovenox injection for 10 days, start clopidogrel 75 mg p.o. d aily. 4.Dulcolax rectal suppository daily p.r.n. 5.The patient to have Physical Therapy and Occupational therapy consult at senior living. 6.Fall precautions. 7.Follow up at my office within 1 week after getting discharged from the facility. 8.CBC, Chem-7, and magnesium level to be done in 1 week at the senior living. Hospital Course: This is an 82-year-old female patient, who moved to rehab floor after she had surge ry done for her hip fracture. The patient was admitted to rehab. Physical therapy was provided unde r guidance of Dr. Delgado. She did have urinary tract infection and according to culture results, c ulture-specific antibiotic Bactrim DS 1 tablet twice a day was given. She did finish her antibiotic treatment. She developed some swelling of the right lower extremity. The patient continued to recei ve DVT prophylaxis using Lovenox throughout her rehab stay. Venous Doppler of the right lower extrem ity was negative. Her other medical problems remained stable except she had some shoulder blade prob krista. She is on chronic pain management treatment care with help of the Pain Management physician, Dr Vaishali Wheelre and takes hydrocodone per Dr. Wheeler. She continued to receive pain medication while he re on the rehab floor. Constipation problem was controlled with laxatives and suppository on an as-n eeded basis. Stool softener was given every day. Other medical problems remained stable. The patie nt to follow up with orthopedic surgeon next week. Per patient's and her 's request, they wan gaby to go to group home facility upon discharge from rehab floor instead of returning back home and once all the arrangements completed today, she will be discharged to go to such facility. Barry bowles, she is stable for discharge. ERIKA/RENETTA Voice ID: [id number] Report ID: [id number]
== END 2018-06-16 13:30 | DRG 560 ==
LOC: 5TH 15:25
PROVIDERS: ADMIT Internal Medicine; ATTEND Internal Medicine
DX: S72.142D Displaced intertrochanteric fracture of left femur, subsequent encounter for closed fracture with routine healing (principal); D62 Acute posthemorrhagic anemia; N39.0 Urinary tract infection, site not specified; R00.1 Bradycardia, unspecified; I25.10 Atherosclerotic heart disease of native coronary artery without angina pectoris; M19.90 Unspecified osteoarthritis, unspecified site; I10 Essential (primary) hypertension; K21.9 Gastro-esophageal reflux disease without esophagitis; K57.90 Diverticulosis of intestine, part unspecified, without perforation or abscess without bleeding; M85.80 Other specified disorders of bone density and structure, unspecified site; K59.00 Constipation, unspecified; E87.6 Hypokalemia; R60.9 Edema, unspecified; R54 Age-related physical debility; M15.9 Polyosteoarthritis, unspecified; D47.3 Essential (hemorrhagic) thrombocythemia; C50.919 Malignant neoplasm of unspecified site of unspecified female breast
CPT/HCPCS: 36415; 80048; 80053; 81001; 82040; 83735; 84132; 84134; 85025; 87077; 87086; 87088; 87186; 92523; 93971; 97110; 97116; 97150; 97162; 97165; 97530; 97542; J1650

== ENCOUNTER 2019-11-13 16:30 | Emergency (ER) | payer OTHER ==
--- NOTE | 2019-11-13 19:37 | ER ---
Nurse's Notes [facility] Name: Pinky Meek Age: 84 yrs Sex: Female : 1935 Arrival Date: 11/13/2019 Time: 16:52 Bed 23 Private MD: Diagnosis: Cystitis, unspecified with hematuria Presentation: 11/12 16:52 Chief complaint: Patient states: Noticed blood in urine today with small clots in it. ll1 Pain to pelvic area and low back. No fever. Coronavirus screen: Client denies travel out of the [place] in the last 14 days. At this time, the client does not indicate any symptoms associated with coronavirus-19. Ebola Screen: Patient denies travel to an Ebola-affected area in the 21 days before illness onset. Initial Sepsis Screen: Does the patient meet any 2 criteria? No. Patient's initial sepsis screen is negative. Does the patient have a suspected source of infection? Yes: Dysuria/Frequency/Urgency/UTI. Risk Assessment: Do you want to hurt yourself or someone else? Patient reports no desire to harm self or others. Onset of symptoms was November 13, 2019. 16:52 Method Of Arrival: Wheelchair ll1 16:52 Acuity: MATHEUS 3 ll1 Historical: - Allergies: 16:55 No Known Allergies; ll1 - PMHx: 16:55 Chronic pain; Hypertension; Hyperlipidemia; ll1 - PSHx: 16:55 total knee replacement; ll1 16:55 hip sx; ll1 - Immunization history:: Flu vaccine is not up to date. - Social history:: Smoking status: Patient denies any tobacco usage or history of. Screenin:08 Abuse screen: Denies threats or abuse. Denies injuries from another. Nutritional ss screening: No deficits noted. Tuberculosis screening: Never had TB. Fall Risk None identified. Assessment: 19:08 Pain: Complains of pain in suprapubic area, low back Pain currently is 7 out of 10 on a ss pain scale. Quality of pain is described as aching, Pain began today Is continuous. Neuro: No deficits noted. Level of Consciousness is awake, alert, obeys commands, Oriented to person, place, time, situation. Cardiovascular: Capillary refill < 3 seconds is brisk in bilateral fingers. Respiratory: Respiratory effort is even, unlabored. GI: Patient currently denies diarrhea, nausea, vomiting. : Reports blood in urine that began today. Denies burning with urination. EENT: Nares are clear Oral mucosa is moist. Derm: Skin is intact, is healthy with good turgor, Skin is dry, Skin is pink, warm \T\ dry. normal. Musculoskeletal: Range of motion: intact in all extremities. Vital Signs: 16:52 BP 108 / 90; Pulse 58; Resp 17; Temp 98.4; Pulse Ox 98% ; Weight 71.67 kg; Height 5 ft. ll1 0 in. (152.40 cm); Pain 7/10; 16:52 Body Mass Index 30.86 (71.67 kg, 152.40 cm) ll1 ED Course: 16:52 Patient arrived in ED. ll1 16:54 Triage completed. ll1 16:56 Arm band placed on. 1 18:41 Reyes Long PA is PHCP. cp 18:41 Charles Jones MD is Attending Physician. cp 19:06 Muna Gautam RN is Primary Nurse. ss 19:06 Urine Microscopic Only Sent. ss 19:08 Patient has correct armband on for positive identification. Bed in low position. Call ss light in reach. 19:11 Sheldon Reynolds MD is Attending Physician. cp 19:56 No provider procedures requiring assistance completed. Patient did not have IV access ss during this emergency room visit. Administered Medications: 19:55 Drug: Augmentin 875 mg Route: PO; ss 19:56 Follow up: Response: No adverse reaction; Medication administered at discharge. 19:56 Drug: Pyridium 200 mg Route: PO; ss 19:56 Follow up: Response: Medication administered at discharge. Outcome: 19:37 Discharge ordered by . cp 19:56 Discharged to home ambulatory. ss 19:56 Condition: good 19:56 Discharge instructions given to patient, family, Instructed on discharge instructions, follow up and referral plans. medication usage, Demonstrated understanding of instructions, follow-up care, medications, Prescriptions given X 2. 19:56 Patient left the ED. ss Signatures: Muna Gautam RN RN Reyes Long PA PA cp Lewis, Lynsay, RN RN 1
--- NOTE | 2019-11-13 19:37 | EDPHYS ---
Physician Documentation [facility] Name: Pinky Meek Age: 84 yrs Sex: Female : 1935 Arrival Date: 11/13/2019 Time: 16:52 Bed 23 Private MD: ED Physician Sheldon Reynolds HPI: 11/12 19:00 This 84 yrs old Female presents to ER via Wheelchair with complaints of cp Urinary Problem. 19:00 The patient presents with pelvic pain, that is located in/on the suprapubic area, cp urinary symptoms, hematuria. Onset: The symptoms/episode began/occurred this morning. Associated signs and symptoms: Pertinent positives: low back pain, Pertinent negatives: constipation, diarrhea, fever, vaginal bleeding, vaginal discharge. Severity of symptoms: in the emergency department the symptoms are unchanged, despite home interventions. Historical: - Allergies: 16:55 No Known Allergies; ll1 - PMHx: 16:55 Chronic pain; Hypertension; Hyperlipidemia; ll1 - PSHx: 16:55 total knee replacement; ll1 16:55 hip sx; ll1 - Immunization history:: Flu vaccine is not up to date. - Social history:: Smoking status: Patient denies any tobacco usage or history of. ROS: 19:05 Constitutional: Negative for body aches, chills, fever, poor PO intake. cp 19:05 Back: Positive for of the low back area, Negative for injury or acute deformity, cp decreased range of motion. 19:05 : Positive for hematuria. 19:05 Neuro: Negative for altered mental status, headache, weakness. 19:05 All other systems are negative. Exam: 19:10 Constitutional: The patient appears in no acute distress, alert, awake, non-toxic, well cp developed, well nourished. 19:10 Head/Face: Normocephalic, atraumatic. cp 19:10 Cardiovascular: Rate: bradycardic, Rhythm: regular. 19:10 Respiratory: the patient does not display signs of respiratory distress, Respirations: normal. 19:10 Abdomen/GI: Inspection: abdomen appears normal, Palpation: abdomen is soft and non-tender, in all quadrants. 19:10 Back: pain, that is mild, of the low back area, ROM is normal, CVA tenderness, is absent. 19:10 Neuro: Orientation: to person, place \T\ time. Mentation: is normal, Motor: moves all fours, strength is normal, Gait: is steady. Vital Signs: 16:52 BP 108 / 90; Pulse 58; Resp 17; Temp 98.4; Pulse Ox 98% ; Weight 71.67 kg; Height 5 ft. ll1 0 in. (152.40 cm); Pain 7/10; 16:52 Body Mass Index 30.86 (71.67 kg, 152.40 cm) ll1 MDM: 18:48 Patient medically screened. cp 19:10 Differential diagnosis: kidney stone, urinary tract infection, vaginosis, sepsis. cp 19:36 Data reviewed: vital signs, nurses notes. cp 19:36 Counseling: I had a detailed discussion with the patient and/or guardian regarding: the cp historical points, exam findings, and any diagnostic results supporting the discharge/admit diagnosis, to return to the emergency department if symptoms worsen or persist or if there are any questions or concerns that arise at home. 11/12 19:00 Order name: Urine Microscopic Only 11/12 19:36 Order name: Urine Culture 11/12 19:00 Order name: Urine Dipstick-Ancillary (obtain specimen); Complete Time: 19:06 cp 11/12 19:43 Order name: Urine Dipstick--Ancillary (enter results) ar5 Administered Medications: 19:55 Drug: Augmentin 875 mg Route: PO; 19:56 Follow up: Response: No adverse reaction; Medication administered at discharge. 19:56 Drug: Pyridium 200 mg Route: PO; 19:56 Follow up: Response: Medication administered at discharge. Disposition: 20:00 Chart complete. cp Disposition: 11/13/19 19:37 Discharged to Home. Impression: Cystitis, unspecified with hematuria. - Condition is Stable. - Discharge Instructions: Urinary Tract Infection, Adult. - Prescriptions for Augmentin 875- 125 mg Oral Tablet - take 1 tablet by ORAL route every 12 hours for 7 days; 14 tablet. Pyridium 200 mg Oral Tablet - take 1 tablet by ORAL route every 8 hours for 2 days; 6 tablet. - Medication Reconciliation Form, Thank You Letter, Antibiotic Education, Prescription Opioid Use form. - Follow up: Private Physician; When: 2 - 3 days; Reason: Worsening of condition. - Problem is new. - Symptoms have improved. Signatures: Dispatcher [employer] EDMuna Mcfarland RN RN ss Reyes Long PA PA cp Lewis, Lynsay RN RN ll1 Corrections: (The following items were deleted from the chart) 19:56 19:37 11/13/2019 19:37 Discharged to Home. Impression: Cystitis, unspecified with ss hematuria. Condition is Stable. Forms are Medication Reconciliation Form, Thank You Letter, Antibiotic Education, Prescription Opioid Use. Follow up: Private Physician; When: 2 - 3 days; Reason: Worsening of condition. Problem is new. Symptoms have improved. cp
[2019-11-13] MEDS ORDERED: AMOX/K CLAV 875 MG TAB ONE (20:00)
[2019-11-13] MEDS ORDERED: PHENAZOPYRIDINE 100MG TAB PO ONE (20:00)
[2019-11-13 20:08] LABS: Urine Bacteria 20-50 /HPF (<20); Urine Culture Reflex Order NOT NEEDED; Urine RBC >50 /HPF (NONE SEEN)
[2019-11-13 20:27] VITALS: BP 108/90; TEMP 98.4; O2SAT 98
[2019-11-13 20:59] LABS: Urine Blood 3+ (NEG); Urine Glucose NEGATIVE (NEG); Urine Protein 1+ (NEG)
--- OUTSIDE RECORDS SUMMARY | 2019-11-15 16:38 | XMS REPORT | Clinical Summary ---
:1935 Author Organization [facility] Address [address] [place] [address] Care Team Providers Name Role Phone Augie Hernadez MD Primary Care Provider Allergies No Known Active Allergies Medications Medication Sig Dispensed Refills Start End Date Status Date ALPRAZolam (XANAX) Take 0.5 mg by 0 Active 0.5 MG tablet mouth daily. 6 atorvastatin 0 Active (LIPITOR) 20 MG 6 tablet clopidogrel (PLAVIX) 0 Active 75 mg tablet 6 temazepam (RESTORIL) 0 Active 30 mg capsule 6 HYDROcodone-acetamin Take 2 tablets 0 Active ophen (NORCO) by mouth as 7 7.5-325 mg per needed. tablet traMADol (ULTRAM) 50 0 Active mg tablet 7 folic acid (FOLVITE) Take 1 mg by 0 Active 1 MG tablet mouth daily. polyethylene glycol Take 17 g by 0 Active (MIRALAX) 17 gram mouth daily. packet acetic acid (VOSOL) Administer 2 0 Active 2 % otic solution drops into both ears 4 (four) times a day. methocarbamol Take 500 mg by 0 A ctive (ROBAXIN) 500 MG mouth as 7 tablet needed. aspirin (ECOTRIN) 81 Take 81 mg by 0 Active MG enteric coated mouth daily. tablet ascorbic acid, Take 500 mg by 0 Active vitamin C, (ascorbic mouth daily. acid with sophia hips) 500 MG tablet DULCOLAX, BISACODYL, Take by mouth. 0 Active ORAL UNABLE TO FIND 1.66 mg. 0 Activ e I-Caps gabapentin Take 100 mg by 0 Acti ve (NEURONTIN) 100 mg mouth as capsule needed. nitroglycerin 1 under the 100 tablet 11 03/05/19 Act joe (NITROSTAT) 0.4 MG tongue as 0 21 SL needed for tabletIndications: angina, may Coronary artery repeat q5mins disease involving for up three [place] coronary doses artery of [place] heart with angina pectoris (HCC) esomeprazole Take 1 capsule 60 capsule 3 A ctive (NexIUM) 40 MG (40 mg total) 0 capsuleIndications: by mouth 2 Gastroesophageal (two) times a reflux disease, day. esophagitis presence not specified furosemide (LASIX) TAKE ONE 180 tablet 2 Active 40 mg tablet TABLET BY 0 MOUTH TWICE A DAY metoprolol succinate TAKE 2 TABLETS 180 tablet 0 Active XL (TOPROL-XL) 25 mg BY MOUTH DAILY 0 24 hr tablet losartan (COZAAR) TAKE ONE 90 tablet 0 Ac tive 100 MG tablet TABLET BY 0 MOUTH DAILY cholecalciferol, Take 1,000 0 03/06/19 Di scontinued vitamin D3, (VITAMIN Units by mouth 20 (Therapy D3) 1,000 unit daily. compl eted) tablet docusate sodium Take 200 mg by 0 03/06/19 Discontinued (COLACE) 100 MG mouth daily. 20 ( Therapy capsule completed) furosemide (LASIX) Take 1 tablet 180 tablet 3 Discontinued 40 mg tablet (40 mg total) 9 20 by mouth 2 (two) times a day. nitroglycerin 1 under the 100 tablet 11 03/06/19 Dis continued (NITROSTAT) 0.4 MG tongue as 9 20 ( Reorder) SL tablet needed for angina, may repeat q5mins for up three doses metoprolol succinate TAKE TWO 90 tablet 0 11/21/19 Discontinued XL (TOPROL-XL) 25 mg TABLETS BY 9 19 (Reorder) 24 hr tablet MOUTH DAILY pantoprazole TAKE 1 TABLET 90 tablet 0 01/30/20 Dis continued (PROTONIX) 40 MG EC BY MOUTH DAILY 9 tabletIndications: 1/2 HOUR Gastroesophageal BEFORE reflux disease, BREAKFAST esophagitis presence not specified metoprolol succinate TAKE 2 TABLETS 90 tablet 0 02/08 Discontinued XL (TOPROL-XL) 25 mg BY MOUTH DAILY 9 20 (Therapy 24 hr tablet complet ed) losartan (COZAAR) TAKE ONE 90 tablet 1 06/25/19 Di scontinued 100 MG tablet TABLET BY 9 20 MOUTH DAILY metoprolol succinate TAKE 2 TABLETS 90 tablet 0 02/07 Discontinued XL (TOPROL-XL) 25 mg BY MOUTH DAILY 9 20 24 hr tablet pantoprazole TAKE 1 TABLET 90 tablet 0 03/01/19 Dis continued (PROTONIX) 40 MG EC BY MOUTH DAILY 9 20 tabletIndications: 1/2 HOUR Gastroesophageal BEFORE reflux disease, BREAKFAST esophagitis presence not specified metoprolol succinate TAKE 2 TABLETS 90 tablet 0 02/08 Discontinued XL (TOPROL-XL) 25 mg BY MOUTH DAILY 0 20 (Discontinued 24 hr tablet by anot her clinician) methocarbamol daily. 0 03/06/19 Discon tinued (ROBAXIN) 500 MG 20 (Th erapy tablet completed) esomeprazole Take 1 capsule 60 capsule 4 05/23/19 D iscontinued (NexIUM) 40 MG (40 mg total) 0 20 ( Reorder) capsule by mouth 2 (two) times a day. metoprolol succinate Take 25 mg by 0 04/08 Discontinued XL (TOPROL-XL) 25 mg mouth daily. 20 24 hr tablet metoprolol succinate TAKE 2 TABLETS 90 tablet 0 05/08 Discontinued XL (TOPROL-XL) 25 mg BY MOUTH DAILY 0 20 24 hr tablet metoprolol succinate TAKE 2 TABLETS 90 tablet 0 06/08 Discontinued XL (TOPROL-XL) 25 mg BY MOUTH DAILY 0 20 24 hr tablet losartan (COZAAR) TAKE ONE 90 tablet 0 10/02/19 Di scontinued 100 MG tablet TABLET BY 0 20 MOUTH DAILY metoprolol succinate TAKE 2 TABLETS 90 tablet 0 08/07 Discontinued XL (TOPROL-XL) 25 mg BY MOUTH DAILY 0 20 24 hr tablet Active Problems Problem Noted Date Stented coronary artery 03/01/2017 Coronary artery disease involving [place] coronary lu[place] ry of [place] heart 08/17/2016 without angina pectoris SOB (shortness of breath) 05/25/2016 CAD in [place] artery 05/25/2016 Chronic systolic congestive heart failure 05/25/2016 NSTEMI (non-ST elevated myocardial infarction) 017 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 02/17/2016 History of coronary artery bypass graft 02/17/2016 Encounters Date Type Specialty Care Team Description 11/13/2019 Telephone Gastroenterology Kaye Del Rosario, LAURA 10/01/2019 Refill Cardiology Jerald Castillo, Med Refill 09/04/2019 Office Visit Cardiology Jerald Castillo, History of coronary artery bypass graft (Primary Dx); Stented coronar y artery; CAD in [place] a rtery 09/03/2019 Travel 08/31/2019 Travel 08/23/2019 Refill Cardiology Jerald Castillo, Med Refill 07/05/2019 Refill Cardiology Jerald Castillo, Med Refill 06/27/2019 Telephone Gastroenterology Evelyn Quesada, MA 06/25/2019 Refill Cardiology Jerald Castillo, Med Refill 05/31/2019 Refill Cardiology Jerald Castillo, Med Refill 05/23/2019 Telephone Gastroenterology Evelyn Quesada, Gastro esophageal reflux MA disease, esopha gitis presence not sp ecified (Primary Dx) 05/22/2019 Refill Cardiology Jerald Castillo, Med Refill 04/06/2019 Refill Cardiology Jerald Castillo, Med Refill 03/06/2019 Office Visit Cardiology Jerald Castillo, Coronary ar renata disease involving [place] coronary artery of [place] heart with angina pectoris (HCC) (Primary Dx); Stented coronar y artery; History of emani nary artery bypass graft 03/01/2019 Office Visit Gastroenterology Gricel Case, Drug-in duced constipation (Primary Dx); Diverticulosis of large intestine without hemorrhage; Gastroesophagea l reflux disease, esophagitis presence not specified; [facility] (curr ent) use of antithrombotics/antiplatelets; Liver hemangiom a; Globus pharynge us 02/19/2019 Refill Cardiology Jerald Castillo, Med Refill MD 01/29/2019 Refill Gastroenterology Gricel Case Gastroe sophageal reflux disease, esopha gitis presence not sp ecified 01/02/2019 Refill Cardiology Jerald Castillo Med Refill 12/20/2018 Refill Cardiology Jerald Castillo Med Refill 11/20/2018 Refill Cardiology Jerald Castillo Med Refill after 11/13/2018 Surgical History Surgery Date Site/Laterality Comments STENT CHOLECYSTECTOMY HYSTERECTOMY 02/08/1976 - 02/06/1977 APPENDECTOMY REPLACEMENT TOTAL KNEE 10/08/2008 - 11/06/2008 CORONARY ARTERY BYPASS GRAFT 05/08/2000 - 06/06/2000 CORONARY STENT PLACEMENT 07/08/2010 - 2 stent s 08/06/2010 CARDIAC CATHETERIZATION 05/07/2016 N/A Procedur e: Cv left heart cath; Yuly geon: Hanna Cason; Location: [facility] Invasive Location; Servi ce: Cardiovascular; Laterality: N/A; Medical devices from this surgery are in the Implants sec tion. CARDIAC CATHETERIZATION 05/07/2016 N/A Procedur e: Cv pci stent; Surgeon: Hanna aCson; Location: [facility] Invasive Location; Servi ce: Cardiovascular; Laterality: N/A; Medical devices from this surgery are in the Implants sec tion. CARDIAC CATHETERIZATION 05/07/2016 N/A Procedur e: Cv venous bypass graft; Surgeon: Jerald Castillo MD; Locat ion: [facility] Location; Servi ce: Cardiovascular; Laterality: N/A; Medical devices from this surgery are in the Implants sec tion. CARDIAC CATHETERIZATION 05/07/2016 N/A Procedur e: Cv left internal mammary graft; Surgeon: Hanna Cason; Location: [facility] Lab Invasive Location; Servi ce: Cardiovascular; Laterality: N/A; Medical devices from this surgery are in the Implants sec tion. COLONOSCOPY UPPER GASTROINTESTINAL ENDOSCOPY CATARACT EXTRACTION 01/10/2017 Medical History Medical History Date Comments Hyperlipidemia Hypertension GERD (gastroesophageal reflux disease) Diverticulosis Constipation Irritable bowel syndrome Osteoarthritis Gastric ulcer 08/2010 Bleeeding gastric ul cers Squamous pre cancerous lung tumor 2010 Coronary artery disease Basal cell carcinoma 1985 Breast cancer (HCC) 1993 Anxiety Dyslipidemia Family History Medical History Relation Name Comments [...] Vital Signs Vital Sign Reading Time Taken Comments Blood Pressure 137/65 09/04/2019 1:45 PM CDT Pulse 52 09/04/2019 1:45 PM CDT Temperature - - Respiratory Rate - - Oxygen Saturation - - Inhaled Oxygen Concentration - - Weight 73 kg (161 lb) 09/04/2019 1:45 PM CDT Height 149.9 cm (4' 11") 09/04/2019 1:45 PM CDT Body Mass Index 32.52 09/04/2019 1:45 PM CDT Plan of Treatment Date Type Specialty Care Team Description 03/18/2020 Office Visit Cardiology Jerald Castillo MD [address] [place], [place] [address] [phone] Health Maintenance Due Date Last Done Comments SHINGLES VACCINES (#1) 09/27/1985 65+ PNEUMOCOCCAL VACCINE (1 of 1 - PPSV23) 09/27/2000 INFLUENZA VACCINE 09/08/2019 COLONOSCOPY SCREENING 06/07/2020 06/07/2010 Implants Implanted Type Area Supervising Appraiser Device Shelf Model / Identifier Expiration Serial / Date Lot Stent Catheter Synergy (Otw) 3.00mm X 32mm - [id number] Coronary N/A: N/A [facility] [id number] / Implanted: 05/07/2016 at [facility] (Quantity not on file) [place] INTERVENTIONAL / CARDIOLOGY Stent Catheter Synergy (Otw) 3.00mm X 16mm - [id number] Coronary N/A: N/A [facility] [id number] / Implanted: 05/07/2016 at [facility] (Quantity not on file) [place] INTERVENTIONAL / CARDIOLOGY Results Not on fileafter 11/13/2018 Insurance Payer Benefit Plan / Subscriber ID Effective Dates Phone Addre ss Type Group MEDICARE MEDICARE PART A [id number] 2000-Present [place], [place] Medicare AND B [phone] [id number] (Work) Advance Directives For more information, please contact: [phone] Type Date Recorded Patient Library Attendant Explanati on Advance Directives, Living Will and Medical Power of City Magistrate
--- OUTSIDE RECORDS SUMMARY | 2019-11-15 16:38 | XMS REPORT | Continuity of Care Document ---
:1935 Author Organization [facility] t Address [address] [place] [address] Care Team Providers Name Role Phone Augie Hernadez MD Primary Care Physician Miguel Ángel SANCHEZ Attending Clinician Unavailable Alicia RAMOS, R. Attending Clinician Dipak ALVARENGA Attending Clinician Unavailable Richi Case MD Attending Clinician Payers Payer Name Policy Type Policy Effective Date Expiration Date Sour ce Number MEDICAREMEDICARE PART [id number] 2000 Jared Benitez AND 00:00:00 Jain [id number] 2000[place], [place] Condition Condition Condition Status Onset Resolution Last Treating Co mments Source Name Details Category Date Date Treatment Clinician Date Stented Stented Disease Active [place] coronary coronary 03-01 Method i artery artery 00:00: st 00 [facility] disease disease 00:00: st involving involving 00 [place] coronary coronary artery of artery of [place] heart heart without without angina angina pectoris pectoris SOB SOB Disease Active [place] (shortness (shortness 4-18 Me [place] of breath) of breath) 00:00: st 00 CAD in CAD in Disease Active [place] 4-18 Methodi artery artery 00:00: st 00 Chronic Chronic Disease Active [place] systolic systolic 4-18 Method i congestive congestive 00:00: st heart heart 00 failure failure NSTEMI NSTEMI Disease Active [place] (non-ST (non-ST 3-30 Methodi elevated elevated 00:00: st myocardial myocardial 00 infarction infarction ) ) Coronary Coronary Disease Active [place] artery artery 1-10 Methodi disease disease 00:00: st involving involving 00 [place] heart with heart with angina angina pectoris pectoris History of History of Disease Active [place] coronary coronary 1-10 Method i artery artery 00:00: st bypass bypass 00 graft graft Allergies, Adverse Reactions, Alerts This patient has no known allergies or adverse reactions. Family History Family Member Diagnosis Comments Start Date Stop Date Source Natural father Heart attack Muhammad Jain Natural mother Heart attack [place] Jain Natural son Colon cancer [place] [facility] [place] Social History Social Habit Start Date Stop Date Quantity Comments Source History of tobacco Current smoker Jared cooper Jain use Sex Assigned At [facility] ethodist Cigarettes smoked 2019-03-06 2019-03-06 Jb Hartist current (pack per 00:00:00 00:00:00 day) - Reported Cigarette 2019-03-06 2019-03-06 [facility] ist pack-years 00:00:00 00:00:00 Tobacco use and 2019-03-06 2019-03-06 Never used [facility] ethodist exposure 00:00:00 00:00:00 Alcohol intake 2019-03-06 2019-03-06 Current drinker [place] Jain 00:00:00 00:00:00 of alcohol (finding) Smoking Status Start Date Stop Date Source Former smoker 2019-03-06 00:00:00 2019-03-06 00:00:00 Jb Villatoro Medications Ordered Filled Start Stop Current Ordering Indication Dosage Frequency Signature Comments Components Source Medication Medication Date Date Medication? Clinician (SIG) Name Name losartan Yes TAKE ONE [place] (COZAAR) 8-25 TABLET BY Method i 100 MG 00:00: MOUTH st tablet 00 DAILY metoprolol Yes TAKE 2 [place] succinate 7-16 TABLETS BY Meth roma XL 00:00: MOUTH st (TOPROL-XL) 00 DAILY 25 mg 24 hr tablet metoprolol 2020- No TAKE 2 [place] succinate 5-28 07-16 TABLETS BY Met hodi XL 00:00: 00:[address] (TOPROL-XL) 00 :00 DAILY 25 mg 24 hr tablet losartan 2020-0 2020- No TAKE ONE [place] (COZAAR) 5-18 08-25 TABLET BY Metho di 100 MG 00:00: 00:[address] tablet 00 :00 DAILY furosemide 2020-0 Yes TAKE ONE Mary ston (LASIX) 40 4-23 TABLET BY Meth roma mg tablet 00:00: MOUTH st 00 TWICE A DAY esomeprazol 2020-0 Yes Gastroesoph 40mg Q.5D Take 1 Muhammad e (NexIUM) 4-15 ageal capsule Metho di 40 MG 00:00: reflux ([address] capsule 00 disease, total) by esophagitis mouth 2 presence (two) not times a specified day. metoprolol 2019-0 2020- No TAKE 2 [place] succinate 4-14 05-28 TABLETS BY Met hodi XL 00:00: 00:[address] (TOPROL-XL) 00 :00 DAILY 25 mg 24 hr tablet metoprolol 2019-0 2020- No 25mg QD Take 25 mg Muhammad succinate 3-02 03-02 by mouth Metho di XL 12:24: 00:[address] (TOPROL-XL) 28 :00 25 mg 24 hr tablet metoprolol 2019-0 2020- No TAKE 2 [place] succinate 3-02 04-14 TABLETS BY Met hodi XL 00:00: 00:[address] (TOPROL-XL) 00 :00 DAILY 25 mg 24 hr tablet folic acid 2020-0 Yes 1mg QD Take 1 mg [place] (FOLVITE) 1 1- by mouth Meth roma MG tablet 13:04: daily. st 09 polyethylen 2020-0 Yes 17g QD Take 17 g [place] e glycol - by mouth Methodi (MIRALAX) 13:04: daily. st 17 gram 09 packet acetic acid 2020-0 Yes 2[drp] Q.25D Administer Muhammad (VOSOL) 2 % -28 2 drops Metho di otic 13:04: into both st solution 09 ears 4 (four) times a day. aspirin 2020-0 Yes 81mg QD Take 81 mg [place] (ECOTRIN) 1-28 by mouth Method i 81 MG 13:04: daily. st enteric 09 coated tablet ascorbic 2020-0 Yes 500mg QD Take 500 [place] acid, 1-28 mg by Methodi vitamin C, 13:04: mouth st (ascorbic 09 daily. acid with sophia hips) 500 MG tablet DULCOLAX, Yes Take by [place] BISACODYL, 03-06 mouth. Methodi ORAL 13:04: st 09 UNABLE TO 2020-0 Yes 1.66mg 1.66 mg. [place] FIND 03-06 I-Caps Methodi 13:04: st 09 gabapentin 2019- Yes 100mg Take 100 [place] (NEURONTIN) 03-06 mg by Methodi 100 mg 13:04: mouth as st capsule 09 needed. methocarbam 2020- No daily. Mary ston ol 03-06 Methodi (ROBAXIN) 13:03: 00:00 st 500 MG 02 :00 tablet docusate 2019- No 200mg QD Take 200 Mary ston sodium 03-06 mg by Methodi (COLACE) 12:59: 00:[address] 100 MG 56 :00 daily. capsule cholecalcif 2019- No 1000U QD Take 1,000 Muhammad marily, 03-06 Units by Methodi vitamin D3, 12:59: 00:[address] (VITAMIN 14 :00 daily. D3) 1,000 unit tablet nitroglycer 2020- Coronary 1 under Muhammad in 03-06 artery the tongue Method i (NITROSTAT) 00:00: 23:[address] 0.4 MG SL 00 :00 involving for tablet [place] angina, coronary may repeat artery of q5mins for [place] up three heart with doses angina pectoris (HCC) esomeprazol 2019- No 40mg Q.5D Take 1 Mary ston e (NexIUM) 03-01-15 capsule Metho di 40 MG 00:00: 00:00 ([address] capsule 00 :00 total) by mouth 2 (two) times a day. metoprolol 2019- No TAKE 2 [place] succinate 02-19 TABLETS BY Met hodi XL 00:00: 00:[address] (TOPROL-XL) 00 :00 DAILY 25 mg 24 hr tablet pantoprazol 2018-02- No Gastroesoph TAKE 1 Muhammad e 04-01 ageal TABLET BY Methodi (PROTONIX) 00:00: 00:[address] 40 MG EC 00 :00 disease, DAILY 1/2 tablet esophagitis HOUR presence BEFORE not BREAKFAST specified metoprolol 2018-02- No TAKE 2 [place] succinate 1-26 01-13 TABLETS BY Met hodi XL 00:00: 00:[address] (TOPROL-XL) 00 :00 DAILY 25 mg 24 hr tablet losartan 2018-02- No TAKE ONE [place] (COZAAR) 1-13 05-18 TABLET BY Metho di 100 MG 00:00: 00:[address] tablet 00 :00 DAILY metoprolol 2018-02- No TAKE 2 [place] succinate 0-14 - TABLETS BY Met hodi XL 00:00: 00:[address] (TOPROL-XL) 00 :00 DAILY 25 mg 24 hr tablet pantoprazol 2018- Gastroesoph TAKE 1 Muhammad e 10-30 ageal TABLET BY Methodi (PROTONIX) 00:00: 00:[address] 40 MG EC 00 :00 disease, DAILY 1/2 tablet esophagitis HOUR presence BEFORE not BREAKFAST specified metoprolol 2018- No TAKE TWO [place] succinate - 10-14 TABLETS BY Met hodi XL 00:00: 00:[address] (TOPROL-XL) 00 :00 DAILY 25 mg 24 hr tablet furosemide 2019- No 40mg Q.5D Take 1 [place] (LASIX) 40 03-08- tablet (40 Me thodi mg tablet 00:00: 00:00 mg total) st 00 :00 by mouth 2 (two) times a day. nitroglycer 2019- No 1 under [place] in 03-08 the tongue Methodi (NITROSTAT) 00:00: 00:[address] 0.4 MG SL 00 :00 for tablet angina, may repeat q5mins for up three doses methocarbam Yes 500mg Take 500 [place] ol 6-19 mg by Methodi (ROBAXIN) 00:00: mouth as st 500 MG 00 needed. tablet HYDROcodone Yes 2{tbl} Take 2 [place] -acetaminop 2-[address] thodi hen (NORCO) 00:00: mouth as st 7.5-325 mg 00 needed. per tablet traMADol Yes Jb (ULTRAM) 50 2-27 Methodi mg tablet 00:00: st 00 temazepam 2015-02 Yes Muhammad (RESTORIL) 2-30 Methodi 30 mg 00:00: st capsule 00 ALPRAZolam 2015-02 Yes .5mg QD Take 0.5 Mary katelynn (XANAX) 0.5 2-12 mg by Methodi MG tablet 00:00: mouth st 00 daily. clopidogrel 2015-02 Yes Jovita ojeda (PLAVIX) 75 2-07 Methodi mg tablet 00:00: st 00 atorvastati 2015-02 Yes Jovita ojeda (LIPITOR) 0-26 Methodi 20 MG 00:00: st tablet 00 Vital Signs Vital Name Observation Time Observation Value Comments Source Systolic blood 2019-09-04 13:45:00 137 mm[Hg] Giftyto n Jain pressure Diastolic blood 2019-09-04 13:45:00 65 mm[Hg] [place] Jain pressure Heart rate 2019-09-04 13:45:00 52 /min Jb Villatoro Body height 2019-09-04 13:45:00 149.9 cm [place] Jain Body weight 2019-09-04 13:45:00 73.029 kg [place] Jain BMI 2019-09-04 13:45:00 32.52 kg/m2 [place] Jain Procedures This patient has no known procedures. Plan of Care Planned Activity Planned Date Details Comments Source Future Scheduled 2020-06-07 COLONOSCOPY SCREENING Ho kenneth Jain Test 00:00:00 [code = COLONOSCOPY SCREENING] Future Scheduled 2019-09-08 INFLUENZA VACCINE Giftydavid rusty Jain Test 00:00:00 [code = INFLUENZA VACCINE] Future Scheduled 2000-09-27 65+ PNEUMOCOCCAL Muhammad Jain Test 00:00:00 VACCINE (1 of 1 - PPSV23) [code = 65+ PNEUMOCOCCAL VACCINE (1 of 1 - PPSV23)] Future Scheduled 1985-09-27 SHINGLES VACCINES (#1) H beaukatelynn Jain Test 00:00:00 [code = SHINGLES VACCINES (#1)] Encounters Start End Encounter Admission Attending Care Care Encounter Source Date/Time Date/Time Type Type Clinicians Facility Department ID 2019-09-04 2019-09-04 Outpatient [facility] [id number] [place] 00:00:00 00:00:00 YADIRA [address] Results This patient has no known results.
== END 2019-11-13 19:56 | disposition home or self-care (01) ==
LOC: ER 16:30
DX: N30.91 Cystitis, unspecified with hematuria (principal); I10 Essential (primary) hypertension
CPT/HCPCS: 81003; 81015; 87086; 87088; 99283

== ENCOUNTER 2019-11-17 09:44 | Emergency (ER) | payer OTHER ==
--- OUTSIDE RECORDS SUMMARY | 2019-11-17 09:46 | XMS REPORT | Clinical Summary ---
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 02/17/2016 History of coronary artery bypass graft 02/17/2016 Encounters Date Type Specialty Care Team Description 11/13/2019 Telephone Gastroenterology Kaye Del Rosario, LAURA 10/01/2019 Refill Cardiology Jerald Castillo, Med Refill 09/04/2019 Office Visit Cardiology Jerald Castillo, History of coronary artery bypass graft (Primary Dx); Stented coronar y artery; CAD in wiyot a rtery 09/03/2019 Travel 08/31/2019 Travel 08/23/2019 [...] Jerald Castillo, Coronary ar renata disease involving wiyot coronary artery of wiyot heart with angina pectoris (HCC) (Primary Dx); Stented coronar y artery; History of emani nary artery bypass graft 03/01/2019 Office Visit Gastroenterology Gricel Case, Drug-in duced constipation (Primary Dx); Diverticulosis of large intestine without hemorrhage; Gastroesophagea l reflux disease, esophagitis presence not specified; FDC (curr ent) use of antithrombotics/antiplatelets; Liver hemangiom a; Globus pharynge us 02/19/2019 Refill Cardiology Jerald Castillo, Med Refill MD 01/29/2019 Refill Gastroenterology Gricel Case Gastroe sophageal reflux disease, esopha gitis presence not sp ecified 01/02/2019 Refill Cardiology Jerald Castillo Med Refill 12/20/2018 Refill Cardiology Jerald Castillo Med Refill 11/20/2018 Refill Cardiology Jerald Castillo Med Refill after 11/16/2018 Surgical History Surgery Date Site/Laterality Comments STENT CHOLECYSTECTOMY HYSTERECTOMY 02/08/1976 - 02/06/1977 APPENDECTOMY REPLACEMENT TOTAL KNEE 10/08/2008 - 11/06/2008 CORONARY ARTERY BYPASS GRAFT 05/08/2000 - 06/06/2000 CORONARY STENT PLACEMENT 07/08/2010 - 2 stent s 08/06/2010 CARDIAC CATHETERIZATION 05/07/2016 N/A Procedur e: Cv left heart cath; Yuly geon: Hanna Cason; Location: [facility] Invasive Location; Servi ce: Cardiovascular; Laterality: N/A; Medical devices from this surgery are in the Implants sec tion. CARDIAC CATHETERIZATION 05/07/2016 N/A Procedur e: Cv pci stent; Surgeon: Hanna Cason; Location: [facility] Invasive Location; Servi ce: Cardiovascular; Laterality: N/A; Medical devices from this surgery are in the Implants sec tion. CARDIAC CATHETERIZATION 05/07/2016 N/A Procedur e: Cv venous bypass graft; Surgeon: Jerald Castillo MD; Locat ion: [facility] Legislators Inv asive Location; Servi ce: Cardiovascular; Laterality: N/A; Medical devices from this surgery are in the Implants sec tion. CARDIAC CATHETERIZATION 05/07/2016 N/A Procedur e: Cv left internal mammary graft; Surgeon: Hanna Cason; Location: [facility] Invasive Location; Servi ce: Cardiovascular; Laterality: [...] Office Visit Cardiology Jerald Castillo MD [address] [facility] [address] [address] [place], [place] [address] [phone] Health Maintenance Due Date Last Done Comments SHINGLES VACCINES (#1) 09/27/1985 65+ PNEUMOCOCCAL VACCINE (1 of 1 - PPSV23) 09/27/2000 INFLUENZA VACCINE 09/08/2019 COLONOSCOPY SCREENING 06/07/2020 06/07/2010 Implants Implanted Type Area Senior Quality Technician Device Shelf Model / Identifier Expiration Serial / Date Lot Stent Catheter Synergy (Otw) 3.00mm X 32mm - [id number] Coronary N/A: N/A [facility] [id number] / Implanted: 05/07/2016 at [facility] (Quantity not on file) [place] INTERVENTIONAL / CARDIOLOGY Stent Catheter Synergy (Otw) 3.00mm X 16mm - [id number] Coronary N/A: N/A [facility] [id number] / Implanted: 05/07/2016 at [facility] (Quantity not on file) [place] INTERVENTIONAL / CARDIOLOGY Results Not on fileafter 11/16/2018 Insurance Payer Benefit Plan / Subscriber ID Effective Dates Phone Addre ss Type Group MEDICARE MEDICARE PART A [id number] 2000-Present [place], [place] Medicare AND B [phone] [id number] (Work) Advance Directives For more information, please contact: [phone] Type Date Recorded 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
--- OUTSIDE RECORDS SUMMARY | 2019-11-17 09:47 | XMS REPORT | Continuity of Care Document ---
:1935 Author Organization [facility] t Address [address] [place] [address] Care Team Providers Name Role Phone Augie Hernadez MD Primary Care Physician Miguel Ángel SANCHEZ Attending Clinician Unavailable Alicia RAMOS, R. Attending Clinician Dipak ALVARENGA Attending Clinician Unavailable Manpreet RAMOS, L. Attending Clinician Payers Payer Name Policy Type Policy Effective Date Expiration Date Sour ce Number MEDICAREMEDICARE PART [id number] 2000 Jared Benitez AND 00:00:00 Buddhism [id number] 2000- [place], [place] Condition Condition Condition Status Onset Resolution Last Treating Co mments Source Name Details Category Date Date Treatment Clinician Date Stented Stented Disease Active [place] coronary coronary 03-01 Method i artery artery 00:00: st 00 [facility] disease disease 00:00: st involving involving 00 [place] coronary coronary artery of artery of [place] heart heart without without angina angina pectoris pectoris SOB SOB Disease Active [place] (shortness (shortness 4-18 Me thodi of breath) of breath) 00:00: st 00 CAD in CAD in Disease Active [place] 4-18 Methodi artery artery 00:00: st 00 Chronic Chronic Disease Active [place] systolic systolic 4-18 Method i congestive congestive 00:00: st heart heart 00 failure failure NSTEMI NSTEMI Disease Active [place] (non-ST (non-ST 3-30 Methodi elevated elevated 00:00: st myocardial myocardial 00 infarction infarction ) ) Coronary Coronary Disease Active [place] artery artery 1-10 Methodi disease disease 00:00: st involving involving 00 [place] heart with heart with angina angina pectoris pectoris History of History of Disease Active [place] coronary coronary 1-10 Method i artery artery 00:00: st bypass bypass 00 graft graft Allergies, Adverse Reactions, Alerts This patient has no known allergies or adverse reactions. Family History Family Member Diagnosis Comments Start Date Stop Date Source Natural father Heart attack [place] Buddhism Natural mother Heart attack [place] Buddhism Natural son Colon cancer [facility] sancho Social History Social Habit Start Date Stop Date Quantity Comments Source History of tobacco Current smoker Jared cooper Buddhism use Sex Assigned At [facility] ethodist Cigarettes smoked 2019-03-06 2019-03-06 [place] Buddhism current (pack per 00:00:00 00:00:00 day) - Reported Cigarette 2019-03-06 2019-03-06 [facility] ist pack-years 00:00:00 00:00:00 Tobacco use and 2019-03-06 2019-03-06 Never used [facility] ethodist exposure 00:00:00 00:00:00 Alcohol intake 2019-03-06 2019-03-06 Current drinker [place] Buddhism 00:00:00 00:00:00 of alcohol (finding) Smoking Status [...] DAILY 25 mg 24 hr tablet losartan 2020- No TAKE ONE [place] (COZAAR) 5-18 08-25 TABLET BY Metho di 100 MG 00:00: 00:[address] tablet 00 :00 DAILY furosemide 2019-0 Yes TAKE ONE Mary ston (LASIX) 40 4-23 TABLET BY Meth roma mg tablet 00:00: MOUTH st 00 TWICE A DAY esomeprazol 2020-0 Yes Gastroesoph 40mg Q.5D Take 1 Muhammad e (NexIUM) 4-15 ageal capsule Metho di 40 MG 00:00: reflux ([address] capsule 00 disease, total) by esophagitis mouth 2 presence (two) not times a specified day. metoprolol 2020- No TAKE 2 [place] succinate 4-14 05-28 TABLETS BY Met hodi XL 00:00: 00:[address] (TOPROL-XL) 00 :00 DAILY 25 mg 24 hr tablet metoprolol 2020- No 25mg QD Take 25 mg Muhammad succinate 3-02 03-02 by mouth Metho di XL 12:24: 00:[address] (TOPROL-XL) 28 :00 25 mg 24 hr tablet metoprolol 2019- No TAKE 2 [place] succinate 3-02 04-14 TABLETS BY Met hodi XL 00:00: 00:[address] (TOPROL-XL) 00 :00 DAILY 25 mg 24 hr tablet folic acid 2019-0 Yes 1mg QD Take 1 mg [place] (FOLVITE) 1 1- by mouth Meth roma MG tablet 13:04: daily. st 09 polyethylen 2020-0 Yes 17g QD Take 17 g [place] e glycol 03-06 by mouth Methodi (MIRALAX) 13:04: daily. st 17 gram 09 packet acetic acid 2020-0 Yes 2[drp] Q.25D Administer Muhammad (VOSOL) 2 % - 2 drops Metho di otic 13:04: into both st solution 09 ears 4 (four) times a day. aspirin 2020-0 Yes 81mg QD Take 81 mg [place] (ECOTRIN) -28 by mouth Method i 81 MG 13:04: [...] daily. D3) 1,000 unit tablet nitroglycer 2020- No Coronary 1 under Muhammad in 03-06 artery the tongue Method i (NITROSTAT) 00:00: 23:[address] 0.4 MG SL 00 :00 involving for tablet [place] angina, coronary may repeat artery of q5mins for [place] up three heart with doses angina pectoris (HCC) esomeprazol 2019- No 40mg Q.5D Take 1 Mary ston e (NexIUM) 03-01 capsule Metho di 40 MG 00:00: 00:00 [...] No TAKE 2 [place] succinate 1-26 - TABLETS BY Met hodi XL 00:00: 00:[address] (TOPROL-XL) 00 :00 DAILY 25 mg 24 hr tablet losartan 2018-02- No TAKE ONE [place] (COZAAR) 1-13 05-18 TABLET BY Metho di 100 MG 00:00: 00:[address] tablet 00 :00 DAILY metoprolol 2018-02- No TAKE 2 [place] succinate 0-14 -28 TABLETS BY Met hodi XL 00:00: 00:[address] (TOPROL-XL) 00 :00 DAILY 25 mg 24 hr tablet pantoprazol 2018- Gastroesoph TAKE 1 Muhammad e 10-30 ageal TABLET BY Methodi (PROTONIX) 00:00: 00:[address] 40 MG EC 00 :00 disease, DAILY 1/2 tablet esophagitis HOUR presence BEFORE not BREAKFAST specified metoprolol 2018- TAKE TWO [place] succinate - 10-14 TABLETS BY Met hodi XL 00:00: 00:[address] (TOPROL-XL) 00 :00 DAILY 25 mg 24 hr tablet furosemide 2019- No 40mg Q.5D Take 1 [place] (LASIX) 40 03-08 tablet (40 Me thodi mg tablet 00:00: 00:00 mg total) st 00 :00 by mouth 2 (two) times a day. nitroglycer 2019- 1 under [place] in 03-08 the tongue Methodi (NITROSTAT) 00:00: 00:[address] 0.4 MG SL 00 :00 for tablet angina, may repeat q5mins for up three doses methocarbam Yes 500mg Take 500 [place] ol 6-19 mg by Methodi (ROBAXIN) 00:00: mouth as st 500 MG 00 needed. tablet HYDROcodone Yes 2{tbl} Take 2 [place] -acetaminop 2-27 tablets by Ok mike hen (NORCO) 00:00: mouth as st 7.5-325 mg 00 needed. per tablet traMADol Yes Muhammad (ULTRAM) 50 2-27 Methodi mg tablet 00:00: st 00 temazepam 2015-02 Yes Muhammad (RESTORIL) 2-30 Methodi 30 mg 00:00: st capsule 00 ALPRAZolam 2015-02 Yes .5mg QD Take 0.5 Mary pace (XANAX) 0.5 2-12 mg by Methodi MG tablet 00:00: mouth st 00 daily. clopidogrel 2015-02 Yes Jovita ojeda (PLAVIX) 75 2-07 Methodi mg tablet 00:00: st 00 atorvastati 2015-02 Yes Jovita ojeda (LIPITOR) 0-26 Methodi 20 MG 00:00: st tablet 00 Vital Signs Vital Name Observation Time Observation Value Comments Source Systolic blood 2019-09-04 13:45:00 137 mm[Hg] Giftyto n Buddhism pressure Diastolic blood 2019-09-04 13:45:00 65 mm[Hg] [place] on Buddhism pressure Heart rate 2019-09-04 13:45:00 52 /min Jb Hartist Body height 2019-09-04 13:45:00 149.9 cm [place] Buddhism Body weight 2019-09-04 13:45:00 73.029 kg [place] Buddhism BMI 2019-09-04 13:45:00 32.52 kg/m2 [place] Buddhism Procedures This patient has no known procedures. Plan of Care Planned Activity Planned Date Details Comments Source Future Scheduled 2020-06-07 COLONOSCOPY SCREENING Ho kenneth Buddhism Test 00:00:00 [code = COLONOSCOPY SCREENING] Future Scheduled 2019-09-08 INFLUENZA VACCINE Jovita ojeda Buddhism Test 00:00:00 [code = INFLUENZA VACCINE] Future Scheduled 2000-09-27 65+ PNEUMOCOCCAL Muhammad Buddhism Test 00:00:00 VACCINE (1 of 1 - PPSV23) [code = 65+ PNEUMOCOCCAL VACCINE (1 of 1 - PPSV23)] Future Scheduled 1985-09-27 SHINGLES VACCINES (#1) H beaukatelynn Buddhism Test 00:00:00 [code = SHINGLES VACCINES (#1)] Encounters Start End Encounter Admission Attending Care Care Encounter Source Date/Time Date/Time Type Type Clinicians Facility Department ID 2019-09-04 2019-09-04 Outpatient [facility] [id number] [place] 00:00:00 00:00:00 YADIRA [address] Results This patient has no known results.
[2019-11-17] MEDS ORDERED: NA CHLORIDE 0.9% 1,000 ML ONE (10:33)
[2019-11-17] MEDS ORDERED: FAMOTIDINE 20 MG/2 ML VIAL IV ONE (10:33)
[2019-11-17] MEDS ORDERED: ONDANSETRON 4 MG/2 ML VIAL ONE (10:33)
[2019-11-17 10:39] LABS: Absolute Lymphocytes (CBC) 1.8 K/uL (0.7-4.9); Basophils % 0.6 % (0-1.3); Hematocrit 38.2 % (36.0-45.0); Lymphocytes % 18.2 % (15.3-44.8); MPV 7.4 fL (7.6-11.3); RBC Red Blood Cell Count 4.47 M/uL (3.86-4.86)
[2019-11-17 10:59] LABS: ALT/SGPT 24 U/L (12-78); AST/SGOT 18 U/L (15-37); Alkaline Phosphatase 112 U/L (45-117); BUN Blood Urea Nitrogen 11 mg/dL (7-18); Bicarbonate 30 mmol/L (21-32); Bilirubin Direct 0.2 mg/dL (0-0.2); Bilirubin Total 0.5 mg/dL (0.2-1.0); Glucose Level 117 mg/dL (74-106); Lipase 305 U/L (73-393); Magnesium 2.1 mg/dL (1.8-2.4); NT PRO-BNP 559 pg/mL (<450); Potassium 3.3 mmol/L (3.5-5.1); Protein, Total 8.2 g/dL (6.4-8.2); Sodium Level 137 mmol/L (136-145); Troponin (Emerg Dept Use Only) < 0.02 ng/mL (0.0-0.045)
[2019-11-17] MEDS ORDERED: POTASSIUM 25 MEQ EFFERV TAB ONE (11:38)
--- NOTE | 2019-11-17 12:04 | RAD REPORT ---
EXAM DESCRIPTION: RAD - Chest Single View - 11/17/2019 11:04 am CLINICAL HISTORY: Cough;Dyspnea;Abdominal distention COMPARISON: Portable May 2018 TECHNIQUE: AP portable chest image was obtained 11/17/2019 11:04 am . FINDINGS: Lung volumes are low compared to the prior study. This accentuates a baseline chronic inte rstitial pattern. No peripheral mass or consolidation. No significant failure or volume overload susp ected. CABG surgical changes are noted. Heart and vasculature are normal. No measurable pleural effusion and no pneumothorax. No acute bony abnormality seen. No acute aortic findings suspected. IMPRESSION: Chronic lung parenchymal changes similar to comparison. No acute findings.
[2019-11-17] MEDS ORDERED: CEFTRIAXONE/SWI 1gm 0 GM/0 ML SYR ONE (13:02)
--- NOTE | 2019-11-17 13:13 | RAD REPORT ---
EXAM DESCRIPTION: CT - Abdomen Pelvis W Contrast - 11/17/2019 12:51 pm CLINICAL HISTORY: Abdominal pain. COMPARISON: 2014 TECHNIQUE: Computed axial tomography of the abdomen and pelvis was obtained. 100 cc Isovue-300 is ad ministered intravenously. Oral contrast was given. All CT scans are performed using dose optimization technique as appropriate and may include automated exposure control or mA/KV adjustment according to patient size. FINDINGS: Small hepatic cysts. The arterial phase demonstrates increased density within the posterior segment r ight lobe of liver unchanged the prior exam and probably a small vascular malformation Cholecystectomy The spleen, pancreas and adrenals unremarkable. A small calculus is present within each kidney. No hydronephrosis Hysterectomy. 2.7 centimeter left ovarian cyst. No evidence of diverticulitis. The wall of distal sigmoid colon appears mildly thickened. Spondylosis lumbar spine resulting in spinal stenosis IMPRESSION: Mild thickening of the wall of sigmoid colon could indicate a mild colitis or be seconda ry to incomplete distention.
--- NOTE | 2019-11-17 14:01 | ER ---
Nurse's Notes [facility] Name: Pinky Meek Age: 84 yrs Sex: Female : 1935 Arrival Date: 11/17/2019 Time: 09:45 Bed 17 Private MD: Diagnosis: Abdominal tenderness;Left sided colitis without complications-sigmoid;Insomnia Presentation: 11/16 09:57 Chief complaint: EMS states: Restlessness, nausea, malaise, and insomnia x 3 days. Seen hb in ED last week for UTI, on Augmentin day 5. Coronavirus screen: At this time, the client does not indicate any symptoms associated with coronavirus-19. Ebola Screen: No symptoms or risks identified at this time. Initial Sepsis Screen: Does the patient meet any 2 criteria? No. Patient's initial sepsis screen is negative. Does the patient have a suspected source of infection? No. Patient's initial sepsis screen is negative. Risk Assessment: Do you want to hurt yourself or someone else? Patient reports no desire to harm self or others. Onset of symptoms was November 14, 2019. 09:57 Method Of Arrival: Wheelchair 09:57 Acuity: MATHEUS 3 hb Historical: - Allergies: 10:01 No Known Allergies; hb - Home Meds: 10:01 Acetasol HC 1-2 % Otic drop 2 drops 4 times per day [Active]; Align 4 mg Oral cap hb [Active]; alprazolam 0.5 mg Oral Tb24 1 tab once daily [Active]; B complex-minerals Oral [Active]; clotrimazole-betamethasone 1-0.05 % Topical crea 2 times per day [Active]; Dulcolax (bisacodyl) 5 mg Oral TbEC 1 tab [Active]; folic acid 1 mg Oral tab 1 tab once daily [Active]; hydrocodone-acetaminophen 7.5-325 mg Oral tab [Active]; Imdur 30 mg Oral Tb24 1 tab once daily [Active]; Lipitor 20 mg Oral tab 1 tab once daily [Active]; losartan 12.5 mg Oral [Active]; Miralax 17 gram/dose Oral powd once daily [Active]; Nitrostat 0.4 mg SL subl 1 tab every 5 minutes [Active]; Plavix 75 mg Oral tab 1 tab once daily [Active]; Protonix 40 mg Oral grps 1 packet once daily [Active]; temazepam 30 mg Oral cap 1 cap once daily [Active]; Toprol XL 25 mg Oral Tb24 1 tab once daily [Active]; tramadol 50 mg Oral tab 1 tab every 4 hours [Active]; Vitamin C 500 mg Oral tab [Active]; Vitamin D3 Complete 18 mg iron-800 mcg-150 mg Oral tab [Active]; - PMHx: 10:01 Chronic pain; Hyperlipidemia; Hypertension; hb - PSHx: 10:01 total knee replacement; hip sx; hb - Immunization history:: Adult Immunizations up to date. - Social history:: Smoking status: Patient denies any tobacco usage or history of. - Family history:: not pertinent. Screenin:01 Abuse screen: Denies threats or abuse. Denies injuries from another. Nutritional hb screening: No deficits noted. Tuberculosis screening: No symptoms or risk factors identified. Fall Risk None identified. Assessment: 10:00 General: Appears uncomfortable, Behavior is calm, cooperative, Reports fatigue for 1-2 ss days, Denies fever, feeling ill, chills. Pain: Complains of pain in abdomen Pain currently is 2 out of 10 on a pain scale. Quality of pain is described as aching, tender, Pain began 1 day ago. Is intermittent. Neuro: Level of Consciousness is awake, alert, obeys commands, Oriented to person, place, time, situation, Fitness Centre Manager are equal bilaterally Speech is normal, Facial symmetry appears normal. Cardiovascular: Pulses are palpable in right radial artery and left radial artery. Respiratory: Airway is patent Respiratory effort is even, unlabored, Respiratory pattern is regular, symmetrical. GI: Reports lower abdominal pain, upper abdominal pain, bloating, gaseousness, indigestion, nausea, soft stools that began 1-2 days ago Patient currently denies diarrhea, vomiting. : Reports blood in urine that began 2 days ago that has since gone away. Pt began taking Augmentin 4 days ago and believes her symptoms may be due to taking that new medication. EENT: Nares are clear Oral mucosa is moist. Derm: Skin is intact, is healthy with good turgor, Skin is pink, warm \T\ dry. normal. Musculoskeletal: Circulation, motion, and sensation intact. Range of motion: intact in all extremities. 11:00 Reassessment: Assisted patient onto bedside commode. Diarrhea noted x1. Pt now back in ss bed on monitors. Awaiting for CT time. 12:51 Reassessment: Pt in CT now. ss 14:20 Reassessment: Patient is resting at this time. Eyes closed. Respiration remain even and ss unlabored. 14:47 Reassessment: Patient appears in no apparent distress at this time. Patient and/or ss family updated on plan of care and expected duration. Pain level reassessed. Vital Signs: 09:57 BP 155 / 64; Pulse 60; Resp 16; Temp 97.8(TE); Pulse Ox 98% on R/A; Weight 68.04 kg; hb Height 4 ft. 11 in. (149.86 cm); Pain 0/10; 11:42 Pulse 65; Resp 17; Pulse Ox 97% ; Pain 0/10; ss 12:37 BP 151 / 67; ss 09:57 Body Mass Index 30.30 (68.04 kg, 149.86 cm) hb ED Course: 09:45 Patient arrived in ED. ds1 09:51 Reyes Ochoa MD is Attending Physician. theresa 09:59 Triage completed. hb 10:01 Arm band placed on. hb 10:01 Patient has correct armband on for positive identification. Bed in low position. Call hb light in reach. Side rails up X 1. 10:31 Muna Gautam, LAURA is Primary Nurse. ss 10:31 Inserted saline lock: 22 gauge in right antecubital area, using aseptic technique. ss Blood collected. 10:33 EKG done, by ED staff, reviewed by Reyes Ochoa MD. dh3 11:04 XRAY Chest (1 view) In Process Unspecified. EDMS 12:51 CT Abd/Pelvis - PO and IV Contrast In Process Unspecified. EDMS 13:00 Straight cath inserted, using sterile technique, 16 Fr. Specimen obtained. Returned ss clear yellow urine. Patient tolerated well. 13:59 Blayne Hernadez MD is Referral Physician. theresa 14:47 No provider procedures requiring assistance completed. IV discontinued, intact, ss bleeding controlled, No redness/swelling at site. Pressure dressing applied. Administered Medications: Discontinued: NS 0.9% 1000 ml IV at 125 ml/hr continuous 10:42 Drug: NS 0.9% 500 ml Route: IV; Rate: bolus; Site: right antecubital; ss 11:00 Follow up: Response: No adverse reaction; IV Status: Completed infusion; IV Intake: ss 500ml 10:45 Drug: Zofran (Ondansetron) 4 mg Route: IVP; Site: right antecubital; ss 12:36 Follow up: Response: No adverse reaction ss 10:47 Drug: Pepcid 20 mg Route: IVP; Site: right antecubital; ss 12:36 Follow up: Response: No adverse reaction; Marked relief of symptoms ss 11:00 Drug: NS 0.9% 1000 ml Route: IV; Rate: 125 ml/hr; Site: right antecubital; ss 11:29 Drug: Potassium Effervescent Tablet 25 mEq Route: PO; ss 13:47 Follow up: Response: No adverse reaction ss 14:37 Drug: Aspirin 81 mg Route: PO; ss 14:45 Follow up: Response: No adverse reaction; Medication administered at discharge. ss 14:46 Not Given (cancelled per Dr. Baldwin): Rocephin 1 grams IV at per protocol once; Given ss slow IV push per pharmacy instructions Intake: 11:00 IV: 500ml; Total: 500ml. ss Outcome: 14:00 Discharge ordered by . theresa 14:47 Discharged to home via wheelchair, with family. 14:47 Condition: improved 14:47 Discharge instructions given to patient, family, Instructed on discharge instructions, follow up and referral plans. medication usage, Demonstrated understanding of instructions, follow-up care, medications, Prescriptions given X 3. 14:48 Patient left the ED. ss Signatures: Dispatcher [employer] EDMA Reyes Ochoa MD MD cha Sanford, Demi ds1 Muna Gautam RN RN ss Baxter, Heather, RN RN Kim Cabrera 3
--- NOTE | 2019-11-17 14:01 | EDPHYS ---
Physician Documentation [facility] Name: Pinky Meek Age: 84 yrs Sex: Female : 1935 Arrival Date: 11/17/2019 Time: 09:45 Bed 17 Private MD: ED Physician Reyes Ochoa HPI: 11/16 10:15 This 84 yrs old Female presents to ER via Wheelchair with complaints of theresa Reaction to medicine. 10:15 The patient presents with abdominal pain in the upper abdomen, in the lower abdomen, theresa abdominal distention in the upper abdomen, in the lower abdomen. Onset: The symptoms/episode began/occurred 3 day(s) ago. cant sleep, abd distended, uncomfortable. Onset: The symptoms/episode began/occurred 3 day(s) ago. The symptoms do not radiate. Associated signs and symptoms: Pertinent positives: nausea and vomiting, shortness of breath. The symptoms are described as constant, crampy. Modifying factors: The symptoms are alleviated by nothing, the symptoms are aggravated by nothing. Severity of pain: At its worst the pain was mild moderate in the emergency department the pain is unchanged. Severity of symptoms: At their worst the symptoms were mild moderate in the emergency department the symptoms are unchanged. Historical: - Allergies: 10:01 No Known Allergies; hb - Home Meds: 10:01 Acetasol HC 1-2 % Otic drop 2 drops 4 times per day [Active]; Align 4 mg Oral cap hb [Active]; alprazolam 0.5 mg Oral Tb24 1 tab once daily [Active]; B complex-minerals Oral [Active]; clotrimazole-betamethasone 1-0.05 % Topical crea 2 times per day [Active]; Dulcolax (bisacodyl) 5 mg Oral TbEC 1 tab [Active]; folic acid 1 mg Oral tab 1 tab once daily [Active]; hydrocodone-acetaminophen 7.5-325 mg Oral tab [Active]; Imdur 30 mg Oral Tb24 1 tab once daily [Active]; Lipitor 20 mg Oral tab 1 tab once daily [Active]; losartan 12.5 mg Oral [Active]; Miralax 17 gram/dose Oral powd once daily [Active]; Nitrostat 0.4 mg SL subl 1 tab every 5 minutes [Active]; Plavix 75 mg Oral tab 1 tab once daily [Active]; Protonix 40 mg Oral grps 1 packet once daily [Active]; temazepam 30 mg Oral cap 1 cap once daily [Active]; Toprol XL 25 mg Oral Tb24 1 tab once daily [Active]; tramadol 50 mg Oral tab 1 tab every 4 hours [Active]; Vitamin C 500 mg Oral tab [Active]; Vitamin D3 Complete 18 mg iron-800 mcg-150 mg Oral tab [Active]; - PMHx: 10:01 Chronic pain; Hyperlipidemia; Hypertension; hb - PSHx: 10:01 total knee replacement; hip sx; hb - Immunization history:: Adult Immunizations up to date. - Social history:: Smoking status: Patient denies any tobacco usage or history of. - Family history:: not pertinent. ROS: 10:15 Constitutional: Negative for fever, chills, and weight loss, Eyes: Negative for injury, theresa pain, redness, and discharge, ENT: Negative for injury, pain, and discharge, Neck: Negative for injury, pain, and swelling, Cardiovascular: Negative for chest pain, palpitations, and edema, Back: Negative for injury and pain, : Negative for injury, bleeding, discharge, and swelling, MS/Extremity: Negative for injury and deformity, Skin: Negative for injury, rash, and discoloration, Neuro: Negative for headache, weakness, numbness, tingling, and seizure, Psych: Negative for depression, anxiety, suicide ideation, homicidal ideation, and hallucinations, Allergy/Immunology: Negative for hives, rash, and allergies, Endocrine: Negative for neck swelling, polydipsia, polyuria, polyphagia, and marked weight changes, Hematologic/Lymphatic: Negative for swollen nodes, abnormal bleeding, and unusual bruising. 10:15 Respiratory: Positive for shortness of breath, on exertion. 10:15 Abdomen/GI: Positive for nausea, abdominal cramps, abdominal distension, of the right upper quadrant, left upper quadrant, right lower quadrant and left lower quadrant. Exam: 10:15 Constitutional: This is a well developed, well nourished patient who is awake, alert, theresa and in no acute distress. Head/Face: Normocephalic, atraumatic. Eyes: Pupils equal round and reactive to light, extra-ocular motions intact. Lids and lashes normal. Conjunctiva and sclera are non-icteric and not injected. Cornea within normal limits. Periorbital areas with no swelling, redness, or edema. ENT: Nares patent. No nasal discharge, no septal abnormalities noted. Tympanic membranes are normal and external auditory canals are clear. Oropharynx with no redness, swelling, or masses, exudates, or evidence of obstruction, uvula midline. Mucous membranes moist. Neck: Trachea midline, no thyromegaly or masses palpated, and no cervical lymphadenopathy. Supple, full range of motion without nuchal rigidity, or vertebral point tenderness. No Meningismus. Chest/axilla: Normal chest wall appearance and motion. Nontender with no deformity. No lesions are appreciated. Cardiovascular: Regular rate and rhythm with a normal S1 and S2. No gallops, murmurs, or rubs. Normal PMI, no JVD. No pulse deficits. Back: No spinal tenderness. No costovertebral tenderness. Full range of motion. Female : Normal external genitalia. Skin: Warm, dry with normal turgor. Normal color with no rashes, no lesions, and no evidence of cellulitis. MS/ Extremity: Pulses equal, no cyanosis. Neurovascular intact. Full, normal range of motion. Neuro: Awake and alert, GCS 15, oriented to person, place, time, and situation. Cranial nerves II-XII grossly intact. Motor strength 5/5 in all extremities. Sensory grossly intact. Cerebellar exam normal. Normal gait. Psych: Awake, alert, with orientation to person, place and time. Behavior, mood, and affect are within normal limits. 10:15 Respiratory: mild respiratory distress is noted, Respirations: normal, Breath sounds: bronchial sounds, Respiratory rate: 16 14:01 ECG was reviewed by the Attending Physician. [facility] Vital Signs: 09:57 BP 155 / 64; Pulse 60; Resp 16; Temp 97.8(TE); Pulse Ox 98% on R/A; Weight 68.04 kg; hb Height 4 ft. 11 in. (149.86 cm); Pain 0/10; 11:42 Pulse 65; Resp 17; Pulse Ox 97% ; Pain 0/10; ss 12:37 BP 151 / 67; ss 09:57 Body Mass Index 30.30 (68.04 kg, 149.86 cm) hb MDM: 09:51 Patient medically screened. [facility] 10:18 Differential diagnosis: AAA, appendicitis, bowel obstruction, cholecystitis, theresa Cholelithiasis, diverticulitis, gastritis, gastroesophageal reflux disease, Mesenteric ischemia or infarction, non-specific abd pain, pancreatitis, Peptic Ulcer Disease, Pyelonephritis, Ureterolithiasis, urinary tract infection. Data reviewed: vital signs, nurses notes, lab test result(s), EKG, radiologic studies, CT scan, plain films. Data interpreted: piston maker: rate is 60 beats/min, rhythm is regular, Pulse oximetry: on room air is 98 %. Test interpretation: by ED physician or midlevel provider: ECG, plain radiologic studies. Counseling: I had a detailed discussion with the patient and/or guardian regarding: the historical points, exam findings, and any diagnostic results supporting the discharge/admit diagnosis, the presence of at least one elevated blood pressure reading (>120/80) during this emergency department visit, lab results, radiology results. 11/16 10:14 Order name: Basic Metabolic Panel; Complete Time: 11:16 [facility] 11/16 10:14 Order name: CBC with Diff; Complete Time: 11:16 [facility] 11/16 10:14 Order name: LFT's; Complete Time: 11:16 [facility] 11/16 10:14 Order name: Magnesium; Complete Time: 11:16 [facility] 11/16 10:14 Order name: NT PRO-BNP; Complete Time: 11:16 [facility] 11/16 10:14 Order name: Troponin (emerg Dept Use Only); Complete Time: 11:16 [facility] 11/16 10:14 Order name: XRAY Chest (1 view); Complete Time: 13:58 [facility] 11/16 10:14 Order name: Lipase; Complete Time: 11:16 [facility] 11/16 10:14 Order name: CT Abd/Pelvis - PO and IV Contrast; Complete Time: 13:58 [facility] 11/16 12:25 Order name: Urine Culture [facility] 11/16 13:46 Order name: Urine Dipstick--Ancillary (enter results) 11/16 10:14 Order name: EKG; Complete Time: 10:15 [facility] 11/16 10:14 Order name: Cardiac monitoring; Complete Time: 10:32 [facility] 11/16 10:14 Order name: EKG - Nurse/Tech; Complete Time: 10:32 [facility] 11/16 10:14 Order name: IV Saline Lock; Complete Time: 10:32 [facility] 11/16 10:14 Order name: Labs collected and sent; Complete Time: [facility] 11/16 10:14 Order name: O2 Per Protocol; Complete Time: [facility] 11/16 10:14 Order name: O2 Sat Monitoring; Complete Time: [facility] 11/16 10:14 Order name: Urine Dipstick-Ancillary (obtain specimen); Complete Time: 14:45 theresa EC:01 Rate is 58 beats/min. Rhythm is regular. QRS [place] is Normal. CT interval is normal. QRS theresa interval is normal. QT interval is normal. No Q waves. T waves are Normal in leads II, III, aVF, V1, V2, V3, V4, V5. Clinical impression: Abnormal EKG without significant change. Interpreted by me. Reviewed by me. Administered Medications: Discontinued: NS 0.9% 1000 ml IV at 125 ml/hr continuous 10:42 Drug: NS 0.9% 500 ml Route: IV; Rate: bolus; Site: right antecubital; ss 11:00 Follow up: Response: No adverse reaction; IV Status: Completed infusion; IV Intake: ss 500ml 10:45 Drug: Zofran (Ondansetron) 4 mg Route: IVP; Site: right antecubital; ss 12:36 Follow up: Response: No adverse reaction ss 10:47 Drug: Pepcid 20 mg Route: IVP; Site: right antecubital; ss 12:36 Follow up: Response: No adverse reaction; Marked relief of symptoms ss 11:00 Drug: NS 0.9% 1000 ml Route: IV; Rate: 125 ml/hr; Site: right antecubital; ss 11:29 Drug: Potassium Effervescent Tablet 25 mEq Route: PO; ss 13:47 Follow up: Response: No adverse reaction ss 14:37 Drug: Aspirin 81 mg Route: PO; ss 14:45 Follow up: Response: No adverse reaction; Medication administered at discharge. ss 14:46 Not Given (cancelled per Dr. Baldwin): Rocephin 1 grams IV at per protocol once; Given ss slow IV push per pharmacy instructions Disposition: 11/17/19 14:00 Discharged to Home. Impression: Abdominal tenderness, Left sided colitis without complications - sigmoid, Insomnia. - Condition is Stable. - Discharge Instructions: Abdominal Pain, Adult, Insomnia, Abdominal Pain, Adult, [id number], Aspirin and Your Heart, Colitis. - Prescriptions for Restoril 15 mg Oral capsule - take 1 capsule by ORAL route once daily at bedtime as needed; 14 capsule. Cipro 250 mg Oral Tablet - take 2 tablets by ORAL route every 12 hours; 14 tablet. Flagyl 500 mg Oral Tablet - take 1 tablet by ORAL route every 12 hours for 7 days; 14 tablet. - Medication Reconciliation Form, Thank You Letter, Antibiotic Education, Prescription Opioid Use form. - Follow up: Blayne Hernadez MD; When: 2 - 3 days; Reason: Recheck today's complaints, Continuance of care, Re-evaluation by your physician. - Problem is new. - Symptoms have improved. Signatures: Dispatcher [employer] EDMS Reyes Ochoa MD MD cha Smirch, Shelby, RN RN Margarita Grace RN RN Corrections: (The following items were deleted from the chart) 14:48 14:00 11/17/2019 14:00 Discharged to Home. Impression: Abdominal tenderness; Left sided ss colitis without complications - sigmoid; Insomnia. Condition is Stable. Forms are Medication Reconciliation Form, Thank You Letter, Antibiotic Education, Prescription Opioid Use. Follow up: Blayne Hernadez; When: 2 - 3 days; Reason: Recheck today's complaints, Continuance of care, Re-evaluation by your physician. Problem is new. Symptoms have improved. theresa
[2019-11-17 14:11] LABS: Urine Blood NEGATIVE (NEG); Urine Glucose NEGATIVE (NEG); Urine Protein NEGATIVE (NEG)
[2019-11-17] MEDS ORDERED: ASPIRIN EC 81 MG TAB PO ONE (14:38)
[2019-11-17 14:58] VITALS: O2SAT 97
[2019-11-17 15:00] VITALS: TEMP 97.8
[2019-11-17 15:01] VITALS: BP 151/67
--- NOTE | 2019-11-18 11:13 | EKG ---
Test Date: 2019-11-17 Test Time: 10:33:06 Field Account Manager: VIN MEASUREMENT RESULTS: Intervals: Rate: 58 IN: 186 QRSD: 88 QT: 454 QTc: 445 [place]: P: 65 IN: 186 QRS: 44 T: 41 INTERPRETIVE STATEMENTS: Sinus bradycardia with premature atrial complexes with aberrant conduction Consider right ventricular involvement in acute inferior infarct Abnormal ECG Compared to ECG 05/28/2018 16:16:41 Atrial premature complex(es) now present Aberrant conduction of supraventricular beat(s) now present ST (T wave) deviation now present Sinus arrhythmia no longer present T-wave abnormality no longer present Possible ischemia no longer present Electronically Signed On 11-18-19 11:12:35 CDT by Rosalino Castro
== END 2019-11-17 14:48 | disposition home or self-care (01) ==
LOC: ER 09:44
DX: K51.50 Left sided colitis without complications (principal); G47.00 Insomnia, unspecified; R11.2 Nausea with vomiting, unspecified; I10 Essential (primary) hypertension; E78.5 Hyperlipidemia, unspecified; Z79.01 Long term (current) use of anticoagulants
CPT/HCPCS: 93005; 87088; 85025; 87086; 80048; 36415; 83735; 80076; 81003; 84484; 83690; 83880; 74177; 71045; 51702; 96375; 96374; 99284; Q9967; J7030; J2405; J0696

== ENCOUNTER 2019-12-06 14:45 | Emergency (ER) | payer OTHER ==
--- OUTSIDE RECORDS SUMMARY | 2019-12-06 14:56 | XMS REPORT | Continuity of Care Document ---
:1935 Author Organization [facility] t Address [address] [place] [address] Care Team Providers Name Role Phone Augie Hernadez MD Primary Care Physician Alicia RAMOS, R. Attending Clinician Miguel Ángel SANCHEZ Attending Clinician Unavailable Dipak ALVARENGA Attending Clinician Unavailable Manpreet RAMOS, L. Attending Clinician Payers Payer Name Policy Type Policy Effective Date Expiration Date Sour ce Number MEDICAREMEDICARE PART [id number] 2000 Jared Benitez AND 00:00:00 Jewish [id number] 2000- [place], [place] Condition Condition Condition Status Onset Resolution Last Treating Co mments Source Name Details Category Date Date Treatment Clinician Date Stented Stented Disease Active [place] coronary coronary 03-01 Method i artery artery 00:00: st 00 [facility] disease disease [facility]:00: st involving involving 00 [place] coronary coronary artery of artery of [place] heart heart without without angina angina pectoris pectoris SOB SOB Disease Active [place] (shortness (shortness 4-18 Me thodi of breath) of breath) 00:00: st 00 CAD in CAD in Disease Active [place] chefornak chefornak 4-18 Methodi artery artery 00:00: st 00 Chronic Chronic Disease Active [place] systolic systolic 4-18 Method i congestive congestive 00:00: st heart heart 00 failure failure NSTEMI NSTEMI Disease Active [place] (non-ST (non-ST 3-30 Methodi elevated elevated 00:00: st myocardial myocardial 00 infarction infarction ) ) Coronary Coronary Disease Active [place] artery artery 1-10 Methodi disease disease 00:00: st involving involving 00 [place] heart with heart with angina angina pectoris pectoris History of History of Disease Active [place] coronary coronary 1-10 Method i artery artery 00:00: st bypass bypass 00 graft graft Allergies, Adverse Reactions, Alerts This patient has no known allergies or adverse reactions. Family History Family Member Diagnosis Comments Start Date Stop Date Source Natural father Heart attack [place] [facility] Natural mother Heart attack [place] [facility] Natural son Colon cancer [facility] sancho Social History Social Habit Start Date Stop Date Quantity Comments Source History of tobacco Current smoker Jared cooper Jewish use Sex Assigned At [facility] ethodist Cigarettes smoked 2019-03-06 2019-03-06 [place] Jewish current (pack per 00:00:00 00:00:00 day) - Reported Cigarette 2019-03-06 2019-03-06 [facility] ist pack-years 00:00:00 00:00:00 Tobacco use and 2019-03-06 2019-03-06 Never used [facility] ethodist exposure 00:00:00 00:00:00 Alcohol intake 2019-03-06 2019-03-06 Current drinker [place] 00:00:00 00:00:00 of alcohol (finding) Smoking Status Start Date Stop Date Source Former smoker 2019-03-06 00:00:00 2019-03-06 00:00:00 Jb Villatoro Medications Ordered Filled Start Stop Current Ordering Indication Dosage Frequency Signature Comments Components Source Medication Medication Date Date Medication? Clinician (SIG) Name Name metoprolol 2019-02 Yes TAKE 2 [place] succinate 0-20 TABLETS BY Meth roma XL 00:00: MOUTH st (TOPROL-XL) 00 DAILY 25 mg 24 hr tablet losartan Yes TAKE ONE [place] (COZAAR) 8-25 TABLET BY Method i 100 MG 00:00: MOUTH st tablet 00 DAILY metoprolol 2019- No TAKE 2 [place] succinate 7-16 10-20 TABLETS BY Met hodi XL 00:00: 00:[address] (TOPROL-XL) 00 :00 DAILY 25 mg 24 hr tablet metoprolol 2019- No TAKE 2 [place] succinate 5-28 07-16 TABLETS BY Met hodi XL 00:00: 00:[address] (TOPROL-XL) 00 :00 DAILY 25 mg 24 hr tablet losartan 2019- No TAKE ONE [place] (COZAAR) 5-18 08-25 TABLET BY Metho di 100 MG 00:00: 00:[address] tablet 00 :00 DAILY furosemide Yes TAKE ONE Mary ston (LASIX) 40 4-23 TABLET BY Meth roma mg tablet 00:00: MOUTH st 00 TWICE A DAY esomeprazol 2019- Yes Gastroesoph 40mg Q.5D Take 1 Muhammad e (NexIUM) 4-15 ageal capsule Metho di 40 MG 00:00: reflux ([address] capsule 00 disease, total) by esophagitis mouth 2 presence (two) not times a specified day. metoprolol 2019- No TAKE 2 [place] succinate 4-14 05-28 TABLETS BY Met hodi XL 00:00: 00:[address] (TOPROL-XL) 00 :00 DAILY 25 mg 24 hr tablet metoprolol 2019- No 25mg QD Take 25 mg Muhammad succinate 3-02 03-02 by mouth Metho di XL 12:24: 00:[address] (TOPROL-XL) 28 :00 25 mg 24 hr tablet metoprolol 2019- No TAKE 2 [place] succinate 3-02 04-14 TABLETS BY Met hodi XL 00:00: 00:[address] (TOPROL-XL) 00 :00 DAILY 25 mg 24 hr tablet folic acid Yes 1mg QD Take 1 mg [place] (FOLVITE) 1 -28 by mouth Meth roma MG tablet 13:04: daily. st 09 polyethylen 2019-0 Yes 17g QD Take 17 g [place] e glycol - by mouth Methodi (MIRALAX) 13:04: daily. st 17 gram 09 packet acetic acid 2019-0 Yes 2[drp] Q.25D Administer Muhammad (VOSOL) 2 % 03-06 2 drops Metho di otic 13:04: into both st solution 09 ears 4 (four) times a day. aspirin 2019- Yes 81mg QD Take 81 mg [place] (ECOTRIN) - by mouth Method i 81 MG 13:04: daily. st enteric 09 coated tablet ascorbic 2019- Yes 500mg QD Take 500 [place] acid, -28 mg by Methodi vitamin C, 13:04: mouth st (ascorbic 09 daily. acid with sophia hips) 500 MG tablet DULCOLAX, Yes Take by [place] BISACODYL, 03-06 mouth. Methodi ORAL 13:04: st 09 UNABLE TO 2020-0 Yes 1.66mg 1.66 mg. [place] FIND 03-06 I-Caps Methodi 13:04: st 09 gabapentin 2019-0 Yes 100mg Take 100 [place] (NEURONTIN) - mg by Methodi 100 mg 13:04: mouth as st capsule 09 needed. methocarbam 2020- No daily. Mary ston ol 03-06 Methodi (ROBAXIN) 13:03: 00:00 st 500 MG 02 :00 tablet docusate 2019- No 200mg QD Take 200 Mary ston sodium 03-06 mg by Methodi (COLACE) 12:59: 00:[address] 100 MG 56 :00 daily. capsule cholecalcif 2019- No 1000U QD Take 1,000 [place] marily, 03-06 Units by Methodi vitamin D3, 12:59: 00:[address] (VITAMIN 14 :00 daily. D3) 1,000 unit tablet nitroglycer 2020- No Coronary 1 under Muhammad in 03-06 artery the tongue Method i (NITROSTAT) 00:00: 23:[address] 0.4 MG SL 00 :00 involving for tablet [place] angina, coronary may repeat artery of q5mins for [place] up three heart with doses angina pectoris (HCC) esomeprazol 2020- No 40mg Q.5D Take 1 Mary ston e (NexIUM) 03-01-15 capsule Metho di 40 MG 00:00: 00:00 ([address] capsule 00 :00 total) by mouth 2 (two) times a day. metoprolol 2020- No TAKE 2 [place] succinate 02-19 TABLETS BY Met hodi XL 00:00: 00:[address] (TOPROL-XL) 00 :00 DAILY 25 mg 24 hr tablet pantoprazol 2018-02- No Gastroesoph TAKE 1 [place] e 203-01 ageal TABLET BY Methodi (PROTONIX) 00:00: 00:[address] 40 MG EC 00 :00 disease, DAILY 1/2 tablet esophagitis HOUR presence BEFORE not BREAKFAST specified metoprolol 2018-02- No TAKE 2 [place] succinate 1-26 - TABLETS BY Met hodi XL 00:00: 00:[address] (TOPROL-XL) 00 :00 DAILY 25 mg 24 hr tablet losartan 2018-02- No TAKE ONE [place] (COZAAR) 1 05-18 TABLET BY Metho di 100 MG 00:00: 00:[address] tablet 00 :00 DAILY metoprolol 2018-02- No TAKE 2 [place] succinate 003-06 TABLETS BY Met hodi XL 00:00: 00:[address] (TOPROL-XL) 00 :00 DAILY 25 mg 24 hr tablet pantoprazol 2018- Gastroesoph TAKE 1 [place] e 10-30 ageal TABLET BY Methodi (PROTONIX) 00:00: 00:[address] 40 MG EC 00 :00 disease, DAILY 1/2 tablet esophagitis HOUR presence BEFORE not BREAKFAST specified furosemide 2019- No 40mg Q.5D Take 1 [...] 2 [place] -acetaminop 2-27 tablets by Me thodi hen (NORCO) 00:00: mouth as st 7.5-325 mg 00 needed. per tablet traMADol Yes Muhammad (ULTRAM) 50 2-27 Methodi mg tablet 00:00: st 00 temazepam 2015-02 Yes Jb (RESTORIL) 2-30 Methodi 30 mg 00:00: st [...] blood 2019-09-04 13:45:00 137 mm[Hg] [place]if[place] n Jewish pressure Diastolic blood 2019-09-04 13:45:00 65 mm[Hg] [place] Jewish pressure Heart rate 2019-09-04 13:45:00 52 /min Jb Hartist Body height 2019-09-04 13:45:00 149.9 cm [place] Jewish Body weight 2019-09-04 13:45:00 73.029 kg [place] [facility] BMI 2019-09-04 13:45:00 32.52 kg/m2 [place] [facility] Procedures This patient has no known procedures. Plan of Care Planned Activity Planned Date Details Comments Source Future Scheduled 2020-06-07 COLONOSCOPY SCREENING [facility] [place] Jewish Test 00:00:00 [code = COLONOSCOPY SCREENING] Future Scheduled 2019-09-08 INFLUENZA VACCINE Jovita ojeda Jewish Test 00:00:00 [code = INFLUENZA VACCINE] Future Scheduled 2000-09-27 65+ PNEUMOCOCCAL Muhammad Jewish Test 00:00:00 VACCINE (1 of 1 - PPSV23) [code = 65+ PNEUMOCOCCAL VACCINE (1 of 1 - PPSV23)] Future Scheduled 1985-09-27 SHINGLES VACCINES (#1) [place] [facility] Test 00:00:00 [code = SHINGLES VACCINES (#1)] Encounters Start End Encounter Admission Attending Care Care Encounter Source Date/Time Date/Time Type Type Clinicians Facility Department ID 2019-09-04 2019-09-04 Outpatient ALICIA [facility] [id number] 351 [place] 00:00:00 00:00:00 [address] Results This patient has no known results.
--- OUTSIDE RECORDS SUMMARY | 2019-12-06 14:56 | XMS REPORT | Clinical Summary ---
:1935 Author Organization [facility] Address [address] [place] [address] Care Team Providers Name Role Phone Augie [...] repeat q5mins disease involving for up three [place] coronary doses artery of [place] heart with angina pectoris (HCC) esomeprazole Take 1 capsule 60 capsule 3 A ctive (NexIUM) 40 MG (40 mg total) 0 capsuleIndications: by mouth 2 Gastroesophageal (two) times a reflux disease, day. esophagitis presence not specified furosemide (LASIX) TAKE ONE 180 tablet 2 Active 40 mg tablet TABLET BY 0 MOUTH TWICE A DAY losartan (COZAAR) TAKE ONE 90 tablet 0 Ac tive 100 MG tablet TABLET BY 0 MOUTH DAILY metoprolol succinate TAKE 2 TABLETS 180 tablet 2 Active XL (TOPROL-XL) 25 mg BY MOUTH DAILY 0 24 hr tablet cholecalciferol, Take 1,000 0 03/06/19 Di scontinued [...] may repeat q5mins for up three doses pantoprazole TAKE 1 TABLET 90 tablet 0 01/30/20 Dis continued (PROTONIX) 40 MG EC BY MOUTH DAILY 9 19 tabletIndications: 1/2 HOUR Gastroesophageal BEFORE reflux disease, [...] hr tablet metoprolol succinate TAKE 2 TABLETS 180 tablet 0 Discontinued XL (TOPROL-XL) 25 mg BY MOUTH DAILY 0 20 24 hr tablet Active Problems Problem Noted Date Stented coronary artery 03/01/2017 Coronary artery disease involving [place] coronary lupe ry of [place] heart 08/17/2016 without angina pectoris SOB (shortness of breath) 05/25/2016 CAD in [place] artery 05/25/2016 Chronic systolic congestive heart failure 05/25/2016 NSTEMI (non-ST elevated myocardial infarction) 017 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 02/17/2016 History of coronary artery bypass graft 02/17/2016 Encounters Date Type Specialty Care Team Description 11/27/2019 Refill Cardiology Jerald Castillo, Med Refill 11/13/2019 Telephone Gastroenterology Kaye Del Rosario RN 10/01/2019 Refill Cardiology Jerald Castillo, Med Refill 09/04/2019 Office Visit Cardiology Jerald Castillo, History of coronary artery bypass graft (Primary Dx); Stented coronar y artery; CAD in [place] a rtery 09/03/2019 Travel 08/31/2019 Travel 08/23/2019 [...] Jerald Castillo, Coronary ar renata disease involving [place] coronary artery of [place] heart with angina pectoris (HCC) (Primary Dx); Stented coronar y artery; History of emani nary artery bypass graft 03/01/2019 Office Visit Gastroenterology Gricel Case, Drug-in duced constipation (Primary Dx); Diverticulosis of large intestine without hemorrhage; Gastroesophagea l reflux disease, esophagitis presence not specified; 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/antiplatelets; Liver hemangiom a; Globus pharynge us 02/19/2019 Refill Cardiology Jerald Castillo Med Refill 01/29/2019 Refill Gastroenterology Gricel Case Gastroe sarahageal reflux disease, esopha gitis presence not sp ecified 01/02/2019 Refill Cardiology Jerald Castillo Med Refill 12/20/2018 Refill Cardiology Jerald Castillo Med Refill after 12/05/2018 Surgical History Surgery Date Site/Laterality Comments STENT CHOLECYSTECTOMY HYSTERECTOMY 02/08/1976 - 02/06/1977 APPENDECTOMY REPLACEMENT TOTAL KNEE 10/08/2008 - 11/06/2008 CORONARY ARTERY BYPASS GRAFT 05/08/2000 - 06/06/2000 CORONARY STENT PLACEMENT 07/08/2010 - 2 stent s 08/06/2010 CARDIAC CATHETERIZATION 05/07/2016 N/A Procedur e: Cv left heart cath; Yuly geon: Hanna Cason; Location: [facility] Invasive Location; Servi ce: Cardiovascular; Laterality: N/A; Medical devices from this surgery are in the Implants sec tion. CARDIAC CATHETERIZATION 05/07/2016 N/A Procedur e: Cv pci stent; Surgeon: Hanna Cason; Location: [facility] Invasive Location; Servi ce: Cardiovascular; Laterality: N/A; Medical devices from this surgery are in the Implants sec tion. CARDIAC CATHETERIZATION 05/07/2016 N/A Procedur e: Cv venous bypass graft; Surgeon: Jerald Castillo MD; Locat ion: [facility] Prom[employer] Executive Producer Inv asive Location; Servi ce: Cardiovascular; Laterality: N/A; Medical devices from this surgery are in the Implants sec tion. CARDIAC CATHETERIZATION 05/07/2016 N/A Procedur e: Cv left internal mammary graft; Surgeon: Hanna Cason; Location: [facility] Invasive Location; Servi ce: Cardiovascular; Laterality: [...] Office Visit Cardiology Jerald Castillo MD [address] [place], [place] [address] [phone] Health Maintenance Due Date Last Done Comments SHINGLES VACCINES (#1) 09/27/1985 65+ PNEUMOCOCCAL VACCINE (1 of 1 - PPSV23) 09/27/2000 INFLUENZA VACCINE 09/08/2019 COLONOSCOPY SCREENING 06/07/2020 06/07/2010 Implants Implanted Type Area Head Of Science Device Shelf Model / Identifier Expiration Serial / Date Lot Stent Catheter Synergy (Otw) 3.00mm X 32mm - [id number] Coronary N/A: N/A [facility] [id number] / Implanted: 05/07/2016 at [facility] (Quantity not on file) [place] INTERVENTIONAL / CARDIOLOGY Stent Catheter Synergy (Otw) 3.00mm X 16mm - [id number] Coronary N/A: N/A [facility] [id number] / Implanted: 05/07/2016 at [facility] (Quantity not on file) [place] INTERVENTIONAL / CARDIOLOGY Results Not on fileafter 12/05/2018 Insurance Payer Benefit Plan / Subscriber ID Effective Dates Phone Addre ss Type Group MEDICARE MEDICARE PART A [id number] 2000-Present [place], [place] Medicare AND B [phone] [id number] (Work) Advance Directives For more information, please contact: [phone] Type Date Recorded 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
--- NOTE | 2019-12-06 16:50 | RAD REPORT ---
EXAM DESCRIPTION: RAD - Wrist Left 3 View - 12/06/2019 4:33 pm CLINICAL HISTORY: PAIN, left hand and wrist pain following injury COMPARISON: Wrist Left 3 View dated 02/11/2018 FINDINGS: Transverse fracture is present through the distal left radial metaphysis. There is an betsy tional sagittally oriented fracture line that extends to the articular surface. No angulation, impact ion or distraction deformities. Ulna styloid may be fractured as well. Overall bones are osteopenic. No acute carpal bone finding seen. Patient has advanced degenerative ch anges of the trapezoid and trapezium bones. There is advanced degenerative change at the trapezii M f irst metacarpal articulation. No pathologic bone process. Soft tissue edema without foreign body. IMPRESSION: Distal left radius fracture as detailed. 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
[2019-12-06] MEDS ORDERED: MORPHINE 4 MG/ML SYR ONE (17:03)
[2019-12-06] MEDS ORDERED: ONDANSETRON 4 MG (ODT) TAB ONE (17:03)
--- NOTE | 2019-12-06 17:17 | ER ---
Nurse's Notes [facility] Name: Pinky Meek Age: 84 yrs Sex: Female : 1935 Arrival Date: 12/06/2019 Time: 14:48 Bed 19 Private MD: Diagnosis: Non-displaced closed left distal radius fracture Presentation: 12/05 15:02 Chief complaint: Patient states: left hand/wrist injury on Tuesday. c/o pain and sv swelling since. Coronavirus screen: Client denies travel out of the [place] in the last 14 days. At this time, the client does not indicate any symptoms associated with coronavirus-19. Ebola Screen: No symptoms or risks identified at this time. Risk Assessment: Do you want to hurt yourself or someone else? Patient reports no desire to harm self or others. Onset of symptoms was November 2019. 15:02 Method Of Arrival: Wheelchair sv 15:02 Acuity: MATHEUS 3 sv 15:02 Initial Sepsis Screen: Does the patient meet any 2 criteria? No. Patient's initial sv sepsis screen is negative. Does the patient have a suspected source of infection? No. Patient's initial sepsis screen is negative. Triage Assessment: 15:02 General: Appears in no apparent distress. uncomfortable, Behavior is calm, cooperative, sv appropriate for age. Pain: Complains of pain in left wrist. Neuro: Level of Consciousness is awake, alert, obeys commands, Oriented to person, place, time, situation. Respiratory: Respiratory effort is even, unlabored. Musculoskeletal: Swelling present in left hand. Historical: - Allergies: 17:40 Flagyl; ll2 17:40 Augmentin; ll2 - Home Meds: 16:04 Plavix 75 mg Oral tab 1 tab once daily [Active]; Nitrostat 0.4 mg SL subl 1 tab every 5 em minutes [Active]; gabapentin 100 mg oral cap [Active]; Toprol XL 25 mg Oral Tb24 1 tab once daily [Active]; folic acid 1 mg Oral tab 1 tab once daily [Active]; Lipitor 20 mg Oral tab 1 tab once daily [Active]; alprazolam 0.5 mg Oral TbDL 1 tab daily [Active]; temazepam 30 mg Oral cap 1 cap once daily [Active]; Dulcolax (bisacodyl) 5 mg Oral TbEC 1 tab [Active]; Miralax 17 gram/dose Oral powd once daily [Active]; esomeprazole magnesium 40 mg oral cpDR 1 cap once daily [Active]; furosemide 40 mg Oral tab 1 tab 2 times per day [Active]; aspirin 81 mg Oral TbEC 1 tab once daily [Active]; hydrocodone-acetaminophen 7.5-325 mg Oral tab [Active]; methocarbamol 500 mg Oral tab 1 tabs 3 times a day [Active]; meloxicam 7.5 mg oral tab 1 tab once daily [Active]; - PMHx: 15:03 Chronic pain; Hyperlipidemia; Hypertension; sv - PSHx: 15:03 total knee replacement; hip sx; sv - Immunization history:: Adult Immunizations up to date. - Social history:: Smoking status: Patient denies any tobacco usage or history of. Screenin:45 Abuse screen: Denies threats or abuse. Nutritional screening: No deficits noted. em Tuberculosis screening: No symptoms or risk factors identified. Fall Risk None identified. Assessment: 15:45 General: Appears in no apparent distress. comfortable, Behavior is calm, cooperative, em appropriate for age. Pain: Complains of pain in left wrist and left hand. Neuro: Level of Consciousness is awake, alert, obeys commands, Oriented to person, place, time, situation, Appropriate for age. Cardiovascular: Capillary refill < 3 seconds Patient's skin is warm and dry. Respiratory: Airway is patent Respiratory effort is even, unlabored, Respiratory pattern is regular, symmetrical. Derm: Skin is intact, is fragile, is thin, Skin is pink, warm \T\ dry. Musculoskeletal: Capillary refill < 3 seconds, Range of motion: limited in left wrist. 17:02 Reassessment: Patient and/or family updated on plan of care and expected duration. Pain ll2 level reassessed. Patient is alert, oriented x 3, equal unlabored respirations, skin warm/dry/pink. Vital Signs: 15:02 BP 113 / 47; Pulse 62; Resp 16; Temp 97.1; Pulse Ox 96% ; sv 16:00 BP 122 / 50; Pulse 60; Resp 18; Pulse Ox 98% on R/A; em 17:02 BP 124 / 55; Pulse 67; Resp 17; Pulse Ox 99% on R/A; ll2 ED Course: 14:48 Patient arrived in ED. ds1 15:03 Triage completed. sv 15:04 Arm band placed on. sv 15:42 Ham Ocampo, RN is Primary Nurse. em 15:45 Patient has correct armband on for positive identification. Placed in gown. Bed in low em position. Side rails up X2. Adult w/ patient. 15:48 Brandon Melton MD is Attending Physician. kdr 16:33 Wrist Left (3 View) XRAY In Process Unspecified. EDMS 17:28 Orthoglass splint: Sugar tong splint applied on left arm. Sling applied to left arm. jp3 17:41 No provider procedures requiring assistance completed. Patient did not have IV access ll2 during this emergency room visit. Administered Medications: 16:59 Drug: morphine 4 mg Route: IM; Site: right deltoid; ll2 17:02 Follow up: Response: No adverse reaction; RASS: Alert and Calm (0) ll2 16:59 Drug: Zofran (Ondansetron) 4 mg Route: PO; ll2 17:01 Follow up: Response: No adverse reaction ll2 Outcome: 17:16 Discharge ordered by . kdr 17:41 Discharged to home via wheelchair. ll2 17:41 Condition: stable 17:41 Discharge instructions given to patient, Instructed on discharge instructions, follow up and referral plans. medication usage, Demonstrated understanding of instructions, follow-up care, medications, Prescriptions given X 1. 17:41 Patient left the ED. ll2 Signatures: Dispatcher [employer] Madelyn Mitchell RN RN Brandon Melton MD MD [facility] Ham Ocampo, RN RN Luba Watson ds1 Mika Cox jp3 Roseanne Arndt, LAURA RN ll2 Corrections: (The following items were deleted from the chart) 15:04 15:02 Temp 97.1F; sv sv 15:04 15:03 Allergies: No Known Allergies; sv sv 17:40 15:04 Allergies: Flagyl; sv ll2 17:40 15:04 Allergies: Augmentin; sv ll2
--- NOTE | 2019-12-06 17:17 | EDPHYS ---
Physician Documentation [facility] Name: Pinky Meek Age: 84 yrs Sex: Female : 1935 Arrival Date: 12/06/2019 Time: 14:48 Bed 19 Private MD: ED Physician Brandon Melton HPI: 12/05 17:20 This 84 yrs old Female presents to ER via Wheelchair with complaints of Arm kdr Pain. 17:20 The patient or guardian complains of decreased range of motion, injury, pain, that is kdr acute. The complaints affect the left wrist. Context: The problem was sustained at home, resulted from a fall, on an outstretched hand, from a standing position. Onset: The symptoms/episode began/occurred suddenly, 2 day(s) ago. Treatment prior to arrival includes: splinting the affected extremity. Modifying factors: The symptoms are alleviated by remaining still, the symptoms are aggravated by movement, bending arm. Associated signs and symptoms: Pertinent positives: decreased range of motion, pain, of the left wrist. Severity of symptoms: At their worst the symptoms were mild, in the emergency department the symptoms are unchanged. The patient has experienced a previous episode, last year. The patient has not recently seen a physician. Historical: - Allergies: 17:40 Flagyl; ll2 17:40 Augmentin; ll2 - Home Meds: 16:04 Plavix 75 mg Oral tab 1 tab once daily [Active]; Nitrostat 0.4 mg SL subl 1 tab every 5 em minutes [Active]; gabapentin 100 mg oral cap [Active]; Toprol XL 25 mg Oral Tb24 1 tab once daily [Active]; folic acid 1 mg Oral tab 1 tab once daily [Active]; Lipitor 20 mg Oral tab 1 tab once daily [Active]; alprazolam 0.5 mg Oral TbDL 1 tab daily [Active]; temazepam 30 mg Oral cap 1 cap once daily [Active]; Dulcolax (bisacodyl) 5 mg Oral TbEC 1 tab [Active]; Miralax 17 gram/dose Oral powd once daily [Active]; esomeprazole magnesium 40 mg oral cpDR 1 cap once daily [Active]; furosemide 40 mg Oral tab 1 tab 2 times per day [Active]; aspirin 81 mg Oral TbEC 1 tab once daily [Active]; hydrocodone-acetaminophen 7.5-325 mg Oral tab [Active]; methocarbamol 500 mg Oral tab 1 tabs 3 times a day [Active]; meloxicam 7.5 mg oral tab 1 tab once daily [Active]; - PMHx: 15:03 Chronic pain; Hyperlipidemia; Hypertension; sv - PSHx: 15:03 total knee replacement; hip sx; sv - Immunization history:: Adult Immunizations up to date. - Social history:: Smoking status: Patient denies any tobacco usage or history of. ROS: 17:20 Constitutional: Negative for fever, chills, and weight loss, Eyes: Negative for injury, kdr pain, redness, and discharge, ENT: Negative for injury, pain, and discharge, Neck: Negative for injury, pain, and swelling, Cardiovascular: Negative for chest pain, palpitations, and edema, Respiratory: Negative for shortness of breath, cough, wheezing, and pleuritic chest pain, Abdomen/GI: Negative for abdominal pain, nausea, vomiting, diarrhea, and constipation, Back: Negative for injury and pain, : Negative for injury, bleeding, discharge, and swelling, Skin: Negative for injury, rash, and discoloration, Neuro: Negative for headache, weakness, numbness, tingling, and seizure activity. Psych: Negative for depression, anxiety, suicide ideation, homicidal ideation, and hallucinations, Allergy/Immunology: Negative for hives, rash, and allergies, Endocrine: Negative for neck swelling, polydipsia, polyuria, polyphagia, and marked weight changes, Hematologic/Lymphatic: Negative for swollen nodes, abnormal bleeding, and unusual bruising. 17:20 MS/extremity: Positive for injury or acute deformity, decreased range of motion, pain, swelling, tenderness, of the left wrist. Exam: 17:20 Constitutional: This is a well developed, well nourished patient who is awake, alert, kdr and in no acute distress. Head/Face: Normocephalic, atraumatic. Chest/axilla: Normal chest wall appearance and motion. Nontender with no deformity. No lesions are appreciated. Cardiovascular: Regular rate and rhythm with a normal S1 and S2. No gallops, murmurs, or rubs. Normal PMI, no JVD. No pulse deficits. Abdomen/GI: Soft, non-tender, with normal bowel sounds. No distension or tympany. No guarding or rebound. No evidence of tenderness throughout. Neuro: Awake and alert, GCS 15, oriented to person, place, time, and situation. Cranial nerves II-XII grossly intact. Motor strength 5/5 in all extremities. Sensory grossly intact. Cerebellar exam normal. Normal gait. Psych: Awake, alert, with orientation to person, place and time. Behavior, mood, and affect are within normal limits. 17:20 Musculoskeletal/extremity: Extremities: grossly normal except: noted in the left wrist: decreased ROM, pain, swelling, tenderness. Vital Signs: 15:02 BP 113 / 47; Pulse 62; Resp 16; Temp 97.1; Pulse Ox 96% ; sv 16:00 BP 122 / 50; Pulse 60; Resp 18; Pulse Ox 98% on R/A; em 17:02 BP 124 / 55; Pulse 67; Resp 17; Pulse Ox 99% on R/A; ll2 MDM: 17:16 Patient medically screened. kdr 17:20 Data reviewed: vital signs, nurses notes, radiologic studies. Counseling: I had a kdr detailed discussion with the patient and/or guardian regarding: the historical points, exam findings, and any diagnostic results supporting the discharge/admit diagnosis, radiology results, the need for outpatient follow up. 12/05 15:04 Order name: Wrist Left (3 View) XRAY; Complete Time: 17:13 sv 12/05 16:56 Order name: Sugar Tong Forearm Splint: left arm; Complete Time: 17:29 em Administered Medications: 16:59 Drug: morphine 4 mg Route: IM; Site: right deltoid; ll2 17:02 Follow up: Response: No adverse reaction; RASS: Alert and Calm (0) ll2 16:59 Drug: Zofran (Ondansetron) 4 mg Route: PO; ll2 17:01 Follow up: Response: No adverse reaction ll2 Disposition: 12/06/19 17:16 Discharged to Home. Impression: Non-displaced closed left distal radius fracture. - Condition is Stable. - Discharge Instructions: Forearm Fracture, [id number]. - Prescriptions for Tylenol- Codeine #3 300-30 mg Oral Tablet - take 2 tablets by ORAL route every 6 hours As needed You may take one or two tabs every 4-6 hours as needed for pain - these directions superceed all others that may be contained herein.; 12 tablet. - Medication Reconciliation Form, Thank You Letter, Prescription Opioid Use form. - Follow up: Private Physician; When: 2 - 3 days; Reason: If symptoms return, Further diagnostic work-up, Recheck today's complaints, Continuance of care, Re-evaluation by your physician. - Problem is new. - Symptoms have improved. Signatures: Dispatcher [employer] EDMadelyn Brewer RN RN sv Brandon Melton MD MD [facility] Ham Ocampo RN RN Roseanne Arndt RN RN ll2 Corrections: (The following items were deleted from the chart) 15:04 15:03 Allergies: No Known Allergies; sv sv 17:40 15:04 Allergies: Flagyl; sv ll2 17:40 15:04 Allergies: Augmentin; sv ll2 17:41 17:16 12/06/2019 17:16 Discharged to Home. Impression: Non-displaced closed left distal ll2 radius fracture. Condition is Stable. Forms are Medication Reconciliation Form, Thank You Letter, Antibiotic Education, Prescription Opioid Use. Follow up: Private Physician; When: 2 - 3 days; Reason: If symptoms return, Further diagnostic work-up, Recheck today's complaints, Continuance of care, Re-evaluation by your physician. Problem is new. Symptoms have improved. kdr
[2019-12-06 18:31] VITALS: TEMP 97.1
[2019-12-06 18:34] VITALS: BP 124/55; O2SAT 99
== END 2019-12-06 17:41 | disposition home or self-care (01) ==
LOC: ER 14:45
PROC: 2W3DX1Z Immobilization of Left Lower Arm using Splint (ICD-10-PCS; principal; 2019-12-06)
DX: S52.502A Unspecified fracture of the lower end of left radius, initial encounter for closed fracture (principal); W19.XXXA Unspecified fall, initial encounter; Y93.9 Activity, unspecified; Y92.009 Unspecified place in unspecified non-institutional (private) residence as the place of occurrence of the external cause; Z79.01 Long term (current) use of anticoagulants; Z79.82 Long term (current) use of aspirin; Z88.1 Allergy status to other antibiotic agents; Z88.8 Allergy status to other drugs, medicaments and biological substances; I10 Essential (primary) hypertension; E78.5 Hyperlipidemia, unspecified
CPT/HCPCS: 96372; 99284

== ENCOUNTER 2020-09-19 15:09 | Emergency (ER) | payer OTHER ==
--- OUTSIDE RECORDS SUMMARY | 2020-09-19 15:13 | XMS REPORT | Continuity of Care Document ---
:1935 Author Organization [facility] t Address [address] [place] [address] Care Team Providers Name Role Phone Augie Hernadez MD Primary Care Physician Alicia RAMOS RVaishali Attending Clinician Manpreet RAMOS LVaishali Attending Clinician Lobo SANCHEZ, A Attending Clinician Unavailable Raúl TAYLOR, G Attending Clinician Venecia RAMOS Attending Clinician Miguel Ángel SANCHEZ Attending Clinician Unavailable Venecia RAMOS Admitting Clinician Payers Payer Name Policy Type Policy Effective Date Expiration Date Sour ce Number MEDICAREMEDICARE PART [id number] [address] [facility] AND 00:00:00 [facility] [id number] [address], [place] Condition Condition Condition Status Onset Resolution Last Treating Co mments Source Name Details Category Date Date Treatment Clinician Date Stented Stented Disease Active [facility] coronary coronary 1-[facility] st artery artery 00:00: Hosp[facility] 00 l Coronary Coronary Disease Active [facility] artery artery 7-11 st disease disease 00:00: [facility]ospita involving involving 00 [place] coronary coronary artery of artery of [place] heart heart without without angina angina pectoris pectoris SOB SOB Disease Active [facility] (shortness (shortness 4-18 st of breath) of breath) 00:00: Ho [facility]ita 00 l CAD in CAD in Disease Active [facility] [place] 4-18 st artery artery 00:00: Hospita 00 l Chronic Chronic Disease Active [facility] systolic systolic 4-18 st congestive congestive 00:00: Ho spita heart heart 00 l failure failure NSTEMI NSTEMI Disease Active [facility] (non-ST (non-ST 3-30 st elevated elevated 00:00: Hospit a myocardial myocardial 00 l infarction infarction ) ) Coronary Coronary Disease Active [facility] artery artery 1-10 st disease disease 00:00: Hospita involving involving 00 l [place] heart with heart with angina angina pectoris pectoris History of History of Disease Active [facility] coronary coronary 1-10 st artery artery 00:00: Hospita bypass bypass 00 l graft graft Allergies, Adverse Reactions, Alerts This patient has no known allergies or adverse reactions. Family History Family Member Diagnosis Comments Start Date Stop Date Source Natural father Heart attack [facility] Natural mother Heart attack [facility] Natural son Colon [facility] Social History Social Habit Start Date Stop Date Quantity Comments Source History of tobacco [facility] Cigarettes smoked 2019-03-06 2019-03-[address] current (pack per 00:00:00 00:00:00 Hospita l day) - Reported Cigarette 2019-03-06 2019-03-06 [facility] Tobacco use and 2019-03-06 2019-03-06 Never used [facility] exposure 00:[facility]:00 [facility] Alcohol intake 2019-03-06 2019-03-06 Current drinker [facility] 00:00:00 00:00:00 of alcohol Hospital (finding) Sex Assigned At [birth year] [facility] 00:[facility] Smoking Status Start Date Stop Date Source Former smoker 2019-03-06 00:00:00 2019-03-06 00:00:00 [facility] Medications Ordered Filled Start Stop Current Ordering Indication Dosage Frequency Signature Comments Components Source Medication Medication Date Date Medication? Clinician (SIG) Name Name losartan Yes TAKE 1 [facility] (COZAAR) 6-[address] 100 MG 00:00: [facility]OU[facility] tablet 00 DAILY l nitroglycer Yes [id number] DISSOLVE 1 [facility] in 2-[address] (NITROSTAT) 00:00: UNDER THE H ospita 0.4 MG SL 00 TONGUE l tablet NEEDED FOR ANGINA, MAY REPEAT EVERY 5 MINUTES FOR UPTO 3 DOSES losartan 2020- No TAKE 1 [facility] (COZAAR) 2- 06-[address] 100 MG 00:00: 00:00 MOUTH [facility]ospita tablet 00 :00 DAILY l esomeprazol Yes [id number] TAKE 1 [facility] e (NexIUM) 2- CAPSULE BY st 40 MG 00:00: MOUTH [facility] capsule 00 TWICE A l DAY furosemide Yes TAKE 1 [facility] (LASIX) 40 2- TABLET BY st mg tablet 00:00: MOUTH [facility]ospita 00 TWICE A l DAY losartan 2019-02- No TAKE 1 [facility] (COZAAR) 03-01- TABLET BY st 100 MG 00:00: 00:00 MOUTH [facility]osp[facility] tablet 00 :00 DAILY l metoprolol 2019-02 Yes TAKE 2 [facility] succinate 0-[address] XL 00:00: MOUTH [facility]ospita (TOPROL-XL) 00 DAILY l 25 mg 24 hr tablet losartan 2019- No TAKE ONE [facility] (COZAAR) 8-25 11-[address] 100 MG 00:00: 00:00 MOUTH [facility]ospita tablet 00 :00 DAILY l metoprolol 2019- No TAKE 2 [facility] succinate 7-16 10-[address] XL 00:00: 00:00 MOUTH [facility]ospita (TOPROL-XL) 00 :00 DAILY l 25 mg 24 hr tablet losartan 2019- No TAKE ONE [facility] (COZAAR) 5-18 08-[address] 100 MG 00:00: 00:00 MOUTH [facility]ospita tablet 00 :00 DAILY l furosemide 2020- No TAKE ONE [facility] (LASIX) 40 4-23 02- TABLET BY st mg tablet 00:00: 00:00 MOUTH Hospit a 00 :00 TWICE A l DAY esomeprazol 2020- No [id number] 40mg Q.5D Take 1 [facility] (NexIUM) 4-15 02- capsule st 40 MG 00:00: 00:00 (40 mg Hospita capsule 00 :00 total) by l mouth 2 (two) times a day. aspirin 2020-0 Yes 81mg QD Take 81 mg [facility] (ECOTRIN) 03-[address] 81 MG 19:04: daily. Hospita enteric 09 l coated tablet ascorbic 2020-0 Yes 500mg QD Take 500 [facility] acid, - mg by st vitamin C, 19:04: mouth Hospit a (ascorbic 09 daily. l acid with sophia hips) 500 MG tablet DULCOLAX, 2019-0 Yes Take by [facility] BISACODYL, 03-[address] ORAL 19:04: Hospita 09 l UNABLE TO 2020-0 Yes 1.66mg 1.66 mg. [facility] FIND 03-06 I-Caps st 19:04: Hospita 09 l gabapentin 2020-0 Yes 100mg Take 100 [facility] (NEURONTIN) 03-[address] 100 mg 19:04: mouth as Hospita capsule 09 needed. l folic acid 2019-0 Yes 1mg QD Take 1 mg [facility] (FOLVITE) 1 03-[address] MG tablet 19:04: daily. Hospit a 09 l polyethylen 2020-0 Yes 17g QD Take 17 g M [facility] e glycol 03-[address] (MIRALAX) 19:04: daily. Hospit a 17 gram 09 l packet acetic acid 2019-0 Yes 2[drp] Q.25D Administer [facility] (VOSOL) 2 % 03-[address] otic 19:04: into both Hospita solution 09 ears 4 l (four) times a day. nitroglycer 2019-2020- No [id number] 1 under [facility] in 03-[address] (NITROSTAT) 00:00: 00:00 as needed Hospita 0.4 MG SL 00 :00 for l tablet angina, may repeat q5mins for up three doses methocarbam Yes 500mg Take 500 M [facility] ol 6-[address] (ROBAXIN) 00:00: mouth as Hosp franklyn 500 MG 00 needed. l tablet HYDROcodone Yes 2{tbl} Take 2 [facility] -acetaminop 2-[address] hen (NORCO) 00:00: mouth as Ho spita 7.5-325 mg 00 needed. l per tablet traMADol Yes [facility] (ULTRAM) 50 2-27 st mg tablet 00:00: Hospita 00 l temazepam 2015-02 Yes [facility] (RESTORIL) 2-30 st 30 mg 00:00: Hospita capsule 00 l ALPRAZolam 2015-02 Yes .5mg QD Take 0.5 [facility] (XANAX) 0.5 2-[address] MG tablet 00:00: mouth Hospita 00 daily. l clopidogrel 2015-02 Yes [facility] (PLAVIX) 75 2-07 st mg tablet 00:00: Hospita 00 l atorvastati 2015-02 Yes [facility] i n (LIPITOR) 0-26 st 20 MG 00:00: Hospita tablet 00 l Procedures This patient has no known procedures. Plan of Care Planned Activity Planned Date Details Comments Source Future Scheduled Test 65+ PNEUMOCOCCAL Me [facility] VACCINE (1 of 2 - PPSV23) [code = 65+ PNEUMOCOCCAL VACCINE (1 of 2 - PPSV23)] Future Scheduled Test COVID-19 VACCINE (1) [facility] [code = COVID-19 VACCINE (1)] Future Scheduled Test SHINGLES VACCINES (#1) [facility] [code = SHINGLES VACCINES (#1)] Future Scheduled Test COLONOSCOPY SCREENING [facility] [code = COLONOSCOPY SCREENING] Future Scheduled Test INFLUENZA VACCINE [code [facility] = INFLUENZA VACCINE] Encounters Start End Encounter Admission Attending Care Care Encounter Source Date/Time Date/Time Type Type Clinicians Facility Department ID 2020-07-15 2020-07-15 Refill Alicia 1.2.840.1 [id number] [facility] 00:00:00 00:00:[address] Y[address] 3.430.2.7 Hospit a .3.574848 l .8 2020-04-11 2020-04-11 Travel 1.2.840.1 [id number] [id number] [facility] 00:00:00 00:00:[address] 3.430.2.7 0.2.7.3.698 Ho spita .3.294199 084.8 l .8 2020-04-04 2020-04-04 Telephone Alicia, 1.2.840.1 [id number] [facility] 08:30:00 08:45:00 Consult Yadira Ovalle [address]059.1.[address] 3.430.2.7 Hospit a .3.329660 l .8 2020-04-04 2020-04-04 Refill Alicia, 1.2.840.1 [id number] [facility] 00:00:00 00:00:00 Y[address] 3.430.2.7 Hospit a .3.823430 l .8 2020-03-31 2020-03-31 Travel 1.2.840.1 1.2.752.545 [id number] [facility] 00:00:00 00:00:[address] 3.430.2.7 0.2.7.3.698 Ho spita .3.904665 084.8 l .8 2020-03-17 2020-03-17 Travel 1.2.840.1 1.2.707.986 [id number] [facility] 00:00:00 00:00:[address] 3.430.2.7 0.2.7.3.698 Ho spita .3.385060 084.8 l .8 2020-03-11 2020-03-11 Refill Manpreet, 1.2.840.1 [id number] [facility] 00:00:00 00:00:00 [address] 3.430.2.7 Hospit a .3.622401 l .8 2020-03-10 2020-03-10 Refill Alicia, 1.2.840.1 [id number] [facility] 00:00:00 00:00:00 [address] 3.430.2.7 Hospit a .3.941678 l .8 2020-02-13 2020-02-13 Transition Carine Diamond 1.2.840.114 [id number] 00:00:00 00:00:00 of Care Michele Brewer 350.1.13.10 [place] 4.2.7.2.686 [id number] 2020-02-10 2020-02-12 [facility] Natasha Olsen [facility] 1.2.840. 114 [id number] 17:18:00 16:27:00 Encounter Brisa Cuadra 350.1.13.10 Kalpana 4.2.7.2.686 [facility] [id number] 2019-12-31 2019-12-31 Refиван Castillo, 1.2.840.1 [id number] [facility] 00:00:00 00:00:[address] 3.430.2.7 Hospit a .3.197015 l .8 2019-11-27 2019-11-27 Refиван Castillo 1.2.840.1 [id number] [facility] 00:00:00 00:00:[address] 3.430.2.7 Hospit a .3.915654 l .8 2019-11-13 2019-11-13 [place] Miguel Ángel, 1.2.840.1 [id number] [facility] 00:00:00 00:00:[address] 3.430.2.7 Hospit a .3.038504 l .8 2019-10-01 2019-10-01 Refиван Castillo 1.2.840.1 [id number] [facility] 00:00:00 00:00:00 [address] 3.430.2.7 Hospit a .3.387246 l .8 2019-09-04 2019-09-04 [facility] ALICIA [facility] [id number] [place] 00:00:00 00:00:00 YADIRA [address] Results This patient has no known results.
--- NOTE | 2020-09-19 16:20 | ER ---
Nurse's Notes [facility] Name: Pinky Meek Age: 84 yrs Sex: Female : 1935 Arrival Date: 09/19/2020 Time: 15:27 Bed DX1 Private MD: Diagnosis: Right Distal Radial Impaction Fracture Comminuted with Intra-Articular Extension Presentation: 09/19 16:04 Chief complaint: Patient states: Pt reports tripping, fall from standing Tuesday. C/O lm7 right wrist pain, had XR done and splint applied. Coronavirus screen: Client denies travel out of the [place] in the last 14 days. At this time, the client does not indicate any symptoms associated with coronavirus-19. Ebola Screen: Patient negative for fever greater than or equal to 101.5 degrees Fahrenheit, and additional compatible Ebola Virus Disease symptoms Patient denies exposure to infectious person. Patient denies travel to an Ebola-affected area in the 21 days before illness onset. Initial Sepsis Screen: Does the patient meet any 2 criteria? No. Patient's initial sepsis screen is negative. Does the patient have a suspected source of infection? No. Patient's initial sepsis screen is negative. Risk Assessment: Do you want to hurt yourself or someone else? Patient reports no desire to harm self or others. Onset of symptoms is unknown. 16:04 Method Of Arrival: Ambulatory lm7 16:04 Acuity: MATHEUS 4 lm7 Triage Assessment: 16:09 General: Appears in no apparent distress. Behavior is calm, cooperative. Pain: lm7 Complains of pain in R wrist. Musculoskeletal: Circulation, motion, and sensation intact. Capillary refill < 3 seconds, Range of motion: limited in right wrist Swelling. Injury Description: fall. Historical: - Allergies: 16:09 Augmentin; lm7 16:09 Flagyl; lm7 - PMHx: 16:09 Chronic pain; Hyperlipidemia; Hypertension; lm7 - Immunization history:: Client reports having NOT received the Covid vaccine. - Social history:: Smoking status: . Screenin:11 Abuse screen: Denies threats or abuse. Denies injuries from another. Nutritional lm7 screening: No deficits noted. Tuberculosis screening: No symptoms or risk factors identified. Fall Risk None identified. Assessment: 16:38 Reassessment: Patient appears in no apparent distress at this time. Patient and/or ss family updated on plan of care and expected duration. Pain level reassessed. Patient is alert, oriented x 3, equal unlabored respirations, skin warm/dry/pink. Vital Signs: 16:04 BP 120 / 50; Pulse 60; Resp 16; Temp 97.8(T); Pulse Ox 100% ; Weight 70.31 kg; Height 4 lm7 ft. 11 in. (149.86 cm); Pain 7/10; 16:04 Body Mass Index 31.31 (70.31 kg, 149.86 cm) lm7 ED Course: 15:27 Patient arrived in ED. ds1 16:08 Reyes Long PA is PHCP. cp 16:08 Brandon Melton MD is Attending Physician. cp 16:09 Triage completed. lm7 16:09 Arm band placed on left wrist. lm7 16:19 Juvencio Smith MD is Referral Physician. cp 16:28 Orthoglass splint: Sugar tong splint applied on right arm. mt 16:38 Muna Gautam RN is Primary Nurse. ss 16:38 No provider procedures requiring assistance completed. Patient did not have IV access ss during this emergency room visit. Administered Medications: No medications were administered Outcome: 16:19 Discharge ordered by MD. cp 16:38 Discharged to home via wheelchair. ss 16:38 Condition: good 16:38 Discharge instructions given to patient, family, Instructed on discharge instructions, follow up and referral plans. Demonstrated understanding of instructions, follow-up care. 16:38 Patient left the ED. ss Signatures: Luba Watson ds1 Muna Gautam RN RN Fabi Hein 7 Reyes Long PA PA Yelena Gillespie wy
--- NOTE | 2020-09-19 16:20 | EDPHYS ---
Physician Documentation [facility] Name: Pinky Meek Age: 84 yrs Sex: Female : 1935 Arrival Date: 09/19/2020 Time: 15:27 Bed DX1 Private MD: ED Physician Brandon Melton HPI: 09/19 16:08 This 84 yrs old Female presents to ER via Unassigned with complaints of Wrist cp Injury. 16:08 The patient or guardian reports decreased range of motion, deformity, injury, pain. The cp complaints affect the right wrist diffusely. Context: resulted from a fall, while walking. Onset: The symptoms/episode began/occurred 2 day(s) ago. Associated signs and symptoms: Pertinent negatives: cyanosis distally, numbness distally. Patient reports slip and fall on carpet 2 days ago. Patient c/o pain to left wrist. Patient denies striking head, denies LOC, denies syncope. Patient reports taking prescribed Hydrocodone for pain today. Historical: - Allergies: 16:09 Augmentin; lm7 16:09 Flagyl; lm7 - PMHx: 16:09 Chronic pain; Hyperlipidemia; Hypertension; lm7 - Immunization history:: Client reports having NOT received the Covid vaccine. - Social history:: Smoking status: . ROS: 16:11 Constitutional: Negative for body aches, chills, fever, poor PO intake. cp 16:11 Neck: Negative for pain with movement, pain at rest, stiffness, tenderness, bony tenderness. 16:11 Cardiovascular: Negative for chest pain. 16:11 Respiratory: Negative for cough, shortness of breath, wheezing. 16:11 Abdomen/GI: Negative for abdominal pain, nausea, vomiting, and diarrhea. 16:11 Back: Negative for pain at rest, pain with movement. 16:11 MS/extremity: Positive for decreased range of motion, ecchymosis, pain, swelling, tenderness, of the right wrist, Negative for paresthesias. 16:11 Neuro: Negative for altered mental status, headache, loss of consciousness, syncope, weakness. 16:11 All other systems are negative. Exam: 16:12 Head/Face: Normocephalic, atraumatic. cp 16:12 Constitutional: The patient appears in no acute distress, alert, awake, comfortable, non-toxic, well developed, well nourished. 16:12 Neck: C-spine: vertebral tenderness, is not appreciated, crepitus, is not appreciated, cp ROM/movement: is normal, is supple. 16:12 Chest/axilla: Inspection: normal, Palpation: is normal, no crepitus, no tenderness. cp 16:12 Cardiovascular: Rate: normal, Pulses: Pulses are 2+ in right radial artery. 16:12 Respiratory: the patient does not display signs of respiratory distress, Respirations: normal, no use of accessory muscles, no retractions. 16:12 Back: pain, is absent, ROM is normal. 16:12 Musculoskeletal/extremity: the right hand Sensation intact. Joints: the right wrist displays limited range of motion, swelling, tenderness, ecchymosis, mild deformity. Vital Signs: 16:04 BP 120 / 50; Pulse 60; Resp 16; Temp 97.8(T); Pulse Ox 100% ; Weight 70.31 kg; Height 4 lm7 ft. 11 in. (149.86 cm); Pain 7/10; 16:04 Body Mass Index 31.31 (70.31 kg, 149.86 cm) lm7 Procedures: 16:45 Splinting: Splint applied to right wrist using Orthoglass splint, sling, sugar tong cp type. applied by tech. Examined by me, post splint application: neurovascular intact, Patient tolerated well. MDM: 16:19 Patient medically screened. cp 16:19 Data reviewed: vital signs, nurses notes, radiologic studies, plain films. cp 16:19 Differential diagnosis: dislocation, open fracture, closed fracture, contusion. Test cp interpretation: by ED physician or midlevel provider: plain radiologic studies. Counseling: I had a detailed discussion with the patient and/or guardian regarding: the historical points, exam findings, and any diagnostic results supporting the discharge/admit diagnosis, radiology results, the need for outpatient follow up, for definitive care, a orthopedic surgeon, to return to the emergency department if symptoms worsen or persist or if there are any questions or concerns that arise at home. Response to treatment: the patient's symptoms have markedly improved after treatment, and as a result, I will discharge patient. 09/19 16:08 Order name: Sling; Complete Time: 16:28 cp 09/19 16:18 Order name: Sugar Tong Forearm Splint; Complete Time: 16:28 cp Administered Medications: No medications were administered Disposition: 16:45 Chart complete. cp Disposition Summary: 09/19/20 16:19 Discharge Ordered Location: Home cp Problem: new cp Symptoms: have improved cp Condition: Stable cp Diagnosis - Right Distal Radial Impaction Fracture Comminuted with Intra-Articular Extension cp Followup: cp - With: Juvencio Smith MD - When: 2 - 3 days - Reason: right wrist fracture Discharge Instructions: - Discharge Summary Sheet cp - Wrist Fracture Treated With Immobilization cp Forms: - Medication Reconciliation Form cp - Thank You Letter cp - Antibiotic Education cp - Prescription Opioid Use cp Addendum: 09/22/2020 07:08 Co-signature as Attending Physician, Brandon Melton MD I agree with the assessment and k dr plan of care. Signatures: Brandon Melton MD MD kdr Minter, Laura lm7 Reyes Long PA PA cp Corrections: (The following items were deleted from the chart) 09/19 16:13 16:08 Patient reports slip and fall on carpet 2 days ago. Patient c/o pain to left cp wrist. Patient denies striking head, denies LOC, denies syncope. cp 16:18 16:08 Splint - Ulnar Gutter ordered. cp cp 16:23 16:19 Colles' fracture of right radius cp cp 09/20 15:53 09/19 16:25 Chart complete. cp cp 09/20 15:53 09/19 16:25 Splinting: Splint applied to right wrist using Orthoglass splint, sling, cp sugar tong type. applied by tech. Examined by me, post splint application: neurovascular intact, Patient tolerated well, cp
[2020-09-19 16:43] VITALS: BP 120/50; TEMP 97.8; O2SAT 100
== END 2020-09-19 16:38 | disposition home or self-care (01) ==
LOC: ER 15:09
PROC: 2W3CX1Z Immobilization of Right Lower Arm using Splint (ICD-10-PCS; principal; 2020-09-19)
DX: S52.501A Unspecified fracture of the lower end of right radius, initial encounter for closed fracture (principal); W18.30XA Fall on same level, unspecified, initial encounter; Y93.01 Activity, walking, marching and hiking; I10 Essential (primary) hypertension; Z88.1 Allergy status to other antibiotic agents; Z88.8 Allergy status to other drugs, medicaments and biological substances
CPT/HCPCS: 99283

== ENCOUNTER 2024-11-21 10:49 | Emergency (ER) | payer OTHER ==
--- NOTE | 2024-11-21 11:46 | RAD REPORT ---
EXAMINATION: CT HEAD WITHOUT CONTRAST CT CERVICAL SPINE WITHOUT CONTRAST CLINICAL INDICATION: Head and neck injury status post fall. Head and neck pain TECHNIQUE: Axial CT images from the skull base to the vertex without intravenous contrast. Axial CT i mages through the cervical spine were obtained without intravenous contrast. Sagittal and coronal reformatted images were created from the data set. Coronal and sagittal reformatted images were creat ed from the data set. One or more of the following dose reduction techniques were used: Automated exposure control, adjustment of the mA and/or kV according to patient size, and/or iterative reconstr uction. Unless otherwise specified, incidental findings do not require dedicated imaging follow-up. [id number]. Comparison: 2017 FINDINGS: An intracranial bleed is not seen. 1 cm calcification abutting the left aspect of the falx without significant change. No surrounding ed dyan. This may represent a meningioma. Ventricles are normal in caliber. No significant hypodensity within the brain No extra-axial fluid collection. No fluid within the sinuses/mastoids No fracture or dislocation is seen involving the cervical spine. Mild chronic anterior subluxation C6 on C7. Marked spondylosis mid and distal cervical spine. Cystic changes C2 have mildly progressed since prior exam. IMPRESSION: No acute intracranial abnormality noted A cervical fracture is not seen. If the patient continues to have symptoms to suggest acute [employer]/spinal pathology then MRI would be rec ommended
--- NOTE | 2024-11-21 11:58 | RAD REPORT ---
Exam:Shoulder Right 2+ Views History: Right shoulder pain Findings: Comminuted mildly displaced fracture right humeral neck. A fracture fragment is avulsed laterally. No dislocation.
--- NOTE | 2024-11-21 11:58 | RAD REPORT ---
Exam:Humerus Right CLINICAL HISTORY: Right arm pain FINDINGS: Comminuted mildly displaced fracture right humeral neck. A fracture fragment is avulsed laterally.
[2024-11-21 12:30] LABS: Absolute Lymphocytes (CBC) 0.7 K/uL (0.7-4.9); Hematocrit 33.7 % (36.0-45.0); Hemoglobin 11.1 g/dL (12.0-15.0); MCH 29.3 pg (27.0-35.0); MCHC 33.0 g/dL (32.0-36.0); MCV 88.7 fL (80-100); MPV 8.1 fL (7.6-11.3); Nucleated RBC Absolute Count 0.0 (0-0); Nucleated Red Blood Cells % 0.0 % (0-0); RBC Red Blood Cell Count 3.80 M/uL (3.86-4.86); White Blood Count 11.20 thou/uL (4.3-10.9)
[2024-11-21 13:11] LABS: Anion Gap 11.6 mEq/L (5.0-15.0); BUN Blood Urea Nitrogen 10.0 mg/dL (7-18); Glucose Level 116.0 mg/dL (74-106); Potassium 3.6 mEq/L (3.5-5.1)
[2024-11-21 14:16] LABS: Urine Microscopic Reflex YN NO UMIC
--- NOTE | 2024-11-21 15:07 | EDPHYS ---
Physician Documentation [facility] Name: Pinky Meek Age: 89 yrs Sex: Female : 1935 Arrival Date: 11/21/2024 Time: 10:49 Bed 20 Private MD: AMBER Physician Reyes Ochoa HPI: 11/21 15:00 This 89 yrs old Female presents to ER via EMS with complaints of Fall Injury, Altered kb Mental Status. 15:00 Patient is an 89-year-old female on hospice for CAD who presents for fall and altered kb mental status. Patient was put in bed last night and when family went in this morning to check on her she was on the floor. States they are not sure when she fell but she was laying on her right arm when they found her. Family was able to get her up to the restroom but she seemed a little more confused than normal. Hospice nurse arrived and the patient was confused on who she was so they decided to bring her in for evaluation to make sure she did not have a brain bleed. Family states she has been getting more confused over the last few weeks. Patient complains of pain to right shoulder only.. Historical: - Allergies: 11:27 Augmentin; dd2 11:27 Flagyl; dd2 11:27 Sulfa (Sulfonamide Antibiotics); dd2 11:27 Bactrim; dd2 11:27 Methylprednisolone; dd2 - PMHx: 11:27 Chronic pain; Hyperlipidemia; Hypertension; Coronary atherosclerosis; BREAST CANCER; dd2 Anxiety; Osteoarthritis; Gastroesophageal reflux disease; - PSHx: 11:27 Lumpectomy of breast; Total abdominal hysterectomy; dd2 - Immunization history:: Adult Immunizations unknown. - Infectious Disease History:: Denies. - Social history:: Smoking status: Patient denies any tobacco usage or history of. ROS: 14:59 Constitutional: As per HPI kb Exam: 14:59 Constitutional: This is a well developed, well nourished patient who is awake, alert, kb and in no acute distress. Head/Face: Normocephalic, atraumatic. ENT: Moist Mucous membranes Cardiovascular: Regular rate Respiratory: Respirations even and unlabored. No increased work of breathing. Talking in full sentences Abdomen/GI: Soft, non-tender. No distention 14:59 Cardiovascular: Edema: pedal edema, 14:59 Musculoskeletal/extremity: Extremities: grossly normal except: noted in the anterior aspect of right shoulder: decreased ROM, pain, tenderness, ROM: limited active range of motion, limited active range of motion due to pain, Circulation is intact in all extremities. Sensation intact. Vital Signs: 11:21 BP 161 / 66; Pulse 69; Resp 16; Temp 98.1; Pulse Ox 95% on R/A; Weight 72.57 kg; dd2 13:15 BP 140 / 58; Pulse 60; Resp 16; Pulse Ox 98% ; bp 14:30 BP 144 / 60; Pulse 61; Resp 18; Pulse Ox 98% on 2 lpm NC; rg5 15:39 BP 140 / 59; Pulse 62; Resp 18; Pulse Ox 98% on 2 lpm NC; rg5 16:00 BP 138 / 60; Pulse 61; Resp 18; Pulse Ox 98% on R/A; rg5 MDM: 11:05 Medical Screening Exam initiated kb 13:59 Differential diagnosis: closed head injury, contusion, fracture, UTI. Data reviewed: vital signs, nurses notes. Independent interpretation of the following test(s) in the Emergency Department X-Ray: My interpretation is proximal humerus fracture. Historians other than the Patient: Family Member: family members and hospice nurse. 15:01 Counseling: I had a detailed discussion with the patient and/or guardian regarding the kb historical points, exam findings, and any diagnostic results supporting the discharge/admit diagnosis, lab results, radiology results, the need for outpatient follow up, a family practitioner, to return to the emergency department if symptoms worsen or persist or if there are any questions or concerns that arise at home. ED course: Discussed all results with family, showed them x-ray. Family in agreement with outpatient care and follow up. 11/21 11:12 Order name: CBC with Diff; Complete Time: 15:30 kb 11/21 11:12 Order name: BMP; Complete Time: 13:14 kb 11/21 11:12 Order name: UA Rfx Keith Cult if indicated; Complete Time: 14:22 kb 11/21 15:22 Order name: CBC Smear Scan; Complete Time: 15:30 EDMS 11/21 11:12 Order name: CT Head C Spine; Complete Time: 11:58 kb 11/21 11:12 Order name: Shoulder Right (2 View) XRAY; Complete Time: 12:04 kb 11/21 11:12 Order name: Humerus Right XRAY; Complete Time: 12:04 kb 11/21 11:12 Order name: IV Start; Complete Time: 12:06 kb 11/21 12:36 Order name: Labs - recollect needed: recollect green top; Complete Time: 12:47 bd 11/21 13:49 Order name: Straight Cath; Complete Time: 14:05 kb 11/21 14:54 Order name: Sling; Complete Time: 15:32 kb Administered Medications: 15:20 Drug: NS 0.9% IV 250 ml IV at calculated rate once; to be given as a bolus over 30 rg5 minutes Route: IV; Rate: calculated rate; Site: right jugular; 16:00 Follow up: IV Status: Completed infusion; IV Intake: 250ml rg5 15:53 Drug: morphine IVP or IV 2 mg IVP once over 4 mins Route: IVP; Infused Over: 4 mins; rg5 Site: right jugular; 16:00 Follow up: Response: No adverse reaction; Pain is decreased rg5 15:53 Drug: Ondansetron IVP 4 mg IVP once; over 2 minutes Route: IVP; Site: right jugular; rg5 16:00 Follow up: Response: No adverse reaction rg5 Disposition: 11/22 07:33 Co-signature as Attending Physician, Reyes Ochoa MD I agree with the assessment and theresa plan of care. Disposition Summary: 11/21/24 15:06 Discharge Ordered Notes: Location: Home kb Condition: Stable kb Diagnosis - Fall on same level, unspecified kb - Fracture of right proximal humerus kb - Altered mental status, unspecified kb Followup: kb - With: Emergency Department - When: As needed - Reason: Worsening of condition Followup: kb - With: Private Physician - When: 2 - 3 days - Reason: Recheck today's complaints, Continuance of care, Re-evaluation by your physician Discharge Instructions: - Discharge Summary Sheet kb - Humerus Fracture Treated With Immobilization, [id number] kb Forms: - Medication Reconciliation Form kb - Antibiotic Education kb - Prescription Opioid Use kb - Patient Portal Instructions kb - Leadership Thank You Letter kb Signatures: Dispatcher [employer] EDHelena Francisco FNP-C FNP-Giselle Harris Corey, MD MD cha Gallardo, Rommel RN RN rg5 MARILY CASTLE RN RN dd2 Corrections: (The following items were deleted from the chart) 11/21 15:07 15:00 Patient is an 89-year-old female on hospice for CAD who presents for fall and kb altered mental status. Patient was put in bed last night and when family went in this morning to check on her she was on the floor. States they are not sure when she fell but she was laying on her right arm when they found her. Family was able to get her up to the restroom but she seemed a little more confused than normal. Hospice nurse arrived and the patient was confused on who she was so they decided to bring her in for evaluation to make sure she did not have a brain bleed. Patient complains of pain to right shoulder only.. kb
--- NOTE | 2024-11-21 15:07 | ER ---
Nurse's Notes [facility] Name: Pinky Meek Age: 89 yrs Sex: Female : 1935 Arrival Date: 11/21/2024 Time: 10:49 Bed 20 Private MD: Diagnosis: Fall on same level, unspecified;Fracture of right proximal humerus;Altered mental status, unspecified Presentation: 11/21 11:21 Chief complaint: EMS states: WAS CALLED OUT FOR AN UNWITNESSED FALL THAT OCCURRED AT dd2 9AM. PT REPORTED THAT SHE WAS GETTING UP TO GET HER WALKER. PT C/O RT SHOULDER PAIN. PT DAUGHTER REPORTS CONFUSED MORE TODAY THAN NORMAL. PT ON HOSPICE CARE. Coronavirus screen: At this time, the client does not indicate any symptoms associated with coronavirus-19. Ebola Screen: No symptoms or risks identified at this time. Initial Sepsis Screen: Does the patient meet any 2 criteria? No. Patient's initial sepsis screen is negative. Does the patient have a suspected source of infection? No. Patient's initial sepsis screen is negative. Risk Assessment: Do you want to hurt yourself or someone else? Patient reports no desire to harm self or others. Onset of symptoms was November 21, 2024 at 09:00. 11:21 Method Of Arrival: EMS: [facility] dd2 11:21 Acuity: MATHEUS 3 dd2 Triage Assessment: 11:27 General: Appears in no apparent distress. uncomfortable, Behavior is calm, cooperative, dd2 appropriate for age. Pain: Complains of pain in anterior aspect of right shoulder. EENT: No deficits noted. No signs and/or symptoms were reported regarding the EENT system. Neuro: Level of Consciousness is awake, alert, obeys commands, Oriented to person, place, situation. Cardiovascular: No deficits noted. Respiratory: No deficits noted. GI: No deficits noted. No signs and/or symptoms were reported involving the gastrointestinal system. : No deficits noted. No signs and/or symptoms were reported regarding the genitourinary system. Derm: No deficits noted. No signs and/or symptoms reported regarding the dermatologic system. Musculoskeletal: Range of motion: limited in right shoulder Reports pain in anterior aspect of right shoulder. Historical: - Allergies: 11:27 Augmentin; dd2 11:27 Flagyl; dd2 11:27 Sulfa (Sulfonamide Antibiotics); dd2 11:27 Bactrim; dd2 11:27 Methylprednisolone; dd2 - PMHx: 11:27 Chronic pain; Hyperlipidemia; Hypertension; Coronary atherosclerosis; BREAST CANCER; dd2 Anxiety; Osteoarthritis; Gastroesophageal reflux disease; - PSHx: 11:27 Lumpectomy of breast; Total abdominal hysterectomy; dd2 - Immunization history:: Adult Immunizations unknown. - Infectious Disease History:: Denies. - Social history:: Smoking status: Patient denies any tobacco usage or history of. Screenin:15 [facility] ED Fall Risk Assessment (Adult) History of falling in the last 3 months, bp including since admission Yes- single mechanical fall (1 pt) Confusion or Disorientation No (0 pts) Intoxicated or Sedated No (0 pts) Impaired Gait Yes (1 pt) Mobility Assist Device Used Yes (1 pt) Altered Elimination No (0 pt) Score/Fall Risk Level 3 or more points = High Risk Oriented to surroundings, Maintained a safe environment. Abuse screen: Denies threats or abuse. Denies injuries from another. Nutritional screening: No deficits noted. Tuberculosis screening: No symptoms or risk factors identified. Assessment: 11:34 Reassessment: SEE TRIAGE ASSESSMENT. dd2 13:16 Reassessment: Patient appears in no apparent distress at this time. Patient is alert, bp oriented x 3, equal unlabored respirations, skin warm/dry/pink. 14:00 Reassessment: Patient and/or family updated on plan of care and expected duration. Pain rg5 level reassessed. Patient is alert, oriented x 3, equal unlabored respirations, skin warm/dry/pink. 15:00 Reassessment: Patient and/or family updated on plan of care and expected duration. Pain rg5 level reassessed. Patient is alert, oriented x 3, equal unlabored respirations, skin warm/dry/pink. 16:00 Reassessment: No changes from previously documented assessment. Patient and/or family rg5 updated on plan of care and expected duration. Pain level reassessed. Patient is alert, oriented x 3, equal unlabored respirations, skin warm/dry/pink. Vital Signs: 11:21 BP 161 / 66; Pulse 69; Resp 16; Temp 98.1; Pulse Ox 95% on R/A; Weight 72.57 kg; dd2 13:15 BP 140 / 58; Pulse 60; Resp 16; Pulse Ox 98% ; bp 14:30 BP 144 / 60; Pulse 61; Resp 18; Pulse Ox 98% on 2 lpm NC; rg5 15:39 BP 140 / 59; Pulse 62; Resp 18; Pulse Ox 98% on 2 lpm NC; rg5 16:00 BP 138 / 60; Pulse 61; Resp 18; Pulse Ox 98% on R/A; rg5 ED Course: 10:50 Patient arrived in ED. bd 11:05 Helena Pal FNP-C is PHCP. kb 11:05 Reyes Ochoa MD is Attending Physician. kb 11:27 Triage completed. dd2 11:27 Arm band placed on right wrist. dd2 11:29 CT Head C Spine In Process Unspecified. EDMS 11:53 Shoulder Right (2 View) XRAY In Process Unspecified. EDMS 11:53 Humerus Right XRAY In Process Unspecified. EDMS 12:17 Initial lab(s) drawn, by me, sent to lab. Inserted saline lock: 20 gauge in right EJ, bp using aseptic technique. Blood collected. Flushed with 10 mL NS. 12:31 Scooter Albarran, RN is Primary Nurse. rg5 13:15 Patient has correct armband on for positive identification. bp 14:08 Urine collected: sent to lab. ts3 16:00 Provided Education on: post er care done. rg5 16:00 No provider procedures requiring assistance completed. IV discontinued, bleeding rg5 controlled, No redness/swelling at site. Pressure dressing applied. Administered Medications: 15:20 Drug: NS 0.9% IV 250 ml IV at calculated rate once; to be given as a bolus over 30 rg5 minutes Route: IV; Rate: calculated rate; Site: right jugular; 16:00 Follow up: IV Status: Completed infusion; IV Intake: 250ml rg5 15:53 Drug: morphine IVP or IV 2 mg IVP once over 4 mins Route: IVP; Infused Over: 4 mins; rg5 Site: right jugular; 16:00 Follow up: Response: No adverse reaction; Pain is decreased rg5 15:53 Drug: Ondansetron IVP 4 mg IVP once; over 2 minutes Route: IVP; Site: right jugular; rg5 16:00 Follow up: Response: No adverse reaction rg5 Medication: 16:00 VIS not applicable for this client. rg5 Intake: 16:00 IV: 250ml; Total: 250ml. rg5 Outcome: 15:06 Discharge ordered by . basim 16:00 Discharged to home via wheelchair, rg5 16:00 Condition: stable 16:00 Discharge instructions given to patient, family, Instructed on discharge instructions, follow up and referral plans. Demonstrated understanding of instructions, follow-up care, 16:03 Patient left the ED. rg5 Signatures: Dispatcher [employer] EDMS Helena Pal, DEBRA-Augie BEHAVIORAL HEALTH TECHNICIAN-Giselle Harris Brian, LAURA RN bp Scooter Albarran RN RN rg5 MARILY CASTLE RN RN dd2 Nancy Stockton 3
[2024-11-21 15:22] LABS: Blood Morphology Comment NOT SEEN (NOT SEEN); White Blood Cell Scan OK (OK)
[2024-11-21] MEDS ORDERED: NA CHLORIDE 0.9% 250 ML ONE (15:26)
[2024-11-21] MEDS ORDERED: MORPHINE 4 MG/ML SYR ONE (15:40)
[2024-11-21] MEDS ORDERED: ONDANSETRON 4 MG/2 ML VIAL ONE (15:47)
[2024-11-21 16:08] VITALS: TEMP 98.1
[2024-11-21 16:09] VITALS: BP 140/58; O2SAT 98
== END 2024-11-21 16:03 | disposition home or self-care (01) ==
LOC: ER 10:49
DX: S42.201A Unspecified fracture of upper end of right humerus, initial encounter for closed fracture (principal); R41.82 Altered mental status, unspecified; W18.30XA Fall on same level, unspecified, initial encounter
CPT/HCPCS: 96365; 85025; 80048; 36415; 81003; 70450; 72125; 73060; 73030; 96375; 99284; J2405; J7050